=== PATIENT | female | born 1960 | race African-American/Black ===

== ENCOUNTER 2016-06-12 08:00 | Inpatient (IN) | payer OTHER ==
[2016-05-28 11:12] VITALS: BMI 44.6
[~2016-06-12 08:00] MED LIST: CLINDAMYCIN 900 MG in DEXTROSE 5% IN WATER 50 ML IVPB ONE; DEXAMETHASONE SOD PHOSPHATE 10 MG/ML 1 ML VIAL IV ONE; HEPARIN SODIUM,PORCINE 5,000 UNIT/ML 1 ML VIAL SQ ONE; LACTATED RINGERS 1,000 ML IV SCH; MIDAZOLAM 2 MG/2 ML VIAL IV PRN; ONDANSETRON 4 MG/2 ML VIAL IVP ONE; SCOPOLAMINE 1.5MG/72HR PATCH TRANSDERM ONE
[2016-06-12] MEDS ORDERED: LACTATED RINGERS 1,000 ML IV ONE ×3 (08:38→10:20)
[2016-06-12] MEDS ORDERED: LIDOCAINE 1% 20 ML VIAL (10MG/ML) FOR IV START INTRADERMA ONE (08:39)
--- NOTE | 2016-06-12 08:57 | P.GSHP ---
History of Present Illness H&P Date: 06/12/16 Chief Complaint: GERD This is a 55-year-old female referred from Dr. savage.The patient has had long- standing problems with reflux esophagitis. The patient underwent recent EGD is found have evidence of esophagitis. Patient has been well informed on the procedure of laparoscopic Estevan fundoplication. The patient is aware the risk of the conversion to the open procedure, risk of injury to the stomach, liver and spleen. The patient is also a risk of recurrent GERD and dysphagia symptoms. The patient understands there is a postoperative diet of full liquids for 2 weeks after surgery. - Constitutional Constitutional: Reports as per HPI Past Medical History Past Medical History: Asthma, COPD, GERD/Reflux, Hypertension, Osteoarthritis ( OA), Skin Disorder Additional Past Medical History / Comment(s): hypoglycemic, . Mixed collagen vascular disease, hiatal hernia, diverticulitis, pityriasis versicolor History of Any Multi-Drug Resistant Organisms: None Reported Past Surgical History: Breast Surgery, Section, Cholecystectomy, Tonsillectomy Additional Past Surgical History / Comment(s): L breast lumpectomy, polyps in throat removed, cyst in left eye removed, Past Anesthesia/Blood Transfusion Reactions: Motion Sickness Additional Past Anesthesia/Blood Transfusion Reaction / Comment(s): Pt states she has never received blood. Past Psychological History: No Psychological Hx Reported Additional Psychological History / Comment(s): . Smoking Status: Current some day smoker Past Alcohol Use History: None Reported Additional Past Alcohol Use History / Comment(s): Pt states she started smoking at about age 21 yrs. 3 cigarettes daily Past Drug Use History: None Reported - Past Family History Sister(s) Family Medical History: Cancer, Deep Vein Thrombosis (DVT) Mother Family Medical History: Cancer, Pulmonary Embolus Additional Family Medical History / Comment(s): heart attack, blood clot in lungs which she of at age 73yrs. Brother(s) Family Medical History: Myocardial Infarction ([place]) Additional Family Medical History / Comment(s): Brother had an [place] at age 3 yrs old. Father Additional Family Medical History / Comment(s): . Medications and Allergies Home Medications Medication Instructions Recorded Confirmed Type Albuterol Sulfate [Proair 1 puff PO DAILY 09/28/15 06/12/16 History Respiclick] Hydroxychloroquine Sulfate 200 mg PO BID 09/28/15 06/12/16 History [Plaquenil] Lisinopril [Zestril] 40 mg PO HS 09/28/15 06/12/16 History amLODIPine BESYLATE [Norvasc] 5 mg PO DAILY 09/28/15 06/12/16 History Albuterol Nebulized [Ventolin 2.5 mg INHALATION BID PRN 12/18/15 05/28/16 History Nebulized] Omeprazole 20 mg PO DAILY 12/18/15 06/12/16 History Gabapentin [Neurontin] 300 mg PO TID 05/20/16 06/12/16 History Montelukast [Singulair] 10 mg PO 1400 05/20/16 06/12/16 History Tobramycin 0.3% Ophth Oint [Tobrex 1 drop BOTH EYES TID PRN 05/20/16 06/12/16 History 0.3% Ophth Oint] Allergies Allergy/AdvReac Type Severity Reaction Status Date / Time Penicillins Allergy Severe Dyspnea,hives,throat Verified 05/28/16 10:57 swelling Surgical - Exam Vital Signs Temp Pulse Resp BP Pulse Ox 98.0 F 78 18 137/70 98 06/12/16 08:20 06/12/16 08:20 06/12/16 08:20 06/12/16 08:20 06/12/16 08:20 - General well developed, no distress - Eyes PERRL - ENT normal pinna - Neck no masses - Respiratory normal expansion - Cardiovascular Rhythm: regular - Abdomen Abdomen: soft, non tender Assessment and Plan Plan: GERD. We'll perform laparoscopic Estevan fundal plication.
[2016-06-12] MEDS ORDERED: fentaNYL (PF) 50 MCG/ML 2 ML AMP ONE (09:22)
[2016-06-12] MEDS ORDERED: LIDOCAINE 1% INJ 10MG/ML (20 ML MDV) ONE (09:22)
[2016-06-12] MEDS ORDERED: VECURONIUM 10 MG VIAL IV ONE (09:22)
[2016-06-12] MEDS ORDERED: KETOROLAC 30 MG/ML 1 ML VIAL ONE (09:22)
[2016-06-12] MEDS ORDERED: MIDAZOLAM 2 MG/2 ML VIAL ONE (09:22)
[2016-06-12] MEDS ORDERED: GLYCOPYRROLATE 0.2 MG/ML 2 ML VIAL ONE (09:22)
[2016-06-12] MEDS ORDERED: SUCCINYLCHOLINE CHLORIDE 100 MG/5 ML SYR IV ONE (09:22)
[2016-06-12] MEDS ORDERED: NEOSTIGMINE 1 MG/ML 10 ML VIAL ONE (09:22)
[2016-06-12] MEDS ORDERED: LACTATED RINGERS 1,000 ML BAG IV ONE (09:22)
[2016-06-12] MEDS ORDERED: DEXTROSE 5% IN WATER 50 ML BAG ONE (09:22)
[2016-06-12] MEDS ORDERED: CLINDAMYCIN 150 MG/ML 6 ML VIAL ONE (09:22)
[2016-06-12] MEDS ORDERED: PROPOFOL 10 MG/ML 20 ML VIAL IV ONE (09:22)
[2016-06-12] MEDS ORDERED: BUPIVACAIN-EPI 0.25%-1:200,000 30 ML VIAL SQ ONE (09:48)
[2016-06-12] MEDS ORDERED: NALOXONE 0.4 MG/ML 1 ML VIAL IV PRN (10:20)
--- NOTE | 2016-06-12 10:20 | P.OP ---
Date of Procedure: 06/12/16 Preoperative Diagnosis: GERD Postoperative Diagnosis: GERD Procedure(s) Performed: Laparoscopic Estevan fundal plication Anesthesia: PAPITO Surgeon: Tyrell Ramírez Pathology: none sent Condition: stable Disposition: PACU Description of Procedure: The was placed on the operating table in the supine position. The patient received general anesthesia. And was placed in dorsal lithotomy position. The patient was prepped and draped in the usual sterile fashion. The skin incision sites were anesthetized with 1% local Xylocaine. The skin was incised in the left periumbilical area and then using a blade less 5 mm trocar under direct visualization panel cavity was entered. After adequate insufflation the laparoscope was then placed into the peritoneal cavity. Next a 5 mm trochars placed in the right epigastric position. Another 5 millimeter trocar the right lateral position. Another 5 millimeter trocar in the left lateral position a 5 mm trocar is placed in the left epigastric position. And then the initial 5 mm trocar was exchanged for a 10 mm trocar. The left lateral lobe liver was retracted. The hernia was seen. The crural defect was then dissected using the Harmonic scissors device. A 360 crural dissection was performed the esophagus stomach was reduced back into the peritoneal Cavity. The crural defect was then closed using 2-0 Ethibond suture. Next the fundus of the stomach was mobilized using the Dahlgren scissors device. and then a 58-Ecuadorean bougie dilator was placed oropharynx passed into the esophagus and stomach the fundal plication wrap was then performed by grasping the fundus posteriorly and bringing it around the esophagus and stomach fundoplication was then performed using 2-0 Ethibond suture. Care was taken that the fundal location rested over top of the intra-abdominal esophagus. There was no injury seen to the stomach or esophagus. The dilator was then withdrawn. The abdomen was irrigated there is no bleeding seen. The trochars were then withdrawn and then skin incision sites were closed using 3-0 Monocryl suture Steri-Strips are applied. Patient thought procedure well and sent to recovery room in stable condition.
[2016-06-12] MEDS: HYDROmorphone 1 MG/ML 1 ML SYRINGE IVP PRN ×4 (10:29→20:44)
[2016-06-12] MEDS ORDERED: ONDANSETRON 4 MG/2 ML VIAL IVP ONE (10:40)
[2016-06-12] MEDS ORDERED: TOBRAMYCIN 0.3% OPHTH OINT 3.5 GM TUBE BOTH EYES PRN (13:17)
--- NOTE | 2016-06-12 13:24 | P.CONS ---
History of Present Illness - Reason for Consult Consult date: 06/12/16 Medical management Requesting physician: Tyrell Ramírez - Chief Complaint Status post Estevan fundoplication - History of Present Illness This is a 55-year-old -[place] female with a known past medical history of COPD, hypertension, autoimmune disorder, GERD and nicotine dependence. We are consulted for medical management. Patient underwent Estevan fundoplication today with Dr. Ramírez for GERD. Patient tolerated surgery well. Pain is controlled. She is currently eating a clear liquid diet. Denies any chest pain or shortness of breath. Denies any vomiting. Does admit to some nausea. She had been having regular bowel movements prior to surgery. Denies any difficulty urinating. Review of Systems Please refer to HPI otherwise remarkable Past Medical History Past Medical History: Asthma, COPD, GERD/Reflux, Hypertension, Osteoarthritis ( OA), Skin Disorder Additional Past Medical History / Comment(s): hypoglycemic, . Mixed collagen vascular disease, hiatal hernia, diverticulitis, pityriasis versicolor History of Any Multi-Drug Resistant Organisms: None Reported Past Surgical History: Breast Surgery, Section, Cholecystectomy, Tonsillectomy Additional Past Surgical History / Comment(s): L breast lumpectomy, polyps in throat removed, cyst in left eye removed, Past Anesthesia/Blood Transfusion Reactions: Motion Sickness Additional Past Anesthesia/Blood Transfusion Reaction / Comm: Pt states she has never received blood. Past Psychological History: No Psychological Hx Reported Additional Psychological History / Comment(s): . Smoking Status: Current some day smoker Past Alcohol Use History: None Reported Additional Past Alcohol Use History / Comment(s): Pt states she started smoking at about age 21 yrs. 3 cigarettes daily Past Drug Use History: None Reported - Past Family History Sister(s) Family Medical History: Cancer, Deep Vein Thrombosis (DVT) Mother Family Medical History: Cancer, Pulmonary Embolus Additional Family Medical History / Comment(s): heart attack, blood clot in lungs which she of at age 73yrs. Brother(s) Family Medical History: Myocardial Infarction ([place]) Additional Family Medical History / Comment(s): Brother had an [place] at age 3 yrs old. Father Additional Family Medical History / Comment(s): . Medications and Allergies Home Medications Medication Instructions Recorded Confirmed Type Albuterol Sulfate [Proair 1 puff PO RT-DAILY 09/28/15 06/12/16 History Respiclick] Hydroxychloroquine Sulfate 200 mg PO BID 09/28/15 06/12/16 History [Plaquenil] amLODIPine BESYLATE [Norvasc] 5 mg PO DAILY 09/28/15 06/12/16 History Albuterol Nebulized [Ventolin 2.5 mg INHALATION RT-BID PRN 12/18/15 06/12/16 History Nebulized] Omeprazole 20 mg PO DAILY 12/18/15 06/12/16 History Gabapentin [Neurontin] 300 mg PO TID 05/20/16 06/12/16 History Montelukast [Singulair] 10 mg PO DAILY@1400 05/20/16 06/12/16 History Tobramycin 0.3% Ophth Oint [Tobrex 1 drop BOTH EYES TID PRN 05/20/16 06/12/16 History 0.3% Ophth Oint] Lisinopril 40 mg PO HS 06/12/16 06/12/16 History Allergies Allergy/AdvReac Type Severity Reaction Status Date / Time Penicillins Allergy Severe Dyspnea,hives,throat Verified 05/28/16 10:57 swelling Physical Exam Vitals: Vital Signs Temp Pulse Resp BP Pulse Ox 06/12/16 12:10 16 06/12/16 10:52 72 16 127/79 97 06/12/16 10:47 74 16 127/79 99 06/12/16 10:34 68 16 152/99 100 06/12/16 10:19 89 20 148/78 99 06/12/16 08:20 98.0 F 78 18 137/70 98 Intake and Output 06/11/16 06/12/16 06/12/16 22:59 06:59 14:59 Intake Total 1356 Output Total 5 Balance 1351 Intake: IV 1356 Output: Estimated Blood Loss 5 Head normocephalic Neck supple Lungs clear to auscultation bilaterally no wheezing or crackles Heart regular rate and rhythm S1-S2, no rub or gallop Abdomen is soft incision is clean dry and intact Extremities no edema Neuro alert and orientated to 3 Assessment and Plan Plan: 1. GERD: Status post laparoscopic Estevan fundoplication. Currently on a clear liquid diet. Scheduled for esophagram later today 2. History of COPD: No evidence of exacerbation. We will change her nebulizers to scheduled twice a day 3. Essential hypertension resume blood pressure medications 4. Nicotine dependence. Discussed with patient smoking cessation. She is down to a couple cigarettes a day. We'll add nicotine patch 5. Autoimmune disorder on Plaquenil. Followed by Dr. Johnston outpatient DVT prophylaxis subcu heparin Check CBC and CMP Thank for this consultation. We will continue to follow along with you. Time with Patient: Greater than 30 (Greater than 50% of the total time spent in counseling and coordination of care.I performed an examination of the patient and discussed their management with the physician Steersman. I have reviewed the Physician Steersman's notes and agree with the documented findings and plan of care)
[2016-06-12] MEDS ORDERED: MONTELUKAST 10 MG TAB PO SCH (14:00)
[2016-06-12 14:33] LABS: Basophils % (A) 1 %; CH 30.3; CHCM 32.1; Eosinophils % (A) 1 %; HCT 43.4 % (34.0-46.0); HGB 13.8 gm/dL (11.4-16.0); Luc # (Auto) 0.03; Luc % (Auto) 0; Lymphocytes # (A) 0.6 k/uL (1.0-4.8); Lymphocytes % (A) 9 %; MCH 30.1 pg (25.0-35.0); MCHC 31.8 g/dL (31.0-37.0); MCV 94.6 fL (80.0-100.0); Mean Platelet Volume 7.7; Monocytes # (A) 0.1 k/uL (0-1.0); Monocytes % (A) 2 %; Neutrophils # (A) 6.5 k/uL (1.3-7.7); Neutrophils % (A) 88 %; RBC 4.59 m/uL (3.80-5.40); WBC 7.4 k/uL (3.8-10.6); WBC (Perox) 7.23
[2016-06-12 14:46] LABS: ALT 63 U/L (9-52); AST 41 U/L (14-36); Alkaline Phosphatase 118 U/L (38-126); Anion Gap 11 mmol/L; Blood Urea Nitrogen 13 mg/dL (7-17); Calcium 9.3 mg/dL (8.4-10.2); Carbon Dioxide 25 mmol/L (22-30); Chloride 107 mmol/L (98-107); Glucose 127 mg/dL (74-99); Non-African American GFR(MDRD) >60 (>60 ml/min/1.73 sqM); Potassium 4.3 mmol/L (3.5-5.1); Sodium 143 mmol/L (137-145); Total Bilirubin 0.5 mg/dL (0.2-1.3); Total Protein 6.8 g/dL (6.3-8.2)
--- NOTE | 2016-06-12 15:35 | FL ---
EXAMINATION TYPE: FL UGI w esophagus DATE OF EXAM: 06/12/2016 3:27 PM LIMITED UGI-ESOPHAGRAM: CLINICAL HISTORY: History of hiatal hernia and reflux-like symptoms status post Christian fundoplicatio n surgery earlier today. TECHNIQUE: Limited esophagram is performed utilizing 50 oz of Omnipaque 350. A total of 54 seconds o f fluoroscopic time was utilized during procedure. Comparison: CT abdomen October 09, 2015 FINDINGS: The patient swallowed contrast without difficulty or delay. Esophageal peristalsis and mo tility are within normal limits. There is mild delay in flow of contrast along the diaphragmatic hiat us into the stomach, there is no evidence of contrast extravasation to suggest leak. No persistent hi atal hernia is seen. No increased symptoms of pain or nausea during real-time performance of study is seen. There is pneumoperitoneum present presumed postsurgical lobe slightly more prominent than is t ypically identified. Cholecystectomy clips are incidentally noted. IMPRESSION: No evidence of leak or significant obstruction status post Christian fundoplication surgery earlier today.
[2016-06-12] MEDS: GABAPENTIN 300 MG CAP PO SCH ×2 (17:13→22:01)
[2016-06-12] MEDS: NICOTINE 7MG/24HR PATCH TRANSDERM SCH (17:14)
[2016-06-12] MEDS ORDERED: ALBUTEROL NEBULIZED 2.5 MG/3 ML INHALATION SCH (20:00)
[2016-06-12] MEDS: HYDROXYCHLOROQUINE SULFATE 200 MG TAB PO SCH (20:38)
[2016-06-12] MEDS: HEPARIN SODIUM,PORCINE 5,000 UNIT/ML 1 ML VIAL SQ SCH (20:39)
[2016-06-12] MEDS ORDERED: LISINOPRIL 20 MG TAB PO SCH (21:00)
[2016-06-12 22:33] VITALS: RESP 20
[2016-06-13] MEDS: HYDROmorphone 1 MG/ML 1 ML SYRINGE IVP PRN (02:25)
[2016-06-13 06:55] LABS: Basophils % (A) 0 %; CH 30.5; CHCM 32.5; Eosinophils # (A) 0.1 k/uL (0-0.7); Eosinophils % (A) 1 %; HGB 13.3 gm/dL (11.4-16.0); Luc % (Auto) 1; Lymphocytes # (A) 1.5 k/uL (1.0-4.8); Lymphocytes % (A) 19 %; MCH 29.7 pg (25.0-35.0); MCHC 31.6 g/dL (31.0-37.0); Mean Platelet Volume 7.6; Monocytes # (A) 0.4 k/uL (0-1.0); Monocytes % (A) 6 %; Neutrophils # (A) 5.6 k/uL (1.3-7.7); Neutrophils % (A) 73 %; RBC 4.47 m/uL (3.80-5.40); RDW 12.1 % (11.5-15.5); WBC 7.6 k/uL (3.8-10.6); WBC (Perox) 8.02
[2016-06-13 07:06] LABS: ALT 54 U/L (9-52); AST 28 U/L (14-36); Alkaline Phosphatase 104 U/L (38-126); Anion Gap 9 mmol/L; Blood Urea Nitrogen 12 mg/dL (7-17); Calcium 9.4 mg/dL (8.4-10.2); Carbon Dioxide 26 mmol/L (22-30); Chloride 106 mmol/L (98-107); Glucose 98 mg/dL (74-99); Non-African American GFR(MDRD) >60 (>60 ml/min/1.73 sqM); Potassium 4.1 mmol/L (3.5-5.1); Sodium 141 mmol/L (137-145); Total Bilirubin 0.5 mg/dL (0.2-1.3); Total Protein 6.1 g/dL (6.3-8.2)
[2016-06-13 07:16] VITALS: BP 118/89; PULSE 79; TEMP 98
[2016-06-13] MEDS: HYDROXYCHLOROQUINE SULFATE 200 MG TAB PO SCH (08:55)
[2016-06-13] MEDS: GABAPENTIN 300 MG CAP PO SCH (08:55)
[2016-06-13] MEDS: NICOTINE 7MG/24HR PATCH TRANSDERM SCH (08:56)
[2016-06-13] MEDS: HEPARIN SODIUM,PORCINE 5,000 UNIT/ML 1 ML VIAL SQ SCH (08:56)
[2016-06-13] MEDS ORDERED: amLODIPine 5 MG TAB PO SCH (09:00)
[2016-06-13] MEDS ORDERED: HYDROcodone/APAP 5-325MG 1 EACH TAB PO PRN (11:45)
--- NOTE | 2016-06-13 12:04 | P.DS ---
Providers Date of admission: 06/12/16 08:00 Expected date of discharge: 06/13/16 Attending physician: Tyrell Ramírez Consults: 06/12/16 10:20 Consult Physician Routine Consulting Provider: Nitin Noonan Consult Reason/Comments: Medical management Do you want consulting provider notified?: Yes Primary care physician: [facility] Course: Patient underwent elective laparoscopic Estevan fundoplication yesterday. She is doing quite well today. She has minimal discomfort. Her white blood cell count is normal. She is afebrile. She is tolerating her liquid diet. Her incisions are clean and dry. She is been discharged today with a liquid diet. She'll follow with Dr. Ramírez in 1 week. Plan - Discharge Summary Discharge Medication List Albuterol Sulfate [Proair Respiclick] 1 puff PO RT-DAILY 09/28/15 [History] Hydroxychloroquine Sulfate [Plaquenil] 200 mg PO BID 09/28/15 [History] amLODIPine BESYLATE [Norvasc] 5 mg PO DAILY 09/28/15 [History] Albuterol Nebulized [Ventolin Nebulized] 2.5 mg INHALATION RT-BID PRN 12/18/15 [ History] Omeprazole 20 mg PO DAILY 12/18/15 [History] Gabapentin [Neurontin] 300 mg PO TID 05/20/16 [History] Montelukast [Singulair] 10 mg PO DAILY@1400 05/20/16 [History] Tobramycin 0.3% Ophth Oint [Tobrex 0.3% Ophth Oint] 1 drop BOTH EYES TID PRN [History] Lisinopril 40 mg PO HS 06/12/16 [History] Follow up Appointment(s)/Referral(s): Tyrell Ramírez MD [STAFF PHYSICIAN] - 1 Week
--- NOTE | 2016-06-13 13:24 | P.PN ---
Subjective Patient is doing well today. She will be discharged home later on. Objective - Vital Signs Vital signs: Vital Signs Temp 98.0 F 06/13/16 07:10 Pulse 79 06/13/16 07:10 Resp 20 06/13/16 07:10 BP 118/89 06/13/16 07:10 Pulse Ox 96 06/13/16 07:10 Intake & Output 06/12/16 06/13/16 06/13/16 18:59 06:59 18:59 Intake Total 1416 360 Output Total 205 Balance 1211 360 Weight 117.934 kg Intake: IV 1356 Oral 60 360 Output: Urine 200 Estimated Blood Loss 5 Other: Voiding Method Toilet - Exam General: The patient is awake and alert, in no distress Eye: there is normal conjunctiva bilaterally. Neck: The neck is supple, there is no JVD. Cardiovascular: Normal S1-S2, no S3-S4, no murmurs. Respiratory: Lungs clear to auscultation bilaterally Gastrointestinal: Abdomen is soft, nontender Musculoskeletal: There is no pedal edema. Neurological:. Speech is normal. Skin: Skin is warm and dry - Labs CBC & Chem 7: 06/13/16 06:36 06/13/16 06:36 Labs: Abnormal Lab Results - Last 24 Hours (Table) 06/12/16 06/12/16 06/13/16 Range/Units 14:14 14:14 06:36 Lymphocytes # 0.6 L (1.0-4.8) k/uL Glucose 127 H (74-99) mg/dL AST 41 H (14-36) U/L ALT 63 H 54 H (9-52) U/L Total Protein 6.1 L (6.3-8.2) g/dL Assessment and Plan Plan: 1. GERD: Status post laparoscopic Estevan fundoplication. Cleared by surgery for discharge home 2. History of COPD: No evidence of exacerbation. We will change her nebulizers to scheduled twice a day 3. Essential hypertension resume blood pressure medications 4. Nicotine dependence. Discussed with patient smoking cessation. We'll add nicotine patch 5. Autoimmune disorder on Plaquenil. Followed by Dr. Johnston outpatient
== END 2016-06-13 12:56 | disposition home or self-care (01) | DRG 327 ==
LOC: 2ORWHC 08:00 → 6PED 10:13
PROVIDERS: ADMIT Surgery; ATTEND Surgery
PROC: 0DV44ZZ Restriction of Esophagogastric Junction, Percutaneous Endoscopic Approach (ICD-10-PCS; principal; 2016-06-12 09:05)
DX: K21.0 Gastro-esophageal reflux disease with esophagitis (principal); M35.1 Other overlap syndromes; J44.9 Chronic obstructive pulmonary disease, unspecified; I10 Essential (primary) hypertension; B36.0 Pityriasis versicolor; J45.909 Unspecified asthma, uncomplicated; K44.9 Diaphragmatic hernia without obstruction or gangrene; M19.90 Unspecified osteoarthritis, unspecified site; R11.0 Nausea; F17.210 Nicotine dependence, cigarettes, uncomplicated; Z82.49 Family history of ischemic heart disease and other diseases of the circulatory system; Z88.0 Allergy status to penicillin; Z87.19 Personal history of other diseases of the digestive system; Z86.39 Personal history of other endocrine, nutritional and metabolic disease; Z86.69 Personal history of other diseases of the nervous system and sense organs; Z79.899 Other long term (current) drug therapy; Z80.9 Family history of malignant neoplasm, unspecified; Z83.2 Family history of diseases of the blood and blood-forming organs and certain disorders involving the immune mechanism; Z90.49 Acquired absence of other specified parts of digestive tract; Z71.6 Tobacco abuse counseling
CPT/HCPCS: 74240; 80053; 85025

== ENCOUNTER → 2016-12-14 | Outpatient (CLI) | payer OTHER ==
[2016-12-14 12:35] LABS: EKG EKG PERFORMED
[2016-12-14 13:00] LABS: Partial Thromboplastin Time 24.2 sec (22.0-30.0)
[2016-12-14 13:03] LABS: INR 1.1 (<1.1); Prothrombin Time 11.3 sec (9.0-12.0)
[2016-12-14 13:05] LABS: CH 29.8; HCT 42.6 % (34.0-46.0); HDW 2.08; MCH 29.8 pg (25.0-35.0); MCHC 32.9 g/dL (31.0-37.0); MCV 90.7 fL (80.0-100.0); Mean Platelet Volume 7.2; RBC 4.69 m/uL (3.80-5.40); RDW 12.8 % (11.5-15.5); WBC 5.1 k/uL (3.8-10.6)
[2016-12-14 13:08] LABS: ALT 34 U/L (9-52); AST 17 U/L (14-36); Alkaline Phosphatase 102 U/L (38-126); Anion Gap 10 mmol/L; Blood Urea Nitrogen 9 mg/dL (7-17); Calcium 9.1 mg/dL (8.4-10.2); Carbon Dioxide 24 mmol/L (22-30); Chloride 110 mmol/L (98-107); Glucose 69 mg/dL (74-99); Non-African American GFR(MDRD) >60 (>60 ml/min/1.73 sqM); Potassium 3.9 mmol/L (3.5-5.1); Sodium 144 mmol/L (137-145); Total Bilirubin 0.4 mg/dL (0.2-1.3); Total Protein 6.3 g/dL (6.3-8.2)
[2016-12-14 13:18] LABS: Appearance,Urine Clear (Clear); Bilirubin,Urine Negative (Negative); Glucose,Urine (UA) Negative (Negative); Ketones,Urine Negative (Negative); Leukocyte Esterase,Urine Negative (Negative); Nitrite,Urine Negative (Negative); Protein,Urine Trace (Negative); Specific Gravity,Urine 1.015 (1.001-1.035); UA Billing (MACRO vs. MICRO) CHEM; Urobilinogen,Urine <2.0 mg/dL (<2.0)
== END | disposition home or self-care (01) ==
LOC: LABWHC1 11:33
PROVIDERS: ATTEND Orthopaedic Surgery
DX: Z01.812 Encounter for preprocedural laboratory examination (principal)
CPT/HCPCS: 80053; 81003; 85027; 85610; 85730; 87070; 93005

== ENCOUNTER 2016-12-25 10:51 | Inpatient (IN) | payer OTHER ==
[2016-12-18 09:01] VITALS: BMI 43.0
[~2016-12-25 10:51] MED LIST changes: +ACETAMINOPHEN TAB 500 MG TAB PO ONE; -HEPARIN SODIUM,PORCINE 5,000 UNIT/ML 1 ML VIAL SQ ONE; +HYDROmorphone 1 MG/ML 1 ML SYRINGE IVP PRN; -LACTATED RINGERS 1,000 ML IV SCH; +MELOXICAM 7.5 MG TAB PO ONE; -SCOPOLAMINE 1.5MG/72HR PATCH TRANSDERM ONE; +TRANEXAMIC ACID 1,000 MG in SODIUM CHLORIDE 0.9% 100 ML IVPB ONE
[2016-12-25] MEDS: LACTATED RINGERS 1,000 ML IV SCH (11:15)
[2016-12-25] MEDS ORDERED: LIDOCAINE 1% 20 ML VIAL (10MG/ML) FOR IV START INTRADERMA ONE (11:25)
[2016-12-25] MEDS ORDERED: MIDAZOLAM 2 MG/2 ML VIAL IV ONE (11:55)
[2016-12-25] MEDS ORDERED: fentaNYL (PF) 50 MCG/ML 2 ML AMP IV ONE (11:55)
[2016-12-25] MEDS ORDERED: ROPIVACAINE 1,100 MG, SODIUM CHLORIDE 0.9% 330 ML MISCELLANE PRN ×2 (12:37)
--- NOTE | 2016-12-25 12:40 | P.ONQ ---
Anesthesiology Proc Note - PNB - Peripheral Nerve Block Performed Left Adductor Canal Infusion Time Out Performed: Yes Procedure Start Time: 11:50 Procedure Stop Time: 12:05 Indication: Acute Post-Operative Pain, Requested by physician Specifically requested for management of pain by DrMichael: Vince Duke Sedation Type: Sedate with meaningful contact maintained Preparation: Sterile Dressing Position: Supine Catheter Depth at Skin (cm): 8 Catheter: Indwelling Needle Types: Other (see comment) (PAJUNK) Needle Size: 100mm (4") Needle Gauge: 18 Technique: Ultrasound Injectate: 0.5% Ropivacaine (see comment for volume) Blood Aspirated: No Pain Paresthesia on Injection Noted: No Resistance on Injection: Normal Events: Uneventful and Well Tolerated
[2016-12-25 13:07] LABS: Glucose,Whole Blood 83 mg/dL (75-99)
[2016-12-25] MEDS ORDERED: TRANEXAMIC ACID 1,000 MG/10 ML VIAL ONE (13:08)
[2016-12-25] MEDS ORDERED: PROPOFOL 10 MG/ML 20 ML VIAL IV ONE (13:08)
[2016-12-25] MEDS ORDERED: fentaNYL (PF) 50 MCG/ML 2 ML AMP ONE (13:08)
[2016-12-25] MEDS ORDERED: SODIUM CHLORIDE 0.9% 100 ML BAG ONE (13:08)
[2016-12-25] MEDS ORDERED: MAGNESIUM HYDROXIDE 2,400 MG/10 ML CUP PO PRN (13:37)
[2016-12-25] MEDS ORDERED: ONDANSETRON 4 MG/2 ML VIAL IVP PRN (13:37)
[2016-12-25] MEDS ORDERED: hydrOXYzine PAMOATE 25 MG CAP PO PRN (13:37)
[2016-12-25] MEDS ORDERED: HYDROmorphone 1 MG/ML 1 ML SYRINGE IVP PRN ×3 (13:37)
[2016-12-25] MEDS ORDERED: NA PHOS,M-B/NA PHOS,DI-BA 133 ML ENEMA RECTAL PRN (13:37)
[2016-12-25] MEDS ORDERED: BISACODYL 10 MG SUPP RECTAL PRN (13:37)
[2016-12-25] MEDS ORDERED: NALOXONE 0.4 MG/ML 1 ML VIAL IV PRN (13:37)
[2016-12-25] MEDS ORDERED: DIAZEPAM 5 MG TAB PO PRN ×2 (13:37)
[2016-12-25] MEDS ORDERED: HYDROcodone/APAP 5-325MG 1 EACH TAB PO PRN (13:37)
[2016-12-25] MEDS: ROPIVACAINE 246.25 MG, EPINEPHrine 0.5 MG, KETOROLAC 30 MG, cloNIDine HCL/PF 80 MCG, WA... MISCELLANE ONE ×10 (14:00→14:34)
[2016-12-25] MEDS ORDERED: LACTATED RINGERS 1,000 ML IV ONE (15:05)
--- NOTE | 2016-12-25 15:46 | XR ---
EXAMINATION TYPE: XR knee limited LT DATE OF EXAM: 12/25/2016 COMPARISON: NONE TECHNIQUE: Two views submitted HISTORY: Post op FINDINGS: There is a prosthetic knee in near anatomic alignment. There is soft tissue edema and emphysema. IMPRESSION: 1. Postoperative change. Appears in near-anatomic alignment
[2016-12-25 16:02] VITALS: RESP 16
--- NOTE | 2016-12-25 16:23 | P.OP ---
Date of Procedure: 12/25/16 Preoperative Diagnosis: Severe Osteoarthritis left knee Postoperative Diagnosis: Severe Osteoarthritis left knee Procedure(s) Performed: Left total knee arthroplasty Implants: [employer] Oxinium femoral component size 5, left [employer] Vivi II left nonporous tibial baseplate size 4 [employer] size 13 mm Legion XLPE dished articular insert, size 3-4 [employer] Vivi II resurfacing patellar component, 32 mm All components were cemented using Rocky bone cement.. The articulation is ceramic on polyethylene. Anesthesia: spinal Surgeon: Vince Duke [employer]ulture Farm Manager #1: Gissel Proctor Estimated Blood Loss (ml): 50 Pathology: other (Bone and cartilage) Condition: stable Disposition: PACU Indications for Procedure: After failure of conservative treatment we discussed the surgical and nonsurgical treatment options at length. Patient wishes to proceed with a total knee arthroplasty. Complications specific to this procedure were discussed at length, including but not limited to infection, bleeding, stiffness , and nerve injury. Patient is aware of all these complications and informed consent was obtained Operative Findings: The operative findings are consistent with severe osteoarthritis of the left knee. Description of Procedure: Patient was seen in the preoperative area consent was reviewed and operative site was marked with a skin marker. An adductor canal pain catheter was placed by anesthesia in the preoperative area. Patient was then brought to the operating room and given preoperative antibiotics intravenously. A spinal anesthetic was administered by the anesthesia department. A tourniquet was placed on the upper thigh and the lower extremity was prepped and draped in usual sterile fashion. A gram of transexamic acid was given. A universal timeout was then performed which confirmed the patient's name, surgical site, ALLERGIES, and consent. The lower extremity was then exsanguinated and tourniquet was inflated to 250 mmHg. A standard and anterior midline approach to the knee was performed. The skin and subcutaneous tissue was dissected down to the patellar tendon. A medial parapatellar arthrotomy was then performed. The knee was then extended, the patellar was everted, and the knee was again flexed. Anterior horns of both menisci were excised, and a release was performed to the posterior medial aspect of the knee. On gross visual inspection, there was complete loss of articular cartilage in the medial and patellofemoral joint spaces. There was also significant cartilage damage in the lateral compartment. There were multiple periarticular osteophytes which were then removed with a Ronguer. The femoral canal was then opened with the appropriate drill, and the intramedullary femoral cutting guide was then placed and set for 4 of valgus. The distal femoral cutting block was then pinned in place, and the distal femur was then cut. The cutting block was then removed and the cut was checked for flatness. Next, the sizing guide was then placed and set for 3 external rotation based off of the epicondylar axis and Whitesides line. After the femur was sized, the appropriate 4-in-1 cutting block was then pinned in place. The anterior condyles were cut without notching. The posterior and chamfer cuts were performed while protecting the collateral ligaments. The cutting block was then removed, and the femoral canal was plugged with autologous bone. Attention was then directed to the tibia. The remaining ACL was removed with a Ronguer, and the tibia was then gently subluxed forward with a large bent knee retractor. Any remaining menisci was excised. The posterior lateral corner was cauterized in order to cauterize the lateral geniculate artery. The extra medullary tibial cutting guide was then placed, set for the appropriate rotation , slope, and depth of resection. The proximal tibia cutting guide was then pinned in place. Proximal tibia was then cut and sized. Next trials were then placed with the appropriate-sized insert. The knee was able to fully extend and flex to 130 and was stable throughout all range of motion. The knee was then extended, patella everted. Patella was then measured, and then using an osteotomy guide, the patella was cut at the appropriate level. The patella was then measured and drilled and the patella trial was then placed. The knee was then taken through range of motion with the patella trial and the patella tracked normally. The knee was then extended patella trial was then removed and the patella was everted. Knee was then flexed and lug holes were drilled through the femoral trial and the femoral trial was then removed. The tibial was then exposed, and the tibial broach guide was then pinned in place after it was set for the appropriate rotation to allow for the most coverage without overhang. The tibia was then reamed and broached. The cut surfaces of bone were then irrigated with pulsatile lavage. The posterior structures were injected with the ropivacaine solution. The knee was also irrigated with Irrisept solution. The components were then opened, the cement was mixed, and the components were then cemented in place. The cement was allowed to harden with the knee in full extension. While the cement was hardening, the remaining soft tissues were then injected with a ropivacaine solution, which consisted of 246.25 mg of ropivacaine, 0.5 mg of epinephrine, 30 mg of Toradol, 80 g of clonidine, and 48.45 mL of sterile water, for a total of 100 mL of fluid injected. After the cemented hardened. The tourniquet was released, and hemostasis was obtained. A second gram of transexamic acid was given. The knee was again irrigated. The knee was again taken through range of motion and found to be stable throughout all range of motion of 0-130 , and the patella tracked normally. The fascia was then closed with #2 strata fix suture. The subcutaneous tissue was closed with 3-0 Vicryl and 3-0 strata fix. Dermabond tape was used for the skin and placed with the knee in flexion. The patient was placed in a sterile dressing. Patient was then transferred to recovery room in stable condition. The marketing communications assistant CATHY Valentino was required due the complexity surgery and the need for a skilled certified surgical technician. She assisted in positioning, draping, retraction, and closure of the wound.
[2016-12-25] MEDS: SODIUM CHLORIDE 0.9% 1,000 ML IV SCH (17:23)
[2016-12-25] MEDS: CLINDAMYCIN 900 MG in DEXTROSE 5% IN WATER 50 ML IVPB SCH ×4 (18:09→23:44)
[2016-12-25] MEDS ORDERED: ALBUTEROL NEBULIZED 2.5 MG/3 ML INHALATION PRN (19:36)
[2016-12-25] MEDS: HYDROXYCHLOROQUINE SULFATE 200 MG TAB PO SCH (20:17)
[2016-12-25] MEDS: ASPIRIN 325 MG TAB PO SCH (20:17)
[2016-12-25] MEDS: GABAPENTIN 400 MG CAP PO SCH (20:18)
[2016-12-25] MEDS ORDERED: LISINOPRIL 20 MG TAB PO SCH (21:00)
[2016-12-25] MEDS ORDERED: SENNOSIDES-DOCUSATE SODIUM 1 EACH TAB PO SCH (21:00)
[2016-12-25] MEDS ORDERED: MONTELUKAST 10 MG TAB PO SCH (21:00)
[2016-12-25] MEDS: SYMBICORT 80-4.5 MCG INHALER INHALATION SCH (22:03)
[2016-12-26] MEDS: LACTATED RINGERS 1,000 ML IV SCH (00:26)
[2016-12-26] MEDS: HYDROcodone/APAP 5-325MG 1 EACH TAB PO PRN ×3 (03:07→13:15)
[2016-12-26] MEDS: SODIUM CHLORIDE 0.9% 1,000 ML IV SCH (04:14)
[2016-12-26 07:12] LABS: Basophils % (A) 0 %; CH 29.9; CHCM 32.4; Eosinophils # (A) 0.1 k/uL (0-0.7); Eosinophils % (A) 1 %; HCT 37.8 % (34.0-46.0); HDW 2.05; HGB 12.4 gm/dL (11.4-16.0); Luc # (Auto) 0.12; Luc % (Auto) 1; Lymphocytes # (A) 1.6 k/uL (1.0-4.8); Lymphocytes % (A) 14 %; MCH 30.3 pg (25.0-35.0); MCHC 32.7 g/dL (31.0-37.0); MCV 92.6 fL (80.0-100.0); Mean Platelet Volume 8.2; Monocytes # (A) 0.8 k/uL (0-1.0); Monocytes % (A) 7 %; Neutrophils % (A) 78 %; RBC 4.08 m/uL (3.80-5.40); RDW 13.3 % (11.5-15.5); WBC 11.5 k/uL (3.8-10.6); WBC (Perox) 11.68
[2016-12-26 07:49] VITALS: PULSE 70; TEMP 96.8
[2016-12-26] MEDS ORDERED: MELOXICAM 7.5 MG TAB PO SCH (09:00)
[2016-12-26] MEDS ORDERED: amLODIPine 5 MG TAB PO SCH (09:00)
[2016-12-26] MEDS: SYMBICORT 80-4.5 MCG INHALER INHALATION SCH (09:03)
[2016-12-26 10:17] VITALS: BP 109/64
[2016-12-26] MEDS: HYDROXYCHLOROQUINE SULFATE 200 MG TAB PO SCH (10:19)
[2016-12-26] MEDS: GABAPENTIN 400 MG CAP PO SCH (10:19)
[2016-12-26] MEDS: ASPIRIN 325 MG TAB PO SCH (10:19)
--- NOTE | 2016-12-26 11:11 | P.CONS ---
History of Present Illness - Reason for Consult Consult date: 12/26/16 Medical management - Chief Complaint Left knee osteoarthritis - History of Present Illness This is a 56-year-old female with past medical history noted below significant for severe osteoarthritis of the left knee who failed outpatient conservative management. Patient was admitted to the hospital for elective total left knee arthroplasty. She is postoperative day #1. She tolerated the procedure well. She is up in the chair today. She does not have any specific concerns or complaints. I was asked to see her for medical management. Review of Systems Review of system: 14 points review of systems were obtained and were negative except to what were mentioned in the HPI. Past Medical History Past Medical History: Asthma, COPD, Hypertension, Osteoarthritis (OA), Skin Disorder Additional Past Medical History / Comment(s): hypoglycemic, . Mixed collagen vascular disease, hiatal hernia, diverticulitis, pityriasis versicolor, BLE NEUROPATHY History of Any Multi-Drug Resistant Organisms: None Reported Past Surgical History: Breast Surgery, Section, Cholecystectomy, Tonsillectomy Additional Past Surgical History / Comment(s): L breast lumpectomy, polyps in throat removed, cyst in left eye removed, 1-6-17LAP JESUS FUNDALPLICATION. COLONOSCOPY, EGD Past Anesthesia/Blood Transfusion Reactions: Motion Sickness Additional Past Anesthesia/Blood Transfusion Reaction / Comm: Pt states she has never received blood. Past Psychological History: No Psychological Hx Reported Additional Psychological History / Comment(s): . Smoking Status: Current every day smoker Past Alcohol Use History: None Reported Additional Past Alcohol Use History / Comment(s): HAS SMOKED SINCE AGE 21-DOWN TO 3 CIGARETTES DAILY-TRYING TO QUIT Past Drug Use History: None Reported - Past Family History Sister(s) Family Medical History: Cancer, Deep Vein Thrombosis (DVT) Additional Family Medical History / Comment(s): 2 SISTERS HAD CANCER Mother Family Medical History: Cancer, Coronary Artery Disease (CAD), Diabetes Mellitus , Deep Vein Thrombosis (DVT), Pulmonary Embolus Additional Family Medical History / Comment(s): heart attack, blood clot in lungs which she of at age 73yrs. Brother(s) Family Medical History: Myocardial Infarction ([place]) Additional Family Medical History / Comment(s): Brother had an [place] at age 3 yrs old. Father Additional Family Medical History / Comment(s): . Medications and Allergies Home Medications Medication Instructions Recorded Confirmed Type Hydroxychloroquine Sulfate 200 mg PO BID 09/28/15 12/25/16 History [Plaquenil] amLODIPine BESYLATE [Norvasc] 5 mg PO DAILY 09/28/15 12/25/16 History Albuterol Nebulized [Ventolin 2.5 mg INHALATION RT-BID PRN 12/18/15 12/25/16 History Nebulized] Montelukast [Singulair] 10 mg PO HS 05/20/16 12/25/16 History Lisinopril 40 mg PO HS 06/12/16 12/25/16 History Fluticasone/Salmeterol [Advair 1 puff INHALATION RT-BID 12/18/16 12/25/16 History 100-50 Diskus] Gabapentin [Neurontin] 400 mg PO TID 12/18/16 12/25/16 History Allergies Allergy/AdvReac Type Severity Reaction Status Date / Time Penicillins Allergy Severe Dyspnea,hives,throat Verified 12/25/16 11:04 swelling Physical Exam Vitals: Vital Signs Temp Pulse Resp BP Pulse Ox 12/26/16 10:17 109/64 12/26/16 07:00 96.8 F L 70 16 122/81 100 12/26/16 02:34 98 F 78 16 113/66 93 L 12/25/16 20:21 69 111/62 12/25/16 19:00 16 12/25/16 18:45 70 16 123/72 12/25/16 18:30 78 16 120/58 12/25/16 18:15 83 16 123/71 12/25/16 18:00 85 16 103/79 12/25/16 17:45 82 16 121/73 12/25/16 17:30 81 16 118/73 12/25/16 17:15 79 16 119/69 12/25/16 17:00 75 16 116/70 12/25/16 16:45 97.2 F L 74 16 105/56 12/25/16 16:10 73 16 98/67 97 12/25/16 15:50 69 16 96/53 95 12/25/16 15:34 72 16 96/47 92 L 12/25/16 15:19 96.8 F L 76 20 89/59 96 12/25/16 12:42 98.3 F 73 16 113/59 97 Intake and Output 12/25/16 12/26/16 12/26/16 22:59 06:59 14:59 Intake Total 1040 50 Balance 1040 50 Intake: IV 800 50 Clindamycin 900 mg In 50 Dextrose 5% in Water 50 ml @ 100 mls/hr IVPB Q8HR [facility] Rx#:[id number] Oral 240 Other: Voiding Method Toilet # Voids 1 1 Weight 106.594 kg General: The patient is awake and alert, in no distress Eye: there is normal conjunctiva bilaterally. Neck: The neck is supple, there is no JVD. Cardiovascular: Normal S1-S2, no S3-S4, no murmurs. Respiratory: Lungs clear to auscultation bilaterally Gastrointestinal: Abdomen is soft, nontender Musculoskeletal: There is no pedal edema. Neurological:. Speech is normal. Skin: Skin is warm and dry Results CBC & Chem 7: 12/26/16 06:32 Labs: Abnormal Lab Results - Last 24 Hours (Table) 12/26/16 Range/Units 06:32 WBC 11.5 H (3.8-10.6) k/uL Neutrophils # 9.0 H (1.3-7.7) k/uL Assessment and Plan Plan: 1. Severe osteoarthritis of the left knee status post total left knee arthroplasty 2. DVT prophylaxis with full dose aspirin twice daily per orthopedic protocol 3. Underlying mixed connective tissue disease on plaque when it. Follow-up with rheumatology as directed 4. Essential hypertension: Blood pressure well controlled 5. Physical debility: Continue physical therapy as tolerated Today, I reviewed her medication list and lab work results. Thank you very much for the consultation. Patient may resume her regular home medication upon discharge. No change from my standpoint.
--- NOTE | 2016-12-26 11:13 | P.DS ---
Providers Date of admission: 12/25/16 10:51 Expected date of discharge: 12/26/16 Attending physician: Vince Duke Consults: 12/25/16 13:37 Consult Physician Routine Consulting Provider: Lui Alvarado Consult Reason/Comments: medical management Do you want consulting provider notified?: Yes Primary care physician: Kamilla [facility] Hospital Course: Patient was admitted to the OR on 12/25/2016 to undergo left total knee arthroplasty. She had failed conservative measures as an outpatient and desired to proceed with elective surgery after given informed consent. She underwent the above procedure which she tolerated well without complication. Postoperative hospital course has remained without complication. On day of discharge she is afebrile, vital signs stable, labs within acceptable ranges, tolerating by mouth meds and diet, voiding without difficulty, positive flatus, denies abdominal pain or calf pain, and pain controlled on oral pain medication and has no new complaints. Review of systems is negative for fever, chills, chest pain, shortness breath, nausea, vomiting, dizziness, headaches, slurred speech or other. Procedures: Left total knee arthroplasty Patient Condition at Discharge: Good Plan - Discharge Summary New Discharge Prescriptions: New Aspirin 325 mg PO BID #60 tab Docusate [Colace] 100 mg PO BID #60 capsule HYDROcodone/APAP 7.5-325MG [[place] 7.5-325] 1 - 2 each PO Q6HR PRN #90 tab PRN Reason: Pain No Action amLODIPine BESYLATE [Norvasc] 5 mg PO DAILY Hydroxychloroquine Sulfate [Plaquenil] 200 mg PO BID Albuterol Nebulized [Ventolin Nebulized] 2.5 mg INHALATION RT-BID PRN PRN Reason: Shortness Of Breath Montelukast [Singulair] 10 mg PO HS Lisinopril 40 mg PO HS Gabapentin [Neurontin] 400 mg PO TID Fluticasone/Salmeterol [Advair 100-50 Diskus] 1 puff INHALATION RT-BID Discharge Medication List Hydroxychloroquine Sulfate [Plaquenil] 200 mg PO BID 09/28/15 [History] amLODIPine BESYLATE [Norvasc] 5 mg PO DAILY 09/28/15 [History] Albuterol Nebulized [Ventolin Nebulized] 2.5 mg INHALATION RT-BID PRN 12/18/15 [ History] Montelukast [Singulair] 10 mg PO HS 05/20/16 [History] Lisinopril 40 mg PO HS 06/12/16 [History] Fluticasone/Salmeterol [Advair 100-50 Diskus] 1 puff INHALATION RT-BID 12/18/16 [History] Gabapentin [Neurontin] 400 mg PO TID 12/18/16 [History] Aspirin 325 mg PO BID #60 tab 12/26/16 [Rx] Docusate [Colace] 100 mg PO BID #60 capsule 12/26/16 [Rx] HYDROcodone/APAP 7.5-325MG [[place] 7.5-325] 1 - 2 each PO Q6HR PRN #90 tab [Rx] Follow up Appointment(s)/Referral(s): Vince Duke DO [Doctor of Osteopathic Medicine] - 10 Days Ambulatory/Diagnostic Orders: Continuous Passive Motion (CPM) Machine [DME.AMB1] Location: Determined By Patient Activity/Diet/Wound Care/Special Instructions: Keep wound clean and dry Weight-bear as tolerated Take meds as directed Follow-up with Dr. Clarke in office, [phone] May shower in 72 hours Discharge Disposition: HOME WITH HOME HEALTH SERVICES
== END 2016-12-26 13:54 | disposition home health service (06) | DRG 470 ==
LOC: 2ORMAIN 10:51 → 3SUR 15:23
PROVIDERS: ADMIT Orthopaedic Surgery; ATTEND Orthopaedic Surgery
PROC: 0SRD0J9 Replacement of Left Knee Joint with Synthetic Substitute, Cemented, Open Approach (ICD-10-PCS; principal; 2016-12-25 12:30)
DX: M17.12 Unilateral primary osteoarthritis, left knee (principal); I10 Essential (primary) hypertension; J44.9 Chronic obstructive pulmonary disease, unspecified; Z79.899 Other long term (current) drug therapy; Z82.49 Family history of ischemic heart disease and other diseases of the circulatory system; Z83.3 Family history of diabetes mellitus; K21.9 Gastro-esophageal reflux disease without esophagitis; Z88.0 Allergy status to penicillin; Z72.0 Tobacco use
CPT/HCPCS: 85025; 88300; 94640

== ENCOUNTER 2017-04-02 03:48 | Inpatient (IN) | payer OTHER ==
[2017-04-02] MEDS ORDERED: ALBUTEROL NEBULIZED 2.5 MG/3 ML INHALATION STA ×3 (04:14→06:52)
[2017-04-02] MEDS ORDERED: IPRATROPIUM-ALBUTEROL 3 ML NEB INHALATION STA (04:14)
[2017-04-02] MEDS ORDERED: predniSONE 20 MG TAB PO STA (04:15)
--- NOTE | 2017-04-02 04:19 | ED ---
URI HPI - General Chief Complaint: Upper Respiratory Infection Stated Complaint: ARTURO,Cough Time Seen by Provider: 04/02/17 04:06 Source: patient Mode of arrival: wheelchair Limitations: no limitations - History of Present Illness Initial Comments: this patient is 56-year-old woman with history of asthma, she is here to be evaluated for cough, wheezing, and shortness of breath with exertion. Patient states that her symptoms started about 2 weeks ago, mainly with cough and some congestion. She states that she was seen in the clinic and was given a course of azithromycin which she finished, but states that it has not helped much. She states that she continues to have a cough, which is nonproductive. She has noted wheezing and has used her albuterol without much improvement. She states that she does feel that she gets short of breath if she walks any distance now. Patient denies fever or chills. She is not having chest pain or pleuritic component. patient denies hemoptysis or sputum production. she has not had a change in urination or bowel movements. She has not had swelling or legs. MD Complaint: cough Onset/Timin -: week(s) Consistency: constant Improves With: nothing Worsens With: activity Associated Symptoms: cough, shortness of breath Treatments Prior to Arrival: other (albuterol) - Related Data Home Medications Medication Instructions Recorded Confirmed Hydroxychloroquine Sulfate 200 mg PO BID 09/28/15 12/25/16 [Plaquenil] amLODIPine BESYLATE [Norvasc] 5 mg PO DAILY 09/28/15 12/25/16 Albuterol Nebulized [Ventolin 2.5 mg INHALATION RT-BID PRN 12/18/15 12/25/16 Nebulized] Montelukast [Singulair] 10 mg PO HS 05/20/16 12/25/16 Lisinopril 40 mg PO HS 06/12/16 12/25/16 Fluticasone/Salmeterol [Advair 1 puff INHALATION RT-BID 12/18/16 12/25/16 100-50 Diskus] Gabapentin [Neurontin] 400 mg PO TID 12/18/16 12/25/16 Previous Rx's Medication Instructions Recorded Aspirin 325 mg PO BID #60 tab 12/26/16 Docusate [Colace] 100 mg PO BID #60 capsule 12/26/16 HYDROcodone/APAP 7.5-325MG [[place] 1 - 2 each PO Q6HR PRN #90 tab 12/26/16 7.5-325] Albuterol Inhaler [Ventolin Hfa 1 - 2 puff INHALATION Q6HR PRN #1 04/02/17 Inhaler] inhaler Sulfamethox-Tmp 800-160Mg [Bactrim 1 each PO Q12HR #14 tab 04/02/17 Ds] guaiFENesin-Coden 100-10MG/5ML 10 ml PO Q6HR PRN #250 ml 04/02/17 [Robitussin AC] predniSONE 60 mg PO DAILY #30 tab 04/02/17 Allergies Allergy/AdvReac Type Severity Reaction Status Date / Time Penicillins Allergy Severe Dyspnea,hives,throat Verified 12/25/16 11:04 swelling Review of Systems ROS Statement: Those systems with pertinent positive or pertinent negative responses have been documented in the HPI. ROS Other: All systems not noted in ROS Statement are negative. Constitutional: Denies: fever, chills, weakness Respiratory: Reports: cough, dyspnea, wheezes. Denies: hemoptysis Cardiovascular: Reports: dyspnea on exertion. Denies: chest pain, palpitations , edema, syncope Gastrointestinal: Denies: abdominal pain, vomiting, melena, hematochezia Genitourinary: Denies: dysuria Musculoskeletal: Denies: back pain Skin: Denies: rash Neurological: Denies: headache Past Medical History Past Medical History: Asthma, COPD, GERD/Reflux, Hypertension, Osteoarthritis ( OA), Skin Disorder Additional Past Medical History / Comment(s): hypoglycemic, . Mixed collagen vascular disease, hiatal hernia, diverticulitis, pityriasis versicolor, STYE IN EYES -RECENT ABX USE History of Any Multi-Drug Resistant Organisms: None Reported Past Surgical History: Breast Surgery, Section, Cholecystectomy, Tonsillectomy Additional Past Surgical History / Comment(s): L breast lumpectomy, polyps in throat removed, cyst in left eye removed, 1-6-17LAP JESUS FUNDALPLICATION. Past Anesthesia/Blood Transfusion Reactions: Motion Sickness Additional Past Anesthesia/Blood Transfusion Reaction / Comment(s): Pt states she has never received blood. Past Psychological History: No Psychological Hx Reported Smoking Status: Current some day smoker Past Alcohol Use History: None Reported Past Drug Use History: None Reported - Past Family History Sister(s) Family Medical History: Cancer, Deep Vein Thrombosis (DVT) Additional Family Medical History / Comment(s): 2 SISTERS HAD CANCER Mother Family Medical History: Cancer, Coronary Artery Disease (CAD), Diabetes Mellitus , Deep Vein Thrombosis (DVT), Pulmonary Embolus Additional Family Medical History / Comment(s): heart attack, blood clot in lungs which she of at age 73yrs. Brother(s) Family Medical History: Myocardial Infarction ([place]) Additional Family Medical History / Comment(s): Brother had an [place] at age 3 yrs old. Father Additional Family Medical History / Comment(s): . General Exam Limitations: no limitations General appearance: alert, in no apparent distress, obese Head exam: Present: atraumatic, normocephalic Eye exam: Present: normal appearance. Absent: scleral icterus, conjunctival injection ENT exam: Present: normal oropharynx Respiratory exam: Present: wheezes. Absent: respiratory distress, rales, rhonchi, stridor, accessory muscle use, decreased breath sounds, prolonged expiratory Cardiovascular Exam: Present: regular rate, normal rhythm, normal heart sounds. Absent: systolic murmur, diastolic murmur, rubs, gallop GI/Abdominal exam: Present: soft. Absent: tenderness, guarding, rebound Extremities exam: Present: normal inspection, normal capillary refill. Absent: pedal edema, calf tenderness Back exam: Present: normal inspection. Absent: CVA tenderness (R), CVA tenderness (L) Neurological exam: Present: alert Skin exam: Present: warm, dry, intact, normal color. Absent: rash Course Vital Signs 04/02/17 04/02/17 04/02/17 03:51 04:22 04:40 Temperature 98.3 F Pulse Rate 93 92 96 Respiratory 18 Rate Blood Pressure 157/79 O2 Sat by Pulse 95 Oximetry 04/02/17 04/02/17 04/02/17 06:00 06:10 07:06 Temperature Pulse Rate 96 96 96 Respiratory Rate Blood Pressure O2 Sat by Pulse Oximetry 04/02/17 04/02/17 07:15 08:12 Temperature 98 F Pulse Rate 100 104 H Respiratory 24 Rate Blood Pressure 162/95 O2 Sat by Pulse 94 L Oximetry Medical Decision Making - Medical Decision Making Patient's 56-year-old woman with history of asthma, coming in with evaluation for 2-3 weeks of cough and now some progressive dyspnea. She had a number of treatments in the emergency department and steroids. The patient does continue to have cough though somewhat improved. She also was complaining of dyspnea on exertion and I ambulated with the patient around the emergency department then checked her pulse oximetry which had decreased to 83-85%. In light of this, patient to be admitted for further treatment here, case discussed with Dr. Alvarado who covers for Dr. Florez Disposition Clinical Impression: Bronchitis, Dyspnea Disposition: ADMITTED IP TO THIS HOSP Condition: Fair Instructions: Acute Bronchitis (ED) Prescriptions: Albuterol Inhaler [Ventolin Hfa Inhaler] 1 - 2 puff INHALATION Q6HR PRN #1 inhaler PRN Reason: Wheezing guaiFENesin-Coden 100-10MG/5ML [Robitussin AC] 10 ml PO Q6HR PRN #250 ml PRN Reason: Cough predniSONE 60 mg PO DAILY #30 tab Sulfamethox-Tmp 800-160Mg [Bactrim Ds] 1 each PO Q12HR #14 tab Referrals: Laverne Florez DO [Primary Care Provider] - 1-2 days
[2017-04-02] MEDS ORDERED: guaiFENesin-Coden 100-10MG/5ML 10 ML CUP PO STA (06:43)
--- NOTE | 2017-04-02 07:15 | XR ---
EXAM: XR Chest, 2 Views CLINICAL HISTORY: Reason: cough TECHNIQUE: Frontal and lateral views of the chest. COMPARISON: CXR 09/28/15 FINDINGS: Lungs: Bibasilar atelectasis. No consolidation. Pleural space: Unremarkable. No pneumothorax. Heart: Unremarkable. No cardiomegaly. Mediastinum: Unremarkable. Bones/joints: Multilevel degenerative changes of the spine. IMPRESSION: Bibasilar atelectasis. No consolidation.
[2017-04-02] MEDS ORDERED: SULFAMETHOX-TMP 800-160MG 1 EACH TAB PO STA (08:06)
[2017-04-02] MEDS ORDERED: IPRATROPIUM-ALBUTEROL 3 ML NEB INHALATION PRN ×2 (08:22→14:02)
[2017-04-02 09:57] LABS: Basophils % (A) 1 %; CH 29.6; CHCM 31.9; Eosinophils # (A) 0.3 k/uL (0-0.7); Eosinophils % (A) 4 %; HCT 44.7 % (34.0-46.0); HDW 2.04; HGB 14.1 gm/dL (11.4-16.0); Luc # (Auto) 0.03; Luc % (Auto) 1; Lymphocytes # (A) 0.7 k/uL (1.0-4.8); Lymphocytes % (A) 9 %; MCH 29.5 pg (25.0-35.0); MCHC 31.6 g/dL (31.0-37.0); MCV 93.2 fL (80.0-100.0); Mean Platelet Volume 7.2; Monocytes # (A) 0.1 k/uL (0-1.0); Monocytes % (A) 2 %; Neutrophils # (A) 6.3 k/uL (1.3-7.7); Neutrophils % (A) 84 %; RDW 12.5 % (11.5-15.5); WBC 7.5 k/uL (3.8-10.6); WBC (Perox) 7.22
[2017-04-02 10:04] LABS: Anion Gap 13 mmol/L; Blood Urea Nitrogen 12 mg/dL (7-17); Calcium 9.6 mg/dL (8.4-10.2); Carbon Dioxide 20 mmol/L (22-30); Chloride 110 mmol/L (98-107); Glucose 125 mg/dL (74-99); Non-African American GFR(MDRD) >60 (>60 ml/min/1.73 sqM); Potassium 3.8 mmol/L (3.5-5.1); Sodium 143 mmol/L (137-145)
[2017-04-02] MEDS: SODIUM CHLORIDE 0.9% 1,000 ML IV SCH ×2 (10:36→17:51)
--- NOTE | 2017-04-02 14:08 | P.HPIM ---
History of Present Illness H&P Date: 04/02/17 Chief Complaint: Shortness of breath and cough This is a 56-year-old female with a known past medical history of asthma, hypertension, GERD and osteoarthritis. Patient presents to the emergency room with complaints of productive cough and shortness of breath for the past 3 weeks. Patient was placed on a Z-Farhan on Wednesday by her PCP with no improvement in symptoms. She became more shortness of breath and presented to the emergency room for further evaluation and treatment patient reports that her cough is productive with yellowish phlegm. Does have some left lower extremity swelling. She reports that she does usually is swelling in that leg from her previous knee surgery. Chest x-ray shows bibasilar atelectasis and no consolidation. Patient was initially going to be discharged from the emergency room with Bactrim, prednisone, Robitussin cough syrup and albuterol inhaler. Patient received nebulizer treatments and IV steroids in the emergency room. Patient was ambulated around the emergency room and pulse oximetry decreased to 83-85%. Therefore, patient was not discharged from the emergency room but admitted to the hospital for further evaluation and treatment. Pulmonary service has been consulted. There are concerns about a possible blood clot therefore d-dimer has been ordered she does have swelling in the left leg will order venous Doppler to rule out DVT. Patient denies any chest pain, nausea or vomiting, bowel movement changes or urinary symptoms. Review of Systems Please refer to HPI otherwise unremarkable Past Medical History Past Medical History: Asthma, COPD, GERD/Reflux, Hypertension, Osteoarthritis ( OA), Skin Disorder Additional Past Medical History / Comment(s): Hypoglycemic, mixed collagen vascular disease, pityriasis versicolor, diverticular dx, neuropathy, arthritis in cervica/back/R knee and hands. History of Any Multi-Drug Resistant Organisms: None Reported Past Surgical History: Breast Surgery, Section, Cholecystectomy, Tonsillectomy Additional Past Surgical History / Comment(s): L breast benign lumpectomy, polyps in throat removed, cyst in left eye removed, 06-12-16 LAP JESUS FUNDALPLICATION, total L knee arthroplasty, EGD/colonoscopy. Left total knee arthroplasty Past Anesthesia/Blood Transfusion Reactions: No Reported Reaction Additional Past Anesthesia/Blood Transfusion Reaction / Comment(s): Pt states she has never received blood. Smoking Status: Current every day smoker - Past Family History Sister(s) Family Medical History: Cancer, Deep Vein Thrombosis (DVT) Additional Family Medical History / Comment(s): 2 SISTERS HAD CANCER. 1 sister had a DVT Mother Family Medical History: Cancer, Coronary Artery Disease (CAD), Diabetes Mellitus , Deep Vein Thrombosis (DVT), Myocardial Infarction ([place]), Pulmonary Embolus Additional Family Medical History / Comment(s): Blood clot in lungs which she of at age 73yrs. Brother(s) Family Medical History: Myocardial Infarction ([place]) Additional Family Medical History / Comment(s): Brother had an [place] at age 3 yrs old. Father Family Medical History: Dementia Additional Family Medical History / Comment(s): Father is 83 yrs old. Medications and Allergies Home Medications Medication Instructions Recorded Confirmed Type Hydroxychloroquine Sulfate 200 mg PO BID 09/28/15 04/02/17 History [Plaquenil] amLODIPine BESYLATE [Norvasc] 5 mg PO DAILY 09/28/15 04/02/17 History Albuterol Nebulized [Ventolin 2.5 mg INHALATION RT-BID PRN 12/18/15 04/02/17 History Nebulized] Lisinopril 40 mg PO HS 06/12/16 04/02/17 History Fluticasone/Salmeterol [Advair 1 puff INHALATION RT-BID 12/18/16 04/02/17 History 100-50 Diskus] Gabapentin [Neurontin] 400 mg PO TID 12/18/16 04/02/17 History Albuterol Inhaler [Ventolin Hfa 1 - 2 puff INHALATION Q6HR PRN #1 04/02/17 Rx Inhaler] inhaler Albuterol Inhaler [Ventolin Hfa 1 - 2 puff INHALATION RT-Q6H PRN 04/02/17 History Inhaler] Aspirin 81 mg PO DAILY 04/02/17 04/02/17 History Loratadine [Claritin] 10 mg PO DAILY 04/02/17 04/02/17 History Sulfamethox-Tmp 800-160Mg [Bactrim 1 each PO Q12HR #14 tab 04/02/17 Rx Ds] guaiFENesin-Coden 100-10MG/5ML 10 ml PO Q6HR PRN #250 ml 04/02/17 Rx [Robitussin AC] predniSONE 60 mg PO DAILY #30 tab 04/02/17 Rx Allergies Allergy/AdvReac Type Severity Reaction Status Date / Time Penicillins Allergy Severe Dyspnea,hives,throat Verified 04/02/17 08:42 swelling Physical Exam Vitals: Vital Signs Temp Pulse Pulse Resp BP BP Pulse Ox 04/02/17 10:07 99.3 F 111 H 27 H 140/81 95 04/02/17 09:30 97.8 F 99 26 H 157/75 94 L 04/02/17 08:12 98 F 104 H 24 162/95 94 L 04/02/17 07:15 100 04/02/17 07:06 96 04/02/17 06:10 96 04/02/17 06:00 96 04/02/17 04:40 96 04/02/17 04:22 92 04/02/17 03:51 98.3 F 93 18 157/79 95 Intake and Output 04/01/17 04/02/17 04/02/17 22:59 06:59 14:59 Intake Total 480 Balance 480 Intake: Oral 480 Other: Weight 102.965 kg Head normocephalic Neck supple Lungs clear to auscultation bilaterally no wheezing or crackles Heart regular rate and rhythm S1-S2, no rub or gallop Abdomen is soft nontender nondistended positive bowel sounds no hepatosplenomegaly Extremities left lower extremity swelling Neuro alert and orientated to 3 Results CBC & Chem 7: 04/02/17 08:55 04/02/17 08:55 Labs: Abnormal Lab Results - Last 24 Hours (Table) 04/02/17 04/02/17 Range/Units 08:55 08:55 Lymphocytes # 0.7 L (1.0-4.8) k/uL Chloride 110 H (98-107) mmol/L Carbon Dioxide 20 L (22-30) mmol/L Glucose 125 H (74-99) mg/dL Thrombosis Risk Factor Assmnt - Choose All That Apply Any of the Below Risk Factors Present?: Yes Each Factor Represents 1 point: Abnormal pulmonary function (COPD), Age 41-60 years Each Risk Factor Represents 3 Points: Family history of DVT/PE Thrombosis Risk Factor Assessment Total Risk Factor Score: 5 Thrombosis Risk Factor Assessment Level: High Risk Assessment and Plan Assessment: 1. Acute asthma exacerbation: Discontinue prednisone. Start IV Solu-Medrol 60 mg every 12 hours. Continue nebulizer treatment. Pulmonary service consulted 2. Acute tracheobronchitis: Discontinue Bactrim. Place patient on Levaquin 500 mg IV daily. No evidence of pneumonia on chest x-ray 3. Acute hypoxic respiratory failure in the emergency room. With oxygen saturation dropping into the 80s. Possibly related to asthma exacerbation and bronchitis. However there are concerns about a possible PE or DVT. Patient does have swelling in her left lower extremity. D-dimer will be checked as well as venous Doppler of the left lower extremity. Patient's mother had a history of PE and DVT 4. Essential hypertension continue Norvasc and lisinopril GI prophylaxis Pepcid and DVT prophylaxis subcu heparin Time with Patient: Greater than 30 (Greater than 50% of the total time spent in counseling and coordination of care.I performed an examination of the patient and discussed their management with the physician Suit Attendant. I have reviewed the Physician Suit Attendant's notes and agree with the documented findings and plan of care)
--- NOTE | 2017-04-02 14:51 | US ---
EXAMINATION TYPE: US venous doppler duplex LE LT DATE OF EXAM: 04/02/2017 2:42 PM COMPARISON: NONE CLINICAL HISTORY: rule out DVT. Pt states SOB, left knee replacement in December, pt has no complaints wi th her left leg SIDE PERFORMED: Left TECHNIQUE: The lower extremity deep venous system is examined utilizing real time linear array sonog page with graded compression, doppler sonography and color-flow sonography. VESSELS IMAGED: External Iliac Vein (EIV) Common Femoral Vein Deep Femoral Vein Greater Saphenous Vein * Femoral Vein Popliteal Vein Small Saphenous Vein * Proximal Calf Veins (* superficial vessels) Left Leg: Negative for DVT IMPRESSION: 1. No diagnostic evidence of DVT as visualized
[2017-04-02] MEDS ORDERED: LEVOFLOXACIN 500MG-D5W PMX 500 MG in DEXTROSE/WATER 1 100ML.BAG IVPB SCH (15:00)
[2017-04-02] MEDS ORDERED: RX INFO: IV CONTRAST WAS GIVEN 1 EACH MISC MISCELLANE PRN (15:03)
[2017-04-02] MEDS: GABAPENTIN 400 MG CAP PO SCH ×2 (15:25→21:15)
[2017-04-02] MEDS: amLODIPine 5 MG TAB PO SCH (15:25)
[2017-04-02] MEDS: ASPIRIN 81 MG PO SCH (15:26)
[2017-04-02] MEDS: HEPARIN SODIUM,PORCINE 5,000 UNIT/ML 1 ML VIAL SQ SCH ×2 (15:27→23:34)
--- NOTE | 2017-04-02 16:20 | CT ---
EXAMINATION TYPE: CT angio chest DATE OF EXAM: 04/02/2017 COMPARISON: Chest x-ray same date HISTORY: trouble breathing and cough CT DLP: 1321 mGycm Automated exposure control for dose reduction was used. CONTRAST: CTA scan of the thorax is performed with IV Contrast, patient injected with 100 mL of Omnipaque 350, pulmonary embolism protocol. MIP images are created and reviewed. 3D reconstructed images are creat ed on an independent workstation and reviewed. FINDINGS: LUNGS: The lungs are remarkable for some minimal patchy basilar density on the right greater than lef t possibly reflecting atelectasis. Centrilobular emphysematous changes are present, there is no sagrario rning parenchymal mass or nodule identified. There is no pleural effusion or pneumothorax seen. Th e tracheobronchial tree is patent. AORTA: No additional significant abnormality is seen. MEDIASTINUM: There is satisfactory enhancement of the pulmonary artery and its branches, there is no CT evidence for pulmonary embolism. Retrocaval pretracheal node shows a fatty hilus but is borderline enlarged Bilateral hilar adenopathy is present. Nodes present in the prevascular space, aorticopulmo nary window. No pericardial effusion is seen. Pulmonary artery is prominent. OTHER: There is an hiatal hernia. Postop changes are noted at the gastroesophageal junction. Patient is post cholecystectomy. IMPRESSION: PULMONARY EMBOLISM IS NOT EVIDENT. CORRELATE FOR POSSIBLE PULMONARY ARTERY HYPERTENSION. EMPHYSEMA. P OSTOP CHANGES AND HIATAL HERNIA. MEDIASTINAL AND HILAR ADENOPATHY, CONSIDER SARCOID, FOLLOW-UP RECOMM ENDED, METASTATIC DISEASE IS NOT EXCLUDED.
[2017-04-02] MEDS: IPRATROPIUM-ALBUTEROL 3 ML NEB INHALATION SCH ×2 (17:19→20:30)
[2017-04-02 17:33] LABS: Glucose,Whole Blood 100 mg/dL (75-99)
[2017-04-02] MEDS: guaiFENesin-Coden 100-10MG/5ML 10 ML CUP PO PRN ×2 (17:50→23:33)
[2017-04-02 20:47] LABS: Glucose,Whole Blood 94 mg/dL (75-99)
[2017-04-02] MEDS ORDERED: SULFAMETHOX-TMP 800-160MG 1 EACH TAB PO SCH (21:00)
[2017-04-02] MEDS: INSULIN LISPRO (humaLOG) 300 UNIT/3 ML VIAL SQ SCH (21:13)
[2017-04-02] MEDS: HYDROXYCHLOROQUINE SULFATE 200 MG TAB PO SCH (21:15)
[2017-04-02] MEDS: LISINOPRIL 20 MG TAB PO SCH (21:15)
[2017-04-02] MEDS: methylPREDNISolone SOD SUCCI 125 MG/2 ML VIAL IV SCH (21:16)
[2017-04-03] MEDS: IPRATROPIUM-ALBUTEROL 3 ML NEB INHALATION SCH ×6 (04:14→20:48)
[2017-04-03] MEDS: SODIUM CHLORIDE 0.9% 1,000 ML IV SCH (06:06)
[2017-04-03 07:32] LABS: Glucose,Whole Blood 120 mg/dL (75-99)
[2017-04-03] MEDS: INSULIN LISPRO (humaLOG) 300 UNIT/3 ML VIAL SQ SCH ×4 (07:46→21:06)
[2017-04-03 07:53] LABS: Basophils % (A) 0 %; CH 29.6; CHCM 31.9; Eosinophils # (A) 0.1 k/uL (0-0.7); Eosinophils % (A) 1 %; HGB 12.7 gm/dL (11.4-16.0); Luc # (Auto) 0.04; Luc % (Auto) 1; Lymphocytes # (A) 1.1 k/uL (1.0-4.8); Lymphocytes % (A) 17 %; MCH 29.5 pg (25.0-35.0); MCHC 31.6 g/dL (31.0-37.0); MCV 93.2 fL (80.0-100.0); Mean Platelet Volume 7.3; Monocytes # (A) 0.2 k/uL (0-1.0); Monocytes % (A) 2 %; Neutrophils # (A) 5.4 k/uL (1.3-7.7); Neutrophils % (A) 79 %; RDW 12.5 % (11.5-15.5); WBC 6.8 k/uL (3.8-10.6); WBC (Perox) 6.67
[2017-04-03 08:04] LABS: Anion Gap 9 mmol/L; Blood Urea Nitrogen 10 mg/dL (7-17); Calcium 9.3 mg/dL (8.4-10.2); Carbon Dioxide 21 mmol/L (22-30); Chloride 111 mmol/L (98-107); Glucose 130 mg/dL (74-99); Non-African American GFR(MDRD) >60 (>60 ml/min/1.73 sqM); Potassium 4.5 mmol/L (3.5-5.1); Sodium 141 mmol/L (137-145)
[2017-04-03] MEDS: LORATADINE 10 MG TAB PO SCH (08:27)
[2017-04-03] MEDS: FAMOTIDINE 20 MG TAB PO SCH (08:27)
[2017-04-03] MEDS: amLODIPine 5 MG TAB PO SCH (08:27)
[2017-04-03] MEDS: ASPIRIN 81 MG PO SCH (08:27)
[2017-04-03] MEDS: HEPARIN SODIUM,PORCINE 5,000 UNIT/ML 1 ML VIAL SQ SCH ×3 (08:27→23:20)
[2017-04-03] MEDS: methylPREDNISolone SOD SUCCI 125 MG/2 ML VIAL IV SCH (08:28)
[2017-04-03] MEDS: HYDROXYCHLOROQUINE SULFATE 200 MG TAB PO SCH ×2 (08:28→20:24)
[2017-04-03] MEDS: GABAPENTIN 400 MG CAP PO SCH ×3 (08:28→20:25)
[2017-04-03] MEDS ORDERED: predniSONE 20 MG TAB PO SCH (09:00)
--- NOTE | 2017-04-03 10:28 | P.PN ---
Subjective Patient is feeling better today. She is still having mild end expiratory wheezing. Objective - Vital Signs Vital signs: Vital Signs Temp 97.9 F 04/03/17 07:00 Pulse 92 04/03/17 07:48 Resp 16 04/03/17 07:00 BP 131/76 04/03/17 07:00 Pulse Ox 99 04/03/17 07:00 Intake & Output 04/02/17 04/03/17 04/03/17 18:59 06:59 18:59 Intake Total 480 Balance 480 Intake: Oral 480 Other: # Voids 1 2 - Exam General: The patient is awake and alert, in no distress Eye: there is normal conjunctiva bilaterally. Neck: The neck is supple, there is no JVD. Cardiovascular: Normal S1-S2, no S3-S4, no murmurs. Respiratory: Lungs clear to auscultation bilaterally Gastrointestinal: Abdomen is soft, nontender Musculoskeletal: There is no pedal edema. Neurological:. Speech is normal. Skin: Skin is warm and dry - Labs CBC & Chem 7: 04/03/17 07:14 04/03/17 07:14 Labs: Abnormal Lab Results - Last 24 Hours (Table) 04/02/17 04/02/17 04/03/17 Range/Units 14:20 17:30 07:14 D-Dimer 1.17 H (<0.60) mg/L FEU Chloride 111 H (98-107) mmol/L Carbon Dioxide 21 L (22-30) mmol/L Glucose 130 H (74-99) mg/dL POC Glucose (mg/dL) 100 H (75-99) mg/dL 04/03/17 Range/Units 07:29 D-Dimer (<0.60) mg/L FEU Chloride (98-107) mmol/L Carbon Dioxide (22-30) mmol/L Glucose (74-99) mg/dL POC Glucose (mg/dL) 120 H (75-99) mg/dL Assessment and Plan Assessment: 1. Acute asthma exacerbation: Continue nebulizer treatment. Pulmonary service consulted. Currently on IV steroids 2. Acute tracheobronchitis: No evidence of pneumonia on chest x-ray. Continue with Levaquin 3. Acute hypoxic respiratory no evidence of PE on CT angiogram.: 4. Essential hypertension continue Norvasc and lisinopril
[2017-04-03] MEDS: guaiFENesin-Coden 100-10MG/5ML 10 ML CUP PO PRN ×2 (11:20→18:33)
[2017-04-03 12:03] LABS: Glucose,Whole Blood 125 mg/dL (75-99)
--- NOTE | 2017-04-03 14:55 | P.CNPUL ---
History of Present Illness Consult date: 04/03/17 Reason for consult: dyspnea, cough, COPD, abnormal CXR/CT Chief complaint: Shortness of breath and cough History of present illness: Consult dated 04/03/2017 This is a 56-year-old black female with a history of COPD/asthma. The patient started not feeling well about a week ago which time she developed some cough and wheezing. Had chest congestion. She had some phlegm production. She apparently was seen in the clinic given a course of antibiotics. That did not seem to help very much. Her primary problem is chest congestion tightness cough and wheezing. The patient is a current smoker. Apparently saw my partner maybe 3 years ago. Was told initially she had COPD but more recently was told that she did not have COPD. Chest x-ray shows no major abnormalities. Computed tomography scan showed some bilateral hilar adenopathy possibly consistent with a diagnosis of sarcoidosis. She does not admit to that diagnosis. Sees one of the doctors at [facility]. Feels much better today than when she came in. Review of Systems A 12 point review of system is positive for shortness of breath chest tightness wheezing cough chest congestion and phlegm production. She is a current active smoker. Past Medical History Past Medical History: Asthma, COPD, GERD/Reflux, Hypertension, Osteoarthritis ( OA), Skin Disorder Additional Past Medical History / Comment(s): Hypoglycemic, mixed collagen vascular disease, pityriasis versicolor, diverticular dx, neuropathy, arthritis in cervica/back/R knee and hands. History of Any Multi-Drug Resistant Organisms: None Reported Past Surgical History: Breast Surgery, Section, Cholecystectomy, Tonsillectomy Additional Past Surgical History / Comment(s): L breast benign lumpectomy, polyps in throat removed, cyst in left eye removed, 06-12-16 LAP JESUS FUNDALPLICATION, total L knee arthroplasty, EGD/colonoscopy. Left total knee arthroplasty Past Anesthesia/Blood Transfusion Reactions: No Reported Reaction Additional Past Anesthesia/Blood Transfusion Reaction / Comment(s): Pt states she has never received blood. Smoking Status: Current every day smoker - Past Family History Sister(s) Family Medical History: Cancer, Deep Vein Thrombosis (DVT) Additional Family Medical History / Comment(s): 2 SISTERS HAD CANCER. 1 sister had a DVT Mother Family Medical History: Cancer, Coronary Artery Disease (CAD), Diabetes Mellitus , Deep Vein Thrombosis (DVT), Myocardial Infarction (ND), Pulmonary Embolus Additional Family Medical History / Comment(s): Blood clot in lungs which she of at age 73yrs. Brother(s) Family Medical History: Myocardial Infarction (ND) Additional Family Medical History / Comment(s): Brother had an ND at age 3 yrs old. Father Family Medical History: Dementia Additional Family Medical History / Comment(s): Father is 83 yrs old. Medications and Allergies Home Medications Medication Instructions Recorded Confirmed Type Hydroxychloroquine Sulfate 200 mg PO BID 09/28/15 04/02/17 History [Plaquenil] amLODIPine BESYLATE [Norvasc] 5 mg PO DAILY 09/28/15 04/02/17 History Albuterol Nebulized [Ventolin 2.5 mg INHALATION RT-BID PRN 12/18/15 04/02/17 History Nebulized] Lisinopril 40 mg PO HS 06/12/16 04/02/17 History Fluticasone/Salmeterol [Advair 1 puff INHALATION RT-BID 12/18/16 04/02/17 History 100-50 Diskus] Gabapentin [Neurontin] 400 mg PO TID 12/18/16 04/02/17 History Albuterol Inhaler [Ventolin Hfa 1 - 2 puff INHALATION Q6HR PRN #1 04/02/17 Rx Inhaler] inhaler Albuterol Inhaler [Ventolin Hfa 1 - 2 puff INHALATION RT-Q6H PRN 04/02/17 History Inhaler] Aspirin 81 mg PO DAILY 04/02/17 04/02/17 History Loratadine [Claritin] 10 mg PO DAILY 04/02/17 04/02/17 History Sulfamethox-Tmp 800-160Mg [Bactrim 1 each PO Q12HR #14 tab 04/02/17 Rx Ds] guaiFENesin-Coden 100-10MG/5ML 10 ml PO Q6HR PRN #250 ml 04/02/17 Rx [Robitussin AC] predniSONE 60 mg PO DAILY #30 tab 04/02/17 Rx Allergies Allergy/AdvReac Type Severity Reaction Status Date / Time Penicillins Allergy Severe Dyspnea,hives,throat Verified 04/02/17 08:42 swelling Physical Exam Osteopathic Statement: *. No significant issues noted on an osteopathic structural exam other than those noted in the History and Physical/Consult. Vitals: Vital Signs Temp Pulse Pulse Resp BP BP Pulse Ox 04/03/17 11:30 92 04/03/17 11:20 96 04/03/17 08:00 96 04/03/17 07:48 92 04/03/17 07:00 97.9 F 93 16 131/76 99 04/02/17 23:00 98.9 F 87 20 125/70 97 04/02/17 20:45 100 04/02/17 20:30 98 04/02/17 17:30 96 04/02/17 17:19 98 94 L 04/02/17 15:00 98.2 F 91 20 142/81 94 L Intake and Output 04/02/17 04/03/17 04/03/17 22:59 06:59 14:59 Other: # Voids 1 2 No acute distress, oriented 3. HEENT examination is grossly unremarkable. Mucous membranes are moist. No oral lesions. Neck supple. Full range of motion. No adenopathy thyromegaly or neck vein distention. Cardiovascular examination reveals regular rhythm rate. S1-S2 normal. No S3 or S4. No discernible murmur noted. Lungs reveal diminished breath sounds throughout. This some coarse rhonchi. Some very mild expiratory wheezes. There is prolongation on forced maneuver.. Abdomen soft bowel sounds are heard. No masses or tenderness. Extremities are intact. No cyanosis clubbing or edema. Skin is without rash or lesion. Neurologic examination is brief but nonfocal. Results - Laboratory Findings CBC and BMP: 04/03/17 07:14 04/03/17 07:14 PT/INR, D-dimer D-Dimer 1.17 mg/L FEU (<0.60) H 04/02/17 14:20 Abnormal lab findings: Abnormal Labs 04/02/17 04/02/17 04/02/17 08:55 08:55 14:20 Lymphocytes # 0.7 L D-Dimer 1.17 H Chloride 110 H Carbon Dioxide 20 L Glucose 125 H POC Glucose (mg/dL) 04/02/17 04/03/17 04/03/17 17:30 07:14 07:29 Lymphocytes # D-Dimer Chloride 111 H Carbon Dioxide 21 L Glucose 130 H POC Glucose (mg/dL) 100 H 120 H 04/03/17 12:02 Lymphocytes # D-Dimer Chloride Carbon Dioxide Glucose POC Glucose (mg/dL) 125 H - Diagnostic Findings Chest x-ray: image reviewed CT scan - chest: image reviewed (Chest x-rays, CAT scans, medications, and labs are all reviewed.) Assessment and Plan (1) GERD (gastroesophageal reflux disease) Current Visit: Yes Status: Acute Code(s): K21.9 - GASTRO-ESOPHAGEAL REFLUX DISEASE WITHOUT ESOPHAGITIS SNOMED Code(s): 547740368 (2) Hypertension Current Visit: Yes Status: Acute Code(s): I10 - ESSENTIAL (PRIMARY) HYPERTENSION SNOMED Code(s): 06963425 (3) Mixed connective tissue disease Current Visit: Yes Status: Acute Code(s): M35.1 - OTHER OVERLAP SYNDROMES SNOMED Code(s): 991529534 (4) Bronchitis Current Visit: Yes Status: Acute Code(s): J40 - BRONCHITIS, NOT SPECIFIED ACUTE OR CHRONIC SNOMED Code(s): 62100025 (5) Dyspnea Current Visit: Yes Status: Acute Code(s): R06.00 - DYSPNEA, UNSPECIFIED SNOMED Code(s): 272784138 (6) Acute exacerbation of chronic obstructive airways disease Current Visit: No Status: Acute Code(s): J44.1 - CHRONIC OBSTRUCTIVE PULMONARY DISEASE W (ACUTE) EXACERBATION SNOMED Code(s): 326833723 (7) Chest pain Current Visit: No Status: Acute Code(s): R07.9 - CHEST PAIN, UNSPECIFIED SNOMED Code(s): 98401408 (8) Osteoarthritis Current Visit: No Status: Acute Code(s): M19.90 - UNSPECIFIED OSTEOARTHRITIS , UNSPECIFIED SITE SNOMED Code(s): 950503022 (9) Rhabdomyolysis Current Visit: No Status: Acute Code(s): M62.82 - RHABDOMYOLYSIS SNOMED Code(s): 164376553 Plan: Plan dtd 04/03/2017 The patient will be on breathing treatments and steroids. She is currently a lot better than she was when she first came in. She'll need follow-up in the office. She saw my partner in the past. Of interest is the fact that her computed tomography scan showed evidence of adenopathy raising the possibility of sarcoidosis. That will have to be worked up. She is a heavy current active smoker. Additional recommendations and suggestions are forthcoming. Time with Patient: Greater than 30
[2017-04-03] MEDS: LEVOFLOXACIN 500 MG TAB PO SCH (15:41)
[2017-04-03 17:12] LABS: Glucose,Whole Blood 130 mg/dL (75-99)
[2017-04-03] MEDS: LISINOPRIL 20 MG TAB PO SCH (20:24)
[2017-04-03] MEDS: methylPREDNISolone SOD SUCCI 40 MG/ML 1 ML VIAL IV SCH (20:25)
[2017-04-03] MEDS: SYMBICORT 160-4.5 MCG INHALER INHALATION SCH (20:49)
[2017-04-03 20:54] LABS: Glucose,Whole Blood 105 mg/dL (75-99)
[2017-04-04] MEDS: guaiFENesin-Coden 100-10MG/5ML 10 ML CUP PO PRN ×2 (01:38→20:57)
[2017-04-04 07:24] LABS: Glucose,Whole Blood 117 mg/dL (75-99)
[2017-04-04] MEDS: IPRATROPIUM-ALBUTEROL 3 ML NEB INHALATION SCH ×4 (07:45→21:04)
[2017-04-04] MEDS: SYMBICORT 160-4.5 MCG INHALER INHALATION SCH ×2 (07:45→21:04)
[2017-04-04 07:47] LABS: Basophils % (A) 0 %; CH 29.7; CHCM 31.8; Eosinophils # (A) 0.1 k/uL (0-0.7); Eosinophils % (A) 1 %; HDW 1.97; HGB 12.5 gm/dL (11.4-16.0); Luc # (Auto) 0.05; Luc % (Auto) 1; Lymphocytes # (A) 1.2 k/uL (1.0-4.8); Lymphocytes % (A) 13 %; MCH 29.2 pg (25.0-35.0); MCHC 31.2 g/dL (31.0-37.0); MCV 93.8 fL (80.0-100.0); Mean Platelet Volume 7.3; Monocytes # (A) 0.3 k/uL (0-1.0); Monocytes % (A) 4 %; Neutrophils # (A) 7.5 k/uL (1.3-7.7); Neutrophils % (A) 82 %; RBC 4.27 m/uL (3.80-5.40); RDW 12.8 % (11.5-15.5); WBC 9.1 k/uL (3.8-10.6); WBC (Perox) 9.37
[2017-04-04] MEDS: INSULIN LISPRO (humaLOG) 300 UNIT/3 ML VIAL SQ SCH ×4 (07:53→20:58)
[2017-04-04] MEDS: HEPARIN SODIUM,PORCINE 5,000 UNIT/ML 1 ML VIAL SQ SCH ×2 (07:55→15:06)
[2017-04-04] MEDS: ASPIRIN 81 MG PO SCH (07:55)
[2017-04-04] MEDS: amLODIPine 5 MG TAB PO SCH (07:56)
[2017-04-04] MEDS: FAMOTIDINE 20 MG TAB PO SCH (07:56)
[2017-04-04] MEDS: GABAPENTIN 400 MG CAP PO SCH ×3 (07:56→20:57)
[2017-04-04] MEDS: HYDROXYCHLOROQUINE SULFATE 200 MG TAB PO SCH ×2 (07:56→20:57)
[2017-04-04] MEDS: methylPREDNISolone SOD SUCCI 40 MG/ML 1 ML VIAL IV SCH (07:56)
[2017-04-04] MEDS: LORATADINE 10 MG TAB PO SCH (07:56)
[2017-04-04 12:53] LABS: Glucose,Whole Blood 131 mg/dL (75-99)
--- NOTE | 2017-04-04 13:39 | PN ---
PROGRESS NOTE A very pleasant 56-year-old black female with a history of COPD/asthma. Used to see my partner many years back. She came with some cough and wheezing. Chest congestion. Minimal phlegm production. She is feeling much better. She would like to be discharged home but that is up to the primary service. In addition, the CT scan showed evidence of bilateral hilar and mediastinal adenopathy, potentially consistent with sarcoid. She does not admit to a diagnosis of sarcoid. She does have a history of mixed connective tissue disease and COPD. She also suffers from DJD, hypertension, GERD, and arthritis. PHYSICAL EXAMINATION: Currently temperature 98.5, heart rate 72, respirations 16, blood pressure 103/51, mean 68, room air saturation 96%, 2 L saturation 98%. Appears no acute distress. HEENT examination is grossly unremarkable. Mucous membranes are moist. No oral lesions. NECK: Supple. Full range of motion. No adenopathy or thyromegaly. Neck veins are flat. Cardiovascular examination reveals regular rhythm rate. S1, S2 normal. No S3, S4, murmur. LUNGS: Diminished breath sounds. A few scattered rhonchi. No wheezes or crackles. Breath sounds are much improved. Air exchange is much better. Slight prolongation on forced maneuver. ABDOMEN: Soft. Bowel sounds are heard. There is no masses or tenderness. Extremities are intact. No cyanosis, clubbing, or edema. Skin without rash. Neurologic examination is brief but nonfocal. LABS: Reviewed. This is a CBC which is completely normal from today. No recent x-ray to report. CT scan from the is reviewed. Microbiology is all negative. Medications are reviewed. ASSESSMENT: 1. Chronic obstructive pulmonary disease exacerbation complicated by purulent tracheobronchitis. 2. Hypertension. 3. Gastroesophageal reflux disease. 4. Mixed connective tissue disease. 5. History of rhabdomyolysis. 6. Degenerative joint disease. 7. Rule out sarcoidosis. PLAN: The patient will follow up with one of us in the office. She will need evaluation of those lymph nodes. She probably would benefit from an Brian level, sedimentation rate, and a 24 hour urine calcium. Additional recommendations suggestions are forthcoming. Prognosis is guarded. I am not sure that she will be discharged home today. MMODL / IJN: [id number] /
--- NOTE | 2017-04-04 14:25 | P.PN ---
Subjective Patient's overall condition is improving. Shortness of breath has improved. Objective - Vital Signs Vital signs: Vital Signs Temp 98.5 F 04/04/17 07:00 Pulse 84 04/04/17 11:16 Resp 16 04/04/17 07:00 BP 152/81 04/04/17 07:00 Pulse Ox 98 04/04/17 07:00 Intake & Output 04/03/17 04/04/17 04/04/17 18:59 06:59 18:59 Intake Total 1100 Balance 1100 Intake: Intake, IV Titration 1100 Amount Levofloxacin 500Mg-D5w 100 Pmx 500 mg In Dextrose/ Water 1 100ml.bag @ 100 mls/hr IVPB Q24H RENU Rx#: [id number] Sodium Chloride 0.9% 1, 1000 000 ml @ 100 mls/hr IV . Q10H RENU Rx#:[id number] Other: # Voids 3 1 1 - Exam General: The patient is awake and alert, in no distress Eye: there is normal conjunctiva bilaterally. Neck: The neck is supple, there is no JVD. Cardiovascular: Normal S1-S2, no S3-S4, no murmurs. Respiratory: Lungs clear to auscultation bilaterally Gastrointestinal: Abdomen is soft, nontender Musculoskeletal: There is no pedal edema. Neurological:. Speech is normal. Skin: Skin is warm and dry - Labs CBC & Chem 7: 04/04/17 07:04 04/03/17 07:14 Labs: Abnormal Lab Results - Last 24 Hours (Table) 04/03/17 04/03/17 04/04/17 Range/Units 17:05 20:46 07:17 POC Glucose (mg/dL) 130 H 105 H 117 H (75-99) mg/dL 04/04/17 Range/Units 12:27 POC Glucose (mg/dL) 131 H (75-99) mg/dL Assessment and Plan Assessment: 1. Acute asthma exacerbation: Continue nebulizer treatment. Pulmonary service consulted. Currently on IV steroids 2. Acute tracheobronchitis: No evidence of pneumonia on chest x-ray. Continue with Levaquin 3. Acute hypoxic respiratory no evidence of PE on CT angiogram.: 4. Essential hypertension continue Norvasc and lisinopril Plan for today. Discontinue IV steroids. Switch to oral prednisone. Encouraged ambulation in the hallway. Check O2 sats ration at rest and with ambulation. Anticipate discharge home tomorrow.
[2017-04-04] MEDS: LEVOFLOXACIN 500 MG TAB PO SCH (15:05)
[2017-04-04 17:12] LABS: Glucose,Whole Blood 103 mg/dL (75-99)
[2017-04-04 20:55] LABS: Glucose,Whole Blood 105 mg/dL (75-99)
[2017-04-04] MEDS: LISINOPRIL 20 MG TAB PO SCH (20:57)
[2017-04-04 23:18] VITALS: RESP 18
[2017-04-05] MEDS: HEPARIN SODIUM,PORCINE 5,000 UNIT/ML 1 ML VIAL SQ SCH ×2 (00:39→08:30)
[2017-04-05] MEDS: guaiFENesin-Coden 100-10MG/5ML 10 ML CUP PO PRN (04:55)
[2017-04-05 07:36] LABS: Glucose,Whole Blood 81 mg/dL (75-99)
[2017-04-05] MEDS: IPRATROPIUM-ALBUTEROL 3 ML NEB INHALATION SCH ×2 (07:58→11:47)
[2017-04-05] MEDS: SYMBICORT 160-4.5 MCG INHALER INHALATION SCH (07:58)
[2017-04-05] MEDS: amLODIPine 5 MG TAB PO SCH (08:30)
[2017-04-05] MEDS: GABAPENTIN 400 MG CAP PO SCH (08:30)
[2017-04-05] MEDS: ASPIRIN 81 MG PO SCH (08:30)
[2017-04-05] MEDS: HYDROXYCHLOROQUINE SULFATE 200 MG TAB PO SCH (08:30)
[2017-04-05] MEDS: LORATADINE 10 MG TAB PO SCH (08:30)
[2017-04-05] MEDS: INSULIN LISPRO (humaLOG) 300 UNIT/3 ML VIAL SQ SCH (08:30)
[2017-04-05] MEDS: FAMOTIDINE 20 MG TAB PO SCH (08:30)
[2017-04-05 08:42] VITALS: BP 121/82; TEMP 98.3
[2017-04-05 08:42] LABS: Basophils % (A) 0 %; CH 29.5; CHCM 31.4; Eosinophils # (A) 0.2 k/uL (0-0.7); Eosinophils % (A) 3 %; HCT 43.5 % (34.0-46.0); HDW 1.93; HGB 13.6 gm/dL (11.4-16.0); Luc % (Auto) 1; Lymphocytes # (A) 3.2 k/uL (1.0-4.8); Lymphocytes % (A) 38 %; MCH 29.6 pg (25.0-35.0); MCHC 31.4 g/dL (31.0-37.0); MCV 94.4 fL (80.0-100.0); Mean Platelet Volume 7.3; Monocytes # (A) 0.4 k/uL (0-1.0); Monocytes % (A) 4 %; Neutrophils # (A) 4.6 k/uL (1.3-7.7); Neutrophils % (A) 54 %; RBC 4.61 m/uL (3.80-5.40); RDW 12.8 % (11.5-15.5); WBC 8.6 k/uL (3.8-10.6); WBC (Perox) 8.65
[2017-04-05] MEDS ORDERED: predniSONE 20 MG TAB PO SCH (09:00)
--- NOTE | 2017-04-05 10:39 | P.DS ---
Providers Date of admission: 04/02/17 08:22 Expected date of discharge: 04/05/17 Attending physician: Lui Alvarado Consults: 04/02/17 13:45 Consult Physician Routine Consulting Provider: Angel Jameson Consult Reason/Comments: shortness of breath Do you want consulting provider notified?: Yes Primary care physician: Laverne Florez Hospital Course: discharge diagnosis 1. Acute asthma exacerbation 2. Acute tracheobronchitis: Failed outpatient treatment of antibiotics. No evidence of pneumonia on chest x-ray. Continue with Levaquin For 4 more days 3. Acute hypoxic respiratory no evidence of PE on CT angiogram. 4. Essential hypertension continue Norvasc and lisinopril 5. Computed tomography scan showed evidence of adenopathy raising the possibility of sarcoidosis. Patient will follow-up with pulmonary service for further workup. Hospital course This is a 56-year-old female with a known past medical history of asthma, hypertension, GERD and osteoarthritis. Patient presents to the emergency room with complaints of productive cough and shortness of breath for the past 3 weeks. Patient was placed on a Z-Farhan on Wednesday by her PCP with no improvement in symptoms. She became more shortness of breath and presented to the emergency room for further evaluation and treatment patient reports that her cough is productive with yellowish phlegm. Does have some left lower extremity swelling. She reports that she does usually is swelling in that leg from her previous knee surgery. Chest x-ray shows bibasilar atelectasis and no consolidation. Patient was initially going to be discharged from the emergency room with Bactrim, prednisone, Robitussin cough syrup and albuterol inhaler. Patient received nebulizer treatments and IV steroids in the emergency room. Patient was ambulated around the emergency room and pulse oximetry decreased to 83-85%. Therefore, patient was not discharged from the emergency room but admitted to the hospital for further evaluation and treatment. Pulmonary service has been consulted. There are concerns about a possible blood clot therefore d-dimer has been ordered she does have swelling in the left leg will order venous Doppler to rule out DVT. Patient denies any chest pain, nausea or vomiting, bowel movement changes or urinary symptoms. patient's shortness of breath and cough have shown improvement. She's treated for an acute asthma exacerbation and bronchitis during this admission. The IV steroids have been switched over to oral prednisone. She has tolerated this well. She'll continue with a short prednisone taper. Also she'll continue 4 more days of Levaquin. Patient will require follow-up with pulmonary service for further workup for possible sarcoidosis. Patient was hypoxic and had some mild tachycardia on admission likely related to her bronchitis and asthma exacerbation. However CTA of the chest was completed no evidence of PE and Doppler of the left lower extremity was negative for DVT. Patient does have chronic swelling in that left leg due to her previous orthopedic surgery. Leg swelling on discharge has shown great improvement. Patient is medically stable for discharge. She's been cleared by pulmonary service for discharge. She'll follow-up with pulmonary service and her PCP in 1 week outpatient. Please refer to chart for any further details. I performed an examination of the patient and discussed their management with the physician Electronic Typesetting Machine Operator. I have reviewed the Physician Electronic Typesetting Machine Operator's notes and agree with the documented findings and plan of care Patient Condition at Discharge: Stable Plan - Discharge Summary Discharge Rx Participant: Yes New Discharge Prescriptions: New Albuterol Inhaler [Ventolin Hfa Inhaler] 1 - 2 puff INHALATION Q6HR PRN #1 inhaler PRN Reason: Wheezing guaiFENesin-Coden 100-10MG/5ML [Robitussin AC] 10 ml PO Q6HR PRN #250 ml PRN Reason: Cough Levofloxacin [Levaquin] 500 mg PO Q24H #4 tab predniSONE 10 mg PO DIRECTED #12 tab Continue amLODIPine BESYLATE [Norvasc] 5 mg PO DAILY Hydroxychloroquine Sulfate [Plaquenil] 200 mg PO BID Albuterol Nebulized [Ventolin Nebulized] 2.5 mg INHALATION RT-BID PRN PRN Reason: Shortness Of Breath Lisinopril 40 mg PO HS Gabapentin [Neurontin] 400 mg PO TID Fluticasone/Salmeterol [Advair 100-50 Diskus] 1 puff INHALATION RT-BID Aspirin 81 mg PO DAILY Loratadine [Claritin] 10 mg PO DAILY Discontinued Albuterol Inhaler [Ventolin Hfa Inhaler] 1 - 2 puff INHALATION RT-Q6H PRN PRN Reason: Shortness Of Breath Discharge Medication List Hydroxychloroquine Sulfate [Plaquenil] 200 mg PO BID 09/28/15 [History] amLODIPine BESYLATE [Norvasc] 5 mg PO DAILY 09/28/15 [History] Albuterol Nebulized [Ventolin Nebulized] 2.5 mg INHALATION RT-BID PRN 12/18/15 [ History] Lisinopril 40 mg PO HS 06/12/16 [History] Fluticasone/Salmeterol [Advair 100-50 Diskus] 1 puff INHALATION RT-BID 12/18/16 [History] Gabapentin [Neurontin] 400 mg PO TID 12/18/16 [History] Albuterol Inhaler [Ventolin Hfa Inhaler] 1 - 2 puff INHALATION Q6HR PRN #1 inhaler 04/02/17 [Rx] Aspirin 81 mg PO DAILY 04/02/17 [History] Loratadine [Claritin] 10 mg PO DAILY 04/02/17 [History] guaiFENesin-Coden 100-10MG/5ML [Robitussin AC] 10 ml PO Q6HR PRN #250 ml [Rx] Levofloxacin [Levaquin] 500 mg PO Q24H #4 tab 04/05/17 [Rx] predniSONE 10 mg PO DIRECTED #12 tab 04/05/17 [Rx] Follow up Appointment(s)/Referral(s): [facility], [NON-STAFF] - Angel Jameson DO [Doctor of Osteopathic Medicine] - 1 Week Laverne Florez DO [Primary Care Provider] - 1 Week Patient Instructions/Handouts: COPD (Chronic Obstructive Pulmonary Disease) (DC ) Activity/Diet/Wound Care/Special Instructions: Cardiac diet. NO smoking, cessation information given. Discharge Disposition: HOME WITH HOME HEALTH SERVICES
[2017-04-05 12:03] VITALS: PULSE 86
--- NOTE | 2017-04-05 15:39 | P.PN ---
Subjective Progress Note Date: 04/05/17 Principal diagnosis: Acute asthma exacerbation with bronchitis This is a 56-year-old black female with a history of COPD/asthma. The patient started not feeling well about a week ago which time she developed some cough and wheezing. Had chest congestion. She had some phlegm production. She apparently was seen in the clinic given a course of antibiotics. That did not seem to help very much. Her primary problem is chest congestion tightness cough and wheezing. The patient is a current smoker. Apparently saw my partner maybe 3 years ago. Was told initially she had COPD but more recently was told that she did not have COPD. Chest x-ray shows no major abnormalities. Computed tomography scan showed some bilateral hilar adenopathy possibly consistent with a diagnosis of sarcoidosis. She does not admit to that diagnosis. Sees one of the doctors at [facility]. Feels much better today than when she came in. On 04/05/2017 patient is doing better, no specific pulmonary complaints, denies chest congestion, denies cough. She has been afebrile, denies dyspnea. Lung sounds are clear no wheezing, no rhonchi. Continue breathing treatments and steroids. Patient is clear for discharge from pulmonary standpoint. Follow-up with Dr. Jameson in 1 week. Objective - Vital Signs Vital signs: Vital Signs Temp 98.3 F 04/05/17 07:00 Pulse 86 04/05/17 12:02 Resp 18 04/05/17 08:00 BP 121/82 04/05/17 07:00 Pulse Ox 98 04/05/17 07:00 Intake & Output 04/04/17 04/05/17 04/05/17 18:59 06:59 18:59 Intake Total 600 240 Balance 600 240 Intake: Oral 600 240 Other: # Voids 2 1 2 - Exam GENERAL EXAM: Alert, active, comfortable in no apparent distress. HEAD: Normocephalic/atraumatic. EYES: Normal reaction of pupils, equal size. Conjunctiva pink, sclera white. NOSE: Clear with pink turbinates. THROAT: No erythema or exudates. NECK: No masses, no JVD, no thyroid enlargement, no adenopathy. CHEST: No chest wall deformity. Symmetrical expansion. LUNGS: Equal air entry with no crackles, wheeze, rhonchi or dullness. CVS: Regular rate and rhythm, normal S1 and S2, no gallops, no murmurs, no rubs ABDOMEN: Soft, nontender. No hepatosplenomegaly, normal bowel sounds, no guarding or rigidity. EXTREMITIES: No clubbing, no edema, no cyanosis, 2+ pulses and upper and lower extremities. MUSCULOSKELETAL: Muscle strength and tone normal. SPINE: No scoliosis or deformity SKIN: No rashes CENTRAL NERVOUS SYSTEM: Alert and oriented 3. No focal deficits, tone is normal in all 4 extremities. PSYCHIATRIC: Alert and oriented 3. Appropriate affect. Intact judgment and insight. - Labs CBC & Chem 7: 04/05/17 08:02 04/03/17 07:14 Labs: Abnormal Lab Results - Last 24 Hours (Table) 04/04/17 04/04/17 Range/Units 17:09 20:54 POC Glucose (mg/dL) 103 H 105 H (75-99) mg/dL Assessment and Plan Plan: Assessment: #1. Acute asthma exacerbation. Improved #2. Acute tracheobronchitis, no evidence of pneumonia. Continue with Levaquin #3. Acute hypoxic respiratory failure with no evidence of PE #4. Essential hypertension Plan: Patient is much improved. Stable for discharge from pulmonary standpoint, but is on prednisone taper and outpatient course of Levaquin . Follow-up with Dr. Jameson 1 week. I performed a history & physical examination of the patient and discussed their management with my nurse practitioner, Haley Nagy. I reviewed the nurse practitioner's note and agree with the documented findings and plan of care. Lung sounds are clear, no wheezing no rhonchi no rales. Clear for discharge from pulmonary standpoint. findings and the impression was discussed with the patient. I attest to the documentation by the nurse practitioner. Time with Patient: Less than 30
--- NOTE | 2017-04-15 17:02 | CDI ---
In responding to this query, please exercise your independent professional judgment. The [facility] Coding Staff and Clinical Documentation Specialists appreciate your assistance in clarifying documentation, maintaining compliance with coding guidelines, accurately documenting patients condition and capturing severity of illness. The fact that a question is asked does not imply that any particular answer is desired or expected. Communication forms are a method of clarifying documentation and are not made part of the Legal Health Record. Thank you in advance for your clarification. Last Revision, August 2015 Rosalva Greene [address] [place] [address] Documentation Clarification Form Date: 04/15/2017 4:24:00 PM From: Eliza Gibbs Phone: Admit Date: 04/02/2017 8:22:00 AM Patient Name: Yuridia Resendiz Visit Number: [id number] Discharge Date: Dr. Lui Alvarado Asthma exacerbation is documented in the H&P, discharge summary and progress notes. Patient history/risk factors: Past medical history of asthma. Clinical Indicators: Shortness of breath, productive cough and acute tracheobronchitis. Radiology: 04/02 CXR: Bibasilar atelectasis. No consolidation. 04/02 CT: Pulmonary embolism is not evident. Correlate for possible pulmonary artery hypertension. Emphysema. Post op changes and hiatal hernia. Mediastinal and hilar adenopathy consider sarcoid. Metastatic disease is not excluded. Vital Signs: T. 98.3, P. 93, R. 18, BP 157/79, O2 Sat. 95 Treatment: Ventolin nebulized inhalation treatments, Duoneb Inhalation treatments, Symbicort inhaler Medication: IV Solu-Medrol & Prednison PO Consults: Dyspnea and acute exacerbation of chronic obstructive airway diseases In your professional opinion, can you please further specify the following, if known? Severity Mild intermittent Mild persistent Moderate persistent Severe persistent Other, please specify ____ Unable to determine Form or Type Cough variant Childhood Exercise induced bronchospasm Extrinsic allergic Idiosyncratic Intrinsic nonallergic Late-onset Mixed Other, please specify Unable to determine Please document in your discharge summary in order to capture severity of illness and risk of mortality. Include clinical findings that support your diagnosis. FYI: Press F11 to launch patient chart. If you have a question about this query, please contact Rosibel Lyons, [employer] at [phone]. [facility]
== END 2017-04-05 12:26 | disposition home health service (06) | DRG 202 ==
LOC: EC 03:48 → 4MS4W 08:22
PROVIDERS: ADMIT Internal Medicine; ATTEND Internal Medicine
DX: J45.901 Unspecified asthma with (acute) exacerbation (principal); J96.01 Acute respiratory failure with hypoxia; J98.11 Atelectasis; M35.1 Other overlap syndromes; I10 Essential (primary) hypertension; F17.200 Nicotine dependence, unspecified, uncomplicated; J20.9 Acute bronchitis, unspecified; K21.9 Gastro-esophageal reflux disease without esophagitis; M19.90 Unspecified osteoarthritis, unspecified site; G62.9 Polyneuropathy, unspecified; K44.9 Diaphragmatic hernia without obstruction or gangrene; D86.9 Sarcoidosis, unspecified; Z79.82 Long term (current) use of aspirin; Z79.52 Long term (current) use of systemic steroids; Z88.0 Allergy status to penicillin; Z79.899 Other long term (current) drug therapy; Z96.652 Presence of left artificial knee joint; Z82.49 Family history of ischemic heart disease and other diseases of the circulatory system
CPT/HCPCS: 71020; 71275; 80048; 83605; 85025; 85379; 94640; 94760; 99284

== ENCOUNTER → 2017-04-19 | Outpatient (CLI) | payer OTHER ==
[2017-04-19 11:09] LABS: ALT 35 U/L (9-52); AST 18 U/L (14-36); Alkaline Phosphatase 100 U/L (38-126); Anion Gap 8 mmol/L; Blood Urea Nitrogen 8 mg/dL (7-17); Calcium 9.7 mg/dL (8.4-10.2); Carbon Dioxide 25 mmol/L (22-30); Chloride 108 mmol/L (98-107); Glucose 92 mg/dL (74-99); Non-African American GFR(MDRD) >60 (>60 ml/min/1.73 sqM); Potassium 4.3 mmol/L (3.5-5.1); Sodium 141 mmol/L (137-145); Total Bilirubin 0.5 mg/dL (0.2-1.3)
== END ==
LOC: LABWHC1 09:35
PROVIDERS: ATTEND Internal Medicine Critical Care Medicine
DX: D86.9 Sarcoidosis, unspecified (principal)
CPT/HCPCS: 36415; 80053; 81050; 82164; 82340; 85652

== ENCOUNTER → 2017-07-08 | Outpatient (CLI) | payer OTHER ==
--- NOTE | 2017-07-08 10:01 | FL ---
EXAMINATION TYPE: FL barium swallow DATE OF EXAM: 07/08/2017 CLINICAL HISTORY: Prior Estevan fundoplication in June 2016 with known hiatal hernia from CT in Feb. TECHNIQUE: A single contrast esophagram is performed utilizing thin and thick barium. A total of 1. 2 minutes of fluoroscopic time was utilized during procedure. 84 images were saved. COMPARISON: None FINDINGS: The esophagus shows normal motility and emptying into the stomach on the gravity dependent portion of the examination with delayed motility, blunted secondary wave, with no tertiary contractio ns on the gravity independent portion of the examination. Moderate intraesophageal reflux is seen fro m residual contrast within a small recurrent hiatal hernia on both the gravity dependent and independ ent portions of the examination without the Valsalva maneuver. No strictures identified. Cholecystect javi clips are incidentally noted IMPRESSION: Small recurrent hiatal hernia with moderate reflux to the level of mid thoracic esophagus from residual contrast within the hernia.
== END | disposition home or self-care (01) ==
LOC: RADFLWHC 08:28
PROVIDERS: ATTEND Surgery
DX: K44.9 Diaphragmatic hernia without obstruction or gangrene (principal); K21.9 Gastro-esophageal reflux disease without esophagitis
CPT/HCPCS: 74220

== ENCOUNTER → 2017-07-21 | Outpatient (CLI) | payer OTHER ==
[2017-07-21 11:23] LABS: HCT 41.4 % (34.0-46.0); HGB 13.5 gm/dL (11.4-16.0); MCH 30.3 pg (25.0-35.0); MCHC 32.5 g/dL (31.0-37.0); MCV 93.2 fL (80.0-100.0); Mean Platelet Volume 6.9; Platelet Count 307 k/uL (150-450); RBC 4.44 m/uL (3.80-5.40); RDW 12.7 % (11.5-15.5); WBC 5.2 k/uL (3.8-10.6)
== END | disposition home or self-care (01) ==
LOC: LABPAT 10:55
PROVIDERS: ATTEND Anesthesiology
DX: Z01.812 Encounter for preprocedural laboratory examination (principal)
CPT/HCPCS: 85027

== ENCOUNTER 2017-07-30 09:45 | Observation (INO) | payer OTHER ==
[2017-07-20 13:00] VITALS: BMI 41.1
[~2017-07-30 09:45] MED LIST changes: -ACETAMINOPHEN TAB 500 MG TAB PO ONE; -DEXAMETHASONE SOD PHOSPHATE 10 MG/ML 1 ML VIAL IV ONE; +HEPARIN SODIUM,PORCINE 5,000 UNIT/ML 1 ML VIAL SQ ONE; -HYDROmorphone 1 MG/ML 1 ML SYRINGE IVP PRN; +LEVOFLOXACIN 500MG-D5W PMX 500 MG in DEXTROSE/WATER 1 100ML.BAG IVPB ONE; -MELOXICAM 7.5 MG TAB PO ONE; -MIDAZOLAM 2 MG/2 ML VIAL IV PRN; -ONDANSETRON 4 MG/2 ML VIAL IVP ONE; -TRANEXAMIC ACID 1,000 MG in SODIUM CHLORIDE 0.9% 100 ML IVPB ONE
[2017-07-30] MEDS ORDERED: ONDANSETRON 4 MG/2 ML VIAL IVP ONE (10:03)
[2017-07-30] MEDS ORDERED: DEXAMETHASONE SOD PHOSPHATE 10 MG/ML 1 ML VIAL IV ONE (10:03)
[2017-07-30] MEDS ORDERED: SCOPOLAMINE 1.5MG/72HR PATCH TRANSDERM ONE (10:03)
[2017-07-30] MEDS ORDERED: LACTATED RINGERS 1,000 ML IV SCH (10:03)
[2017-07-30] MEDS ORDERED: MIDAZOLAM 2 MG/2 ML VIAL IV PRN (10:03)
[2017-07-30] MEDS ORDERED: LIDOCAINE 1% 20 ML VIAL (10MG/ML) FOR IV START INTRADERMA ONE (10:23)
[2017-07-30 10:42] LABS: ALT 29 U/L (9-52); AST 18 U/L (14-36); Albumin 4.1 g/dL (3.5-5.0); Alkaline Phosphatase 96 U/L (38-126); Anion Gap 14 mmol/L; Blood Urea Nitrogen 12 mg/dL (7-17); Calcium 9.6 mg/dL (8.4-10.2); Carbon Dioxide 23 mmol/L (22-30); Chloride 109 mmol/L (98-107); Glucose 88 mg/dL (74-99); Potassium 3.9 mmol/L (3.5-5.1); Sodium 146 mmol/L (137-145); Total Bilirubin 0.4 mg/dL (0.2-1.3)
--- NOTE | 2017-07-30 11:06 | P.GSHP ---
History of Present Illness H&P Date: 07/30/17 Chief Complaint: GERD, dysphagia This is a 56-year-old female who sees Ksenia Fish PA-C in the outpatient setting. Patient is currently to GERD and dysphagia. Patient recent esophagram and EGD which shows evidence of recurrent hiatal hernia. Patient presents today for laparoscopic repair of hiatal hernia. Past Medical History Past Medical History: Asthma, COPD, GERD/Reflux, Hypertension, Osteoarthritis ( OA), Rheumatoid Arthritis (RA), Skin Disorder Additional Past Medical History / Comment(s): mixed collagen vascular disease, pityriasis versicolor, diverticulitis, 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, "swollen lymph nodes on my lung", hiatal hernia, rhabdomyolysis, History of Any Multi-Drug Resistant Organisms: None Reported Past Surgical History: Breast Surgery, Section, Cholecystectomy, Joint Replacement, Tonsillectomy Additional Past Surgical History / Comment(s): L breast lumpectomy, cyst in throat removed, cyst in left eye removed, JESUS FUNDALPLICATION 06/23; Left total knee ; EGD Past Anesthesia/Blood Transfusion Reactions: No Reported Reaction Additional Past Anesthesia/Blood Transfusion Reaction / Comment(s): long time to wake up Past Psychological History: No Psychological Hx Reported Additional Psychological History / Comment(s): . Smoking Status: Current every day smoker Past Alcohol Use History: None Reported Additional Past Alcohol Use History / Comment(s): Pt states she started smoking at about age 21 yrs. smokes approx 7 cigarettes daily Past Drug Use History: None Reported - Past Family History Sister(s) Family Medical History: Cancer, Deep Vein Thrombosis (DVT) Additional Family Medical History / Comment(s): . Mother Family Medical History: Cancer, Deep Vein Thrombosis (DVT), Pulmonary Embolus Additional Family Medical History / Comment(s): . Brother(s) Family Medical History: Myocardial Infarction (DE) Additional Family Medical History / Comment(s): Brother had an DE at age 3 yrs old. Father Family Medical History: Dementia Additional Family Medical History / Comment(s): Father is 83 yrs old. Medications and Allergies Home Medications Medication Instructions Recorded Confirmed Type Hydroxychloroquine Sulfate 200 mg PO BID 09/28/15 07/20/17 History [Plaquenil] amLODIPine BESYLATE [Norvasc] 5 mg PO DAILY 09/28/15 07/20/17 History Albuterol Nebulized [Ventolin 2.5 mg INHALATION BID PRN 12/18/15 07/20/17 History Nebulized] Lisinopril 40 mg PO HS 06/12/16 07/20/17 History Fluticasone/Salmeterol [Advair 1 puff INHALATION BID 12/18/16 07/20/17 History 100-50 Diskus] Gabapentin [Neurontin] 400 mg PO TID 12/18/16 07/20/17 History Albuterol Inhaler [Ventolin Hfa 1 - 2 puff INHALATION Q6HR PRN #1 04/02/1707/20 Rx Inhaler] inhaler Montelukast [Singulair] 10 mg PO HS 07/07/17 07/20/17 History Omeprazole 40 mg PO DAILY #60 capsule. 07/09/17 07/20/17 Rx Allergies Allergy/AdvReac Type Severity Reaction Status Date / Time Penicillins Allergy Severe Dyspnea,hives,throat Verified 07/20/17 12:49 swelling Surgical - Exam Vital Signs Temp Pulse Resp BP Pulse Ox 97.4 F L 77 18 129/69 95 07/30/17 10:16 07/30/17 10:16 07/30/17 10:16 07/30/17 10:16 07/30/17 10:16 - General well developed, no distress - Eyes PERRL - ENT normal pinna - Neck no masses - Respiratory normal expansion - Cardiovascular Rhythm: regular - Abdomen Abdomen: soft Results - Labs 07/30/17 10:20 Abnormal Lab Results - Last 24 Hours (Table) 07/30/17 Range/Units 10:20 Sodium 146 H (137-145) mmol/L Chloride 109 H (98-107) mmol/L Diabetes panel 07/30/17 Range/Units 10:20 Sodium 146 H (137-145) mmol/L Potassium 3.9 (3.5-5.1) mmol/L Chloride 109 H (98-107) mmol/L Carbon Dioxide 23 (22-30) mmol/L BUN 12 (7-17) mg/dL Creatinine 0.60 (0.52-1.04) mg/dL Glucose 88 (74-99) mg/dL Calcium 9.6 (8.4-10.2) mg/dL AST 18 (14-36) U/L ALT 29 (9-52) U/L Alkaline Phosphatase 96 (38-126) U/L Total Protein 7.0 (6.3-8.2) g/dL Albumin 4.1 (3.5-5.0) g/dL Calcium panel 07/30/17 Range/Units 10:20 Calcium 9.6 (8.4-10.2) mg/dL Albumin 4.1 (3.5-5.0) g/dL Pituitary panel 07/30/17 Range/Units 10:20 Sodium 146 H (137-145) mmol/L Potassium 3.9 (3.5-5.1) mmol/L Chloride 109 H (98-107) mmol/L Carbon Dioxide 23 (22-30) mmol/L BUN 12 (7-17) mg/dL Creatinine 0.60 (0.52-1.04) mg/dL Glucose 88 (74-99) mg/dL Calcium 9.6 (8.4-10.2) mg/dL Adrenal panel 07/30/17 Range/Units 10:20 Sodium 146 H (137-145) mmol/L Potassium 3.9 (3.5-5.1) mmol/L Chloride 109 H (98-107) mmol/L Carbon Dioxide 23 (22-30) mmol/L BUN 12 (7-17) mg/dL Creatinine 0.60 (0.52-1.04) mg/dL Glucose 88 (74-99) mg/dL Calcium 9.6 (8.4-10.2) mg/dL Total Bilirubin 0.4 (0.2-1.3) mg/dL AST 18 (14-36) U/L ALT 29 (9-52) U/L Alkaline Phosphatase 96 (38-126) U/L Total Protein 7.0 (6.3-8.2) g/dL Albumin 4.1 (3.5-5.0) g/dL Assessment and Plan Assessment: Recurrent hiatal hernia. We'll perform laparoscopic robotic assistance repair.
[2017-07-30] MEDS ORDERED: NEOSTIGMINE 1 MG/ML 10 ML VIAL ONE (11:20)
[2017-07-30] MEDS ORDERED: SUCCINYLCHOLINE CHLORIDE 100 MG/5 ML SYR IV ONE (11:20)
[2017-07-30] MEDS ORDERED: LIDOCAINE 1% INJ 10MG/ML (20 ML MDV) ONE (11:20)
[2017-07-30] MEDS ORDERED: fentaNYL (PF) 50 MCG/ML 2 ML AMP ONE (11:20)
[2017-07-30] MEDS ORDERED: ROCURONIUM BROMIDE 10 MG/ML 10 ML VIAL IV ONE (11:20)
[2017-07-30] MEDS ORDERED: GLYCOPYRROLATE 0.2 MG/ML 2 ML VIAL ONE (11:20)
[2017-07-30] MEDS ORDERED: PROPOFOL 10 MG/ML 20 ML VIAL IV ONE (11:20)
[2017-07-30] MEDS ORDERED: MIDAZOLAM 2 MG/2 ML VIAL ONE (11:20)
[2017-07-30] MEDS ORDERED: BUPIVACAINE (PF) 0.5% 30 ML VIAL SQ ONE (11:55)
[2017-07-30] MEDS: MORPHINE SULFATE 4 MG/ML SYRINGE IV PRN ×2 (13:00→13:12)
[2017-07-30] MEDS ORDERED: KETOROLAC 30 MG/ML 1 ML VIAL IVP ONE (13:06)
[2017-07-30] MEDS: MORPHINE SULFATE 4 MG/ML SYRINGE IV ONE ×2 (13:18→13:34)
[2017-07-30] MEDS ORDERED: LABETALOL 5 MG/ML VIAL MDV IV ONE (13:50)
[2017-07-30] MEDS ORDERED: ONDANSETRON 4 MG/2 ML VIAL IVP PRN (14:16)
--- NOTE | 2017-07-30 15:25 | FL ---
EXAMINATION TYPE: FL esophagus cervic/pharynx DATE OF EXAM: 07/30/2017 HISTORY: Rule out leak, obstruction, status post Estevan fundoplication repeat COMPARISON: NONE TECHNIQUE: Single contrast esophagram, attention directed to the gastroesophageal junction. Patient was given 25 cc Omni 350 orally. 1 minute 4 seconds fluoroscopy time. 2 images. FINDINGS: Contrast courses to the level of the gastroesophageal junction. Contrast did not advanced distally. N o extravasation. Minimal pneumoperitoneum noted incidentally. IMPRESSION: Obstruction at the level of the surgical site.
[2017-07-30] MEDS: HYDROmorphone 0.5 MG/0.5 ML SYRINGE IVP PRN ×2 (18:04→21:45)
[2017-07-30] MEDS: D5-0.45% NACL WITH KCL 20MEQ/L 1,000 ML IV SCH (18:38)
[2017-07-30] MEDS: FAMOTIDINE 20 MG/2 ML VIAL IV SCH (22:10)
[2017-07-30] MEDS ORDERED: MONTELUKAST 10 MG TAB PO SCH (23:45)
[2017-07-30] MEDS ORDERED: LISINOPRIL 20 MG TAB PO SCH (23:45)
[2017-07-30] MEDS ORDERED: ALBUTEROL NEBULIZED 2.5 MG/3 ML INHALATION PRN (23:52)
[2017-07-31] MEDS: HYDROmorphone 0.5 MG/0.5 ML SYRINGE IVP PRN ×3 (01:22→11:22)
[2017-07-31] MEDS: D5-0.45% NACL WITH KCL 20MEQ/L 1,000 ML IV SCH ×2 (01:29→09:53)
[2017-07-31] MEDS ORDERED: PANTOPRAZOLE 40 MG TABLET PO SCH (07:30)
[2017-07-31] MEDS ORDERED: SYMBICORT 80-4.5 MCG INHALER INHALATION SCH (08:00)
[2017-07-31] MEDS ORDERED: ENOXAPARIN 40 MG/0.4 ML SYRINGE SQ SCH (09:00)
[2017-07-31] MEDS ORDERED: amLODIPine 5 MG TAB PO SCH (09:00)
[2017-07-31] MEDS ORDERED: HYDROXYCHLOROQUINE SULFATE 200 MG TAB PO SCH (09:00)
[2017-07-31] MEDS: FAMOTIDINE 20 MG/2 ML VIAL IV SCH (09:45)
[2017-07-31] MEDS: GABAPENTIN 400 MG CAP PO SCH ×2 (09:45)
--- NOTE | 2017-07-31 12:07 | P.DS ---
Providers Date of admission: 07/30/17 23:51 Expected date of discharge: 07/31/17 Attending physician: Tyrell Ramírez Consults: 07/30/17 14:16 Consult Physician Routine Consulting Provider: Lui Alvarado Consult Reason/Comments: Medical management Do you want consulting provider notified?: Yes Primary care physician: Laverne Florez [facility] Course: Patient underwent revision of a previous hiatal hernia repair. Patient doing well today. Upper GI yesterday showed obstruction. The patient admits that she had some dysphagia yesterday to liquids however today that is resolved. She is tolerating liquids without difficulty. No pain. She would like to go home today. She is afebrile. Plan will be discharged today with outpatient follow-up in 1 week. Plan - Discharge Summary Discharge Rx Participant: No New Discharge Prescriptions: New Docusate [Colace] 100 mg PO BID #20 capsule HYDROcodone/APAP 7.5-325MG [[place] 7.5] 1 each PO Q4H PRN #30 tab PRN Reason: Pain No Action amLODIPine BESYLATE [Norvasc] 5 mg PO DAILY Hydroxychloroquine Sulfate [Plaquenil] 200 mg PO BID Albuterol Nebulized [Ventolin Nebulized] 2.5 mg INHALATION RT-BID PRN PRN Reason: sob Lisinopril 40 mg PO HS Gabapentin [Neurontin] 400 mg PO TID Fluticasone/Salmeterol [Advair 100-50 Diskus] 1 puff INHALATION RT-BID Montelukast [Singulair] 10 mg PO HS Omeprazole 40 mg PO DAILY #60 capsule. Albuterol Inhaler [Ventolin Hfa Inhaler] 1 - 2 puff INHALATION RT-Q6H PRN PRN Reason: Shortness Of Breath Discharge Medication List Hydroxychloroquine Sulfate [Plaquenil] 200 mg PO BID 09/28/15 [History] amLODIPine BESYLATE [Norvasc] 5 mg PO DAILY 09/28/15 [History] Albuterol Nebulized [Ventolin Nebulized] 2.5 mg INHALATION RT-BID PRN 12/18/15 [ History] Lisinopril 40 mg PO HS 06/12/16 [History] Fluticasone/Salmeterol [Advair 100-50 Diskus] 1 puff INHALATION RT-BID 12/18/16 [History] Gabapentin [Neurontin] 400 mg PO TID 12/18/16 [History] Montelukast [Singulair] 10 mg PO HS 07/07/17 [History] Omeprazole 40 mg PO DAILY #60 capsule. 07/09/17 [Rx] Docusate [Colace] 100 mg PO BID #20 capsule 07/30/17 [Rx] HYDROcodone/APAP 7.5-325MG [[place] 7.5] 1 each PO Q4H PRN #30 tab 07/30/17 [Rx] Albuterol Inhaler [Ventolin Hfa Inhaler] 1 - 2 puff INHALATION RT-Q6H PRN [History] Follow up Appointment(s)/Referral(s): Tyrell Ramírez MD [STAFF PHYSICIAN] - 2 Weeks
[2017-07-31 13:00] VITALS: BP 133/75; PULSE 77; RESP 20; TEMP 98.1
--- NOTE | 2017-08-11 12:17 | P.OP ---
Date of Procedure: 07/30/17 Preoperative Diagnosis: GERD Recurrent hiatal hernia Postoperative Diagnosis: GERD Recurrent hiatal hernia Procedure(s) Performed: Laparoscopic Estevan fundoplication with mesh repair of hiatus Anesthesia: PAPITO Surgeon: Tyrell Ramírez Estimated Blood Loss (ml): 5 Pathology: none sent Condition: stable Disposition: PACU Description of Procedure: The patient was placed on the operating table in the supine position. She received general anesthesia. She was then placed in dorsal lithotomy position. Her abdomen was prepped and draped in the usual sterile fashion. The skin incision sites were anesthetized with 1% local Xylocaine. The skin was incised in the left periumbilical area with an 11 scalpel. Using a 5 mm blade was trocar under direct visitation the peritoneal cavity was entered. And then insufflated. After adequate insufflation the laparoscope was placed back into the peritoneal cavity. Next a 5 mm trocar was placed in the right epigastric and then the right lateral position. Another 5 mm trochars placed in the left lateral position. Another 5 mm trocar placed in the left epigastric position. And the original left periumbilical trocar was exchanged for a 10 mm trocar. The left lateral lobe liver was retracted. The patient had a large hiatal hernia. Using the Harmonic scissors the crural defect was dissected in the Harmonic scissors were used to dissect the hiatal hernia sac. The fundus of the stomach was completely mobilized by using the Harmonic scissors to divide short gastric vessels. The stomach was reduced into the peritoneal cavity. The crura was dissected with the Harmonic scissors. And then the crural repair was performed using 2-0 Ethibond suture. The [place] bio A mesh was then placed over top of the repair and secured with 2-0 Ethibond suture. Next a 58-Brazilian bougie dilator was placed the patient's oral pharynx and into the esophagus into the stomach by the SPECIAL SERVICES DIRECTOR. The fundoplication was then performed using 2-0 Ethibond suture. A 360 fundoplication was performed. At this point the dilator was withdrawn. The stomach and esophagus were inspected there is known to any injury to the stomach or esophagus. The abdomen was irrigated there is no bleeding seen. The trochars are withdrawn. Skin was closed interrupted 3-0 Monocryl suture. Dermabond was applied. Patient tolerated procedure well and was sent to recovery in stable condition.
== END 2017-07-31 13:33 | disposition home or self-care (01) ==
LOC: OR 09:45 → 6PED 12:48 → OR 23:51 → 6PED 07-31 00:32
PROVIDERS: ADMIT Surgery; ATTEND Surgery
DX: K21.9 Gastro-esophageal reflux disease without esophagitis (principal); K44.0 Diaphragmatic hernia with obstruction, without gangrene; J44.9 Chronic obstructive pulmonary disease, unspecified; I10 Essential (primary) hypertension; M19.90 Unspecified osteoarthritis, unspecified site; M06.9 Rheumatoid arthritis, unspecified; M35.1 Other overlap syndromes; B36.0 Pityriasis versicolor; G62.9 Polyneuropathy, unspecified; M62.82 Rhabdomyolysis; F17.210 Nicotine dependence, cigarettes, uncomplicated; Z82.49 Family history of ischemic heart disease and other diseases of the circulatory system; Z80.9 Family history of malignant neoplasm, unspecified; Z84.89 Family history of other specified conditions; Z79.899 Other long term (current) drug therapy; Z88.0 Allergy status to penicillin
CPT/HCPCS: 74210; 80053; 94640

== ENCOUNTER → 2017-09-22 | Outpatient (CLI) | payer OTHER ==
--- NOTE | 2017-09-23 14:29 | MM ---
Reason for exam: screening (asymptomatic). Last mammogram was performed 2 years ago. History: Family history of premenopausal breast cancer in 2 sisters and breast cancer in relative. Benign excisional biopsy of the left breast, August 19, 2001. Physical Findings: A clinical breast exam by your physician is recommended on an annual basis and results should be correlated with mammographic findings. MG Screening Mammo w CAD Bilateral CC and MLO view(s) were taken. Prior study comparison: September 30, 2015, bilateral MG screening mammo w CAD. October 05, 2002, bilateral screening mammogram. Finding: There are stable punctate, grouped/clustered calcifications in the upper outer quadrant, middle position of the left breast, 7cm from the nipple, This may have increased distortion. Post surgical changes in the left breast. New finding since September 30, 2015. ASSESSMENT: Incomplete: need additional imaging evaluation, BI-RAD 0 RECOMMENDATION: Special view mammogram of the left breast. [facility] will attempt to contact patient to return for supplemental views.
== END | disposition home or self-care (01) ==
LOC: RADMAMWWP 08:22
PROVIDERS: ATTEND Family Medicine
DX: Z12.31 Encounter for screening mammogram for malignant neoplasm of breast (principal)
CPT/HCPCS: 77067

== ENCOUNTER → 2017-09-29 | Outpatient (CLI) | payer OTHER ==
--- NOTE | 2017-09-29 09:41 | MM ---
Reason for exam: additional evaluation requested from abnormal screening. Last mammogram was performed less than 1 month ago. History: Patient is postmenopausal. Family history of premenopausal breast cancer in 2 sisters and breast cancer in relative. Benign excisional biopsy of the left breast, August 19, 2001. Physical Findings: Nurse did not find any significant physical abnormalities on exam. MG Work Up Mamm w CAD LT CC with magnification, LM with magnification, and LM view(s) were taken of the left breast. Prior study comparison: September 22, 2017, bilateral MG screening mammo w CAD. September 30, 2015, bilateral MG screening mammo w CAD. There are scattered fibroglandular densities. Finding: There are grouped/clustered calcifications in the upper outer quadrant of the left breast. These results were verbally communicated with the patient and result sheet given to the patient on 09/29/17. ASSESSMENT: Suspicious, BI-RAD 4 RECOMMENDATION: Surgical consultation and stereotactic core biopsy of the left breast. Called Dr. Florez's office with mammographic findings and has scheduled an appointment for the patient for 10/15/17 at 9:[address] Galindo. PRELIMINARY REPORT CALLED AND FAXED TO DR. GALINDO ON 09/29/17.
== END | disposition home or self-care (01) ==
LOC: RADMAMWWP 07:47
PROVIDERS: ATTEND Family Medicine
DX: R92.8 Other abnormal and inconclusive findings on diagnostic imaging of breast (principal)
CPT/HCPCS: 77065

== ENCOUNTER → 2017-11-12 | Day surgery (SDC) | payer OTHER, MEDICARE ==
[2017-11-12 07:24] VITALS: RESP 16; BMI 41.1
[2017-11-12 09:39] VITALS: BP 120/80; PULSE 76; TEMP 98.1
--- NOTE | 2017-11-12 10:04 | MM ---
EXAMINATION TYPE: MG stereo VAD BX LT DATE OF EXAM: 11/12/2017 COMPARISON: 09/22/2017 and 09/29/2017 CLINICAL HISTORY: 7 mm group of increasing pleomorphic calcifications in the upper outer quadrant of the left breast at middle depth. There is a small questioned associated asymmetry. TECHNIQUE: Stereotactic guided core biopsy of left breast. FINDINGS: The procedure of stereotactic guided core biopsy was explained to the patient. Benefits, alternatives, and risks were discussed. An informed consent was then obtained. Preprocedural timeout was performed. The shortness pathway for biopsy was chosen. Shortness pathway was lateral to medial approach. I performed the localization, then surgeon, Dr. Maximus Nicholas performed the remainder of the procedure. A vacuum assisted biopsy gun was used to obtain multiple core samples. The patient tolerated the procedure well without any immediate complication. The patient was kept in the radiology department for short stay after the procedure and then discharged home in stable condition. Targeted calcifications are identified in specimen mammogram. Post biopsy mammogram shows the clip to appear in satisfactory position relative to the targeted area of concern on the preprocedure images. IMPRESSION: SUCCESSFUL, UNCOMPLICATED STEREOTACTIC GUIDED CORE BIOPSY OF A 7 MM GROUP OF INCREASING PLEOMORPHIC CALCIFICATIONS IN THE UPPER OUTER QUADRANT OF THE LEFT BREAST AT MIDDLE DEPTH, FULL PATHOLOGY RESULTS TO FOLLOW. Pathology Results: High Risk BREAST, LEFT, STEREOTACTIC NEEDLE CORE BIOPSY: Atypical ductal hyperplasia (ADH ) with associated calcifications. Fibrocystic changes including cysts, fibrosis , adenosis and columnar cell hyperplasia. Recommendation Surgical consult of the left breast. JUNE
--- NOTE | 2017-11-12 10:21 | PCN ---
PROCEDURE NOTE PREPROCEDURE DIAGNOSIS: Mammographic abnormality of increasing calcifications in the left breast upper outer quadrant area. The patient is a 57-year-old black female who presented with a mammographic abnormality showing an area of abnormal microcalcifications in the left breast in the upper outer quadrant region. Physical examination was done and fibrocystic changes were noted bilaterally with no dominant masses or nodules of concern. Radiograph was reviewed and the area of concern was documented. The patient was recommended to undergo a stereotactic core biopsy with risks and benefits of the procedure discussed with the patient. The patient consented to the procedure. The patient presented to the stereotactic core room. She was placed on the stereotactic core table and the procedure was done of the left breast. The location of the lesion was upper outer quadrant. The approach used to target the lesion was a lateral to medial approach. The area of concern was identified radiographically. The skin was prepped using a Betadine solution and 1% lidocaine was used to anesthetize the area of the skin. Approximately 20 mL were used. The biopsy device was a 9-gauge vacuum-assisted needle. Thirteen core biopsies were obtained after the needle had been driven to the correct coordinates. Radiograph of the specimen revealed that the lesion of concern had been adequately sampled. Following this, a top-hat SecurMark was placed. The patient tolerated the procedure in stable condition with no immediate complications. The specimen was sent for pathology and the patient will be followed by Dr. Stroud in one week. MADI / SANDRA: [id number] /
== END ==
LOC: RADMAMWWP 06:59
PROVIDERS: ATTEND Surgery
DX: N60.92 Unspecified benign mammary dysplasia of left breast (principal); R92.1 Mammographic calcification found on diagnostic imaging of breast; N60.02 Solitary cyst of left breast; N60.32 Fibrosclerosis of left breast; N60.22 Fibroadenosis of left breast; Z88.0 Allergy status to penicillin
CPT/HCPCS: 88305; 19081; A4648; J2001

== ENCOUNTER → 2017-11-19 | Outpatient (CLI) | payer OTHER, MEDICARE ==
[2017-11-19 12:26] VITALS: BP 102/74; PULSE 85; BMI 41.5
--- NOTE | 2017-11-19 12:42 | P.PN ---
Progress Note - Text Progress Note Date: 11/19/17 postoperative visit: Patient is a 57-year-old black female status post stereotactic core biopsy of the left breast. Pathology revealed atypical ductal hyperplasia. The patient has been counseled regarding this diagnosis and she is going to undergo a needle localization and excisional biopsy. She understands the risks and benefits and wishes to proceed. She has no complaints related to the stereotactic core biopsy puncture site. She does have some excoriation of the skin related to the tape. Physical examination: Skin: Puncture site is clean and dry there is some mild excoriation of the superior skin related to tape Impression/plan: 1. Stereotactic core biopsy revealing atypical ductal hyperplasia 2. Patient to undergo needle localization and excisional biopsy she understands risks and benefits Cc: DR. Florez, as well as [facility]
== END | disposition home or self-care (01) ==
LOC: WWCWWP 11:35
PROVIDERS: ATTEND Surgery
DX: N60.92 Unspecified benign mammary dysplasia of left breast (principal)

== ENCOUNTER 2017-12-14 07:22 | Day surgery (SDC) | payer OTHER, MEDICARE ==
[2017-12-03 15:30] VITALS: BMI 42.0
[~2017-12-14 07:22] MED LIST changes: +ALPRAZolam 0.5 MG TAB PO PRN; -CLINDAMYCIN 900 MG in DEXTROSE 5% IN WATER 50 ML IVPB ONE; +DEXAMETHASONE SOD PHOSPHATE 10 MG/ML 1 ML VIAL IV ONE; +HYDROmorphone 0.5 MG/0.5 ML SYRINGE IVP PRN; +LACTATED RINGERS 1,000 ML IV SCH; -LEVOFLOXACIN 500MG-D5W PMX 500 MG in DEXTROSE/WATER 1 100ML.BAG IVPB ONE; +ONDANSETRON 4 MG/2 ML VIAL IVP ONE; +Pre Op ABX Message 1 EACH MISC MISCELLANE ONE
[2017-12-14] MEDS ORDERED: LACTATED RINGERS 1,000 ML IV ONE (08:02)
[2017-12-14 08:17] LABS: Basophils # (A) 0.1 k/uL (0-0.2); Basophils % (A) 1 %; Eosinophils # (A) 0.2 k/uL (0-0.7); Eosinophils % (A) 5 %; HCT 41.5 % (34.0-46.0); HGB 14.1 gm/dL (11.4-16.0); Lymphocytes # (A) 1.9 k/uL (1.0-4.8); Lymphocytes % (A) 38 %; MCH 30.9 pg (25.0-35.0); MCHC 34.1 g/dL (31.0-37.0); MCV 90.7 fL (80.0-100.0); Mean Platelet Volume 6.8; Monocytes # (A) 0.3 k/uL (0-1.0); Monocytes % (A) 6 %; Neutrophils # (A) 2.4 k/uL (1.3-7.7); Neutrophils % (A) 49 %; Platelet Count 302 k/uL (150-450); RBC 4.57 m/uL (3.80-5.40); RDW 12.9 % (11.5-15.5)
[2017-12-14] MEDS ORDERED: SODIUM BICARB 4% 5 ML VIAL (0.48 MEQ/ML) MISCELLANE ONE (08:58)
[2017-12-14] MEDS ORDERED: LIDOCAINE 1% (PF) 10MG/ML VIAL SQ ONE (08:58)
[2017-12-14] MEDS ORDERED: LIDOCAINE 2%-EPI 1:100,000 20 ML VIAL SQ ONE (08:58)
[2017-12-14] MEDS ORDERED: LIDOCAINE 1% INJ 10MG/ML (20 ML MDV) ONE (10:00)
[2017-12-14] MEDS ORDERED: SUCCINYLCHOLINE CHLORIDE VIAL 200 MG/10 ML VIAL IV ONE (10:00)
[2017-12-14] MEDS ORDERED: MIDAZOLAM 2 MG/2 ML VIAL ONE (10:00)
[2017-12-14] MEDS ORDERED: PROPOFOL 10 MG/ML 20 ML VIAL IV ONE (10:00)
[2017-12-14] MEDS ORDERED: fentaNYL (PF) 50 MCG/ML 2 ML AMP ONE (10:00)
[2017-12-14] MEDS ORDERED: LIDOCAINE 1% INJ 10MG/ML (20 ML MDV) SQ ONE ×2 (10:24→11:03)
[2017-12-14] MEDS ORDERED: HEPARIN SODIUM,PORCINE 5,000 UNIT/ML 1 ML VIAL SQ ONE (11:06)
--- NOTE | 2017-12-14 11:09 | MM ---
EXAMINATION TYPE: MG pre op needle loc LT, MG surgical specimen LT DATE OF EXAM: 12/14/2017 COMPARISON: Stereotactic guided core biopsy November 12, 2017 and older studies CLINICAL HISTORY: ADH on stereotactic guided core biopsy TECHNIQUE: Needle localization with wire placement and surgical excision of area of concern in the right breast. FINDINGS: The procedure of needle localization with wire placement and than surgical excision was explained to the patient. Benefits, alternatives, and risks were discussed. An informed consent was then obtained. The shortest pathway for procedure was chosen. Shortest pathway was lateral approach. The overlying skin was prepped and draped in usual sterile fashion. Lidocaine buffered with bicarbonate was used as anesthetic into the skin and subcutaneous tissue up to the level of area of concern. A 7 cm needle was used. It was placed via a lateral approach under mammographic guidance. Subsequent 90 degrees mammogram show the needle to be in satisfactory position relative to the targeted area. At this point, wire was placed and the needle was withdrawn. The wire actually penetrated breast without needle during placement roughly 3 to 4 cm deeper than desired. Wire was fixed to patient's skin. Images were marked for surgeon. The patient tolerated the procedure well without any immediate complication. The patient was kept in the radiology department for short stay after the procedure and then taken to surgery for surgical excision. Targeted biopsy clip and wire are identified in specimen mammogram. The patient was kept in hospital for short stay after the procedure and then discharged home in stable condition. IMPRESSION: Successful, uncomplicated needle localization with wire placement and surgical excision of targeted biopsy clip in the left breast, full pathology results to follow. Pathology Results: Benign LEFT BREAST, NEEDLE LOCALIZATION LUMPECTOMY: Fibrocystic spectrum changes status post prior biopsy ([id number]). Focal mineralizations. Immunoperoxidase studies for Cytokeratin 5/6 and Calponin on block A9 confirm the lesion as usual ductal hyperplasia with apocrine metaplasia. Control sections document adequate stain performance. Recommendation Surgical consult of the left breast. Continued surgical follow up. No upgraded malignancy. Annual MRI can be considered for history of surgically excised high risk lesion. (ADH) MTDD
--- NOTE | 2017-12-14 11:11 | P.OP ---
Date of Procedure: 12/14/17 Preoperative Diagnosis: Atypical hyperplasia left breast on core biopsy Postoperative Diagnosis: Same Procedure(s) Performed: Needle localization excisional biopsy Anesthesia: PAPITO Surgeon: Shae Galindo Estimated Blood Loss (ml): 5 IV fluids (ml): 400 Pathology: other (Left breast tissue) Condition: stable Disposition: PACU Indications for Procedure: Atypical hyperplasia on core biopsy of the left breast Operative Findings: SMALL Hematoma at site of core biopsy Description of Procedure: The patient is a 57-year-old black female who underwent a bilateral mammogram which revealed an area of concern in the left breast. She underwent a stereotactic core biopsy which revealed atypical hyperplasia. She therefore was scheduled for needle localization and excisional biopsy of area of concern in the left breast. The patient was taken to the operating room and following induction of anesthesia the left breast was prepped and draped in a sterile fashion. A small incision was made and carried down to the needle used for localization. Wide excision of the tissue at this site was performed. This was done using the Harmonic scalpel as well as the electrocautery device. After we were assured that hemostasis was attained titanium clips were placed. The specimen was painted for orientation and sent for x-ray. X-ray confirmed the area of concern had been removed. The deep tissues were irrigated. They were closed using a Vicryl suture. This was followed by closure of the skin with 4-0 Monocryl. All instrument and sponge counts were correct at the end of the case. The patient tolerated the procedure in stable condition.
--- NOTE | 2017-12-14 11:12 | P.DS ---
Providers Attending physician: Shae Galindo Primary care physician: Laverne Florez Plan - Discharge Summary New Discharge Prescriptions: No Action amLODIPine BESYLATE [Norvasc] 5 mg PO DAILY Hydroxychloroquine Sulfate [Plaquenil] 200 mg PO BID Albuterol Nebulized [Ventolin Nebulized] 2.5 mg INHALATION RT-BID PRN PRN Reason: sob Lisinopril 40 mg PO HS Gabapentin [Neurontin] 400 mg PO TID Fluticasone/Salmeterol [Advair 100-50 Diskus] 1 puff INHALATION RT-BID Montelukast [Singulair] 10 mg PO HS Albuterol Inhaler [Ventolin Hfa Inhaler] 1 - 2 puff INHALATION RT-Q6H PRN PRN Reason: Shortness Of Breath Bisacodyl [Dulcolax] 5 mg PO DAILY Discharge Medication List Hydroxychloroquine Sulfate [Plaquenil] 200 mg PO BID 09/28/15 [History] amLODIPine BESYLATE [Norvasc] 5 mg PO DAILY 09/28/15 [History] Albuterol Nebulized [Ventolin Nebulized] 2.5 mg INHALATION RT-BID PRN 12/18/15 [ History] Lisinopril 40 mg PO HS 06/12/16 [History] Fluticasone/Salmeterol [Advair 100-50 Diskus] 1 puff INHALATION RT-BID 12/18/16 [History] Gabapentin [Neurontin] 400 mg PO TID 12/18/16 [History] Montelukast [Singulair] 10 mg PO HS 07/07/17 [History] Albuterol Inhaler [Ventolin Hfa Inhaler] 1 - 2 puff INHALATION RT-Q6H PRN [History] Bisacodyl [Dulcolax] 5 mg PO DAILY 12/03/17 [History] Follow up Appointment(s)/Referral(s): Shae Galindo MD [STAFF PHYSICIAN] - 1 Week Activity/Diet/Wound Care/Special Instructions: Patient to wear bra at all times Patient may shower after 48 hours Discharge Disposition: HOME SELF-CARE
[2017-12-14 11:25] VITALS: TEMP 97.3
[2017-12-14 13:18] VITALS: BP 115/71; PULSE 70; RESP 18
== END 2017-12-14 13:42 | disposition home or self-care (01) ==
LOC: OR 07:22
PROVIDERS: ATTEND Surgery
DX: N60.12 Diffuse cystic mastopathy of left breast (principal); I10 Essential (primary) hypertension; J44.9 Chronic obstructive pulmonary disease, unspecified; F17.200 Nicotine dependence, unspecified, uncomplicated; Z79.1 Long term (current) use of non-steroidal anti-inflammatories (NSAID); Z79.891 Long term (current) use of opiate analgesic; Z79.899 Other long term (current) drug therapy; Z88.0 Allergy status to penicillin; Z91.048 Other nonmedicinal substance allergy status
CPT/HCPCS: 85025; 88342; 88307; 88341; 76098; 19281; 19125; J2250; J0330; J1644; J1100; J2405; J2001 ×2; J3010; J2704; J1170

== ENCOUNTER → 2017-12-23 | Outpatient (CLI) | payer OTHER, MEDICARE ==
[2017-12-23 10:50] VITALS: BP 124/72; PULSE 83; BMI 43.6
--- NOTE | 2017-12-23 10:50 | P.PN ---
Progress Note - Text Progress Note Date: 12/23/17 The patient is a 57-year-old black female status post a left breast needle localization and excisional biopsy on . Pathology revealed fibrocystic spectrum changes status post prior biopsy focal mineralization's. The patient has no complaints related to the biopsy and she is doing well at this time. Physical examination: Incision clean and dried evidence of infection Have discussed with the patient that this is benign. She will have a repeat left breast mammogram and physician exam in 6 months time. She has any questions or concerns I will see her sooner. Cc: Dr. Laverne Florez
== END | disposition home or self-care (01) ==
LOC: WWCWWP 10:37
PROVIDERS: ATTEND Surgery
DX: Z53.9 Procedure and treatment not carried out, unspecified reason (principal)

== ENCOUNTER → 2018-06-27 | Outpatient (CLI) | payer OTHER, MEDICARE ==
--- NOTE | 2018-06-28 16:29 | MM ---
Reason for exam: follow-up at short interval from prior study. Last mammogram was performed 9 months ago. History: Patient is postmenopausal and has history of high-risk lesion on a previous biopsy at age 57. Family history of breast cancer in 3 maternal aunts and premenopausal breast cancer in 2 sisters at age 30. Benign MG pre op needle loc LT of the left breast, December 14, 2017. High risk MG stereo VAD BX LT of the left breast, November 12, 2017. Benign excisional biopsy of the left breast, August 19, 2001. Physical Findings: Nurse did not find any significant physical abnormalities on exam. MG Diagnostic Mammo LT w CAD CC and MLO view(s) were taken of the left breast. Prior study comparison: September 29, 2017, left breast MG work up mamm w CAD LT. September 22, 2017, bilateral MG screening mammo w CAD. There are scattered fibroglandular densities. Fat necrosis and calcifications 12 o'clock and surgical clips fro excisional biopsy. No significant new finding when compared with prior studies. These results were verbally communicated with the patient and result sheet given to the patient on 06/27/18. ASSESSMENT: Benign, BI-RAD 2 RECOMMENDATION: Routine screening mammogram of both breasts in 3 months. Back on schedule.
== END | disposition home or self-care (01) ==
LOC: RADMAMWWP 07:48
PROVIDERS: ATTEND Surgery
DX: R92.8 Other abnormal and inconclusive findings on diagnostic imaging of breast (principal)
CPT/HCPCS: 77065

== ENCOUNTER → 2018-07-15 | Outpatient (CLI) | payer OTHER, MEDICARE ==
[2018-07-15 10:53] VITALS: BP 136/68; PULSE 98; RESP 18; TEMP 98.3; BMI 40.2
--- NOTE | 2018-07-15 11:26 | P.PN ---
Subjective Progress Note Date: 07/15/18 Principal diagnosis: status post biopsy of the left breast Yuridia is a 57 year old black female status post left breast needle localization and excisional biopsy on . Pathology revealed fibrocystic spectrum changes. She was status post stereotactic core biopsy of the left breast which revealed atypical hyperplasia, this led to the open biopsy. The patient has had a recent mammogram of the left breast performed on which was felt to be benign, BIRADS 2 and repeat bilateral mammogram in 3 months back and schedule was recommended. At this time the patient has no complaints related to her breasts. She does not feel any masses or lumps of concern. She has not complained of any pain in her breast. She is not complaining of any nipple discharge or skin changes of concern. Family History: 1. 1/2 sister (paternal): breast cancer in her 30's, no genetic testing 2. 1/2 sister (paternal): a second sister with breast cancer in her 30's no genetic testing 3. maternal 4 aunts breast cancer, post-menopausal 4. maternal cousins: 4 breast cancer 5. second maternal cousin: breast cancer at 26 Objective - Vital Signs Vital signs: Vital Signs Temp 98.3 F 07/15/18 10:47 Pulse 98 07/15/18 10:47 Resp 18 07/15/18 10:47 BP 136/68 07/15/18 10:47 Pulse Ox 94 L 07/15/18 10:47 Intake & Output 07/14/18 07/15/18 07/15/18 18:59 06:59 18:59 Weight 109.769 kg - Exam BMI 40.3 - Constitutional General appearance: Present: obese - EENT Eyes: Present: EOMI ENT: Present: hearing grossly normal - Neck Neck: Present: normal ROM - Respiratory Respiratory: bilateral: CTA - Cardiovascular Rhythm: regular Heart sounds: normal: S1, S2 - Gastrointestinal General gastrointestinal: Present: soft - Integumentary Integumentary: Present: normal turgor - Musculoskeletal Musculoskeletal: Present: gait normal - Psychiatric Psychiatric: Present: A&O x's 3, appropriate affect, intact judgment & insight - Additional findings Additional findings: Breast Exam: right breast: Multi-positional exam no dominant masses or nodules of concern, fibrocystic changes Right axilla: No adenopathy of concern Left breast: Well-healed scars from 2 prior biopsies multiple positional exam fibrocystic changes some nodularity near the area of the biopsy scar is believed to be related to the scars no dominant masses or nodules of concern Left axilla: No adenopathy of concern Assessment and Plan Assessment: Impression: 1. Prior breast biopsy for atypical hyperplasia of the left breast 2. Stable left breast mammogram 3. Very strong family history of cancer Plan: 1. Repeat bilateral mammogram in 3 months recommended by radiology back on track 2. Consider genetic counseling secondary strong family history of cancer 3. Follow-up here after bilateral mammogram CC: Ksenia Gaytan at [facility], Dr. Florez
== END | disposition home or self-care (01) ==
LOC: WWCWWP 10:36
PROVIDERS: ATTEND Surgery
DX: Z53.9 Procedure and treatment not carried out, unspecified reason (principal)

== ENCOUNTER 2018-08-06 19:13 | Observation (INO) | payer OTHER, MEDICARE ==
[2018-08-06] MEDS ORDERED: methylPREDNISolone SOD SUCCI 125 MG/2 ML VIAL IV STA (19:40)
[2018-08-06] MEDS ORDERED: IPRATROPIUM-ALBUTEROL 3 ML NEB INHALATION STA (19:40)
--- NOTE | 2018-08-06 19:42 | ED ---
General Adult HPI - General Chief complaint: Shortness of Breath Stated complaint: deena Time Seen by Provider: 08/06/18 19:30 Source: patient, family, RN notes reviewed Mode of arrival: ambulatory Limitations: no limitations - History of Present Illness Initial comments: Patient is a pleasant 7-year-old female presenting to the emergency Department with complaints of difficulty in breathing. Onset of symptoms was several days ago. Patient does have cough occasional yellow sputum. Patient has had chills. No chest pain. Patient does have a history of similar symptoms previously associated with asthma and COPD. No leg pain or leg swelling. - Related Data Home Medications Medication Instructions Recorded Confirmed Hydroxychloroquine Sulfate 200 mg PO BID 09/28/15 08/06/18 [Plaquenil] Albuterol Nebulized [Ventolin 2.5 mg INHALATION RT-BID PRN 12/18/15 08/06/18 Nebulized] Lisinopril 30 mg PO HS 06/12/16 08/06/18 Gabapentin [Neurontin] 400 mg PO TID 12/18/16 08/06/18 Montelukast [Singulair] 10 mg PO DAILY 07/07/17 08/06/18 Albuterol Inhaler [Ventolin Hfa 1 - 2 puff INHALATION RT-Q6H PRN 07/31/17 Inhaler] Docusate [Colace] 100 mg PO MOSA 08/06/18 08/06/18 Fluticasone/Salmeterol [Advair 1 inhalation PO BID 08/06/18 08/06/18 500-50 Diskus] Levofloxacin [Levaquin] 750 mg PO DAILY 08/06/18 08/06/18 predniSONE See Taper PO DAILY 08/06/18 08/06/18 Allergies Allergy/AdvReac Type Severity Reaction Status Date / Time Penicillins Allergy Severe Dyspnea,hives,throat Verified 08/06/18 20:10 swelling adhesive tape AdvReac Rash/Hives Verified 08/06/18 20:10 Review of Systems ROS Statement: Those systems with pertinent positive or pertinent negative responses have been documented in the HPI. ROS Other: All systems not noted in ROS Statement are negative. 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, "swollen lymph nodes on my lung", hiatal hernia, rhabdomyolysis, mixed collagen vascular disease 2015 History of Any Multi-Drug Resistant Organisms: None Reported Past Surgical History: Breast Surgery, Section, Cholecystectomy, Hernia Repair, Joint Replacement, Tonsillectomy Additional Past Surgical History / Comment(s): L breast benign excisional biopsy , cyst in throat removed, cyst in left eye removed, JESUS FUNDOPLICATION 06/23; Left total knee; EGD, GERD SURGERY 2017, 2016 Past Anesthesia/Blood Transfusion Reactions: No Reported Reaction Additional Past Anesthesia/Blood Transfusion Reaction / Comment(s): long time to wake up Past Psychological History: No Psychological Hx Reported Smoking Status: Current every day smoker Past Alcohol Use History: None Reported Past Drug Use History: None Reported - Past Family History Sister(s) Family Medical History: Cancer, Deep Vein Thrombosis (DVT) Additional Family Medical History / Comment(s): . Mother Family Medical History: Cancer, Deep Vein Thrombosis (DVT), Pulmonary Embolus Additional Family Medical History / Comment(s): . Brother(s) Family Medical History: Myocardial Infarction (AL) Additional Family Medical History / Comment(s): Brother had an AL at age 3 yrs old. Father Family Medical History: Dementia Additional Family Medical History / Comment(s): Father is 83 yrs old. General Exam Limitations: no limitations General appearance: alert Head exam: Present: atraumatic Eye exam: Present: normal appearance, PERRL ENT exam: Present: normal oropharynx Neck exam: Present: normal inspection Respiratory exam: Present: wheezes, decreased breath sounds Cardiovascular Exam: Present: tachycardia GI/Abdominal exam: Present: soft. Absent: tenderness Extremities exam: Present: normal inspection. Absent: pedal edema, calf tenderness Neurological exam: Present: alert Psychiatric exam: Present: normal affect, normal mood Skin exam: Present: normal color Course Vital Signs 08/06/18 08/06/18 08/06/18 19:23 19:49 19:53 Temperature 98.9 F Pulse Rate 95 90 Respiratory 22 22 Rate Blood Pressure 131/93 O2 Sat by Pulse 96 Oximetry 08/06/18 20:03 Temperature Pulse Rate 96 Respiratory Rate Blood Pressure O2 Sat by Pulse Oximetry EKG Findings - EKG Comments: EKG Findings:: Normal sinus rhythm and 91. SC 122. QRS 88. QT 358. QTC 440. Normal axis. Normal QRS. No acute ST change. Medical Decision Making - Medical Decision Making Patient reevaluated and is improved. Patient is not in respiratory distress. Lung sounds remain somewhat diminished however there is still continued wheezing. Patient and family updated on results and plan. Case was discussed in detail with Dr. Alvarado, who will admit for Dr. Florez. - Lab Data Result diagrams: 08/06/18 19:43 08/06/18 19:43 Lab Results 08/06/18 08/06/18 08/06/18 Range/Units 19:43 19:43 19:43 WBC 6.8 (3.8-10.6) k/uL RBC 4.81 (3.80-5.40) m/uL Hgb 14.6 (11.4-16.0) gm/dL Hct 44.8 (34.0-46.0) % MCV 93.2 (80.0-100.0) fL MCH 30.4 (25.0-35.0) pg MCHC 32.6 (31.0-37.0) g/dL RDW 12.9 (11.5-15.5) % Plt Count 320 (150-450) k/uL Neutrophils % 62 % Lymphocytes % 25 % Monocytes % 8 % Eosinophils % 2 % Basophils % 1 % Neutrophils # 4.2 (1.3-7.7) k/uL Lymphocytes # 1.7 (1.0-4.8) k/uL Monocytes # 0.6 (0-1.0) k/uL Eosinophils # 0.1 (0-0.7) k/uL Basophils # 0.0 (0-0.2) k/uL PT 10.1 (9.0-12.0) sec INR 0.9 (<1.2) APTT 23.8 (22.0-30.0) sec Sodium 140 (137-145) mmol/L Potassium 3.9 (3.5-5.1) mmol/L Chloride 108 H (98-107) mmol/L Carbon Dioxide 23 (22-30) mmol/L Anion Gap 9 mmol/L BUN 18 H (7-17) mg/dL Creatinine 0.80 (0.52-1.04) mg/dL Est GFR (CKD-EPI)AfAm >90 (>60 ml/min/1.73 sqM) Est GFR (CKD-EPI)NonAf 82 (>60 ml/min/1.73 sqM) Glucose 110 H (74-99) mg/dL Calcium 9.7 (8.4-10.2) mg/dL Total Bilirubin 0.4 (0.2-1.3) mg/dL AST 32 (14-36) U/L ALT 47 (9-52) U/L Alkaline Phosphatase 96 (38-126) U/L Total Protein 7.3 (6.3-8.2) g/dL Albumin 4.4 (3.5-5.0) g/dL Influenza Type A RNA (Not Detectd) Influenza Type B (PCR) (Not Detectd) 08/06/18 Range/Units 19:50 WBC (3.8-10.6) k/uL RBC (3.80-5.40) m/uL Hgb (11.4-16.0) gm/dL Hct (34.0-46.0) % MCV (80.0-100.0) fL MCH (25.0-35.0) pg MCHC (31.0-37.0) g/dL RDW (11.5-15.5) % Plt Count (150-450) k/uL Neutrophils % % Lymphocytes % % Monocytes % % Eosinophils % % Basophils % % Neutrophils # (1.3-7.7) k/uL Lymphocytes # (1.0-4.8) k/uL Monocytes # (0-1.0) k/uL Eosinophils # (0-0.7) k/uL Basophils # (0-0.2) k/uL PT (9.0-12.0) sec INR (<1.2) APTT (22.0-30.0) sec Sodium (137-145) mmol/L Potassium (3.5-5.1) mmol/L Chloride (98-107) mmol/L Carbon Dioxide (22-30) mmol/L Anion Gap mmol/L BUN (7-17) mg/dL Creatinine (0.52-1.04) mg/dL Est GFR (CKD-EPI)AfAm (>60 ml/min/1.73 sqM) Est GFR (CKD-EPI)NonAf (>60 ml/min/1.73 sqM) Glucose (74-99) mg/dL Calcium (8.4-10.2) mg/dL Total Bilirubin (0.2-1.3) mg/dL AST (14-36) U/L ALT (9-52) U/L Alkaline Phosphatase (38-126) U/L Total Protein (6.3-8.2) g/dL Albumin (3.5-5.0) g/dL Influenza Type A RNA Not Detected (Not Detectd) Influenza Type B (PCR) Not Detected (Not Detectd) - Radiology Data Radiology results: image reviewed (Chest x-ray shows no acute process) Disposition Clinical Impression: Acute exacerbation of chronic obstructive airways disease Disposition: ADMITTED IP TO THIS HOSP Is patient prescribed a controlled substance at d/c from ED?: No Referrals: Laverne Florez DO [Primary Care Provider] - 1-2 days Decision Time: 20:50
[2018-08-06 20:02] LABS: Basophils % (A) 1 %; Eosinophils # (A) 0.1 k/uL (0-0.7); Eosinophils % (A) 2 %; HCT 44.8 % (34.0-46.0); HGB 14.6 gm/dL (11.4-16.0); Lymphocytes # (A) 1.7 k/uL (1.0-4.8); Lymphocytes % (A) 25 %; MCH 30.4 pg (25.0-35.0); MCHC 32.6 g/dL (31.0-37.0); MCV 93.2 fL (80.0-100.0); Mean Platelet Volume 6.7; Monocytes # (A) 0.6 k/uL (0-1.0); Monocytes % (A) 8 %; Neutrophils # (A) 4.2 k/uL (1.3-7.7); Neutrophils % (A) 62 %; Platelet Count 320 k/uL (150-450); RBC 4.81 m/uL (3.80-5.40); RDW 12.9 % (11.5-15.5); WBC 6.8 k/uL (3.8-10.6)
[2018-08-06 20:24] LABS: INR 0.9 (<1.2); Partial Thromboplastin Time 23.8 sec (22.0-30.0); Prothrombin Time 10.1 sec (9.0-12.0)
--- NOTE | 2018-08-06 20:24 | XR ---
EXAMINATION TYPE: XR chest 2V DATE OF EXAM: 08/06/2018 COMPARISON: 08/04/2018 HISTORY: Short of breath TECHNIQUE: Frontal and lateral views of the chest are obtained. FINDINGS: Heart and mediastinum are normal. Lungs are clear. Diaphragm is normal. Bony thorax appear s normal. IMPRESSION: Normal chest. No change.
[2018-08-06 20:25] LABS: ALT 47 U/L (9-52); AST 32 U/L (14-36); Albumin 4.4 g/dL (3.5-5.0); Alkaline Phosphatase 96 U/L (38-126); Anion Gap 9 mmol/L; Blood Urea Nitrogen 18 mg/dL (7-17); Calcium 9.7 mg/dL (8.4-10.2); Carbon Dioxide 23 mmol/L (22-30); Chloride 108 mmol/L (98-107); Glucose 110 mg/dL (74-99); Potassium 3.9 mmol/L (3.5-5.1); Sodium 140 mmol/L (137-145); Total Bilirubin 0.4 mg/dL (0.2-1.3); Total Protein 7.3 g/dL (6.3-8.2)
[2018-08-06] MEDS ORDERED: IPRATROPIUM-ALBUTEROL 3 ML NEB INHALATION PRN (20:51)
[2018-08-06] MEDS ORDERED: HYDROXYCHLOROQUINE SULFATE 200 MG TAB PO SCH (21:00)
[2018-08-06] MEDS: SODIUM CHLORIDE 0.9% 1,000 ML IV SCH (21:19)
[2018-08-06] MEDS: LISINOPRIL 10 MG TAB PO SCH (22:32)
[2018-08-06] MEDS: HYDROXYCHLOROQUINE SULFATE 200 MG TAB PO SCH (22:32)
[2018-08-06] MEDS: GABAPENTIN 400 MG CAP PO SCH (22:32)
[2018-08-07] MEDS: methylPREDNISolone SOD SUCCI 125 MG/2 ML VIAL IV SCH ×4 (00:09→17:44)
[2018-08-07] MEDS: MONTELUKAST 10 MG TAB PO SCH (08:43)
[2018-08-07] MEDS: HYDROXYCHLOROQUINE SULFATE 200 MG TAB PO SCH ×2 (08:43→21:12)
[2018-08-07] MEDS: GABAPENTIN 400 MG CAP PO SCH ×3 (08:43→21:12)
[2018-08-07] MEDS: IPRATROPIUM-ALBUTEROL 3 ML NEB INHALATION SCH ×4 (09:17→20:24)
[2018-08-07] MEDS: LEVOFLOXACIN 750 MG TAB PO SCH (11:22)
[2018-08-07] MEDS: NICOTINE 21MG/24HR PATCH TRANSDERM SCH (11:22)
[2018-08-07] MEDS: HEPARIN SODIUM,PORCINE 5,000 UNIT/ML 1 ML VIAL SQ SCH ×2 (11:22→17:44)
[2018-08-07] MEDS: SODIUM CHLORIDE 0.9% 1,000 ML IV SCH ×2 (11:30→21:12)
[2018-08-07 13:13] VITALS: BMI 41.0
--- NOTE | 2018-08-07 13:54 | P.CNPUL ---
History of Present Illness Consult date: 08/07/18 Reason for consult: dyspnea History of present illness: A 57-year-old here patient with known history of COPD and addition to history of bronchial asthma whereas been followed up in our office regarding her pulmonary problems. The patient has been having difficulties in breathing for the past 3 weeks. She had contacted our office and the patient is seen a course of antibiotics and a prednisone burst taper without much help. Ultimately, the patient was getting worse and she decided to come in to the hospital for further evaluation of treatment. She is a chronic smoker in she smokes one pack of cigarettes a day. No hemoptysis. No pleurisy. No chest pain unless she coughs vigorously. Her cough is obviously skeletal in nature. She is producing some yellowish sputum. No fever. Influenza screen was not done. No altered mentation. No nausea. No vomiting. No abdominal pain. She has had previous hospitalization for COPD/asthma related complications. She has been maintained on Advair and singular 10 outpatient basis and she was completing a prednisone burst taper however she failed the treatment and she decided to come in to the hospital for further care. No other exposure to chemicals or industrial material. No history of any nasal polyposis. No aspirin sensitivity. No previous bouts of respiratory failure, intubation mechanical ventilation. One of them chiggers is cigarettes. The other significant is that the patient lost power at home and she was spending some time warming herself in the car and she was going back and forth in and out of the garage which probably exacerbated her chronic COPD/asthma. Chest x-ray shows no acute abnormalities. Patient is obese. Patient has history of mixed connective tissue disorder, maintained on Plaquenil on outpatient basis. Review of Systems Constitutional: Denies chills, Denies fever Eyes: denies as per HPI, denies blurred vision, denies bulging eye, denies decreased vision, denies diplopia, denies discharge, denies dry eye, denies irritation, denies itching, denies pain, denies photophobia, denies loss of peripheral vision, denies loss of vision, denies tunnel vision/blind spots Ears: deny: decreased hearing, ear discharge, earache, tinnitus Ears, nose, mouth and throat: Reports as per HPI Breasts: absent: as per HPI, change in shape, gynecomastia, masses, nipple discharge, pain, skin changes, swelling Cardiovascular: Reports decreased exercise tolerance, Reports dyspnea on exertion, Reports shortness of breath Respiratory: Reports cough, Reports dyspnea, Reports wheezing Gastrointestinal: Denies abdominal pain, Denies diarrhea, Denies nausea, Denies vomiting Genitourinary: Reports as per HPI Menstruation: Reports as per HPI Musculoskeletal: Reports as per HPI Musculoskeletal: absent: ankle pain, ankle stiffness, ankle swelling, as per HPI , elbow pain, elbow stiffness, elbow swelling, foot pain, foot stiffness, foot swelling, hand pain, hand stiffness, hand swelling, hip pain, hip stiffness, hip swelling, knee pain, knee stiffness, knee swelling, shoulder pain, shoulder stiffness, shoulder swelling, wrist pain, wrist stiffness, wrist swelling Integumentary: Reports as per HPI Neurological: Reports as per HPI Psychiatric: Reports as per HPI Endocrine: Reports as per HPI Hematologic/Lymphatic: Reports as per HPI Allergic/Immunologic: Reports as per HPI 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, "swollen lymph nodes on my lung", hiatal hernia, rhabdomyolysis, mixed collagen vascular disease 2016, carpal tunnel, cervical radio-apathy, glaucoma History of Any Multi-Drug Resistant Organisms: None Reported Past Surgical History: Breast Surgery, Section, Cholecystectomy, Hernia Repair, Joint Replacement, Tonsillectomy Additional Past Surgical History / Comment(s): L breast benign excisional biopsy x2, cyst in throat removed, cyst in left eye removed, JESUS FUNDOPLICATION 06/23; Left total knee; EGD, GERD SURGERY 2017, 2016 Past Anesthesia/Blood Transfusion Reactions: No Reported Reaction Additional Past Anesthesia/Blood Transfusion Reaction / Comment(s): Long time to wake up Past Psychological History: No Psychological Hx Reported Additional Psychological History / Comment(s): Lives with . Lives in a one story house. Smoking Status: Current every day smoker Past Alcohol Use History: None Reported Additional Past Alcohol Use History / Comment(s): Pt states she started smoking at about age 21 yrs. Smokes approx 3 cigarettes daily. Patient states she hasn' t been smoking because she cannot handle it. Past Drug Use History: None Reported - Past Family History Sister(s) Family Medical History: Cancer, Deep Vein Thrombosis (DVT) Additional Family Medical History / Comment(s): . Mother Family Medical History: Cancer, Deep Vein Thrombosis (DVT), Pulmonary Embolus Additional Family Medical History / Comment(s): . Brother(s) Family Medical History: Myocardial Infarction ([place]) Additional Family Medical History / Comment(s): Brother had an [place] at age 3 yrs old. Father Family Medical History: Dementia Additional Family Medical History / Comment(s): Father is 83 yrs old. Medications and Allergies Home Medications Medication Instructions Recorded Confirmed Type Hydroxychloroquine Sulfate 200 mg PO BID 09/28/15 08/06/18 History [Plaquenil] Albuterol Nebulized [Ventolin 2.5 mg INHALATION RT-BID PRN 12/18/15 08/06/18 History Nebulized] Lisinopril 30 mg PO HS 06/12/16 08/06/18 History Gabapentin [Neurontin] 400 mg PO TID 12/18/16 08/06/18 History Montelukast [Singulair] 10 mg PO DAILY 07/07/17 08/06/18 History Albuterol Inhaler [Ventolin Hfa 1 - 2 puff INHALATION RT-Q6H PRN 07/31/17 History Inhaler] Docusate [Colace] 100 mg PO MOSA 08/06/18 08/06/18 History Fluticasone/Salmeterol [Advair 1 inhalation PO BID 08/06/18 08/06/18 History 500-50 Diskus] Levofloxacin [Levaquin] 750 mg PO DAILY 08/06/18 08/06/18 History predniSONE See Taper PO DAILY 08/06/18 08/06/18 History Allergies Allergy/AdvReac Type Severity Reaction Status Date / Time Penicillins Allergy Severe Dyspnea,hives,throat Verified 08/06/18 20:10 swelling adhesive tape AdvReac Rash/Hives Verified 08/06/18 20:10 Physical Exam Vitals: Vital Signs Temp Pulse Pulse Resp BP BP Pulse Ox 08/07/18 12:04 83 08/07/18 11:54 79 08/07/18 11:52 98 F 81 22 107/72 95 08/07/18 05:00 98.5 F 68 17 134/75 96 08/06/18 21:50 97.9 F 91 20 124/73 96 08/06/18 21:20 99.2 F 89 20 102/89 96 08/06/18 20:03 96 08/06/18 19:53 90 08/06/18 19:49 22 08/06/18 19:23 98.9 F 95 22 131/93 96 Intake and Output 08/06/18 08/07/18 08/07/18 22:59 06:59 14:59 Intake Total 440 920 Balance 440 920 Intake: Intake, IV Titration 200 800 Amount Sodium Chloride 0.9% 1, 200 800 000 ml @ 10 mls/hr IV . Q24H [facility] Rx#:[id number] Oral 240 120 Other: Voiding Method Toilet # Voids 1 2 2 Weight 108.409 kg 108.409 kg Gen. appearance non-in acute distress. Head exam was generally normal. There was no scleral icterus or corneal arcus. Mucous membranes were moist. Neck was supple and without jugular venous distension, thyromegaly, or carotid bruits. Carotids were easily palpable bilaterally. There was no adenopathy. Lungs sounds are diminished bilaterally and there is prolongation of expiratory phase of breathing and diffuse expiratory wheezes throughout the lung hale bilaterally. Cardiac exam revealed the PMI to be normally situated and sized. The rhythm was regular and no extrasystoles were noted during several minutes of auscultation. The first and second heart sounds were normal and physiologic splitting of the second heart sound was noted. There were no murmurs, rubs, clicks, or gallops. Abdominal exam revealed normal bowel sounds. The abdomen was soft, non-tender, and without masses, organomegaly, or appreciable enlargement of the abdominal aorta. Examination of the extremities revealed easily palpable radial, femoral and pedal pulses. There was no cyanosis, clubbing or edema. Examination of the skin revealed no evidence of significant rashes, suspicious appearing nevi or other concerning lesions. Results - Laboratory Findings CBC and BMP: 08/06/18 19:43 08/06/18 19:43 PT/INR, D-dimer PT 10.1 sec (9.0-12.0) 08/06/18 19:43 INR 0.9 (<1.2) 08/06/18 19:43 Abnormal lab findings: Abnormal Labs 08/06/18 19:43 Chloride 108 H BUN 18 H Glucose 110 H - Diagnostic Findings Chest x-ray: image reviewed Assessment and Plan Plan: Assessment 1 acute COPD/asthma exacerbation with secondary shortness of breath. The patient has failed outpatient treatment. She is a chronic smoker. No evidence of any pneumonia 2 shortness of breath secondary to above 3 smoker 4 history of mixed connective tissue disease maintained on Plaquenil 5 obesity 6 acid reflux 7 hypertension Plan Continue DuoNeb nebulized treatments around the clock. At combination of Perforomist and Pulmicort neb last 2 minutes twice a day. IV Solu Medrol 60-6. Promethazine with codeine for cough. Continue Singulair. Ranitidine GI prophylaxis. Influenza screen. We'll continue to follow.
--- NOTE | 2018-08-07 14:22 | P.HPIM ---
History of Present Illness H&P Date: 08/07/18 Yuridia will is a 57-year-old female patient of Dr. Laverne Florez with known history of COPD and bronchial asthma who presented to [facility] emergency room due to worsening shortness of breath. Patient stated that she had loss of bowel or in her house and she was sitting in the cold for more than 8 hours she started having worsening cough and shortness of breath she was evaluated by her primary care and her hatchery manager she received oral antibiotic and oral steroids however her condition continued to worsen she decided to come to emergency room. Patient was evaluated in the ER she was diagnosed with acute exacerbation of chronic obstructive pulmonary disease she was started on IV antibiotic and IV steroids and inhaled bronchodilators and was admitted to medical floor. Patient has a prolonged history of smoking she stated that she started smoking at age 21 she is still smoking until now however she stated that she has cut down on her smoking recently, otherwise she has a known history of osteoarthritis, hypertension, and peripheral neuropathy. She also has a known history of mixed connective tissue disease for which she is maintained on plaquenil as outpatient. 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, "swollen lymph nodes on my lung", hiatal hernia, rhabdomyolysis, mixed collagen vascular disease 2015, carpal tunnel, cervical radio-apathy, glaucoma History of Any Multi-Drug Resistant Organisms: None Reported Past Surgical History: Breast Surgery, Section, Cholecystectomy, Hernia Repair, Joint Replacement, Tonsillectomy Additional Past Surgical History / Comment(s): L breast benign excisional biopsy x2, cyst in throat removed, cyst in left eye removed, JESUS FUNDOPLICATION 06/23; Left total knee; EGD, GERD SURGERY 2017, 2016 Past Anesthesia/Blood Transfusion Reactions: No Reported Reaction Additional Past Anesthesia/Blood Transfusion Reaction / Comment(s): Long time to wake up Past Psychological History: No Psychological Hx Reported Additional Psychological History / Comment(s): Lives with . Lives in a one story house. Smoking Status: Current every day smoker Past Alcohol Use History: None Reported Additional Past Alcohol Use History / Comment(s): Pt states she started smoking at about age 21 yrs. Smokes approx 3 cigarettes daily. Patient states she hasn' t been smoking because she cannot handle it. Past Drug Use History: None Reported - Past Family History Sister(s) Family Medical History: Cancer, Deep Vein Thrombosis (DVT) Additional Family Medical History / Comment(s): . Mother Family Medical History: Cancer, Deep Vein Thrombosis (DVT), Pulmonary Embolus Additional Family Medical History / Comment(s): . Brother(s) Family Medical History: Myocardial Infarction ([place]) Additional Family Medical History / Comment(s): Brother had an [place] at age 3 yrs old. Father Family Medical History: Dementia Additional Family Medical History / Comment(s): Father is 83 yrs old. Medications and Allergies Home Medications Medication Instructions Recorded Confirmed Type Hydroxychloroquine Sulfate 200 mg PO BID 09/28/15 08/06/18 History [Plaquenil] Albuterol Nebulized [Ventolin 2.5 mg INHALATION RT-BID PRN 12/18/15 08/06/18 History Nebulized] Lisinopril 30 mg PO HS 06/12/16 08/06/18 History Gabapentin [Neurontin] 400 mg PO TID 12/18/16 08/06/18 History Montelukast [Singulair] 10 mg PO DAILY 07/07/17 08/06/18 History Albuterol Inhaler [Ventolin Hfa 1 - 2 puff INHALATION RT-Q6H PRN 07/31/17 History Inhaler] Docusate [Colace] 100 mg PO MOSA 08/06/18 08/06/18 History Fluticasone/Salmeterol [Advair 1 inhalation PO BID 08/06/18 08/06/18 History 500-50 Diskus] Levofloxacin [Levaquin] 750 mg PO DAILY 08/06/18 08/06/18 History predniSONE See Taper PO DAILY 08/06/18 08/06/18 History Allergies Allergy/AdvReac Type Severity Reaction Status Date / Time Penicillins Allergy Severe Dyspnea,hives,throat Verified 08/06/18 20:10 swelling adhesive tape AdvReac Rash/Hives Verified 08/06/18 20:10 Physical Exam Vitals: Vital Signs Temp Pulse Pulse Resp BP BP Pulse Ox 08/07/18 12:04 83 08/07/18 11:54 79 08/07/18 11:52 98 F 81 22 107/72 95 08/07/18 05:00 98.5 F 68 17 134/75 96 08/06/18 21:50 97.9 F 91 20 124/73 96 08/06/18 21:20 99.2 F 89 20 102/89 96 08/06/18 20:03 96 08/06/18 19:53 90 08/06/18 19:49 22 08/06/18 19:23 98.9 F 95 22 131/93 96 Intake and Output 08/06/18 08/07/18 08/07/18 22:59 06:59 14:59 Intake Total 440 920 Balance 440 920 Intake: Intake, IV Titration 200 800 Amount Sodium Chloride 0.9% 1, 200 800 000 ml @ 10 mls/hr IV . Q24H [facility] Rx#:[id number] Oral 240 120 Other: Voiding Method Toilet # Voids 1 2 2 Weight 108.409 kg 108.409 kg In general patient is alert and oriented 3 in no apparent distress HEENT head normocephalic and atraumatic Neck is supple no JVD no goiter no lymphadenopathy Cardiac exam reveals regular heart sounds S1 and S2 no gallops no murmurs Chest exam reveals a few scattered rhonchi bilaterally with prolonged expiratory phase and bilateral wheezing Abdomen is soft nontender no organomegaly with normal bowel sounds Extremity exam reveals no edema no cyanosis or clubbing Neurological examination reveals no gross focal deficit Results CBC & Chem 7: 08/06/18 19:43 08/06/18 19:43 Labs: Abnormal Lab Results - Last 24 Hours (Table) 08/06/18 Range/Units 19:43 Chloride 108 H (98-107) mmol/L BUN 18 H (7-17) mg/dL Glucose 110 H (74-99) mg/dL Thrombosis Risk Factor Assmnt - Choose All That Apply Any of the Below Risk Factors Present?: Yes Each Factor Represents 1 point: Abnormal pulmonary function (COPD), Age 41-60 years, Obesity (BMI >25) Other Risk Factors: No Other congenital or acquired thrombophilia - If yes, enter type in comment: No Thrombosis Risk Factor Assessment Total Risk Factor Score: 3 Thrombosis Risk Factor Assessment Level: Moderate Risk Assessment and Plan Plan: #1 acute exacerbation of asthma and COPD #2 acute purulent bronchitis no evidence of pneumonia on chest x-ray #3 tobacco abuse patient was counseled in length in regard to smoking cessation #4 history of hypertension #5 history of osteoarthritis #6 history of mixed connective tissue disease maintained on plaque point At this time patient is maintained on inhaled bronchodilators, inhaled steroids , IV steroids and IV antibiotics Medication and labs were reviewed No evidence of pneumonia influenza screen negative Continue with current management will follow in a.m.
[2018-08-07] MEDS: PROMETHAZ-COD 6.25-10 MG/5 ML 5 ML CUP PO PRN (18:48)
[2018-08-07] MEDS: BUDESONIDE 0.5 MG/2 ML NEBU INHALATION SCH (20:24)
[2018-08-07] MEDS: FORMOTEROL FUMARATE 20 MCG/2 ML NEBU INHALATION SCH (20:24)
[2018-08-07] MEDS: LISINOPRIL 10 MG TAB PO SCH (21:12)
[2018-08-08] MEDS: methylPREDNISolone SOD SUCCI 125 MG/2 ML VIAL IV SCH ×4 (00:42→17:22)
[2018-08-08] MEDS: PROMETHAZ-COD 6.25-10 MG/5 ML 5 ML CUP PO PRN ×3 (00:43→17:23)
[2018-08-08] MEDS: HEPARIN SODIUM,PORCINE 5,000 UNIT/ML 1 ML VIAL SQ SCH ×3 (00:44→17:23)
[2018-08-08 07:16] LABS: Basophils % (A) 0 %; Eosinophils # (A) 0.1 k/uL (0-0.7); Eosinophils % (A) 1 %; HCT 42.1 % (34.0-46.0); HGB 13.4 gm/dL (11.4-16.0); Lymphocytes % (A) 11 %; MCH 29.8 pg (25.0-35.0); MCHC 31.7 g/dL (31.0-37.0); MCV 93.9 fL (80.0-100.0); Mean Platelet Volume 6.9; Monocytes # (A) 0.2 k/uL (0-1.0); Monocytes % (A) 3 %; Neutrophils # (A) 7.9 k/uL (1.3-7.7); Neutrophils % (A) 84 %; Platelet Count 311 k/uL (150-450); RBC 4.49 m/uL (3.80-5.40); WBC 9.4 k/uL (3.8-10.6)
[2018-08-08] MEDS: MONTELUKAST 10 MG TAB PO SCH (07:37)
[2018-08-08] MEDS: LEVOFLOXACIN 750 MG TAB PO SCH (07:37)
[2018-08-08] MEDS: NICOTINE 21MG/24HR PATCH TRANSDERM SCH (07:37)
[2018-08-08] MEDS: GABAPENTIN 400 MG CAP PO SCH ×3 (07:37→22:07)
[2018-08-08] MEDS: HYDROXYCHLOROQUINE SULFATE 200 MG TAB PO SCH ×2 (07:37→22:07)
[2018-08-08 07:41] LABS: ALT 43 U/L (9-52); AST 26 U/L (14-36); Albumin 3.6 g/dL (3.5-5.0); Alkaline Phosphatase 72 U/L (38-126); Anion Gap 6 mmol/L; Blood Urea Nitrogen 14 mg/dL (7-17); Calcium 9.7 mg/dL (8.4-10.2); Carbon Dioxide 27 mmol/L (22-30); Chloride 109 mmol/L (98-107); Glucose 152 mg/dL (74-99); Potassium 4.6 mmol/L (3.5-5.1); Sodium 142 mmol/L (137-145); Total Bilirubin 0.4 mg/dL (0.2-1.3); Total Protein 6.2 g/dL (6.3-8.2)
[2018-08-08] MEDS: FORMOTEROL FUMARATE 20 MCG/2 ML NEBU INHALATION SCH ×2 (08:55→20:23)
[2018-08-08] MEDS: IPRATROPIUM-ALBUTEROL 3 ML NEB INHALATION SCH ×4 (08:55→20:23)
[2018-08-08] MEDS: BUDESONIDE 0.5 MG/2 ML NEBU INHALATION SCH ×2 (08:55→20:23)
--- NOTE | 2018-08-08 11:15 | P.PN ---
Subjective Progress Note Date: 08/08/18 Yuridia will is a 57-year-old female patient of Dr. Laverne Florez with known history of COPD and bronchial asthma who presented to [facility] emergency room due to worsening shortness of breath. Patient stated that she had loss of bowel or in her house and she was sitting in the cold for more than 8 hours she started having worsening cough and shortness of breath she was evaluated by her primary care and her cook tortilla she received oral antibiotic and oral steroids however her condition continued to worsen she decided to come to emergency room. Patient was evaluated in the ER she was diagnosed with acute exacerbation of chronic obstructive pulmonary disease she was started on IV antibiotic and IV steroids and inhaled bronchodilators and was admitted to medical floor. Patient has a prolonged history of smoking she stated that she started smoking at age 21 she is still smoking until now however she stated that she has cut down on her smoking recently, otherwise she has a known history of osteoarthritis, hypertension, and peripheral neuropathy. She also has a known history of mixed connective tissue disease for which she is maintained on plaquenil as outpatient. 08/08/18 patient is still complaining of shortness of breath with activity and wheezing. She does admit to some improvement since admission. She denies any chest pain, nausea or vomiting, bowel movement changes or urinary symptoms. Objective - Vital Signs Vital signs: Vital Signs Temp 97.9 F 08/08/18 05:00 Pulse 84 08/08/18 09:18 Resp 16 08/08/18 05:00 BP 114/66 08/08/18 05:00 Pulse Ox 96 08/08/18 08:58 Intake & Output 08/07/18 08/08/18 08/08/18 18:59 06:59 18:59 Intake Total 780 Balance 780 Weight 108.409 kg Intake: Intake, IV Titration 0 Amount Sodium Chloride 0.9% 1, 0 000 ml @ 10 mls/hr IV . Q24H [facility] Rx#:[id number] Oral 780 Other: Voiding Method Toilet # Voids 2 1 - Exam Head normocephalic Neck supple Lungs expiratory wheezing and coarse breath sounds noted bilaterally Heart regular rate and rhythm S1-S2, no rub or gallop Abdomen is soft nontender nondistended positive bowel sounds no hepatosplenomegaly Extremities no edema Neuro alert and orientated to 3 - Labs CBC & Chem 7: 08/08/18 06:45 08/08/18 06:45 Labs: Abnormal Lab Results - Last 24 Hours (Table) 08/08/18 08/08/18 Range/Units 06:45 06:45 Neutrophils # 7.9 H (1.3-7.7) k/uL Chloride 109 H (98-107) mmol/L Glucose 152 H (74-99) mg/dL Total Protein 6.2 L (6.3-8.2) g/dL Assessment and Plan Assessment: #1 acute exacerbation of asthma and COPD: Continue IV Solu-Medrol and nebulizer treatments, Pulmicort, performist #2 acute purulent bronchitis no evidence of pneumonia on chest x-ray. Influenza screen negative. Continue antibiotics #3 tobacco abuse patient was counseled in length in regard to smoking cessation #4 history of hypertension #5 history of osteoarthritis #6 history of mixed connective tissue disease maintained on plaquenil #7 hyperglycemia secondary to steroids and sliding scale coverage #8 nicotine dependence discussed smoking cessation for greater than 3 minutes. Continue nicotine patch DVT prophylaxis subcu heparin and GI prophylaxis Pepcid I performed an examination of the patient and discussed their management with the physician Photofinishing Laboratory Worker. I have reviewed the Physician Photofinishing Laboratory Worker's notes and agree with the documented findings and plan of care
[2018-08-08 12:06] LABS: Glucose,Whole Blood 136 mg/dL (75-99)
[2018-08-08] MEDS: INSULIN ASPART (NovoLOG) 100 UNIT/ML VIAL SQ SCH ×3 (12:32→22:07)
--- NOTE | 2018-08-08 12:52 | P.PN ---
Subjective Progress Note Date: 08/08/18 Principal diagnosis: Acute exacerbation of COPD A 57-year-old here patient with known history of COPD and addition to history of bronchial asthma whereas been followed up in our office regarding her pulmonary problems. The patient has been having difficulties in breathing for the past 3 weeks. She had contacted our office and the patient is seen a course of antibiotics and a prednisone burst taper without much help. Ultimately, the patient was getting worse and she decided to come in to the hospital for further evaluation of treatment. She is a chronic smoker in she smokes one pack of cigarettes a day. No hemoptysis. No pleurisy. No chest pain unless she coughs vigorously. Her cough is obviously skeletal in nature. She is producing some yellowish sputum. No fever. Influenza screen was not done. No altered mentation. No nausea. No vomiting. No abdominal pain. She has had previous hospitalization for COPD/asthma related complications. She has been maintained on Advair and singular 10 outpatient basis and she was completing a prednisone burst taper however she failed the treatment and she decided to come in to the hospital for further care. No other exposure to chemicals or industrial material. No history of any nasal polyposis. No aspirin sensitivity. No previous bouts of respiratory failure, intubation mechanical ventilation. The other significant is that the patient lost power at home and she was spending some time warming herself in the car and she was going back and forth in and out of the garage which probably exacerbated her chronic COPD/asthma. Chest x-ray shows no acute abnormalities. Patient is obese. Patient has history of mixed connective tissue disorder, maintained on Plaquenil on outpatient basis. Patient was reevaluated today on 08/08/2018, continues to have cough wheezing shortness of breath. She is maintained now on multiple bronchodilators, steroids, antibiotics, with slight improvement. But continues to cough and wheeze. And continues to have shortness of breath. Labs were reviewed and they seem to be relatively unremarkable, influenza screen was negative. Chest x -ray on admission was normal, there was no evidence of pneumonia. Objective - Vital Signs Vital signs: Vital Signs Temp 97.9 F 08/08/18 05:00 Pulse 86 08/08/18 12:24 Resp 16 08/08/18 05:00 BP 114/66 08/08/18 05:00 Pulse Ox 96 08/08/18 08:58 Intake & Output 08/07/18 08/08/18 08/08/18 18:59 06:59 18:59 Intake Total 780 Balance 780 Weight 108.409 kg Intake: Intake, IV Titration 0 Amount Sodium Chloride 0.9% 1, 0 000 ml @ 10 mls/hr IV . [facility] Rx#:[id number] Oral 780 Other: Voiding Method Toilet # Voids 2 1 - Exam Physical Exam: Revealed a 57-year-old female in mild respiratory distress. On few liters nasal cannula. Head: Atraumatic, normocephalic. HEENT:[Neck is supple.] [No neck masses.] [No thyromegaly.] [No JVD.] Chest: [Diffuse rhonchi and wheezes noted bilaterally. Symmetrical chest expansion, no chest wall tenderness. Cardiac Exam: [Normal S1 and S2, no S3 gallop, no murmur.] Abdomen: [Soft, nontender, no megaly, no rebound, no guarding, normal bowel sounds.] Extremities: [No clubbing, no edema, no cyanosis.] Neurological Exam: [No focal neurologic deficit.] Alert oriented 3. Psychiatric: Normal mood affect and mental status examination. Lymphatics: No lymphadenopathy. In: No rashes. - Labs CBC & Chem 7: 08/08/18 06:45 08/08/18 06:45 Labs: Abnormal Lab Results - Last 24 Hours (Table) 08/08/18 08/08/18 08/08/18 Range/Units 06:45 06:45 11:54 Neutrophils # 7.9 H (1.3-7.7) k/uL Chloride 109 H (98-107) mmol/L Glucose 152 H (74-99) mg/dL POC Glucose (mg/dL) 136 H (75-99) mg/dL Total Protein 6.2 L (6.3-8.2) g/dL Assessment and Plan Assessment: Impression: Acute exacerbation of COPD Acute tracheobronchitis Tobacco dependence syndrome, presently on nicotine patch Mixed connective tissue disease, on Plaquenil GERD without esophagitis Benign essential hypertension Obesity. Recommendation: Continue present course of treatment including bronchodilators, antibiotics/Levaquin, continue IV steroids, continue Singulair, continue GI and DVT prophylaxis, influenza screen was noted to be negative, patient was counseled regarding smoking cessation, and presently on nicotine patch. I had a long discussion with her and her at bedside, actually her is a patient of mine, and made aware of the risk of smoking, and made aware of her condition. Prognosis is still guarded, we'll continue to follow. All her meds and bronchodilators were reviewed. Not quite ready for any discharge planning at this point. Time with Patient: Less than 30
[2018-08-08 17:23] LABS: Glucose,Whole Blood 197 mg/dL (75-99)
[2018-08-08] MEDS: SODIUM CHLORIDE 0.9% 1,000 ML IV SCH (17:26)
[2018-08-08 20:19] LABS: Glucose,Whole Blood 100 mg/dL (75-99)
[2018-08-08] MEDS: LISINOPRIL 10 MG TAB PO SCH (22:07)
[2018-08-09] MEDS: HEPARIN SODIUM,PORCINE 5,000 UNIT/ML 1 ML VIAL SQ SCH ×4 (00:11→23:37)
[2018-08-09] MEDS: methylPREDNISolone SOD SUCCI 125 MG/2 ML VIAL IV SCH ×5 (00:11→23:38)
[2018-08-09] MEDS: PROMETHAZ-COD 6.25-10 MG/5 ML 5 ML CUP PO PRN ×3 (00:15→21:33)
[2018-08-09 07:01] LABS: Glucose,Whole Blood 127 mg/dL (75-99)
[2018-08-09] MEDS: INSULIN ASPART (NovoLOG) 100 UNIT/ML VIAL SQ SCH ×4 (07:07→21:34)
[2018-08-09] MEDS: FAMOTIDINE 20 MG TAB PO SCH (07:53)
[2018-08-09] MEDS: MONTELUKAST 10 MG TAB PO SCH (07:53)
[2018-08-09] MEDS: GABAPENTIN 400 MG CAP PO SCH ×3 (07:53→21:33)
[2018-08-09] MEDS: LEVOFLOXACIN 750 MG TAB PO SCH (07:54)
[2018-08-09] MEDS: NICOTINE 21MG/24HR PATCH TRANSDERM SCH (07:54)
[2018-08-09] MEDS: HYDROXYCHLOROQUINE SULFATE 200 MG TAB PO SCH ×2 (07:54→21:33)
[2018-08-09] MEDS: FORMOTEROL FUMARATE 20 MCG/2 ML NEBU INHALATION SCH ×2 (07:57→20:45)
[2018-08-09] MEDS: BUDESONIDE 0.5 MG/2 ML NEBU INHALATION SCH ×2 (07:57→20:45)
[2018-08-09] MEDS: IPRATROPIUM-ALBUTEROL 3 ML NEB INHALATION SCH ×4 (07:57→20:45)
[2018-08-09] MEDS ORDERED: LACTULOSE 20 GM/30 ML CUP PO ONE (09:53)
--- NOTE | 2018-08-09 09:56 | P.PN ---
Subjective Progress Note Date: 08/09/18 Yuridia will is a 57-year-old female patient of Dr. Laverne Florez with known history of COPD and bronchial asthma who presented to [facility] emergency room due to worsening shortness of breath. 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 Patient was evaluated in the ER she was diagnosed with acute exacerbation of chronic obstructive pulmonary disease she was started on IV antibiotic and IV steroids and inhaled bronchodilators and was admitted to medical floor. Patient has a prolonged history of smoking she stated that she started smoking at age 21 she is still smoking until now however she stated that she has cut down on her smoking recently, otherwise she has a known history of osteoarthritis, hypertension, and peripheral neuropathy. She also has a known h istory of mixed connective tissue disease for which she is maintained on plaquenil as outpatient. 08/08/18 patient is still complaining of shortness of breath with activity and wheezing. She does admit to some improvement since admission. She denies any chest pain, nausea or vomiting, bowel movement changes or urinary symptoms. 08/09/2018 patient reporting improvement in her symptoms. Still having some shortness of breath with ambulating to the bathroom. Currently on 2 L of oxygen. Checking oxygen saturation while ambulating on room air. Patient is complaining of constipation last bowel movement was 3 days ago. Denies any chest pain. Patient denies any nausea or vomiting. Denies any chest pain. Denies a burning with urination. Patient does report her cough has become more productive Objective - Vital Signs Vital signs: Vital Signs Temp 97.7 F 08/09/18 05:00 Pulse 80 08/09/18 08:25 Resp 18 08/09/18 05:00 BP 125/75 08/09/18 05:00 Pulse Ox 98 08/09/18 08:01 Intake & Output 08/08/18 08/09/18 08/09/18 18:59 06:59 18:59 Intake Total 480 600 240 Balance 480 600 240 Intake: Oral 480 600 240 Other: Voiding Method Toilet # Voids 2 1 - Exam Head normocephalic Neck supple Lungs mild expiratory wheezing noted bilaterally Heart regular rate and rhythm S1-S2, no rub or gallop Abdomen is soft nontender nondistended positive bowel sounds no hepatosplenomegaly Extremities no edema Neuro alert and orientated to 3 - Labs CBC & Chem 7: 08/08/18 06:45 08/08/18 06:45 Labs: Abnormal Lab Results - Last 24 Hours (Table) 08/08/18 08/08/18 08/08/18 Range/Units 11:54 17:10 20:17 POC Glucose (mg/dL) 136 H 197 H 100 H (75-99) mg/dL 08/09/18 Range/Units 07:00 POC Glucose (mg/dL) 127 H (75-99) mg/dL Assessment and Plan Assessment: #1 acute exacerbation of asthma and COPD: Continue IV Solu-Medrol and nebulizer treatments, Pulmicort, performist. Pulmonary is following awaiting their further recommendations. Check to see if patient will require home O2. Check s putum culture. #2 acute purulent bronchitis no evidence of pneumonia on chest x-ray. Influenza screen negative. Continue antibiotics #3 tobacco abuse patient was counseled in length in regard to smoking cessation #4 history of hypertension #5 history of osteoarthritis #6 history of mixed connective tissue disease maintained on plaquenil #7 hyperglycemia secondary to steroids and sliding scale coverage #8 nicotine dependence discussed smoking cessation for greater than 3 minutes. Continue nicotine patch #9 constipation add Colace and lactulose DVT prophylaxis subcu heparin and GI prophylaxis Pepcid Anticipate discharge possibly tomorrow I performed an examination of the patient and discussed their management with the physician Maintenance Engineer [employer]. I have reviewed the Physician Maintenance Engineer [employer]'s notes and agree with the documented findings and plan of care
--- NOTE | 2018-08-09 10:37 | P.PN ---
Subjective Progress Note Date: 08/09/18 Principal diagnosis: Acute exacerbation of asthma/chronic obstructive pulmonary disease A 57-year-old here patient with known history of COPD and addition to history of bronchial asthma whereas been followed up in our office regarding her pulmonary problems. The patient has been having difficulties in breathing for the past 3 weeks. She had contacted our office and the patient is seen a course of antibiotics and a prednisone burst taper without much help. Ultimately, the patient was getting worse and she decided to come in to the hospital for further evaluation of treatment. She is a chronic smoker in she smokes one pack of cigarettes a day. No hemoptysis. No pleurisy. No chest pain unless she coughs vigorously. Her cough is obviously skeletal in nature. She is producing some yellowish sputum. No fever. Influenza screen was not done. No altered mentation. No nausea. No vomiting. No abdominal pain. She has had previous hospitalization for COPD/asthma related complications. She has been maintained on Advair and singular 10 outpatient basis and she was completing a prednisone burst taper however she failed the treatment and she decided to come in to the hospital for further care. No other exposure to chemicals or industrial material. No history of any nasal polyposis. No aspirin sensitivity. No previous bouts of respiratory failure, intubation mechanical ventilation. The other significant is that the patient lost power at home and she was spending some time warming herself in the car and she was going back and forth in and out of the garage which probably exacerbated her chronic COPD/asthma. Chest x-ray shows no acute abnormalities. Patient is obese. Patient has history of mixed connective tissue disorder, maintained on Plaquenil on outpatient basis. Patient was reevaluated today on 08/08/2018, continues to have cough wheezing shortness of breath. She is maintained now on multiple bronchodilators, steroids, antibiotics, with slight improvement. But continues to cough and wheeze. And continues to have shortness of breath. Labs were reviewed and they seem to be relatively unremarkable, influenza screen was negative. Chest x -ray on admission was normal, there was no evidence of pneumonia. The patient is seen today 08/09/2018 in follow-up on the regular medical floor. She is awake and alert in no acute distress. She is breathing easier today as compared to yesterday. Still not quite back to her baseline. No worsening shortness of breath, cough or congestion. She is maintaining good O2 saturations in the high 90s on 2 L/m per nasal cannula. She's been afebrile. Hemodynamically stable. She remains on DuoNeb inhalations, Pulmicort and Perforomist inhalations, IV Solu-Medrol. NicoDerm patch is in place. Objective - Vital Signs Vital signs: Vital Signs Temp 97.7 F 08/09/18 05:00 Pulse 80 08/09/18 08:25 Resp 18 08/09/18 05:00 BP 125/75 08/09/18 05:00 Pulse Ox 98 08/09/18 08:01 Intake & Output 08/08/18 08/09/18 08/09/18 18:59 06:59 18:59 Intake Total 480 600 240 Balance 480 600 240 Intake: Oral 480 600 240 Other: Voiding Method Toilet # Voids 2 1 - Exam GENERAL EXAM: Alert, active, comfortable in no apparent distress. On 2 L nasal cannula HEAD: Normocephalic. EYES: Normal reaction of pupils, equal size. NOSE: Clear with pink turbinates. THROAT: No erythema or exudates. NECK: No masses, no JVD. CHEST: No chest wall deformity. LUNGS: Equal air entry with end expiratory wheeze, diminished CVS: S1 and S2 normal with no audible murmur, regular rhythm. ABDOMEN: No hepatosplenomegaly, normal bowel sounds, no guarding or rigidity. SPINE: No scoliosis or deformity SKIN: No rashes CENTRAL NERVOUS SYSTEM: No focal deficits, tone is normal in all 4 extremities. EXTREMITIES: There is no peripheral edema. No clubbing, no cyanosis. Peripheral pulses are intact. - Labs CBC & Chem 7: 08/08/18 06:45 08/08/18 06:45 Labs: Abnormal Lab Results - Last 24 Hours (Table) 08/08/18 08/08/18 08/08/18 Range/Units 11:54 17:10 20:17 POC Glucose (mg/dL) 136 H 197 H 100 H (75-99) mg/dL 08/09/18 Range/Units 07:00 POC Glucose (mg/dL) 127 H (75-99) mg/dL Assessment and Plan Assessment: Impression: Acute exacerbation of COPD Acute tracheobronchitis Tobacco dependence syndrome, presently on nicotine patch Mixed connective tissue disease, on Plaquenil GERD without esophagitis Benign essential hypertension Obesity. Recommendation: The patient was seen and evaluated by Dr. Nowak. She is cleared for discharge from the pulmonary standpoint. She should continue her home pulmonary medications. Complete a prednisone burst and taper. Continue with NicoDerm patch. She is again educated regarding the importance of complete smoking cessation. Follow-up in our office in 1-2 weeks' time.
[2018-08-09 11:16] LABS: Glucose,Whole Blood 153 mg/dL (75-99)
[2018-08-09] MEDS: DOCUSATE 100 MG CAP PO SCH ×2 (12:52→21:33)
[2018-08-09] MEDS: SODIUM CHLORIDE 0.9% 1,000 ML IV SCH (17:24)
[2018-08-09 17:27] LABS: Glucose,Whole Blood 130 mg/dL (75-99)
[2018-08-09 20:23] LABS: Glucose,Whole Blood 177 mg/dL (75-99)
[2018-08-09] MEDS: LISINOPRIL 10 MG TAB PO SCH (21:33)
[2018-08-10 05:27] VITALS: BP 117/72; RESP 16; TEMP 98
[2018-08-10] MEDS: PROMETHAZ-COD 6.25-10 MG/5 ML 5 ML CUP PO PRN (05:28)
[2018-08-10] MEDS: methylPREDNISolone SOD SUCCI 125 MG/2 ML VIAL IV SCH (05:28)
[2018-08-10 07:06] LABS: Glucose,Whole Blood 122 mg/dL (75-99)
[2018-08-10] MEDS: BUDESONIDE 0.5 MG/2 ML NEBU INHALATION SCH (07:36)
[2018-08-10] MEDS: IPRATROPIUM-ALBUTEROL 3 ML NEB INHALATION SCH ×2 (07:36→10:54)
[2018-08-10] MEDS: FORMOTEROL FUMARATE 20 MCG/2 ML NEBU INHALATION SCH (07:36)
[2018-08-10] MEDS: INSULIN ASPART (NovoLOG) 100 UNIT/ML VIAL SQ SCH (08:21)
[2018-08-10] MEDS: HEPARIN SODIUM,PORCINE 5,000 UNIT/ML 1 ML VIAL SQ SCH (08:27)
[2018-08-10] MEDS: MONTELUKAST 10 MG TAB PO SCH (08:27)
[2018-08-10] MEDS: NICOTINE 21MG/24HR PATCH TRANSDERM SCH (08:27)
[2018-08-10] MEDS: HYDROXYCHLOROQUINE SULFATE 200 MG TAB PO SCH (08:28)
[2018-08-10] MEDS: DOCUSATE 100 MG CAP PO SCH (08:28)
[2018-08-10] MEDS: LEVOFLOXACIN 750 MG TAB PO SCH (08:28)
[2018-08-10] MEDS: FAMOTIDINE 20 MG TAB PO SCH (08:28)
[2018-08-10] MEDS: GABAPENTIN 400 MG CAP PO SCH (08:28)
[2018-08-10 08:30] LABS: Basophils % (A) 0 %; Eosinophils # (A) 0.1 k/uL (0-0.7); Eosinophils % (A) 1 %; HGB 13.8 gm/dL (11.4-16.0); Lymphocytes # (A) 1.1 k/uL (1.0-4.8); Lymphocytes % (A) 9 %; MCH 29.8 pg (25.0-35.0); MCHC 32.1 g/dL (31.0-37.0); MCV 92.9 fL (80.0-100.0); Mean Platelet Volume 7.3; Monocytes # (A) 0.4 k/uL (0-1.0); Monocytes % (A) 3 %; Neutrophils # (A) 10.4 k/uL (1.3-7.7); Neutrophils % (A) 87 %; Platelet Count 334 k/uL (150-450); RBC 4.63 m/uL (3.80-5.40); RDW 12.9 % (11.5-15.5); WBC 12.1 k/uL (3.8-10.6)
[2018-08-10 08:52] LABS: Anion Gap 5 mmol/L; Blood Urea Nitrogen 18 mg/dL (7-17); Calcium 9.4 mg/dL (8.4-10.2); Carbon Dioxide 29 mmol/L (22-30); Chloride 106 mmol/L (98-107); Glucose 120 mg/dL (74-99); Potassium 4.5 mmol/L (3.5-5.1); Sodium 140 mmol/L (137-145)
--- NOTE | 2018-08-10 09:48 | P.DS ---
Providers Date of admission: 08/06/18 20:51 Expected date of discharge: 08/10/18 Attending physician: Lui Alvarado Consults: 08/06/18 20:51 Consult Physician Routine Consulting Provider: Angel Jameson Consult Reason/Comments: dyspnea Do you want consulting provider notified?: Yes Primary care physician: Laverne Florez [facility] Course: Discharge diagnosis #1 acute exacerbation of asthma and COPD: Continue IV Solu-Medrol and nebulizer treatments, Pulmicort, performist. Pulmonary is following awaiting their further recommendations. Check to see if patient will require home O2. Check sputum culture. #2 acute purulent bronchitis no evidence of pneumonia on chest x-ray. Influenza screen negative. Continue antibiotics #3 tobacco abuse patient was counseled in length in regard to smoking cessation #4 history of hypertension #5 history of osteoarthritis #6 history of mixed connective tissue disease maintained on plaquenil #7 hyperglycemia secondary to steroids and sliding scale coverage #8 nicotine dependence discussed smoking cessation for greater than 3 minutes. Continue nicotine patch #9 constipation add Colace and lactulose Patient will be discharged home on Levaquin and prednisone taper. Patient has been cleared for discharge from pulmonary services Hospital course Yuridia will is a 57-year-old female patient of Dr. Laverne Florez with known history of COPD and bronchial asthma who presented to [facility] emergency room due to worsening shortness of breath. Patient stated that she had loss of bowel or in her house and she was sitting in the cold for more than 8 hours she started having worsening cough and shortness of breath she was evaluated by her primary care and her all round logger she received oral antibiotic and oral steroids however her condition continued to worsen she decided to come to emergency room. Patient was evaluated in the ER she was diagnosed with acute exacerbation of chronic obstructive pulmonary disease she was started on IV antibiotic and IV steroids and inhaled bronchodilators and was admitted to medical floor. Patient has a prolonged history of smoking she stated that she started smoking at age 21 she is still smoking until now however she stated that she has cut down on her smoking recently, otherwise she has a known history of osteoart hritis, hypertension, and peripheral neuropathy. She also has a known history of mixed connective tissue disease for which she is maintained on plaquenil as outpatient. 08/08/18 patient is still complaining of shortness of breath with activity and wheezing. She does admit to some improvement since admission. She denies any chest pain, nausea or vomiting, bowel movement changes or urinary symptoms. 08/09/2018 patient reporting improvement in her symptoms. Still having some shortness of breath with ambulating to the bathroom. Currently on 2 L of oxygen. Checking oxygen saturation while ambulating on room air. Patient is complaining of constipation last bowel movement was 3 days ago. Denies any chest pain. Patient denies any nausea or vomiting. Denies any chest pain. Denies a burning with urination. Patient does report her cough has become more productive On 08/10/2018 patient is alert and oriented 3. Patient has been on room air since yesterday. Patient has been up ambulating. Patient has been cleared by pulmonary services for discharge. Patient will be DC'd on prednisone taper along with Levaquin for 3 more days. Patient advised to follow-up closely with her PCP along with pulmonary services. Patient also advised him the importance of smoking cessation patient will be DC'd on nicotine patch. At this time patient denies chest pain or shortness breath. Patient denies nausea vomiting or diarrhea. Patient denies any urinary burning or frequency. I performed an examination of the patient and discussed their management with the Nurse Practitioner. I have reviewed the Nurse Practitioner's notes and agree with the documented findings and plan of care Patient Condition at Discharge: Stable Plan - Discharge Summary Discharge Rx Participant: No New Discharge Prescriptions: New Nicotine 21Mg/24Hr Patch [Habitrol] 1 patch TRANSDERM DAILY 30 Days #30 patch Levofloxacin [Levaquin] 500 mg PO DAILY 3 Days #3 tab predniSONE 10 mg PO DIRECTED 30 Days #30 tab Continue Hydroxychloroquine Sulfate [Plaquenil] 200 mg PO BID Albuterol Nebulized [Ventolin Nebulized] 2.5 mg INHALATION RT-BID PRN PRN Reason: Shortness Of Breath Lisinopril 30 mg PO HS Gabapentin [Neurontin] 400 mg PO TID Montelukast [Singulair] 10 mg PO DAILY Albuterol Inhaler [Ventolin Hfa Inhaler] 1 - 2 puff INHALATION RT-Q6H PRN PRN Reason: Shortness Of Breath Fluticasone/Salmeterol [Advair 500-50 Diskus] 1 inhalation PO BID Docusate [Colace] 100 mg PO MOSA Discontinued predniSONE See Taper PO DAILY Levofloxacin [Levaquin] 750 mg PO DAILY Discharge Medication List Hydroxychloroquine Sulfate [Plaquenil] 200 mg PO BID 09/28/15 [History] Albuterol Nebulized [Ventolin Nebulized] 2.5 mg INHALATION RT-BID PRN 12/18/15 [History] Lisinopril 30 mg PO HS 06/12/16 [History] Gabapentin [Neurontin] 400 mg PO TID 12/18/16 [History] Montelukast [Singulair] 10 mg PO DAILY 07/07/17 [History] Albuterol Inhaler [Ventolin Hfa Inhaler] 1 - 2 puff INHALATION RT-Q6H PRN 07/31/17 [History] Docusate [Colace] 100 mg PO MOSA 08/06/18 [History] Fluticasone/Salmeterol [Advair 500-50 Diskus] 1 inhalation PO BID 08/06/18 [History] Levofloxacin [Levaquin] 500 mg PO DAILY 3 Days #3 tab 08/10/18 [Rx] Nicotine 21Mg/24Hr Patch [Habitrol] 1 patch TRANSDERM DAILY 30 Days #30 patch 08/10/18 [Rx] predniSONE 10 mg PO DIRECTED 30 Days #30 tab 08/10/18 [Rx] Follow up Appointment(s)/Referral(s): Laverne Florez DO [Primary Care Provider] - 1-2 days Angel Jameson DO [Doctor of Osteopathic Medicine] - 1 Week Activity/Diet/Wound Care/Special Instructions: Diet heart healthy Activity as tolerated Discharge Disposition: HOME SELF-CARE
[2018-08-10 11:06] VITALS: PULSE 92
--- NOTE | 2018-08-10 12:29 | P.PN ---
Subjective Progress Note Date: 08/10/18 Principal diagnosis: Acute exacerbation of COPD A 57-year-old here patient with known history of COPD and addition to history of bronchial asthma whereas been followed up in our office regarding her pulmonary problems. The patient has been having difficulties in breathing for the past 3 weeks. She had contacted our office and the patient is seen a course of antibiotics and a prednisone burst taper without much help. Ultimately, the patient was getting worse and she decided to come in to the hospital for further evaluation of treatment. She is a chronic smoker in she smokes one pack of cigarettes a day. No hemoptysis. No pleurisy. No chest pain unless she coughs vigorously. Her cough is obviously skeletal in nature. She is producing some yellowish sputum. No fever. Influenza screen was not done. No altered mentation. No nausea. No vomiting. No abdominal pain. She has had previous hospitalization for COPD/asthma related complications. She has been maintained on Advair and singular 10 outpatient basis and she was completing a prednisone burst taper however she failed the treatment and she decided to come in to the hospital for further care. No other exposure to chemicals or industrial material. No history of any nasal polyposis. No aspirin sensitivity. No previous bouts of respiratory failure, intubation mechanical ventilation. The other significant is that the patient lost power at home and she was spending some time warming herself in the car and she was going back and forth in and out of the garage which probably exacerbated her chronic COPD/asthma. Chest x-ray shows no acute abnormalities. Patient is obese. Patient has history of mixed connective tissue disorder, maintained on Plaquenil on outpatient basis. Patient was reevaluated today on 08/08/2018, continues to have cough wheezing shortness of breath. She is maintained now on multiple bronchodilators, steroids, antibiotics, with slight improvement. But continues to cough and wheeze. And continues to have shortness of breath. Labs were reviewed and they seem to be relatively unremarkable, influenza screen was negative. Chest x -ray on admission was normal, there was no evidence of pneumonia. The patient is seen today 08/09/2018 in follow-up on the regular medical floor. She is awake and alert in no acute distress. She is breathing easier today as compared to yesterday. Still not quite back to her baseline. No worsening shortness of breath, cough or congestion. She is maintaining good O2 saturations in the high 90s on 2 L/m per nasal cannula. She's been afebrile. Hemodynamically stable. She remains on DuoNeb inhalations, Pulmicort and Perforomist inhalations, IV Solu-Medrol. NicoDerm patch is in place. Reevaluated today on 08/10/2018, patient is feeling better, breathing easier, responded quite well to the course of bronchodilators and antibiotics given over the last couple of days. Hardly any cough no wheezing no shortness of breath. Patient will be switched to oral prednisone, we will continue her bronchodilators and she could be discharged home on her meds including DuoNeb, Advair, prednisone burst and taper, and reevaluate the patient in the office in the next week or so. Objective - Vital Signs Vital signs: Vital Signs Temp 98 F 08/10/18 05:00 Pulse 92 08/10/18 11:06 Resp 16 08/10/18 05:00 BP 117/72 08/10/18 05:00 Pulse Ox 93 L 08/10/18 07:40 Intake & Output 08/09/18 08/10/18 08/10/18 18:59 06:59 18:59 Intake Total 720 350 Balance 720 350 Weight 108.409 kg Intake: Oral 720 350 Other: Voiding Method Toilet Toilet # Voids 3 1 1 # Bowel Movements 1 1 - Exam Physical Exam: Revealed a 57-year-old female in no form of respiratory distress , on room air. Head: Atraumatic, normocephalic. HEENT:[Neck is supple.] [No neck masses.] [No thyromegaly.] [No JVD.] Chest: Clear bilaterally, no crackles or rhonchi or wheezes. Cardiac Exam: [Normal S1 and S2, no S3 gallop, no murmur.] Abdomen: [Soft, nontender, no megaly, no rebound, no guarding, normal bowel sounds.] Extremities: [No clubbing, no edema, no cyanosis.] Neurological Exam: [No focal neurologic deficit.] Alert oriented 3. Psychiatric: Normal mood affect and mental status examination. Lymphatics: No lymphadenopathy. In: No rashes. - Labs CBC & Chem 7: 08/10/18 07:50 08/10/18 07:50 Labs: Abnormal Lab Results - Last 24 Hours (Table) 08/09/18 08/09/18 08/10/18 Range/Units 17:25 20:22 07:05 WBC (3.8-10.6) k/uL Neutrophils # (1.3-7.7) k/uL BUN (7-17) mg/dL Glucose (74-99) mg/dL POC Glucose (mg/dL) 130 H 177 H 122 H (75-99) mg/dL 08/10/18 08/10/18 Range/Units 07:50 07:50 WBC 12.1 H (3.8-10.6) k/uL Neutrophils # 10.4 H (1.3-7.7) k/uL BUN 18 H (7-17) mg/dL Glucose 120 H (74-99) mg/dL POC Glucose (mg/dL) (75-99) mg/dL Assessment and Plan Assessment: Impression: Acute exacerbation of COPD Acute tracheobronchitis Tobacco dependence syndrome, presently on nicotine patch Mixed connective tissue disease, on Plaquenil GERD without esophagitis Benign essential hypertension Obesity. Recommendation: Discussed with the patient and her her present medications, patient is cleared for discharge today, she will remain on Advair, prednisone burst and taper, albuterol with Atrovent updrafts 4 times a day and when necessary, she was counseled regarding smoking cessation, and advised to follow-up with Dr. Horne in the next few days post discharge. Time with Patient: Less than 30
== END 2018-08-10 11:15 | disposition home health service (06) ==
LOC: EC 19:13 → 3NMEDONC 20:51
PROVIDERS: ADMIT Internal Medicine; ATTEND Internal Medicine
DX: J44.1 Chronic obstructive pulmonary disease with (acute) exacerbation (principal); J44.0 Chronic obstructive pulmonary disease with (acute) lower respiratory infection; J20.9 Acute bronchitis, unspecified; J45.901 Unspecified asthma with (acute) exacerbation; F17.210 Nicotine dependence, cigarettes, uncomplicated; K21.9 Gastro-esophageal reflux disease without esophagitis; E66.9 Obesity, unspecified; Z68.41 Body mass index [BMI] 40.0-44.9, adult; I10 Essential (primary) hypertension; M19.90 Unspecified osteoarthritis, unspecified site; H40.9 Unspecified glaucoma; G62.9 Polyneuropathy, unspecified; B36.0 Pityriasis versicolor; M35.1 Other overlap syndromes; K59.00 Constipation, unspecified; R73.9 Hyperglycemia, unspecified; T38.0X5A Adverse effect of glucocorticoids and synthetic analogues, initial encounter; K44.9 Diaphragmatic hernia without obstruction or gangrene; K57.90 Diverticulosis of intestine, part unspecified, without perforation or abscess without bleeding; R59.9 Enlarged lymph nodes, unspecified; Z79.51 Long term (current) use of inhaled steroids; Z79.899 Other long term (current) drug therapy; Z88.0 Allergy status to penicillin; Z91.048 Other nonmedicinal substance allergy status; Z90.49 Acquired absence of other specified parts of digestive tract; Z96.652 Presence of left artificial knee joint; Z82.49 Family history of ischemic heart disease and other diseases of the circulatory system; Z83.2 Family history of diseases of the blood and blood-forming organs and certain disorders involving the immune mechanism; Z81.8 Family history of other mental and behavioral disorders; Z80.9 Family history of malignant neoplasm, unspecified; X31.XXXA Exposure to excessive natural cold, initial encounter
CPT/HCPCS: 96376 ×4; 96361 ×3; 96372 ×4; 96374; 99285; 36415; 94640 ×9; 94760 ×3; 93005; 80053 ×2; 80048; 85025 ×3; 85610; 85730; 87502; 71046; G0378 ×5; S4990 ×4; J1644 ×4; J2930 ×5

== ENCOUNTER 2018-09-14 08:33 | Emergency (ER) | payer OTHER ==
[2018-09-14] MEDS ORDERED: FAMOTIDINE 20 MG/2 ML VIAL IV STA (08:38)
[2018-09-14 08:42] VITALS: BP 146/77
--- NOTE | 2018-09-14 08:43 | ED ---
Allergic Reaction HPI - General Stated complaint: Allergic reaction Time Seen by Provider: 09/14/18 08:33 Source: patient, EMS, RN notes reviewed Mode of arrival: EMS Limitations: no limitations - History of Present Illness Initial Comments: This a 57-year-old female presents emergency Department via EMS chief complaint ALLERGIC reaction. Patient states that she was started on azithromycin and prednisone and Diflucan yesterday by Dr. Jameson for pneumonia. Patient states she's never taken Diflucan in the past. Patient has taken azithromycin and prednisone. Patient states she woke up states that she knows and facial and tongue swelling. Patient was given Solu-Medrol, Benadryl, breathing treatment by EMS and symptoms have all resolved. Patient has no shortness of breath or difficulty swallowing. Patient denies any fevers chills. Patient states she does have cough which again she states she was diagnosed with pneumonia and she does have a mild COPD and does breathing treatments at home. - Related Data Home Medications Medication Instructions Recorded Confirmed Hydroxychloroquine Sulfate 200 mg PO BID 09/28/15 09/14/18 [Plaquenil] Albuterol Nebulized [Ventolin 2.5 mg INHALATION RT-BID PRN 12/18/15 09/14/18 Nebulized] Lisinopril 30 mg PO HS 06/12/16 09/14/18 Gabapentin [Neurontin] 400 mg PO TID 12/18/16 09/14/18 Montelukast [Singulair] 10 mg PO DAILY 07/07/17 09/14/18 Albuterol Inhaler [Ventolin Hfa 1 - 2 puff INHALATION RT-Q6H PRN 07/31/17 09/14/18 Inhaler] Fluticasone/Salmeterol [Advair 1 inhalation PO BID 08/06/18 09/14/18 500-50 Diskus] Acetaminophen [Tylenol] 500 mg PO Q4-6H PRN 09/14/18 09/14/18 Azithromycin [Zithromax] 500 mg PO DAILY 09/14/18 09/14/18 Fluconazole [Diflucan] 100 mg PO BID 09/14/18 09/14/18 predniSONE See Taper PO DAILY 09/14/18 09/14/18 Previous Rx's Medication Instructions Recorded Nicotine 21Mg/24Hr Patch [Habitrol] 1 patch TRANSDERM DAILY 30 Days 08/10/18 #30 patch Allergies Allergy/AdvReac Type Severity Reaction Status Date / Time Penicillins Allergy Severe Dyspnea,hives,throat Verified 09/14/18 08:56 swelling fluconazole [From Diflucan] Allergy Anaphylaxis Verified 09/14/18 08:56 adhesive tape AdvReac Rash/Hives Verified 09/14/18 08:56 Review of Systems ROS Statement: Those systems with pertinent positive or pertinent negative responses have been documented in the HPI. ROS Other: All systems not noted in ROS Statement are negative. 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, "swollen lymph nodes on my lung", hiatal hernia, rhabdomyolysis, mixed collagen vascular disease 2015, carpal tunnel, cervical radio-apathy, glaucoma History of Any Multi-Drug Resistant Organisms: None Reported Past Surgical History: Breast Surgery, Section, Cholecystectomy, Hernia Repair, Joint Replacement, Tonsillectomy Additional Past Surgical History / Comment(s): L breast benign excisional biopsy x2, cyst in throat removed, cyst in left eye removed, JESUS FUNDOPLICATION 06/23; Left total knee; EGD, GERD SURGERY 2017, 2016 Past Anesthesia/Blood Transfusion Reactions: No Reported Reaction Additional Past Anesthesia/Blood Transfusion Reaction / Comment(s): Long time to wake up Past Psychological History: No Psychological Hx Reported Additional Psychological History / Comment(s): Lives with . Lives in a one story house. Smoking Status: Current every day smoker Past Alcohol Use History: None Reported Additional Past Alcohol Use History / Comment(s): Pt states she started smoking at about age 21 yrs. Smokes approx 3 cigarettes daily. Patient states she hasn't been smoking because she cannot handle it. Past Drug Use History: None Reported - Past Family History Sister(s) Family Medical History: Cancer, Deep Vein Thrombosis (DVT) Additional Family Medical History / Comment(s): . Mother Family Medical History: Cancer, Deep Vein Thrombosis (DVT), Pulmonary Embolus Additional Family Medical History / Comment(s): . Brother(s) Family Medical History: Myocardial Infarction (ME) Additional Family Medical History / Comment(s): Brother had an ME at age 3 yrs old. Father Family Medical History: Dementia Additional Family Medical History / Comment(s): Father is 83 yrs old. General Exam General appearance: alert, in no apparent distress Head exam: Present: atraumatic, normocephalic, normal inspection Eye exam: Present: normal appearance, PERRL, EOMI. Absent: scleral icterus, conjunctival injection, periorbital swelling ENT exam: Present: normal exam, normal oropharynx, mucous membranes moist, TM's normal bilaterally, normal external ear exam Neck exam: Present: normal inspection, full ROM. Absent: tenderness, meningismus, lymphadenopathy Respiratory exam: Present: wheezes. Absent: normal lung sounds bilaterally, respiratory distress, rales, rhonchi, stridor Cardiovascular Exam: Present: regular rate, normal rhythm, normal heart sounds. Absent: systolic murmur, diastolic murmur, rubs, gallop, clicks Neurological exam: Present: alert, oriented X3, CN II-XII intact Skin exam: Present: warm, dry, intact, normal color. Absent: rash Course Vital Signs 09/14/18 08:36 Temperature 98.2 F Pulse Rate 98 Respiratory 22 Rate Blood Pressure 146/77 O2 Sat by Pulse 99 Oximetry - Reevaluation(s) Reevaluation #1: 09/14/18 09:38 Patient reevaluated symptoms have completely resolved and have been resolved for over one hour with no return of symptoms. Patient continue Benadryl. Patient has steroids that she was prescribed she will continue these. Return parameters were discussed. Medical Decision Making - Medical Decision Making 57-year-old female presented for ALLERGIC reaction. This most likely is related to her Diflucan as this is her new medication. Patient symptoms have resolved and she'll continue steroids at home she is advised to continue Benadryl for minimal 24 hours. Patient to follow up Dr. Jameson within 24 hours return for any worsening symptoms. Disposition Clinical Impression: Allergic reaction Disposition: HOME SELF-CARE Condition: Stable Instructions (If sedation given, give patient instructions): General Allergic Reaction (ED) Additional Instructions: Please return to the Emergency Department if symptoms worsen or any other concerns. Is patient prescribed a controlled substance at d/c from ED?: No Referrals: Laverne Florez DO [Primary Care Provider] - 1-2 days Time of Disposition: 09:41
[2018-09-14 09:52] VITALS: PULSE 99; RESP 20; TEMP 98
== END 2018-09-14 09:52 | disposition home or self-care (01) ==
LOC: EC 08:33
DX: T78.40XA Allergy, unspecified, initial encounter (principal); R05 Cough; J44.9 Chronic obstructive pulmonary disease, unspecified; I10 Essential (primary) hypertension; G62.9 Polyneuropathy, unspecified; M19.90 Unspecified osteoarthritis, unspecified site; F17.200 Nicotine dependence, unspecified, uncomplicated; Z96.652 Presence of left artificial knee joint; Z79.51 Long term (current) use of inhaled steroids; Z79.52 Long term (current) use of systemic steroids; Z79.899 Other long term (current) drug therapy; Z88.0 Allergy status to penicillin; Z91.048 Other nonmedicinal substance allergy status; Z88.8 Allergy status to other drugs, medicaments and biological substances
CPT/HCPCS: 96374; 99284

== ENCOUNTER 2018-09-19 10:42 | Inpatient (IN) | payer OTHER, MEDICARE ==
[2018-09-19] MEDS ORDERED: SODIUM CHLORIDE 0.9% 1,000 ML IV STA (10:48)
[2018-09-19] MEDS ORDERED: methylPREDNISolone SOD SUCCI 125 MG/2 ML VIAL IV STA (10:54)
[2018-09-19] MEDS ORDERED: IPRATROPIUM-ALBUTEROL 3 ML NEB INHALATION STA (10:54)
[2018-09-19] MEDS ORDERED: ACETAMINOPHEN TAB 325 MG TAB PO STA (11:30)
--- NOTE | 2018-09-19 11:33 | ED ---
Fever HPI - General Chief Complaint: Fever Stated Complaint: SOB/fever Time Seen by Provider: 09/19/18 10:45 Source: patient Mode of arrival: wheelchair Limitations: no limitations - History of Present Illness Initial Comments: 57-year-old female past medical history of COPD presenting today for chief complaint of fever, shortness of breath. Patient states last Wednesday she was evaluated by Dr. Jameson and started on azithromycin for pneumonia. She states she had fever at this time. Patient states since her diagnosis she has had increasing cough, sputum production she states she has had fevers are persistent. She states she has had shortness of breath increases with walking. Patient states when she coughs she has pain in the center of her chest. Pt states she has had some abdominal cramping diarrhea and vomiting. Patient states that her witnessed earlier in the week. Patient states she has body aches. Remaining review of systems negative, ROS patient denies any recent back pain, leg swelling, numbness or tingling, dysuria or hematuria, constipation, headaches or visual changes, or any other complaints. Upon arrival patient is febrile heart rate elevated. 96% on RA. - Related Data Home Medications Medication Instructions Recorded Confirmed Hydroxychloroquine Sulfate 200 mg PO BID 09/28/15 09/19/18 [Plaquenil] Albuterol Nebulized [Ventolin 2.5 mg INHALATION RT-BID PRN 12/18/15 09/19/18 Nebulized] Lisinopril 30 mg PO HS 06/12/16 09/19/18 Gabapentin [Neurontin] 400 mg PO TID 12/18/16 09/19/18 Montelukast [Singulair] 10 mg PO DAILY 07/07/17 09/19/18 Albuterol Inhaler [Ventolin Hfa 2 puff INHALATION RT-Q6H PRN 07/31/17 09/19/18 Inhaler] Fluticasone/Salmeterol [Advair 1 puff INHALATION RT-BID 08/06/18 09/19/18 500-50 Diskus] Acetaminophen [Tylenol] 500 mg PO Q4-6H PRN 09/14/18 09/19/18 Azithromycin [Zithromax] 500 mg PO DAILY 09/14/18 09/19/18 predniSONE See Taper PO DAILY 09/14/18 09/19/18 Allergies Allergy/AdvReac Type Severity Reaction Status Date / Time Penicillins Allergy Severe Dyspnea,hives,throat Verified 09/19/18 11:13 swelling fluconazole [From Diflucan] Allergy Anaphylaxis Verified 09/19/18 11:13 adhesive tape AdvReac Rash/Hives Verified 09/19/18 11:13 Review of Systems ROS Statement: Those systems with pertinent positive or pertinent negative responses have been documented in the HPI. ROS Other: All systems not noted in ROS Statement are negative. 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, "swollen lymph nodes on my lung", hiatal hernia, rhabdomyolysis, mixed collagen vascular disease 2015, carpal tunnel, cervical radio-apathy, glaucoma History of Any Multi-Drug Resistant Organisms: None Reported Past Surgical History: Breast Surgery, Section, Cholecystectomy, Hernia Repair, Joint Replacement, Tonsillectomy Additional Past Surgical History / Comment(s): L breast benign excisional biopsy x2, cyst in throat removed, cyst in left eye removed, JESUS FUNDOPLICATION ; Left total knee; EGD, GERD SURGERY 2017, 2016 Past Anesthesia/Blood Transfusion Reactions: No Reported Reaction Additional Past Anesthesia/Blood Transfusion Reaction / Comment(s): Long time to wake up Past Psychological History: No Psychological Hx Reported Smoking Status: Current every day smoker Past Alcohol Use History: None Reported Past Drug Use History: None Reported - Past Family History Sister(s) Family Medical History: Cancer, Deep Vein Thrombosis (DVT) Additional Family Medical History / Comment(s): . Mother Family Medical History: Cancer, Deep Vein Thrombosis (DVT), Pulmonary Embolus Additional Family Medical History / Comment(s): . Brother(s) Family Medical History: Myocardial Infarction (OR) Additional Family Medical History / Comment(s): Brother had an OR at age 3 yrs old. Father Family Medical History: Dementia Additional Family Medical History / Comment(s): Father is 83 yrs old. General Exam - General Exam Comments Initial Comments: General: The patient is awake and alert, in no distress. Eye: +3 mm pupils are equal, round and reactive to light, extra-ocular movements are intact. No nystagmus. There is normal conjunctiva bilaterally. No signs of icterus. No photophobia Ears, nose, mouth and throat: There are moist mucous membranes and no oral lesions. Oropharynx was not erythematous there is no tonsillar enlargement exudates or lesions. Uvula midline. Tympanic membranes are not erythematous or is no effusions bulging or retraction. No tenderness to palpation of the mastoid. No anterior cervical lymphadenopathy. Rhinorrhea, clear and bilateral nares. No tripoding, no drooling. Neck: The neck is supple, there is no tenderness or JVD. No nuchal rigidity negative Brudzinski and Kernig Cardiovascular: There is a regular rate and rhythm. No murmur, rub or gallop is appreciated. Respiratory: Respirations are non-labored, breath sounds are equal. No wheezes, stridor. rhonchi rales present. No retractions or abdominal breathing. Gastrointestinal: Soft, non-distended, non-tender abdomen without masses or organomegaly noted. There is no rebound or guarding present. Bowel sounds are unremarkable. Musculoskeletal: Normal ROM, no tenderness. Strength 5/5. Sensation intact. Radial pulses equal bilaterally 2+. Neurological: A&O x 3. CN II-XII intact, There are no obvious motor or sensory deficits. Coordination appears grossly intact. Speech appears normal, no m uffling. Skin: Skin is warm and dry and no rashes or lesions are noted. No extremity edema Psychiatric: Cooperative Limitations: no limitations Course Vital Signs 09/19/18 09/19/18 09/19/18 10:44 11:19 11:29 Temperature 101.7 F H Pulse Rate 109 H 95 96 Respiratory 18 Rate Blood Pressure 109/71 O2 Sat by Pulse 96 Oximetry Medical Decision Making - Medical Decision Making 57-year-old female presenting today for chief complaint of dyspnea, pneumonia. Patient states she has been diagnosed with pneumonia, patient on azithromycin outpatient. Patient states symptoms are worsening. Patient febrile upon arrival. Patient given DuoNeb treatment as well as IV steroids. Patient's history of COPD. Mild wheeze on examination. Rales present. No stridor abdominal breathing or retractions. No acute respiratory distress. Patient does admit to increased dyspnea with ambulation. No lower extremity swelling or signs or symptoms concerning for fluid overload. Chest x-ray revealed multil obar pneumonia. At this time feel patient has failed outpatient treatment. Patient states she was recently hospitalized 08/05/2018 for 7 days. Patient be covered for pseudomonas. Patient does have severe penicillin ALLERGY I'll be started on antibiotic regimen with appropriate coverage for Pseudomonas. Lactic acid WNL. No leukocytosis. Pt AST/ALT mildly elevated, mild hypoatremia, pt is complaining of diarrhea, ddx includes legionella. Case is discussed with him provider Dr. Mcdermott who admitted patient after speaking with Dr. Hajjar. Jameson on consult. Blood culture pending. Patient is agreeable to admission at this time. Denies questions. Patient transferred to the floor in stable condition. - Lab Data Result diagrams: 09/19/18 11:09 09/19/18 11:09 Lab Results 09/19/18 09/19/18 09/19/18 Range/Units 11:09 11:09 11:09 WBC 5.2 (3.8-10.6) k/uL RBC 5.26 (3.80-5.40) m/uL Hgb 15.6 (11.4-16.0) gm/dL Hct 46.5 H (34.0-46.0) % MCV 88.5 (80.0-100.0) fL MCH 29.6 (25.0-35.0) pg MCHC 33.5 (31.0-37.0) g/dL RDW 13.6 (11.5-15.5) % Plt Count 282 (150-450) k/uL Neutrophils % (Manual) 72 % Lymphocytes % (Manual) 25 % Monocytes % (Manual) 3 % Neutrophils # (Manual) 3.74 (1.3-7.7) k/uL Lymphocytes # (Manual) 1.30 (1.0-4.8) k/uL Monocytes # (Manual) 0.16 (0-1.0) k/uL Nucleated RBCs 0 (0-0) /100 WBC PT (9.0-12.0) sec INR (<1.2) APTT (22.0-30.0) sec Sodium 135 L (137-145) mmol/L Potassium 4.3 (3.5-5.1) mmol/L Chloride 100 (98-107) mmol/L Carbon Dioxide 24 (22-30) mmol/L Anion Gap 11 mmol/L BUN 15 (7-17) mg/dL Creatinine 0.74 (0.52-1.04) mg/dL Est GFR (CKD-EPI)AfAm >90 (>60 ml/min/1.73 sqM) Est GFR (CKD-EPI)NonAf >90 (>60 ml/min/1.73 sqM) Glucose 111 H (74-99) mg/dL Plasma Lactic Acid Rod (0.7-2.0) mmol/L Calcium 9.0 (8.4-10.2) mg/dL Total Bilirubin 0.6 (0.2-1.3) mg/dL AST 45 H (14-36) U/L ALT 57 H (9-52) U/L Alkaline Phosphatase 81 (38-126) U/L Troponin I (0.000-0.034) ng/mL Total Protein 6.9 (6.3-8.2) g/dL Albumin 4.0 (3.5-5.0) g/dL Influenza Type A RNA Not Detected (Not Detectd) Influenza Type B (PCR) Not Detected (Not Detectd) 09/19/18 09/19/18 09/19/18 Range/Units 11:09 11:09 11:09 WBC (3.8-10.6) k/uL RBC (3.80-5.40) m/uL Hgb (11.4-16.0) gm/dL Hct (34.0-46.0) % MCV (80.0-100.0) fL MCH (25.0-35.0) pg MCHC (31.0-37.0) g/dL RDW (11.5-15.5) % Plt Count (150-450) k/uL Neutrophils % (Manual) % Lymphocytes % (Manual) % Monocytes % (Manual) % Neutrophils # (Manual) (1.3-7.7) k/uL Lymphocytes # (Manual) (1.0-4.8) k/uL Monocytes # (Manual) (0-1.0) k/uL Nucleated RBCs (0-0) /100 WBC PT 10.8 (9.0-12.0) sec INR 1.0 (<1.2) APTT 23.6 (22.0-30.0) sec Sodium (137-145) mmol/L Potassium (3.5-5.1) mmol/L Chloride (98-107) mmol/L Carbon Dioxide (22-30) mmol/L Anion Gap mmol/L BUN (7-17) mg/dL Creatinine (0.52-1.04) mg/dL Est GFR (CKD-EPI)AfAm (>60 ml/min/1.73 sqM) Est GFR (CKD-EPI)NonAf (>60 ml/min/1.73 sqM) Glucose (74-99) mg/dL Plasma Lactic Acid Rod 1.1 (0.7-2.0) mmol/L Calcium (8.4-10.2) mg/dL Total Bilirubin (0.2-1.3) mg/dL AST (14-36) U/L ALT (9-52) U/L Alkaline Phosphatase (38-126) U/L Troponin I <0.012 (0.000-0.034) ng/mL Total Protein (6.3-8.2) g/dL Albumin (3.5-5.0) g/dL Influenza Type A RNA (Not Detectd) Influenza Type B (PCR) (Not Detectd) - EKG Data EKG Comments: Ventricular rate 97 bpm, normal sinus. NH interval 126 ms, QRS confucianism 74 ms, QT/QTC 336/426ms. Nonspecific T wave. Pulmonary disease pattern. No ST elevation or depression. EKG interpretted by myself and reviewed by attending provider. Disposition Clinical Impression: Pneumonia, Failure of outpatient treatment, Shortness of breath, Fever, Hyponatremia, Elevated transaminase level Disposition: ADMITTED IP TO THIS HOSP Condition: Stable Is patient prescribed a controlled substance at d/c from ED?: No Time of Disposition: 12:17 Decision to Admit Reason: Admit from EC Decision Date: 09/19/18 Decision Time: 12:17
[2018-09-19 11:36] LABS: Partial Thromboplastin Time 23.6 sec (22.0-30.0); Prothrombin Time 10.8 sec (9.0-12.0)
[2018-09-19 11:38] LABS: ALT 57 U/L (9-52); AST 45 U/L (14-36); Alkaline Phosphatase 81 U/L (38-126); Anion Gap 11 mmol/L; Blood Urea Nitrogen 15 mg/dL (7-17); Carbon Dioxide 24 mmol/L (22-30); Chloride 100 mmol/L (98-107); Glucose 111 mg/dL (74-99); HCT 46.5 % (34.0-46.0); HGB 15.6 gm/dL (11.4-16.0); MCH 29.6 pg (25.0-35.0); MCHC 33.5 g/dL (31.0-37.0); MCV 88.5 fL (80.0-100.0); Mean Platelet Volume 7.5; Platelet Count 282 k/uL (150-450); Potassium 4.3 mmol/L (3.5-5.1); RBC 5.26 m/uL (3.80-5.40); RDW 13.6 % (11.5-15.5); Sodium 135 mmol/L (137-145); Total Bilirubin 0.6 mg/dL (0.2-1.3); Total Protein 6.9 g/dL (6.3-8.2); WBC 5.2 k/uL (3.8-10.6)
--- NOTE | 2018-09-19 11:49 | XR ---
EXAMINATION TYPE: XR chest 2V DATE OF EXAM: 09/19/2018 COMPARISON: Chest x-ray September 13, 2018 and August 06, 2018 HISTORY: Difficulty breathing. Shortness of breath and fever. TECHNIQUE: Frontal and lateral views of the chest are obtained. FINDINGS: There is new suspicious right middle lobe opacity confirmed on 2 views and right lower lob e opacity also confirmed on 2 views. The cardiac silhouette size is upper limits of normal. The os seous structures are intact. Cholecystectomy clips are present. IMPRESSION: New suspicious right middle and lower lobe acute infiltrates.
[2018-09-19] MEDS ORDERED: PNEUMONIA PROTOCOL UTILIZED 1 EACH MISC PO PRN (11:50)
[2018-09-19] MEDS ORDERED: IPRATROPIUM-ALBUTEROL 3 ML NEB INHALATION PRN (11:50)
[2018-09-19] MEDS ORDERED: LEVOFLOXACIN 750MG-D5W PMX 750 MG in DEXTROSE/WATER 1 150ML.BAG IVPB STA (11:50)
[2018-09-19] MEDS ORDERED: AZTREONAM 2 GM in SODIUM CHLORIDE 0.9% 100 ML IVPB STA (11:55)
[2018-09-19] MEDS: SODIUM CHLORIDE 0.9% 1,000 ML IV SCH ×3 (11:58→23:55)
[2018-09-19 12:27] LABS: Monocytes # (M) 0.16 k/uL (0-1.0); Neutrophils # (M) 3.74 k/uL (1.3-7.7); Neutrophils % (M) 72 %; Nucleated Red Blood Cells 0 /100 WBC (0-0); Total Cells Counted 100
[2018-09-19] MEDS ORDERED: IBUPROFEN 400 MG TAB PO PRN (12:51)
[2018-09-19] MEDS ORDERED: ONDANSETRON 4 MG/2 ML VIAL IVP PRN (12:51)
--- NOTE | 2018-09-19 13:05 | P.HPIM ---
History of Present Illness H&P Date: 09/19/18 Chief Complaint: Cough, fever and shortness of breath This is a 57-year-old female, patient of [facility]. She has a known past medical history of COPD, hypertension, mixed connective tissue disease, GERD and osteoarthritis. Patient reports she's been sick for over a week. Initially had seen Dr. Arredondo her pulmonary doctor last Wednesday and was started on azithromycin and prednisone. Patient also reports being placed on Diflucan for yeast infection in her mouth. Apparently patient did have an ALLERGIC reaction to the Diflucan. Was seen in the ER on 09/14/2018 was given Solu-Medrol and Benadryl. Patient presented to Dr. Arredondo's office this morning with really no improvement in her pneumonia. Still coughing having fevers and increasing in shortness of breath especially with walking. Dr. Arredondo recommended that she comes to the ER and be admitted to the hospital for IV antibiotics. Patient was found to be septic she had a temp of 101.7 heart rate of 109. Chest x-ray showing new suspicious right middle lobe and right lower lobe infiltrate. In the ER she was started on Azactam, Cleocin and Levaquin. Dr. Carter has been consulted. He she did receive a dose of IV Solu-Medrol and fluid bolus in the ER. Lactic acid normal at 1.1 troponin is negative. She is mildly elevated AST and ALT. I'm also reporting diarrhea one episode of vomit ing. She reports her sputum has a pinkish color. Patient reports a pleuritic chest pain with coughing. Denies any burning with urination. Patient be admitted to the hospital for pneumonia. 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, "swollen lymph nodes on my lung", hiatal hernia, rhabdomyolysis, mixed collagen vascular disease 2016, carpal tunnel, cervical radio-apathy, glaucoma History of Any Multi-Drug Resistant Organisms: None Reported Past Surgical History: Breast Surgery, Section, Cholecystectomy, Hernia Repair, Joint Replacement, Tonsillectomy Additional Past Surgical History / Comment(s): L breast benign excisional biopsy x2, cyst in throat removed, cyst in left eye removed, JESUS FUNDOPLICATION 06/23; Left total knee; EGD, GERD SURGERY 2018, 2017 Past Anesthesia/Blood Transfusion Reactions: No Reported Reaction Additional Past Anesthesia/Blood Transfusion Reaction / Comment(s): Long time to wake up Past Psychological History: No Psychological Hx Reported Smoking Status: Current every day smoker Past Alcohol Use History: None Reported Past Drug Use History: None Reported - Past Family History Sister(s) Family Medical History: Cancer, Deep Vein Thrombosis (DVT) Additional Family Medical History / Comment(s): . Mother Family Medical History: Cancer, Deep Vein Thrombosis (DVT), Pulmonary Embolus Additional Family Medical History / Comment(s): . Brother(s) Family Medical History: Myocardial Infarction ([place]) Additional Family Medical History / Comment(s): Brother had an [place] at age 3 yrs old. Father Family Medical History: Dementia Additional Family Medical History / Comment(s): Father is 83 yrs old. Medications and Allergies Home Medications Medication Instructions Recorded Confirmed Type Hydroxychloroquine Sulfate 200 mg PO BID 09/28/15 09/19/18 History [Plaquenil] Albuterol Nebulized [Ventolin 2.5 mg INHALATION RT-BID PRN 12/18/15 09/19/18 History Nebulized] Lisinopril 30 mg PO HS 06/12/16 09/19/18 History Gabapentin [Neurontin] 400 mg PO TID 12/18/16 09/19/18 History Montelukast [Singulair] 10 mg PO DAILY 07/07/17 09/19/18 History Albuterol Inhaler [Ventolin Hfa 2 puff INHALATION RT-Q6H PRN 07/31/17 09/19/18 History Inhaler] Fluticasone/Salmeterol [Advair 1 puff INHALATION RT-BID 08/06/18 09/19/18 History 500-50 Diskus] Acetaminophen [Tylenol] 500 mg PO Q4-6H PRN 09/14/18 09/19/18 History Azithromycin [Zithromax] 500 mg PO DAILY 09/14/18 09/19/18 History predniSONE See Taper PO DAILY 09/14/18 09/19/18 History Allergies Allergy/AdvReac Type Severity Reaction Status Date / Time Penicillins Allergy Severe Dyspnea,hives,throat Verified 09/19/18 11:13 swelling fluconazole [From Diflucan] Allergy Anaphylaxis Verified 09/19/18 11:13 adhesive tape AdvReac Rash/Hives Verified 09/19/18 11:13 Physical Exam Vitals: Vital Signs Temp Pulse Resp BP Pulse Ox 09/19/18 11:29 96 09/19/18 11:19 95 09/19/18 10:44 101.7 F H 109 H 18 109/71 96 Intake and Output 09/18/18 09/19/18 09/19/18 22:59 06:59 14:59 Other: Weight 113.398 kg Head normocephalic Neck supple Lungs coarse breath sounds rhonchi noted on the right Heart regular rate and rhythm S1-S2, no rub or gallop Abdomen is soft nontender nondistended positive bowel sounds no hepatosplenomegaly Extremities no edema Neuro alert and orientated to 3 Results CBC & Chem 7: 09/19/18 11:09 09/19/18 11:09 Labs: Abnormal Lab Results - Last 24 Hours (Table) 09/19/18 09/19/18 Range/Units 11:09 11:09 Hct 46.5 H (34.0-46.0) % Sodium 135 L (137-145) mmol/L Glucose 111 H (74-99) mg/dL AST 45 H (14-36) U/L ALT 57 H (9-52) U/L Assessment and Plan Assessment: 1. Acute pneumonia with sepsis present on admission: Failed outpatient treatment with azithromycin and prednisone. chest x-ray showing a right middle lobe and right lower lobe infiltrate. Patient started on Azactam, Cleocin and Levaquin in the ER. Continue with DuoNeb updrafts 4 times a day and as needed. Pulmonary consulted. Check blood cultures, check sputum culture 2. Acute COPD exacerbation: Continue breathing treatments. Also will add Solu- Medrol 60 mg IV every 8 hours. Consult pulmonary service 3. Sepsis secondary to pneumonia: Patient tachycardic and had temp of 101.7 on admission. Lactate normal at 1.1. She received IV fluid bolus in the ER. We'll continue IV fluids normal saline at 100 mL an hour. Check blood culture. Patient did receive Tylenol in ER. We'll continue with the Motrin as needed for fever. She does have mildly elevated LFTs 4. Diarrhea check stool for C. diff 5. Recent ER visit due to anaphylactic ALLERGIC reaction to Diflucan 6. Mildly elevated LFTs: Monitor closely. Patient is on Plaquenil which can affect the liver. Repeat labs in a.m. Patient does report history of cholecystectomy 7. History of nicotine dependence. Patient reports quitting smoking 48 days ago 8. Essential hypertension: Blood pressure 109/71 on admission. Resume her lisinopril 30 mg daily. Hold for systolic blood pressure less than 120 9. History of connective tissue disease maintained on Plaquenil GI prophylaxis Pepcid and DVT prophylaxis Lovenox Time with Patient: Greater than 30 (Greater than 50% of the total time spent in counseling and coordination of care.I performed an examination of the patient and discussed their management with the physician Process Manager. I have reviewed the Physician Process Manager's notes and agree with the documented findings and plan of care)
[2018-09-19] MEDS ORDERED: RX INFO: IV CONTRAST WAS GIVEN 1 EACH MISC MISCELLANE PRN (15:20)
--- NOTE | 2018-09-19 15:32 | P.CNPUL ---
History of Present Illness Consult date: 09/19/18 Requesting physician: Lui Alvarado Reason for consult: pneumonia Chief complaint: Cough fever shortness of breath History of present illness: This is a 57-year-old female known history of COPD, normally sees Dr. Jameson in the office. Her primary care physician is Dr. Florez. Patient is also known to have history of hypertension, mixed connective tissue disease, GERD, osteoarthritis, she saw my partner in the office a week ago, and she was complaining of symptoms of COPD exacerbation. Patient was treated with antibiotics in the form of Zithromax, and a course of prednisone burst and tap er. Patient was also noted to have oral thrush, and she was treated with Diflucan. On 09/14/2018, she was seen in the ER and she was treated with Solu- Medrol and Benadryl for questionable reaction to Diflucan. Patient was seen in our office today, and she was still complaining of cough, fever, shortness of breath. Chest x-ray showed right lower lobe infiltrate. Patient was admitted, and this consult was initiated. Patient was started on Azactam, Cleocin and Levaquin. I reviewed the chest x-ray, and I fully agree that the the patient clearly has a new infiltrate in the right lower lobe and involving to some extent the right middle lobe. However the patient had normal CBC, normal electr olytes, normal lactic acid, and normal renal profile. D-dimer was a bit elevated at 1.14. Patient did complain of some substernal discomfort and seems to be at times pleuritic in nature, hence I will go ahead and recommend a CT angiogram on this patient. Review of Systems Constitutional: Complaining of generalized weakness fatigue malaise, fever Eyes: Denies any diplopia or blurred vision. Ears, nose, mouth and throat: Denies sore throat, earache, denies nasal drip, denies any pressure or fullness over the sinus. Cardiovascular: Vague substernal chest discomfort, pleuritic in nature. Respiratory: As noted in HPI, mostly cough wheezing and shortness of breath. Gastrointestinal: Denies nausea vomiting abdominal pain melena or hematemesis. Genitourinary: Denies dysuria frequency or urgency denies any hematuria. Musculoskeletal: Denies frequent falls, Denies gait dysfunction, has history of mixed connective tissue disorder Integumentary: Denies any skin rashes or pruritus. Neurological: Denies change in mental status, headache, blurred vision, dizziness. Psychiatric: Denies any symptoms of active depression. Endocrine: Denies fatigue, Denies weight change Past Medical History Past Medical History: Asthma, COPD, Eye Disorder, GERD/Reflux, Hypertension, Osteoarthritis (OA), Skin Disorder Additional Past Medical History / Comment(s): Pt currently being treated for pneumonia and recently had allergic reaction thought due to diflucan. 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, bronchitis, "swollen lymph nodes on my lung", hiatal hernia, rhabdomyolysis, mixed collagen vascular disease 2016, bilateral carpal tunnel syndrome, cervical radiculapathy, glaucoma bilateral eyes surgically corrected History of Any Multi-Drug Resistant Organisms: None Reported Past Surgical History: Breast Surgery, Section, Cholecystectomy, Hernia Repair, Joint Replacement, Tonsillectomy Additional Past Surgical History / Comment(s): L breast benign excisional biopsy x2, cyst in throat removed, cyst in left eye removed, JESUS FUNDOPLICATION twice; Left total knee; EGD, laser eye surgery for glaucoma. Past Anesthesia/Blood Transfusion Reactions: No Reported Reaction Additional Past Anesthesia/Blood Transfusion Reaction / Comment(s): Long time to wake up Smoking Status: Former smoker - Past Family History Sister(s) Family Medical History: Cancer Additional Family Medical History / Comment(s): Half sister with breast cancer. Mother Family Medical History: Cancer, Deep Vein Thrombosis (DVT), Pulmonary Embolus Additional Family Medical History / Comment(s): Mother had stomach cancer. Brother(s) Family Medical History: Myocardial Infarction ([place]) Additional Family Medical History / Comment(s): Brother had an [place] at age 3 yrs old. Father Family Medical History: Dementia Additional Family Medical History / Comment(s): Father is 83 yrs old. Medications and Allergies Home Medications Medication Instructions Recorded Confirmed Type Hydroxychloroquine Sulfate 200 mg PO BID 09/28/15 09/19/18 History [Plaquenil] Albuterol Nebulized [Ventolin 2.5 mg INHALATION RT-BID PRN 12/18/15 09/19/18 History Nebulized] Lisinopril 30 mg PO HS 06/12/16 09/19/18 History Gabapentin [Neurontin] 400 mg PO TID 12/18/16 09/19/18 History Montelukast [Singulair] 10 mg PO DAILY 07/07/17 09/19/18 History Albuterol Inhaler [Ventolin Hfa 2 puff INHALATION RT-Q6H PRN 07/31/17 09/19/18 History Inhaler] Fluticasone/Salmeterol [Advair 1 puff INHALATION RT-BID 08/06/18 09/19/18 History 500-50 Diskus] Acetaminophen [Tylenol] 500 mg PO Q4-6H PRN 09/14/18 09/19/18 History Azithromycin [Zithromax] 500 mg PO DAILY 09/14/18 09/19/18 History predniSONE See Taper PO DAILY 09/14/18 09/19/18 History Allergies Allergy/AdvReac Type Severity Reaction Status Date / Time Penicillins Allergy Severe Dyspnea,hives,throat Verified 09/19/18 11:13 swelling fluconazole [From Diflucan] Allergy Anaphylaxis Verified 09/19/18 11:13 adhesive tape AdvReac Rash/Hives Verified 09/19/18 11:13 Physical Exam Vitals: Vital Signs Temp Pulse Pulse Resp BP BP Pulse Ox 09/19/18 14:11 98.5 F 79 16 92/61 93 L 09/19/18 13:15 99.7 F H 09/19/18 12:30 88 24 110/81 95 09/19/18 12:00 93 24 120/73 97 09/19/18 11:30 94 22 101/79 46 L 09/19/18 11:29 96 09/19/18 11:19 95 09/19/18 11:00 105 H 22 101/79 91 L 09/19/18 10:44 101.7 F H 109 H 18 109/71 96 Intake and Output 09/19/18 09/19/18 09/19/18 06:59 14:59 22:59 Intake Total 320 Balance 320 Intake: Oral 320 Other: Voiding Method Toilet Weight 113.398 kg General: Revealed a 57-year-old female, obese, in no distress. Eye: + PERRLA, EOMI. No icterus. Ears, nose, mouth and throat: There are moist mucous membranes and no oral lesions. Oropharynx was not erythematous there is no tonsillar enlargement exudates or lesions. Uvula midline. . No tenderness to palpation of the mastoid. No anterior cervical lymphadenopathy. Neck: The neck is supple, there is no tenderness or JVD. No neck masses were appreciated. Cardiovascular: There is a regular rate and rhythm. No murmur, rub or gallop is appreciated. Respiratory: Respirations are non-labored, breath sounds are equal. Crackles or rhonchi and wheezes noted bilaterally more so at the right lung base. Gastrointestinal: Obese abdomen, Soft, non-distended, non-tender without masses or organomegaly noted. Bowel sounds are unremarkable. No rebound, no guarding Musculoskeletal: Normal ROM, no tenderness. Strength 5/5. Sensation intact. Radial pulses equal bilaterally 2+. Neurological: A&O x 3. CN II-XII intact, no gross focal neurologic deficit Psychiatric: Normal mood affect and mental status examination. Skin: No rashes. Lymphatics: No lymphadenopathy. Results - Laboratory Findings CBC and BMP: 09/19/18 11:09 09/19/18 11:09 PT/INR, D-dimer PT 10.8 sec (9.0-12.0) 09/19/18 11:09 INR 1.0 (<1.2) 09/19/18 11:09 D-Dimer 1.14 mg/L FEU (<0.60) H 09/19/18 11:09 Abnormal lab findings: Abnormal Labs 09/19/18 09/19/18 09/19/18 11:09 11:09 11:09 Hct 46.5 H D-Dimer 1.14 H Sodium 135 L Glucose 111 H AST 45 H ALT 57 H - Diagnostic Findings Chest x-ray: image reviewed (As noted in HPI.) Assessment and Plan Assessment: Impression: 1 acute community-acquired pneumonia, failed to respond to outpatient therapy 2 acute exacerbation of COPD 3 history of nicotine dependence, patient quit smoking 45 days ago. 4 benign essential hypertension 5 mixed connective tissue disease. Recommendation: Fully agree with the present treatment plan. Patient is now on bronchodilators, on antibiotics in the form of aztreonam, clindamycin, and Levaquin. She is also on IV steroids, however what seems to be concerning to me as the patient does not have leukocytosis, and she has some vague pleuritic chest pain on clinical examination, hence I recommended a CT angiogram of the chest, she did have positive d-dimer on presentation. My index of suspicion is a bit low for pulmonary embolism, based on the CT angiogram of the chest, further recommendations will follow. Reviewed and discussed with the patient her chest x-ray and her abnormal labs. Will follow. Time with Patient: Greater than 30
[2018-09-19] MEDS: IPRATROPIUM-ALBUTEROL 3 ML NEB INHALATION SCH ×2 (16:08→19:05)
[2018-09-19] MEDS: CLINDAMYCIN 600 MG in DEXTROSE 5% IN WATER 50 ML IVPB SCH ×4 (16:27→23:55)
[2018-09-19] MEDS: methylPREDNISolone SOD SUCCI 125 MG/2 ML VIAL IV SCH ×2 (16:27→23:55)
[2018-09-19] MEDS: GABAPENTIN 400 MG CAP PO SCH ×2 (16:27→21:53)
[2018-09-19 16:58] LABS: Glucose,Whole Blood 125 mg/dL (75-99)
--- NOTE | 2018-09-19 17:09 | CT ---
EXAMINATION TYPE: CT angio chest DATE OF EXAM: 09/19/2018 COMPARISON: CTA chest April 02, 2017. Two-view chest x-ray earlier today. HISTORY: Pneumonia with d ifficulty breathing rule out pulmonary embolism CT DLP: 418.6 mGycm. Automated Exposure Control for Dose Reduction was Utilized. CONTRAST: CTA scan of the thorax is performed with IV Contrast, patient injected with 100 mL of Isovue 370, pul monary embolism protocol. MIP Images are created on CT scanner and reviewed. FINDINGS: Exam is suboptimal as is degraded by respiratory motion artifact limiting evaluation for zaman bcentimeter nodularity. LUNGS: There is new groundglass opacity centrally involving bilateral upper lobes with more focal opa city and reticulation inferior left upper lobe and multifocal areas of groundglass opacity and reticu lation in the periphery of the right upper lobe and periphery of the right middle lobe. There is exte nsion to the periphery of the inferior left upper lobe. There is tiny right pleural fluid collection with associated right basilar consolidation and/or atelectasis. There is respiratory motion artifact degradation left lung base with linear scarring and/or atelectasis and some central faint groundglass opacity. There is relative sparing of the lingula. No pneumothorax is seen bilaterally. Tracheobronc hial tree is patent. Background mild to moderate emphysematous changes felt present. MEDIASTINUM: There is satisfactory enhancement of the pulmonary artery and its branches, there is no CT evidence for pulmonary embolism. There are persistent enlarged bilateral hilar lymph nodes. No cardiomegaly is seen. Trace pericardial effusion is now present fairly stable from prior. Stable e nlarged subcarinal lymph node axial image 53. OTHER: Surgical changes epigastric region just below diaphragm are redemonstrated. Surgical clips in the left breast are new from prior study. Cholecystectomy clips are redemonstrated. IMPRESSION: 1. No CT evidence for pulmonary embolism. 2. Suboptimal study with multifocal groundglass opacity and reticulation, correlate for multifocal pn eumonia. Persistent thoracic adenopathy which may warrant further clinical workup, correlate clinical ly.
[2018-09-19] MEDS: INSULIN ASPART (NovoLOG) 100 UNIT/ML VIAL SQ SCH ×2 (17:21→21:53)
[2018-09-19 21:15] LABS: Glucose,Whole Blood 167 mg/dL (75-99)
[2018-09-19] MEDS: AZTREONAM 2 GM in SODIUM CHLORIDE 0.9% 100 ML IVPB SCH (21:53)
[2018-09-19] MEDS: LISINOPRIL 10 MG TAB PO SCH (21:53)
[2018-09-19] MEDS: HYDROXYCHLOROQUINE SULFATE 200 MG TAB PO SCH (21:54)
[2018-09-20] MEDS: AZTREONAM 2 GM in SODIUM CHLORIDE 0.9% 100 ML IVPB SCH ×2 (04:19→14:02)
[2018-09-20 07:10] LABS: Basophils # (A) 0.1 k/uL (0-0.2); Basophils % (A) 1 %; Eosinophils # (A) 0.1 k/uL (0-0.7); Eosinophils % (A) 2 %; HCT 41.4 % (34.0-46.0); HGB 13.5 gm/dL (11.4-16.0); Lymphocytes # (A) 0.9 k/uL (1.0-4.8); Lymphocytes % (A) 12 %; MCH 29.2 pg (25.0-35.0); MCHC 32.6 g/dL (31.0-37.0); MCV 89.6 fL (80.0-100.0); Mean Platelet Volume 7.1; Monocytes # (A) 0.2 k/uL (0-1.0); Monocytes % (A) 3 %; Neutrophils # (A) 5.3 k/uL (1.3-7.7); Neutrophils % (A) 78 %; Platelet Count 266 k/uL (150-450); RBC 4.62 m/uL (3.80-5.40); RDW 13.5 % (11.5-15.5); WBC 6.9 k/uL (3.8-10.6)
[2018-09-20 07:24] LABS: Glucose,Whole Blood 143 mg/dL (75-99)
[2018-09-20 07:37] LABS: ALT 50 U/L (9-52); AST 27 U/L (14-36); Albumin 3.4 g/dL (3.5-5.0); Alkaline Phosphatase 70 U/L (38-126); Anion Gap 7 mmol/L; Blood Urea Nitrogen 14 mg/dL (7-17); Calcium 8.8 mg/dL (8.4-10.2); Carbon Dioxide 26 mmol/L (22-30); Chloride 105 mmol/L (98-107); Glucose 158 mg/dL (74-99); Potassium 4.4 mmol/L (3.5-5.1); Sodium 138 mmol/L (137-145); Total Bilirubin 0.3 mg/dL (0.2-1.3); Total Protein 6.2 g/dL (6.3-8.2)
[2018-09-20] MEDS: IPRATROPIUM-ALBUTEROL 3 ML NEB INHALATION SCH ×4 (07:38→19:45)
[2018-09-20] MEDS: CLINDAMYCIN 600 MG in DEXTROSE 5% IN WATER 50 ML IVPB SCH ×2 (07:47)
[2018-09-20] MEDS: INSULIN ASPART (NovoLOG) 100 UNIT/ML VIAL SQ SCH ×4 (07:47→21:04)
[2018-09-20] MEDS: methylPREDNISolone SOD SUCCI 125 MG/2 ML VIAL IV SCH ×3 (07:48→23:53)
[2018-09-20] MEDS: ENOXAPARIN 40 MG/0.4 ML SYRINGE SQ SCH (07:48)
[2018-09-20] MEDS: FAMOTIDINE 20 MG TAB PO SCH (07:49)
[2018-09-20] MEDS: MONTELUKAST 10 MG TAB PO SCH (07:49)
[2018-09-20] MEDS: GABAPENTIN 400 MG CAP PO SCH ×3 (07:49→21:03)
[2018-09-20] MEDS: SODIUM CHLORIDE 0.9% 1,000 ML IV SCH ×4 (07:50→17:50)
[2018-09-20] MEDS: HYDROXYCHLOROQUINE SULFATE 200 MG TAB PO SCH ×2 (07:51→21:03)
--- NOTE | 2018-09-20 11:30 | P.PN ---
Subjective Progress Note Date: 09/20/18 Principal diagnosis: Acute community acquired pneumonia, with failure to outpatient therapy This is a 57-year-old female known history of COPD, normally sees Dr. Jameson in the office. Her primary care physician is Dr. Florez. Patient is also known to have history of hypertension, mixed connective tissue disease, GERD, osteoarthritis, she saw my partner in the office a week ago, and she was complaining of symptoms of COPD exacerbation. Patient was treated with antibiotics in the form of Zithromax, and a course of prednisone burst and taper. Patient was also noted to have oral thrush, and she was treated with Diflucan. On 09/14/2018, she was seen in the ER and she was treated with Solu- Medrol and Benadryl for questionable reaction to Diflucan. Patient was seen in our office today, and she was still complaining of cough, fever, shortness of breath. Chest x-ray showed right lower lobe infiltrate. Patient was admitted, and this consult was initiated. Patient was started on Azactam, Cleocin and Levaquin. I reviewed the chest x-ray, and I fully agree that the the patient clearly has a new infiltrate in the right lower lobe and involving to some extent the right middle lobe. However the patient had normal CBC, normal electrolytes, normal lactic acid, and normal renal profile. D-dimer was a bit elevated at 1.14. Patient did complain of some substernal discomfort and seems to be at times pleuritic in nature, hence I will go ahead and recommend a CT ang iogram on this patient. On 09/20/2018 patient seen in follow-up on medical surgical floor. She states her breathing is easier today, still having some mild hemoptysis, but for the most part that sputum is yellowish white. Patient was febrile this morning, with a temp of 101F. Sputum culture has not been sent yet, blood cultures are pending. Abiotic coverage in the form of aztreonam, Levaquin and clindamycin. Patient states her chest discomfort has resolved, she still dyspneic with exertion, but overall feeling better. Sounds reveal diffuse wheezes, remains on IV steroids, nebulized bronchodilators. Today's labs have been reviewed, white blood cell count is 6.9, hemoglobin is 13.5, platelet count is 266, electrodes were within normal limits, renal profile was normal. C. diff was negative. No abdominal pain, no nausea vomiting or diarrhea. Objective - Vital Signs Vital signs: Vital Signs Temp 101 F H 09/20/18 08:51 Pulse 85 09/20/18 11:06 Resp 16 09/20/18 11:06 BP 124/76 09/20/18 08:51 Pulse Ox 98 09/20/18 08:51 Intake & Output 09/19/18 09/20/18 09/20/18 18:59 06:59 18:59 Intake Total 320 700 Balance 320 700 Weight 113.398 kg Intake: Oral 320 700 Other: Voiding Method Toilet # Voids 1 # Bowel Movements 1 - Exam GENERAL EXAM: Alert, pleasant, 57-year-old -[place] female on 2 l/min comfortable in no apparent distress. HEAD: Normocephalic/atraumatic. EYES: Normal reaction of pupils, equal size. Conjunctiva pink, sclera white. NOSE: Clear with pink turbinates. THROAT: No erythema or exudates. NECK: No masses, no JVD, no thyroid enlargement, no adenopathy. CHEST: No chest wall deformity. Symmetrical expansion. LUNGS: Equal air entry with diffuse wheezes CVS: Regular rate and rhythm, normal S1 and S2, no gallops, no murmurs, no rubs ABDOMEN: Soft, nontender. No hepatosplenomegaly, normal bowel sounds, no guarding or rigidity. EXTREMITIES: No clubbing, no edema, no cyanosis, 2+ pulses and upper and lower extremities. MUSCULOSKELETAL: Muscle strength and tone normal. SPINE: No scoliosis or deformity SKIN: No rashes CENTRAL NERVOUS SYSTEM: Alert and oriented -3. No focal deficits, tone is normal in all 4 extremities. PSYCHIATRIC: Alert and oriented -3. Appropriate affect. Intact judgment and insight. - Labs CBC & Chem 7: 09/20/18 06:51 09/20/18 06:51 Labs: Abnormal Lab Results - Last 24 Hours (Table) 09/19/18 09/19/18 09/19/18 Range/Units 11:09 11:09 11:09 Hct 46.5 H (34.0-46.0) % Lymphocytes # (1.0-4.8) k/uL D-Dimer 1.14 H (<0.60) mg/L FEU Sodium 135 L (137-145) mmol/L Glucose 111 H (74-99) mg/dL POC Glucose (mg/dL) (75-99) mg/dL AST 45 H (14-36) U/L ALT 57 H (9-52) U/L Total Protein (6.3-8.2) g/dL Albumin (3.5-5.0) g/dL 09/19/18 09/19/18 09/20/18 Range/Units 16:56 21:10 06:51 Hct (34.0-46.0) % Lymphocytes # 0.9 L (1.0-4.8) k/uL D-Dimer (<0.60) mg/L FEU Sodium (137-145) mmol/L Glucose (74-99) mg/dL POC Glucose (mg/dL) 125 H 167 H (75-99) mg/dL AST (14-36) U/L ALT (9-52) U/L Total Protein (6.3-8.2) g/dL Albumin (3.5-5.0) g/dL 09/20/18 09/20/18 Range/Units 06:51 07:08 Hct (34.0-46.0) % Lymphocytes # (1.0-4.8) k/uL D-Dimer (<0.60) mg/L FEU Sodium (137-145) mmol/L Glucose 158 H (74-99) mg/dL POC Glucose (mg/dL) 143 H (75-99) mg/dL AST (14-36) U/L ALT (9-52) U/L Total Protein 6.2 L (6.3-8.2) g/dL Albumin 3.4 L (3.5-5.0) g/dL Assessment and Plan Plan: Assessment: 1 acute community-acquired pneumonia, failed to respond to outpatient therapy. chest x-ray showed right middle and lower lobe acute infiltrates. CT angios of the chest showed no evidence of pulmonary embolism, was a suboptimal study. It showed multifocal pneumonia, involving bilateral upper lobes with more focal opacity and reticulation in the inferior left upper lobe and multifocal areas of groundglass opacity and reticulation in the periphery of the right upper lobe and right middle lobe. 2 acute exacerbation of COPD 3 history of nicotine dependence, patient quit smoking 45 days ago. 4 benign essential hypertension 5 mixed connective tissue disease, on Plaquenil Plan: We'll continue current antibiotic coverage, blood and sputum cultures are pending. Patient continues to be febrile, but overall she states her chest dis comfort is better, she is breathing easier. Still bronchospastic and dyspneic, continue with IV steroids, nebulized bronchodilators. We'll continue to follow. I performed a history & physical examination of the patient and discussed their management with my nurse practitioner, Haley Nagy. I reviewed the nurse practitioner's note and agree with the documented findings and plan of care. Lung sounds are positive for diffuse wheezes. The findings and the impression was discussed with the patient. I attest to the documentation by the nurse practitioner. Time with Patient: Less than 30
[2018-09-20 11:48] VITALS: BMI 42.9
[2018-09-20] MEDS ORDERED: LEVOFLOXACIN 750MG-D5W PMX 750 MG in DEXTROSE/WATER 1 150ML.BAG IVPB SCH (12:00)
[2018-09-20 12:35] LABS: Glucose,Whole Blood 189 mg/dL (75-99)
[2018-09-20] MEDS ORDERED: ACETAMINOPHEN TAB 500 MG TAB PO PRN (13:17)
--- NOTE | 2018-09-20 13:21 | P.PN ---
Subjective Progress Note Date: 09/20/18 This is a 57-year-old female, patient of [facility]. She has a known past medical history of COPD, hypertension, mixed connective tissue disease, GERD and osteoarthritis. Patient reports she's been sick for over a week. Initially had seen Dr. Arredondo her pulmonary doctor last Wednesday and was started on azithromycin and prednisone. Patient also reports being placed on Diflucan for yeast infection in her mouth. Apparently patient did have an ALLERGIC reaction to the Diflucan. Was seen in the ER on 09/14/2018 was given Solu-Medrol and Benadryl. Patient presented to Dr. Arredondo's office this morning with really no improvement in her pneumonia. Still coughing having fevers and increasing in shortness of breath especially with walking. Dr. Arredondo recommended that she comes to the ER and be admitted to the hospital for IV antibiotics. Patient was found to be septic she had a temp of 101.7 heart rate of 109. Chest x-ray showing new suspicious right middle lobe and right lower l obe infiltrate. In the ER she was started on Azactam, Cleocin and Levaquin. Dr. Carter has been consulted. He she did receive a dose of IV Solu-Medrol and fluid bolus in the ER. Lactic acid normal at 1.1 troponin is negative. She is mildly elevated AST and ALT. I'm also reporting diarrhea one episode of vomiting. She reports her sputum has a pinkish color. Patient reports a pleuritic chest pain with coughing. Denies any burning with urination. Patient be admitted to the hospital for pneumonia. 09/20/2018 patient seen by pulmonary service. She is being treated for multilobar pneumonia. CT of the chest was negative for PE. Does report a suboptimal study with multifocal groundglass opacity and reticulation, correlate for multifocal pneumonia. Persistent thoracic adenopathy which may warrant further clinical work up. Patient still reporting shortness of breath especially with walking. She is requiring oxygen. She denies any chest pain. Denies any nausea or vomiting. Denies any bowel movement changes or urinary symptoms. Patient had another temperature 101 this morning. Diarrhea resolved. Stool for C. diff is negative. Influenza screening negative. Objective - Vital Signs Vital signs: Vital Signs Temp 101 F H 09/20/18 08:51 Pulse 81 09/20/18 11:16 Resp 16 09/20/18 11:16 BP 124/76 09/20/18 08:51 Pulse Ox 98 09/20/18 08:51 Intake & Output 09/19/18 09/20/18 09/20/18 18:59 06:59 18:59 Intake Total 320 700 Balance 320 700 Weight 113.398 kg 113.398 kg Intake: Oral 320 700 Other: Voiding Method Toilet # Voids 1 # Bowel Movements 1 - Exam Head normocephalic Neck supple Lungs more air movement today. There is some wheezing and coarse breath sounds noted bilaterally Heart regular rate and rhythm S1-S2, no rub or gallop Abdomen is soft nontender nondistended positive bowel sounds no hepatosplenomegaly Extremities no edema Neuro alert and orientated to 3 - Labs CBC & Chem 7: 09/20/18 06:51 09/20/18 06:51 Labs: Abnormal Lab Results - Last 24 Hours (Table) 09/19/18 09/19/18 09/19/18 Range/Units 11:09 16:56 21:10 Lymphocytes # (1.0-4.8) k/uL D-Dimer 1.14 H (<0.60) mg/L FEU Glucose (74-99) mg/dL POC Glucose (mg/dL) 125 H 167 H (75-99) mg/dL Total Protein (6.3-8.2) g/dL Albumin (3.5-5.0) g/dL 09/20/18 09/20/18 09/20/18 Range/Units 06:51 06:51 07:08 Lymphocytes # 0.9 L (1.0-4.8) k/uL D-Dimer (<0.60) mg/L FEU Glucose 158 H (74-99) mg/dL POC Glucose (mg/dL) 143 H (75-99) mg/dL Total Protein 6.2 L (6.3-8.2) g/dL Albumin 3.4 L (3.5-5.0) g/dL 09/20/18 Range/Units 12:22 Lymphocytes # (1.0-4.8) k/uL D-Dimer (<0.60) mg/L FEU Glucose (74-99) mg/dL POC Glucose (mg/dL) 189 H (75-99) mg/dL Total Protein (6.3-8.2) g/dL Albumin (3.5-5.0) g/dL Assessment and Plan Assessment: 1. Acute community-acquired multilobar pneumonia with sepsis present on admission: Failed outpatient treatment with azithromycin and prednisone. chest x-ray showing a right middle lobe and right lower lobe infiltrate. Patient started on Azactam, Cleocin and Levaquin in the ER. Continue with DuoNeb updrafts 4 times a day and as needed. Patient evaluated by pulmonary service. Appreciate their input. sputum culture pending 2. Acute COPD exacerbation: Continue breathing treatments. Also will add Solu- Medrol 60 mg IV every 8 hours. Consult pulmonary service 3. Sepsis secondary to pneumonia: Patient tachycardic and had temp of 101.7 on admission. Lactate normal at 1.1. She received IV fluid bolus in the ER. W e'll continue IV fluids normal saline at 100 mL an hour. Check blood culture. Continue Tylenol and Motrin as needed for fever. Awaiting blood cultures 4. Diarrhea : Resolved stool for C. diff negative 5. Recent ER visit due to anaphylactic ALLERGIC reaction to Diflucan 6. Mildly elevated LFTs: Resolved. Patient is on Plaquenil which can increase liver enzymes. Patient does report history of cholecystectomy 7. History of nicotine dependence. Patient reports quitting smoking 48 days ago 8. Essential hypertension: Blood pressure 109/71 on admission. Resume her lisinopril 30 mg daily. Hold for systolic blood pressure less than 120 9. History of connective tissue disease maintained on Plaquenil GI prophylaxis Pepcid and DVT prophylaxis Lovenox I performed an examination of the patient and discussed their management with the physician Cte Teacher. I have reviewed the Physician Cte Teacher's notes and agree with the documented findings and plan of care
[2018-09-20 16:56] LABS: Glucose,Whole Blood 114 mg/dL (75-99)
[2018-09-20 20:12] LABS: Glucose,Whole Blood 163 mg/dL (75-99)
[2018-09-20] MEDS: LISINOPRIL 10 MG TAB PO SCH (21:03)
[2018-09-21] MEDS: SODIUM CHLORIDE 0.9% 1,000 ML IV SCH ×3 (05:52→21:46)
[2018-09-21 06:59] LABS: Glucose,Whole Blood 127 mg/dL (75-99)
--- NOTE | 2018-09-21 07:15 | CONS ---
CONSULTATION DATE OF SERVICE: 09/20/2018 REASON FOR CONSULTATION: Pneumonia. HISTORY OF PRESENT ILLNESS: The patient is a 57-year-old female with past medical history significant for COPD. The patient apparently started having with increasing shortness of breath and cough with minimal sputum production. With these symptoms the patient has been treated in the outpatient setting with oral Zithromax and prednisone. However, the patient did not have any improvement with these symptoms. The patient has been re-evaluated by practice billing associate and subsequently advised the patient to go to the hospital as the patient did have increasing shortness of breath with minimal exertion. The patient also had a cough, [id number] intensity, productive of minimal sputum not clear about the color. No hemoptysis. No significant chest pain. No nausea, no vomiting. No . No abdominal pain or any diarrhea. The patient was evaluated by the ER physician. On arrival to the ER, the patient did have a chest x-ray which showed suspicious right middle and lower lobe acute infiltrate. The patient subsequently did have a CT angiogram that was negative for PE. However, did show ground-glass opacity and reticulation, correlation for multifocal pneumonia. Patient did have fever of 101.7 degrees Fahrenheit. The patient did have tachycardia with heart rate of 109 though the white count was not significantly elevated. The patient did have a influenza serology that was negative. The patient has been started on Azactam Levaquin because of her PENICILLIN allergy. Infectious Disease was consulted for further recommendation regarding antibiotic therapy. REVIEW OF SYSTEMS: Positive points have been mentioned in HPI. Rest of systems has been negative. PAST MEDICAL HISTORY: Asthma, COPD, gastroesophageal reflux disease, hypertension, osteoarthritis, diverticulitis, neuropathy, hiatal hernia, rhabdomyolysis, collagen vascular disease. PAST SURGICAL HISTORY: Breast disease, section, cholecystectomy, hernia repair, left total knee arthroplasty, EGD, Estevan fundoplication. SOCIAL HISTORY: Patient current everyday smoker. No drinking or drug use. FAMILY HISTORY: Sister with a history of DVT and cancer. Mother history of DVT, pulmonary embolism, and cancer. Father with history of dementia. ALLERGIES: Allergies to PENICILLIN, FLUCONAZOLE and ADHESIVE TAPE. MEDICATIONS: Medications include the patient is currently on aztreonam 2 grams q.8. She is on Zofran, Singulair, Solu-Medrol, Zestril, levofloxacin, NovoLog, Motrin, Plaquenil, Lovenox, Tylenol and DuoNeb. PHYSICAL EXAMINATION: On examination, her blood pressure is 100/65 with a pulse 81, temperature 98.8, T-max 101.7. She is 94% on 2 L nasal cannula. General description is a middle-aged female up in the bed in no distress. No tachypnea or accessory muscle for respiration use. HEENT examination shows no pallor or scleral icterus. Oral mucous membrane is dry. No pharyngeal erythema or thrush. NECK: Trachea central. No thyromegaly. LUNGS: Unlabored breathing. Coarse breath sounds at the bases bilaterally. HEART: S1, S2. Regular rate and rhythm. ABDOMEN: Soft, no tenderness. No guarding or rigidity. EXTREMITIES: No edema of feet. SKIN EXAMINATION: No rash or mass palpable. NEUROLOGICAL: The patient is awake, alert, oriented x3. Mood and affect normal. LABS: Hemoglobin is 13.5, white count 6.9. BUN of 14, creatinine 0.63. Electrolytes are normal. Liver enzymes are normal. Influenza serology was negative. Chest x-ray and CT with multifocal pneumonia. DIAGNOSTIC IMPRESSION AND PLAN: 1. Patient admitted to the hospital with sepsis in this patient did have a fever of 101.7 Fahrenheit. The patient did have tachycardia meeting criteria for systemic inflammatory response syndrome source of multifocal pneumonia that has failed to respond to outpatient Zithromax and therapy with a question of possible community-acquired pneumonia less likely a gram-negative pneumonia. 2. The patient does have a PENICILLIN allergy that will limit the number of antibiotics that can be used, but no history of anaphylaxis. PLAN: 1. We will try to obtain sputum for Gram stain culture and sensitivity and check urine for Legionella antigen. 2. Discontinue Azactam. 3. Start the patient on Rocephin 2 grams daily and continue the Levaquin. 4. We will follow up on clinical condition and culture to further adjust medication if needed. Thank you for this consultation. Will follow this patient along with you. MMODL / IJN: [id number] /
[2018-09-21] MEDS: IPRATROPIUM-ALBUTEROL 3 ML NEB INHALATION SCH ×4 (07:22→19:43)
[2018-09-21] MEDS: INSULIN ASPART (NovoLOG) 100 UNIT/ML VIAL SQ SCH ×4 (07:26→21:45)
[2018-09-21] MEDS: methylPREDNISolone SOD SUCCI 125 MG/2 ML VIAL IV SCH ×2 (07:28→17:09)
[2018-09-21] MEDS: GABAPENTIN 400 MG CAP PO SCH ×3 (07:28→21:44)
[2018-09-21] MEDS: ENOXAPARIN 40 MG/0.4 ML SYRINGE SQ SCH (07:28)
[2018-09-21] MEDS: MONTELUKAST 10 MG TAB PO SCH (07:28)
[2018-09-21] MEDS: FAMOTIDINE 20 MG TAB PO SCH (07:29)
[2018-09-21] MEDS: HYDROXYCHLOROQUINE SULFATE 200 MG TAB PO SCH ×2 (07:29→20:12)
[2018-09-21 08:00] LABS: Basophils % (A) 0 %; Eosinophils # (A) 0.1 k/uL (0-0.7); Eosinophils % (A) 1 %; Lymphocytes # (A) 0.6 k/uL (1.0-4.8); Lymphocytes % (A) 6 %; MCH 29.5 pg (25.0-35.0); MCHC 32.6 g/dL (31.0-37.0); MCV 90.7 fL (80.0-100.0); Mean Platelet Volume 7.5; Monocytes # (A) 0.4 k/uL (0-1.0); Monocytes % (A) 3 %; Neutrophils # (A) 9.8 k/uL (1.3-7.7); Neutrophils % (A) 89 %; Platelet Count 283 k/uL (150-450); RBC 4.41 m/uL (3.80-5.40); RDW 12.8 % (11.5-15.5)
[2018-09-21 08:13] LABS: ALT 50 U/L (9-52); AST 22 U/L (14-36); Albumin 3.3 g/dL (3.5-5.0); Alkaline Phosphatase 65 U/L (38-126); Anion Gap 9 mmol/L; Blood Urea Nitrogen 14 mg/dL (7-17); Calcium 8.9 mg/dL (8.4-10.2); Carbon Dioxide 25 mmol/L (22-30); Chloride 105 mmol/L (98-107); Glucose 131 mg/dL (74-99); Potassium 4.3 mmol/L (3.5-5.1); Sodium 139 mmol/L (137-145); Total Bilirubin 0.3 mg/dL (0.2-1.3); Total Protein 6.1 g/dL (6.3-8.2)
[2018-09-21] MEDS: LEVOFLOXACIN 750 MG TAB PO SCH (11:27)
[2018-09-21 11:44] LABS: Glucose,Whole Blood 129 mg/dL (75-99)
--- NOTE | 2018-09-21 13:03 | P.PN ---
Subjective Progress Note Date: 09/21/18 Principal diagnosis: Acute community acquired pneumonia, with failure to outpatient therapy This is a 57-year-old female known history of COPD, normally sees Dr. Jameson in the office. Her primary care physician is Dr. Florez. Patient is also known to have history of hypertension, mixed connective tissue disease, GERD, osteoarthritis, she saw my partner in the office a week ago, and she was complaining of symptoms of COPD exacerbation. Patient was treated with antibiotics in the form of Zithromax, and a course of prednisone burst and taper. Patient was also noted to have oral thrush, and she was treated with Diflucan. On 09/14/2018, she was seen in the ER and she was treated with Solu- Medrol and Benadryl for questionable reaction to Diflucan. Patient was seen in our office today, and she was still complaining of cough, fever, shortness of breath. Chest x-ray showed right lower lobe infiltrate. Patient was admitted, and this consult was initiated. Patient was started on Azactam, Cleocin and Levaquin. I reviewed the chest x-ray, and I fully agree that the the patient clearly has a new infiltrate in the right lower lobe and involving to some extent the right middle lobe. However the patient had normal CBC, normal electrolytes, normal lactic acid, and normal renal profile. D-dimer was a bit elevated at 1.14. Patient did complain of some substernal discomfort and seems to be at times pleuritic in nature, hence I will go ahead and recommend a CT ang iogram on this patient. On 09/20/2018 patient seen in follow-up on medical surgical floor. She states her breathing is easier today, still having some mild hemoptysis, but for the most part that sputum is yellowish white. Patient was febrile this morning, with a temp of 101F. Sputum culture has not been sent yet, blood cultures are pending. Abiotic coverage in the form of aztreonam, Levaquin and clindamycin. Patient states her chest discomfort has resolved, she still dyspneic with exertion, but overall feeling better. Sounds reveal diffuse wheezes, remains on IV steroids, nebulized bronchodilators. Today's labs have been reviewed, white blood cell count is 6.9, hemoglobin is 13.5, platelet count is 266, electrodes were within normal limits, renal profile was normal. C. diff was negative. No abdominal pain, no nausea vomiting or diarrhea. On 09/21/2018 patient seen in follow-up on medical surgical floor. She is resting in bed, appears slightly tired today, she states last night she experienced an episode of acute shortness of breath, requiring breathing treatments and oxygen flow increase, she did recover, this morning she denies any chest pain, further hemoptysis, lung sounds are diminished, with scattered wheezes, 94% pulse ox on 3 L of oxygen, afebrile, sputum cultures have been sent, and are pending at this time, antibiotic coverage in the form of Rocephin and Levaquin, ID service is now following, patient is on IV steroids, nebulized bronchodilators. Remains dyspneic with light exertion. Objective - Vital Signs Vital signs: Vital Signs Temp 98.4 F 09/21/18 07:00 Pulse 92 09/21/18 11:21 Resp 14 09/21/18 07:00 BP 131/82 09/21/18 07:00 Pulse Ox 94 L 09/21/18 07:00 Intake & Output 09/20/18 09/21/18 09/21/18 18:59 06:59 18:59 Weight 113.398 kg Other: # Voids 2 3 - Exam GENERAL EXAM: Alert, pleasant, 57-year-old -[place]ipino female on 2 l/min comfortable in no apparent distress. HEAD: Normocephalic/atraumatic. EYES: Normal reaction of pupils, equal size. Conjunctiva pink, sclera white. NOSE: Clear with pink turbinates. THROAT: No erythema or exudates. NECK: No masses, no JVD, no thyroid enlargement, no adenopathy. CHEST: No chest wall deformity. Symmetrical expansion. LUNGS: Equal air entry with diffuse wheezes CVS: Regular rate and rhythm, normal S1 and S2, no gallops, no murmurs, no rubs ABDOMEN: Soft, nontender. No hepatosplenomegaly, normal bowel sounds, no guarding or rigidity. EXTREMITIES: No clubbing, no edema, no cyanosis, 2+ pulses and upper and lower extremities. MUSCULOSKELETAL: Muscle strength and tone normal. SPINE: No scoliosis or deformity SKIN: No rashes CENTRAL NERVOUS SYSTEM: Alert and oriented -3. No focal deficits, tone is normal in all 4 extremities. PSYCHIATRIC: Alert and oriented -3. Appropriate affect. Intact judgment and insight. - Labs CBC & Chem 7: 09/21/18 07:00 09/21/18 07:00 Labs: Abnormal Lab Results - Last 24 Hours (Table) 09/20/18 09/20/18 09/21/18 Range/Units 16:54 20:11 06:56 WBC (3.8-10.6) k/uL Neutrophils # (1.3-7.7) k/uL Lymphocytes # (1.0-4.8) k/uL Glucose (74-99) mg/dL POC Glucose (mg/dL) 114 H 163 H 127 H (75-99) mg/dL Total Protein (6.3-8.2) g/dL Albumin (3.5-5.0) g/dL 09/21/18 09/21/18 09/21/18 Range/Units 07:00 07:00 11:39 WBC 11.0 H (3.8-10.6) k/uL Neutrophils # 9.8 H (1.3-7.7) k/uL Lymphocytes # 0.6 L (1.0-4.8) k/uL Glucose 131 H (74-99) mg/dL POC Glucose (mg/dL) 129 H (75-99) mg/dL Total Protein 6.1 L (6.3-8.2) g/dL Albumin 3.3 L (3.5-5.0) g/dL Microbiology - Last 24 Hours (Table) 09/20/18 11:20 Gram Stain - Preliminary Sputum Sputum Culture - Preliminary 09/19/18 11:05 Blood Culture - Preliminary Blood No Growth after 24 hours Assessment and Plan Plan: Assessment: 1 acute community-acquired pneumonia, failed to respond to outpatient therapy. chest x-ray showed right middle and lower lobe acute infiltrates. CT angios of the chest showed no evidence of pulmonary embolism, was a suboptimal study. It showed multifocal pneumonia, involving bilateral upper lobes with more focal opacity and reticulation in the inferior left upper lobe and multifocal areas of groundglass opacity and reticulation in the periphery of the right upper lobe and right middle lobe. 2 acute exacerbation of COPD 3 history of nicotine dependence, patient quit smoking 45 days ago. 4 benign essential hypertension 5 mixed connective tissue disease, on Plaquenil Plan: Continue current plan of treatment, a medics per ID service recommendations, currently on Rocephin and Levaquin, continue with IV Solu-Medrol, nebulized bronchodilators, febrile today, hemoptysis has resolved, still quite dyspneic with light exertion. We'll await the results of the cultures. Follow and make further recommendations. I performed a history & physical examination of the patient and discussed their management with my nurse practitioner, Haley Nagy. I reviewed the nurse practitioner's note and agree with the documented findings and plan of care. Lung sounds are positive for diffuse wheezes. The findings and the impression was discussed with the patient. I attest to the documentation by the nurse practitioner. Time with Patient: Less than 30
[2018-09-21] MEDS ORDERED: BUDESONIDE 1 MG/2 ML NEBU INHALATION STA (13:43)
--- NOTE | 2018-09-21 14:48 | P.PN ---
Subjective Progress Note Date: 09/21/18 This is a 57-year-old female, patient of [facility]. She has a known past medical history of COPD, hypertension, mixed connective tissue disease, GERD and osteoarthritis. Patient reports she's been sick for over a week. Initially had seen Dr. Arredondo her pulmonary doctor last Wednesday and was started on azithromycin and prednisone. Patient also reports being placed on Diflucan for yeast infection in her mouth. Apparently patient did have an ALLERGIC reaction to the Diflucan. Was seen in the ER on 09/14/2018 was given Solu-Medrol and Benadryl. Patient presented to Dr. Arredondo's office this morning with really no improvement in her pneumonia. Still coughing having fevers and increasing in shortness of breath especially with walking. Dr. Arredondo recommended that she comes to the ER and be admitted to the hospital for IV antibiotics. Patient was found to be septic she had a temp of 101.7 heart rate of 109. Chest x-ray showing new suspicious right middle lobe and right lower l obe infiltrate. In the ER she was started on Azactam, Cleocin and Levaquin. Dr. Carter has been consulted. He she did receive a dose of IV Solu-Medrol and fluid bolus in the ER. Lactic acid normal at 1.1 troponin is negative. She is mildly elevated AST and ALT. I'm also reporting diarrhea one episode of vomiting. She reports her sputum has a pinkish color. Patient reports a pleuritic chest pain with coughing. Denies any burning with urination. Patient be admitted to the hospital for pneumonia. 09/20/2018 patient seen by pulmonary service. She is being treated for multilobar pneumonia. CT of the chest was negative for PE. Does report a suboptimal study with multifocal groundglass opacity and reticulation, correlate for multifocal pneumonia. Persistent thoracic adenopathy which may warrant further clinical work up. Patient still reporting shortness of breath especially with walking. She is requiring oxygen. She denies any chest pain. Denies any nausea or vomiting. Denies any bowel movement changes or urinary symptoms. Patient had another temperature 101 this morning. Diarrhea resolved. Stool for C. diff is negative. Influenza screening negative. On 09/21/2018 patient is alert and oriented 3. Patient is still having some increased shortness of breath. Patient also reports she had episode of chest pain during the night. Cardiology services will be consulted. EKG and troponins ordered. At this time patient denies chest pain. Patient denies nausea vomiting or diarrhea. Patient denies any urinary burning or frequency. Objective - Vital Signs Vital signs: Vital Signs Temp 98.4 F 09/21/18 07:00 Pulse 92 09/21/18 11:21 Resp 14 09/21/18 07:00 BP 131/82 09/21/18 07:00 Pulse Ox 94 L 09/21/18 07:00 Intake & Output 09/20/18 09/21/18 09/21/18 18:59 06:59 18:59 Weight 113.398 kg Other: # Voids 2 3 - Exam Head normocephalic Neck supple Lungs diminished bilaterally with wheezing and coarse breath sounds bilaterally Heart regular rate and rhythm S1-S2, no rub or gallop Abdomen is soft nontender nondistended positive bowel sounds no hepatosplenomegaly Extremities no edema Neuro alert and orientated to 3 - Labs CBC & Chem 7: 09/21/18 07:00 09/21/18 07:00 Labs: Abnormal Lab Results - Last 24 Hours (Table) 09/20/18 09/20/18 09/21/18 Range/Units 16:54 20:11 06:56 WBC (3.8-10.6) k/uL Neutrophils # (1.3-7.7) k/uL Lymphocytes # (1.0-4.8) k/uL Glucose (74-99) mg/dL POC Glucose (mg/dL) 114 H 163 H 127 H (75-99) mg/dL Total Protein (6.3-8.2) g/dL Albumin (3.5-5.0) g/dL 09/21/18 09/21/18 09/21/18 Range/Units 07:00 07:00 11:39 WBC 11.0 H (3.8-10.6) k/uL Neutrophils # 9.8 H (1.3-7.7) k/uL Lymphocytes # 0.6 L (1.0-4.8) k/uL Glucose 131 H (74-99) mg/dL POC Glucose (mg/dL) 129 H (75-99) mg/dL Total Protein 6.1 L (6.3-8.2) g/dL Albumin 3.3 L (3.5-5.0) g/dL Microbiology - Last 24 Hours (Table) 09/19/18 11:05 Blood Culture - Preliminary Blood No Growth after 48 hours 09/20/18 11:20 Gram Stain - Preliminary Sputum Sputum Culture - Preliminary Assessment and Plan Assessment: 1. Acute community-acquired multilobar pneumonia with sepsis present on admission: Failed outpatient treatment with azithromycin and prednisone. chest x-ray showing a right middle lobe and right lower lobe infiltrate. Patient started on Azactam, Cleocin and Levaquin in the ER. Continue with DuoNeb updrafts 4 times a day and as needed. Patient evaluated by pulmonary service. Appreciate their input. sputum culture pending. Infectious disease is fol lowing. 2. Acute COPD exacerbation: Continue breathing treatments. Also will add Solu- Medrol 60 mg IV every 8 hours. Consult pulmonary service 3. Sepsis secondary to pneumonia: Patient tachycardic and had temp of 101.7 on admission. Lactate normal at 1.1. She received IV fluid bolus in the ER. We'll continue IV fluids normal saline at 100 mL an hour. Check blood culture. Continue Tylenol and Motrin as needed for fever. Awaiting blood cultures. Patient' santibiotics changed to Levaquin and Rocephin. Patient afebrile throughout night. 4. Diarrhea : Resolved stool for C. diff negative 5. Recent ER visit due to anaphylactic ALLERGIC reaction to Diflucan 6. Mildly elevated LFTs: Resolved. Patient is on Plaquenil which can increase liver enzymes. Patient does report history of cholecystectomy 7. History of nicotine dependence. Patient reports quitting smoking 48 days ago 8. Essential hypertension: Blood pressure 109/71 on admission. Resume her lisinopril 30 mg daily. Hold for systolic blood pressure less than 120 9. History of connective tissue disease maintained on Plaquenil 10. Episode of chest pain likely pleuretic in nature. troponins, EKG and car diology consult placed. Patient ordered for cardiac telemetry monitoring GI prophylaxis Pepcid and DVT prophylaxis Lovenox I performed an examination of the patient and discussed their management with the Nurse Practitioner. I have reviewed the Nurse Practitioner's notes and agree with the documented findings and plan of care
[2018-09-21 17:06] LABS: Glucose,Whole Blood 151 mg/dL (75-99)
--- NOTE | 2018-09-21 17:57 | PN ---
PROGRESS NOTE DATE OF SERVICE: 09/21/2018. REASON FOR FOLLOWUP: Pneumonia. INTERVAL HISTORY: The patient is currently afebrile. The patient denies having any chest pain. No complaint of shortness of breath and coughing with the patient sputum production. No nausea. No abdominal pain. No diarrhea. PHYSICAL EXAMINATION: Blood pressure is 131/82 with a pulse of 84, temperature 98.4. She is 94% on 3 L nasal cannula. General description is an middle-aged female lying in bed in no distress. Respiratory system: Unlabored breathing with decreased breath sounds in the bases. No wheeze. Heart S1, S2. Regular rate and rhythm. Abdomen soft. No tenderness. LABS: Hemoglobin of 13, white count 11, BUN of 14, creatinine 0.56. Sputum culture currently pending. IMPRESSION/PLAN: The patient admitted to the hospital with pneumonia failing outpatient oral antibiotic therapy with a component of multifocal pneumonia seen on the x-ray. The patient is currently covered with Levaquin and Rocephin to continue while waiting for the culture to finalize. Continue supportive care. MMODL / IJN: [id number] /
[2018-09-21] MEDS: FORMOTEROL FUMARATE 20 MCG/2 ML NEBU INHALATION SCH (19:43)
[2018-09-21] MEDS: LISINOPRIL 10 MG TAB PO SCH (20:09)
[2018-09-21 20:45] LABS: Glucose,Whole Blood 127 mg/dL (75-99)
[2018-09-22] MEDS: SODIUM CHLORIDE 0.9% 1,000 ML IV SCH ×2 (00:18→12:37)
[2018-09-22] MEDS: methylPREDNISolone SOD SUCCI 125 MG/2 ML VIAL IV SCH ×5 (00:18→23:37)
[2018-09-22 04:16] LABS: Basophils % (A) 0 %; Eosinophils # (A) 0.2 k/uL (0-0.7); Eosinophils % (A) 2 %; HCT 38.5 % (34.0-46.0); HGB 12.5 gm/dL (11.4-16.0); Lymphocytes # (A) 0.6 k/uL (1.0-4.8); Lymphocytes % (A) 8 %; MCH 29.1 pg (25.0-35.0); MCHC 32.5 g/dL (31.0-37.0); MCV 89.5 fL (80.0-100.0); Mean Platelet Volume 6.8; Monocytes # (A) 0.2 k/uL (0-1.0); Monocytes % (A) 3 %; Neutrophils # (A) 6.3 k/uL (1.3-7.7); Neutrophils % (A) 86 %; Platelet Count 256 k/uL (150-450); RDW 12.9 % (11.5-15.5); WBC 7.4 k/uL (3.8-10.6)
[2018-09-22 04:39] LABS: ALT 44 U/L (9-52); AST 22 U/L (14-36); Alkaline Phosphatase 61 U/L (38-126); Anion Gap 9 mmol/L; Blood Urea Nitrogen 12 mg/dL (7-17); Calcium 8.8 mg/dL (8.4-10.2); Carbon Dioxide 24 mmol/L (22-30); Chloride 106 mmol/L (98-107); Glucose 160 mg/dL (74-99); Potassium 4.5 mmol/L (3.5-5.1); Sodium 139 mmol/L (137-145); Total Bilirubin 0.3 mg/dL (0.2-1.3); Total Protein 5.7 g/dL (6.3-8.2)
[2018-09-22] MEDS: FORMOTEROL FUMARATE 20 MCG/2 ML NEBU INHALATION SCH ×2 (07:05→20:04)
[2018-09-22] MEDS: IPRATROPIUM-ALBUTEROL 3 ML NEB INHALATION SCH ×4 (07:05→20:04)
[2018-09-22 07:39] LABS: Glucose,Whole Blood 145 mg/dL (75-99)
[2018-09-22] MEDS: INSULIN ASPART (NovoLOG) 100 UNIT/ML VIAL SQ SCH ×4 (07:51→21:02)
[2018-09-22] MEDS: GABAPENTIN 400 MG CAP PO SCH ×3 (11:13→21:05)
[2018-09-22] MEDS: LEVOFLOXACIN 750 MG TAB PO SCH (11:14)
[2018-09-22] MEDS: HYDROXYCHLOROQUINE SULFATE 200 MG TAB PO SCH ×2 (11:14→21:02)
[2018-09-22] MEDS: FAMOTIDINE 20 MG TAB PO SCH (11:14)
[2018-09-22] MEDS: MONTELUKAST 10 MG TAB PO SCH (11:14)
[2018-09-22] MEDS: ENOXAPARIN 40 MG/0.4 ML SYRINGE SQ SCH (11:15)
[2018-09-22 11:53] LABS: Glucose,Whole Blood 140 mg/dL (75-99)
--- NOTE | 2018-09-22 12:35 | P.PN ---
Subjective Progress Note Date: 09/22/18 Principal diagnosis: Acute community acquired pneumonia, with failure to outpatient therapy This is a 57-year-old female known history of COPD, normally sees Dr. Jameson in the office. Her primary care physician is Dr. Florez. Patient is also known to have history of hypertension, mixed connective tissue disease, GERD, osteoarthritis, she saw my partner in the office a week ago, and she was complaining of symptoms of COPD exacerbation. Patient was treated with antibiotics in the form of Zithromax, and a course of prednisone burst and taper. Patient was also noted to have oral thrush, and she was treated with Diflucan. On 09/14/2018, she was seen in the ER and she was treated with Solu- Medrol and Benadryl for questionable reaction to Diflucan. Patient was seen in our office today, and she was still complaining of cough, fever, shortness of breath. Chest x-ray showed right lower lobe infiltrate. Patient was admitted, and this consult was initiated. Patient was started on Azactam, Cleocin and Levaquin. I reviewed the chest x-ray, and I fully agree that the the patient clearly has a new infiltrate in the right lower lobe and involving to some extent the right middle lobe. However the patient had normal CBC, normal electrolytes, normal lactic acid, and normal renal profile. D-dimer was a bit elevated at 1.14. Patient did complain of some substernal discomfort and seems to be at times pleuritic in nature, hence I will go ahead and recommend a CT ang iogram on this patient. On 09/20/2018 patient seen in follow-up on medical surgical floor. She states her breathing is easier today, still having some mild hemoptysis, but for the most part that sputum is yellowish white. Patient was febrile this morning, with a temp of 101F. Sputum culture has not been sent yet, blood cultures are pending. Abiotic coverage in the form of aztreonam, Levaquin and clindamycin. Patient states her chest discomfort has resolved, she still dyspneic with exertion, but overall feeling better. Sounds reveal diffuse wheezes, remains on IV steroids, nebulized bronchodilators. Today's labs have been reviewed, white blood cell count is 6.9, hemoglobin is 13.5, platelet count is 266, electrodes were within normal limits, renal profile was normal. C. diff was negative. No abdominal pain, no nausea vomiting or diarrhea. On 09/21/2018 patient seen in follow-up on medical surgical floor. She is resting in bed, appears slightly tired today, she states last night she experienced an episode of acute shortness of breath, requiring breathing treatments and oxygen flow increase, she did recover, this morning she denies any chest pain, further hemoptysis, lung sounds are diminished, with scattered wheezes, 94% pulse ox on 3 L of oxygen, afebrile, sputum cultures have been sent, and are pending at this time, antibiotic coverage in the form of Rocephin and Levaquin, ID service is now following, patient is on IV steroids, nebulized bronchodilators. Remains dyspneic with light exertion. On all 09/22/2018 patient seen in follow-up on medical surgical floor. She is resting in bed, in no acute distress, states last night she had a better night, was able to sleep, still dyspneic with ambulation to the bathroom, but overall she is breathing easier, less chest tightness, still has a small amount of hemoptysis at times, no fever or chills, remains on 2 L of oxygen OF 96%. Blood and sputum cultures showed no growth so far. The ID service is following, patient is currently on a combination of Rocephin and Levaquin. Objective - Vital Signs Vital signs: Vital Signs Temp 97.8 F 09/22/18 07:00 Pulse 86 09/22/18 11:16 Resp 16 09/22/18 07:00 BP 119/77 09/22/18 07:00 Pulse Ox 96 09/22/18 07:00 Intake & Output 09/21/18 09/22/18 09/22/18 18:59 06:59 18:59 Intake Total 160 Balance 160 Weight 113.398 kg Intake: Intake, IV Titration 160 Amount Sodium Chloride 0.9% 1, 160 000 ml @ 20 mls/hr IV . Q24H [facility] Rx#:[id number] Other: # Voids 3 2 - Exam GENERAL EXAM: Alert, pleasant, 57-year-old -Irish female on 2 l/min comfortable in no apparent distress. HEAD: Normocephalic/atraumatic. EYES: Normal reaction of pupils, equal size. Conjunctiva pink, sclera white. NOSE: Clear with pink turbinates. THROAT: No erythema or exudates. NECK: No masses, no JVD, no thyroid enlargement, no adenopathy. CHEST: No chest wall deformity. Symmetrical expansion. LUNGS: Equal air entry with diffuse wheezes CVS: Regular rate and rhythm, normal S1 and S2, no gallops, no murmurs, no rubs ABDOMEN: Soft, nontender. No hepatosplenomegaly, normal bowel sounds, no guar ding or rigidity. EXTREMITIES: No clubbing, no edema, no cyanosis, 2+ pulses and upper and lower extremities. MUSCULOSKELETAL: Muscle strength and tone normal. SPINE: No scoliosis or deformity SKIN: No rashes CENTRAL NERVOUS SYSTEM: Alert and oriented -3. No focal deficits, tone is normal in all 4 extremities. PSYCHIATRIC: Alert and oriented -3. Appropriate affect. Intact judgment and insight. - Labs CBC & Chem 7: 09/22/18 04:03 09/22/18 04:03 Labs: Abnormal Lab Results - Last 24 Hours (Table) 09/21/18 09/21/18 09/22/18 Range/Units 16:51 20:44 04:03 Lymphocytes # 0.6 L (1.0-4.8) k/uL Glucose (74-99) mg/dL POC Glucose (mg/dL) 151 H 127 H (75-99) mg/dL Total Protein (6.3-8.2) g/dL Albumin (3.5-5.0) g/dL 09/22/18 09/22/18 09/22/18 Range/Units 04:03 07:28 11:41 Lymphocytes # (1.0-4.8) k/uL Glucose 160 H (74-99) mg/dL POC Glucose (mg/dL) 145 H 140 H (75-99) mg/dL Total Protein 5.7 L (6.3-8.2) g/dL Albumin 3.0 L (3.5-5.0) g/dL Microbiology - Last 24 Hours (Table) 09/20/18 11:20 Gram Stain - Final Sputum Sputum Culture - Final 09/20/18 14:36 Blood Culture - Preliminary Blood No Growth after 24 hours 09/19/18 11:05 Blood Culture - Preliminary Blood No Growth after 48 hours Assessment and Plan Plan: Assessment: 1 acute community-acquired pneumonia, failed to respond to outpatient therapy. chest x-ray showed right middle and lower lobe acute infiltrates. CT angios of the chest showed no evidence of pulmonary embolism, was a suboptimal study. It showed multifocal pneumonia, involving bilateral upper lobes with more focal opacity and reticulation in the inferior left upper lobe and multifocal areas of groundglass opacity and reticulation in the periphery of the right upper lobe and right middle lobe. 2 acute exacerbation of COPD 3 history of nicotine dependence, patient quit smoking 45 days ago. 4 benign essential hypertension 5 mixed connective tissue disease, on Plaquenil Plan: Continue current medical treatment, ID service is managing the antibiotics, no growth on sputum and blood culture so far, no fever or chills, still has a occasional small amount of hemoptysis, but overall feeling of breathing better, still dyspneic with exertion, we'll continue with IV steroids, nebulized bronchodilators. Clinically improving, not ready for discharge yet, increase activity as tolerated. I performed a history & physical examination of the patient and discussed their management with my nurse practitioner, Haley Nagy. I reviewed the nurse practitioner's note and agree with the documented findings and plan of care. Lung sounds are positive for diffuse wheezes. The findings and the impression was discussed with the patient. I attest to the documentation by the nurse practitioner. Time with Patient: Less than 30
--- NOTE | 2018-09-22 13:16 | P.PN ---
Subjective Progress Note Date: 09/22/18 This is a 57-year-old female, patient of [facility]. She has a known past medical history of COPD, hypertension, mixed connective tissue disease, GERD and osteoarthritis. Patient reports she's been sick for over a week. Initially had seen Dr. Arredondo her pulmonary doctor last Wednesday and was started on azithromycin and prednisone. Patient also reports being placed on Diflucan for yeast infection in her mouth. Apparently patient did have an ALLERGIC reaction to the Diflucan. Was seen in the ER on 09/14/2018 was given Solu-Medrol and Benadryl. Patient presented to Dr. Arredondo's office this morning with really no improvement in her pneumonia. Still coughing having fevers and increasing in shortness of breath especially with walking. Dr. Arredondo recommended that she comes to the ER and be admitted to the hospital for IV antibiotics. Patient was found to be septic she had a temp of 101.7 heart rate of 109. Chest x-ray showing new suspicious right middle lobe and right lower l obe infiltrate. In the ER she was started on Azactam, Cleocin and Levaquin. Dr. Carter has been consulted. He she did receive a dose of IV Solu-Medrol and fluid bolus in the ER. Lactic acid normal at 1.1 troponin is negative. She is mildly elevated AST and ALT. I'm also reporting diarrhea one episode of vomiting. She reports her sputum has a pinkish color. Patient reports a pleuritic chest pain with coughing. Denies any burning with urination. Patient be admitted to the hospital for pneumonia. 09/20/2018 patient seen by pulmonary service. She is being treated for multilobar pneumonia. CT of the chest was negative for PE. Does report a suboptimal study with multifocal groundglass opacity and reticulation, correlate for multifocal pneumonia. Persistent thoracic adenopathy which may warrant further clinical work up. Patient still reporting shortness of breath especially with walking. She is requiring oxygen. She denies any chest pain. Denies any nausea or vomiting. Denies any bowel movement changes or urinary symptoms. Patient had another temperature 101 this morning. Diarrhea resolved. Stool for C. diff is negative. Influenza screening negative. On 09/21/2018 patient is alert and oriented 3. Patient is still having some increased shortness of breath. Patient also reports she had episode of chest pain during the night. Cardiology services will be consulted. EKG and troponins ordered. At this time patient denies chest pain. Patient denies nausea vomiting or diarrhea. Patient denies any urinary burning or frequency. 09/22/17 patient reports some improvement in her breathing. Still having shortness of breath with exertion. She is now producing a brownish sputum. No further hemoptysis. Denies any further chest pain. Troponins were negative 3. She is currently on Levaquin and Rocephin. Sputum growing normal sweta and blood cultures remain negative. Patient denies any nausea vomiting denies any bowel movement changes denies any urinary symptoms. Objective - Vital Signs Vital signs: Vital Signs Temp 97.8 F 09/22/18 07:00 Pulse 86 09/22/18 11:16 Resp 16 09/22/18 07:00 BP 119/77 09/22/18 07:00 Pulse Ox 96 09/22/18 07:00 Intake & Output 09/21/18 09/22/18 09/22/18 18:59 06:59 18:59 Intake Total 160 Balance 160 Weight 113.398 kg Intake: Intake, IV Titration 160 Amount Sodium Chloride 0.9% 1, 160 000 ml @ 20 mls/hr IV . Q24H [facility] Rx#:[id number] Other: # Voids 3 2 - Exam Head normocephalic Neck supple Lungs more air movement today. There is some wheezing and coarse breath sounds noted bilaterally Heart regular rate and rhythm S1-S2, no rub or gallop Abdomen is soft nontender nondistended positive bowel sounds no he patosplenomegaly Extremities no edema Neuro alert and orientated to 3 - Labs CBC & Chem 7: 09/22/18 04:03 09/22/18 04:03 Labs: Abnormal Lab Results - Last 24 Hours (Table) 09/21/18 09/21/18 09/22/18 Range/Units 16:51 20:44 04:03 Lymphocytes # 0.6 L (1.0-4.8) k/uL Glucose (74-99) mg/dL POC Glucose (mg/dL) 151 H 127 H (75-99) mg/dL Total Protein (6.3-8.2) g/dL Albumin (3.5-5.0) g/dL 09/22/18 09/22/18 09/22/18 Range/Units 04:03 07:28 11:41 Lymphocytes # (1.0-4.8) k/uL Glucose 160 H (74-99) mg/dL POC Glucose (mg/dL) 145 H 140 H (75-99) mg/dL Total Protein 5.7 L (6.3-8.2) g/dL Albumin 3.0 L (3.5-5.0) g/dL Microbiology - Last 24 Hours (Table) 09/20/18 11:20 Gram Stain - Final Sputum Sputum Culture - Final 09/20/18 14:36 Blood Culture - Preliminary Blood No Growth after 24 hours 09/19/18 11:05 Blood Culture - Preliminary Blood No Growth after 48 hours Assessment and Plan Assessment: 1. Acute community-acquired multilobar pneumonia with sepsis present on admission: Failed outpatient treatment with azithromycin and prednisone. chest x-ray showing a right middle lobe and right lower lobe infiltrate. Infectious disease has changed antibiotics to Levaquin and Rocephin. Patient remains afebrile. Sputum culture growing normal respiratory sweta. Blood cultures remain negative. 2. Acute COPD exacerbation: Continue breathing treatments. Also will add Solu- Medrol 60 mg IV every 8 hours. Followed by pulmonary 3. Sepsis secondary to pneumonia: Patient tachycardic and had temp of 101.7 on admission. Lactate normal at 1.1. She received IV fluid bolus in the ER. Blood cultures remain negative 4. Diarrhea : Resolved stool for C. diff negative 5. Recent ER visit due to anaphylactic ALLERGIC reaction to Diflucan 6. Mildly elevated LFTs: Resolved. Patient is on Plaquenil which can increase liver enzymes. Patient does report history of cholecystectomy 7. History of nicotine dependence. Patient reports quitting smoking 48 days ago 8. Essential hypertension: Blood pressure 109/71 on admission. Resume her lisinopril 30 mg daily. Hold for systolic blood pressure less than 120 9. History of connective tissue disease maintained on Plaquenil Hep-Lock IV fluids Consult physical therapy Patient not ready for discharge yet GI prophylaxis Pepcid and DVT prophylaxis Lovenox I performed an examination of the patient and discussed their management with the physician Syrup Filterer. I have reviewed the Physician Syrup Filterer's notes and agree with the documented findings and plan of care
--- NOTE | 2018-09-22 13:54 | P.CRDCN ---
History of Present Illness History of present illness: This is a pleasant 57-year-old -[place] female past medical history significant for hypertension, COPD, asthma and former nicotine dependence. She quit smoking approximately 2 months ago. She denies history of coronary artery disease, dyslipidemia or diabetes mellitus. She does not follow with a tube washer for any reason. We have been asked to see her in consultation secondary to chest discomfort. She presented to the hospital 3 days ago with symptoms of cough, fever and had been diagnosed with pneumonia as an outpatient and was showing no improvement on oral antibiotics. Chest x-ray on arrival reveals a right middle and lower lobe infiltrate. CTA chest is negative for pulmonary embolism, multifocal groundglass opacity and reticulation possible multifocal pneumonia noted. She is currently being treated for an acute community-acquired pneumonia failed outpatient therapy and IV antibiotics. She also complains of pain in the mid-sternal region with cough and deep inspiration. The pain is described as a tight sharp pain not associated with dizziness, nausea, vomiting, palpitations or diaphoresis. Initial EKG on admission reveals sinus mechanism with no acute ST or T wave abnormalities noted. Laboratory data reviewed, WBC 7.4, hemoglobin 12.5, platelets 86, sodium 139, potassium 4.5, creatinine 0.52, cardiac enzymes negative 4, d-dimer on admission 1.14. Current cardiac medications include lisinopril 30 mg daily. At the time of my exam: CONSTITUTIONAL: Denies fever. Denies chills. EYES: Denies blurred vision. Denies vision changes. Denies eye pain. EARS, NOSE, MOUTH & THROAT: Denies headache. Denies sore throat. Denies ear pain. CARDIOVASCULAR: Complains of pleuritic chest pain. Complains of shortness of breath. Denies orthopnea. Denies PND. Denies palpitations. RESPIRATORY: Complains of cough. GASTROINTESTINAL: Denies abdominal pain. Denies diarrhea. Denies constipation. Denies nausea. Denies vomiting. MUSCULOSKELETAL: Denies myalgias. INTEGUMENTARY: Denies pruitis. Denies rash. NEUROLOGIC: Denies numbness. Denies tingling. Denies weakness. PSYCHIATRIC: Denies anxiety. Denies depression. ENDOCRINE: Denies fatigue. Denies weight change. Denies polydipsia. Denies polyurina. GENITOURINARY: Denies burning, hematuria or urgency with micturation. HEMATOLOGIC: Denies history of anemia. Denies bleeding. Blood pressure 123/87 afebrile and maintaining oxygen saturation on nasal cannula GENERAL: This is a 57-year-old female in no apparent distress at the time of my examination. HEENT: Head is atraumatic, normocephalic. Pupils are equal, round. Sclerae anicteric. Conjunctivae are clear. Mucous membranes of the mouth are moist. Neck is supple. There is no jugular venous distention. No carotid bruit is heard. LUNGS: Scattered rhonchi and wheezes throughout, no rales. No chest wall tenderness is noted on palpation or with deep breathing. HEART: Regular rate and rhythm without murmurs, rubs or gallops. S1 and S2 h eard. ABDOMEN: Soft, nontender. Bowel sounds are heard. No organomegaly noted. EXTREMITIES: No evidence of peripheral edema and no calf tenderness noted. VASCULAR: Radial and dorsalis pedis pulses palpated, no evidence of clubbing. NEUROLOGIC: Patient is awake, alert and oriented x3. ASSESSMENT Pleuritic chest pain, not indicative of angina. An acute coronary event has been ruled out. Pneumonia, failed outpatient treatment Hypertension COPD Former nicotine dependence Morbid obesity, BMI 42 PLAN Chest discomfort is not indicative of angina but is very pleuritic in nature and most likely secondary to musculoskeletal strain from coughing. An acute coronary event has been ruled out. We will check an echocardiogram to assess cardiac structure and function. Repeat an EKG. Recommend outpatient stress testing once her pneumonia has resolved. Follow-up in the office with Dr. Vasquez in 2 weeks. Thank you kindly for this consultation. Nurse Practitioner note has been reviewed, I agree with a documented findings and plan of care. Patient was seen and examined. Past Medical History Past Medical History: Asthma, COPD, Eye Disorder, GERD/Reflux, Hypertension, Osteoarthritis (OA), Skin Disorder Additional Past Medical History / Comment(s): Pt currently being treated for pneumonia and recently had allergic reaction thought due to diflucan. 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, bronchitis, "swollen lymph nodes on my lung", hiatal hernia, rhabdomyolysis, mixed collagen vascular disease 2016, bilateral carpal tunnel syndrome, cervical radiculapathy, glaucoma bilateral eyes surgically corrected History of Any Multi-Drug Resistant Organisms: None Reported Past Surgical History: Breast Surgery, Section, Cholecystectomy, Hernia Repair, Joint Replacement, Tonsillectomy Additional Past Surgical History / Comment(s): L breast benign excisional biopsy x2, cyst in throat removed, cyst in left eye removed, JESUS FUNDOPLICATION twice; Left total knee; EGD, laser eye surgery for glaucoma. Past Anesthesia/Blood Transfusion Reactions: No Reported Reaction Additional Past Anesthesia/Blood Transfusion Reaction / Comment(s): Long time to wake up Smoking Status: Former smoker - Past Family History Sister(s) Family Medical History: Cancer Additional Family Medical History / Comment(s): Half sister with breast cancer. Mother Family Medical History: Cancer, Deep Vein Thrombosis (DVT), Pulmonary Embolus Additional Family Medical History / Comment(s): Mother had stomach cancer. Brother(s) Family Medical History: Myocardial Infarction (CT) Additional Family Medical History / Comment(s): Brother had an CT at age 3 yrs old. Father Family Medical History: Dementia Additional Family Medical History / Comment(s): Father is 83 yrs old. Medications and Allergies Home Medications Medication Instructions Recorded Confirmed Type Hydroxychloroquine Sulfate 200 mg PO BID 09/28/15 09/19/18 History [Plaquenil] Albuterol Nebulized [Ventolin 2.5 mg INHALATION RT-BID PRN 12/18/15 09/19/18 History Nebulized] Lisinopril 30 mg PO HS 06/12/16 09/19/18 History Gabapentin [Neurontin] 400 mg PO TID 12/18/16 09/19/18 History Montelukast [Singulair] 10 mg PO DAILY 07/07/17 09/19/18 History Albuterol Inhaler [Ventolin Hfa 2 puff INHALATION RT-Q6H PRN 07/31/17 09/19/18 History Inhaler] Fluticasone/Salmeterol [Advair 1 puff INHALATION RT-BID 08/06/18 09/19/18 History 500-50 Diskus] Acetaminophen [Tylenol] 500 mg PO Q4-6H PRN 09/14/18 09/19/18 History Azithromycin [Zithromax] 500 mg PO DAILY 09/14/18 09/19/18 History predniSONE See Taper PO DAILY 09/14/18 09/19/18 History Allergies Allergy/AdvReac Type Severity Reaction Status Date / Time Penicillins Allergy Severe Dyspnea,hives,throat Verified 09/19/18 11:13 swelling fluconazole [From Diflucan] Allergy Anaphylaxis Verified 09/19/18 11:13 adhesive tape AdvReac Rash/Hives Verified 09/19/18 11:13 Physical Exam Vitals: Vital Signs Temp Pulse Pulse Resp BP Pulse Ox 09/22/18 13:23 98.4 F 91 20 123/87 09/22/18 11:16 86 09/22/18 11:01 84 09/22/18 07:25 82 09/22/18 07:06 80 09/22/18 07:00 97.8 F 83 16 119/77 96 09/22/18 01:30 96 09/22/18 01:10 98.0 F 91 19 137/89 92 L 09/21/18 20:10 98.4 F 84 18 114/73 97 09/21/18 20:02 90 09/21/18 19:53 90 09/21/18 19:52 90 09/21/18 19:43 90 09/21/18 16:21 88 09/21/18 16:06 88 09/21/18 15:00 98 F 87 14 134/87 93 L Intake and Output 09/21/18 09/22/18 09/22/18 22:59 06:59 14:59 Intake Total 160 Balance 160 Intake: Intake, IV Titration 160 Amount Sodium Chloride 0.9% 1, 160 000 ml @ 20 mls/hr IV . Q24H [facility] Rx#:[id number] Other: # Voids 2 Weight 113.398 kg Results 09/22/18 04:03 09/22/18 04:03 Cardiac Enzymes 09/21/18 09/22/18 09/22/18 Range/Units 19:53 04:03 04:03 AST 22 (14-36) U/L Troponin I <0.012 <0.012 (0.000-0.034) ng/mL CBC 09/22/18 Range/Units 04:03 WBC 7.4 (3.8-10.6) k/uL RBC 4.30 (3.80-5.40) m/uL Hgb 12.5 (11.4-16.0) gm/dL Hct 38.5 (34.0-46.0) % Plt Count 256 (150-450) k/uL Comprehensive Metabolic Panel 09/22/18 Range/Units 04:03 Sodium 139 (137-145) mmol/L Potassium 4.5 (3.5-5.1) mmol/L Chloride 106 (98-107) mmol/L Carbon Dioxide 24 (22-30) mmol/L BUN 12 (7-17) mg/dL Creatinine 0.52 (0.52-1.04) mg/dL Glucose 160 H (74-99) mg/dL Calcium 8.8 (8.4-10.2) mg/dL AST 22 (14-36) U/L ALT 44 (9-52) U/L Alkaline Phosphatase 61 (38-126) U/L Total Protein 5.7 L (6.3-8.2) g/dL Albumin 3.0 L (3.5-5.0) g/dL Current Medications Generic Name Dose Route Start Last Admin Trade Name Freq PRN Reason Stop Dose Admin Acetaminophen 500 mg 09/20/18 13:17 Tylenol Tab PO Q6HR PRN Fever and/ or Pain Albuterol/Ipratropium 3 ml 09/19/18 11:50 09/21/18 03:00 Duoneb 0.5 Mg-3 Mg/3 Ml Soln INHALATION 3 ml RT-Q4H PRN Administration shortness of breath Albuterol/Ipratropium 3 ml 09/19/18 16:00 09/22/18 11:01 Duoneb 0.5 Mg-3 Mg/3 Ml Soln INHALATION 3 ml RT-QID [facility]U Administration Enoxaparin Sodium 40 mg 09/20/18 09:00 09/22/18 11:15 Lovenox SQ 40 mg DAILY RENU Administration Famotidine 20 mg 09/20/18 09:00 09/22/18 11:14 Pepcid PO 20 mg DAILY RENU Administration Formoterol Fumarate 20 mcg 09/21/18 20:00 09/22/18 07:05 Perforomist INHALATION 20 mcg RT-BID RENU Administration Gabapentin 400 mg 09/19/18 16:00 09/22/18 11:13 Neurontin PO 400 mg TID RENU Administration Hydroxychloroquine Sulfate 200 mg 09/19/18 21:00 09/22/18 11:14 Plaquenil PO 200 mg BID RENU Administration Sodium Chloride 1,000 mls @ 20 mls/hr 09/19/18 12:00 09/21/18 21:46 Saline 0.9% IV 20 mls/hr .Q24H RENU Administration Ceftriaxone Sodium 2 gm/ 50 mls @ 100 mls/hr 09/20/18 18:00 09/21/18 17:09 Sodium Chloride IVPB 100 mls/hr Q24H RENU Administration Ibuprofen 400 mg 09/19/18 12:51 09/20/18 11:28 Motrin PO 400 mg Q4HR PRN Administration Fever Insulin Aspart 0 unit 09/19/18 17:30 09/22/18 12:37 Novolog SQ Not Given ACHS RENU Protocol Levofloxacin 750 mg 09/21/18 12:00 09/22/18 11:14 Levaquin PO 750 mg Q24H [facility]U Administration Lisinopril 30 mg 09/19/18 21:00 09/21/18 20:09 Zestril PO 30 mg HS RENU Administration Methylprednisolone Sodium Succinate 60 mg 09/21/18 18:00 09/22/18 13:05 Solu-Medrol IV 60 mg Q6HR RENU Administration Miscellaneous Information 1 each 09/19/18 11:50 Pneumonia Protocol Utilized PO ONCE PRN Per Protocol Montelukast Sodium 10 mg 09/20/18 09:00 09/22/18 11:14 Singulair PO 10 mg DAILY RENU Administration Ondansetron HCl 4 mg 09/19/18 12:51 Zofran IVP Q6HR PRN Vomiting Intake and Output 09/21/18 09/22/18 09/22/18 22:59 06:59 14:59 Intake Total 160 Balance 160 Intake: Intake, IV Titration 160 Amount Sodium Chloride 0.9% 1, 160 000 ml @ 20 mls/hr IV . Q24H [facility] Rx#:[id number] Other: # Voids 2 Weight 113.398 kg Patient Weight 09/23/18 06:59 Weight 113.398 kg 09/22/18 04:03 09/22/18 04:03
[2018-09-22 16:45] LABS: Glucose,Whole Blood 202 mg/dL (75-99)
--- NOTE | 2018-09-22 18:05 | PN ---
PROGRESS NOTE DATE OF SERVICE: 09/22/2018. REASON FOR FOLLOWUP: Multifocal pneumonia. INTERVAL HISTORY: The patient is currently afebrile. The patient is breathing comfortably. Cough decreased intensity. No chest pain. No nausea, no vomiting. No abdominal pain. No diarrhea. PHYSICAL EXAMINATION: Blood pressure 123/87 with a pulse of 91, temperature 98.4. She is 92% on 2 L nasal cannula. General description is a middle-aged female lying in bed in no distress. Respiratory system: Unlabored breathing, decreased breath sounds. No wheeze. Heart S1, S2. Regular rate and rhythm. ABDOMEN: Soft, no tenderness. LABS: Hemoglobin is 12.5, white count 7.4, BUN of 12, creatinine 0.52. Sputum so far negative. Blood culture negative. DIAGNOSTIC IMPRESSION AND PLAN: Patient admitted to the hospital with pneumonia, multiple failing outpatient therapy. Patient currently responding to the Rocephin that will continue. Sputum has been negative for any resistant pathogen. She will be able to finish therapy with oral Ceftin on discharge. Continue supportive care. MMODL / FABRICION: [id number] /
[2018-09-22 20:20] LABS: Glucose,Whole Blood 149 mg/dL (75-99)
[2018-09-22 20:23] VITALS: RESP 16
[2018-09-22] MEDS: LISINOPRIL 10 MG TAB PO SCH (21:01)
[2018-09-23] MEDS: methylPREDNISolone SOD SUCCI 125 MG/2 ML VIAL IV SCH ×2 (05:32→12:09)
[2018-09-23] MEDS: FORMOTEROL FUMARATE 20 MCG/2 ML NEBU INHALATION SCH (06:47)
[2018-09-23] MEDS: IPRATROPIUM-ALBUTEROL 3 ML NEB INHALATION SCH ×3 (06:47→15:32)
[2018-09-23 07:23] LABS: Glucose,Whole Blood 139 mg/dL (75-99)
[2018-09-23] MEDS: INSULIN ASPART (NovoLOG) 100 UNIT/ML VIAL SQ SCH ×2 (08:07→12:10)
[2018-09-23 08:11] LABS: Basophils % (A) 0 %; Eosinophils # (A) 0.1 k/uL (0-0.7); Eosinophils % (A) 2 %; HCT 40.9 % (34.0-46.0); HGB 13.6 gm/dL (11.4-16.0); Lymphocytes # (A) 0.6 k/uL (1.0-4.8); Lymphocytes % (A) 8 %; MCH 30.4 pg (25.0-35.0); MCHC 33.2 g/dL (31.0-37.0); MCV 91.7 fL (80.0-100.0); Mean Platelet Volume 7.3; Monocytes # (A) 0.2 k/uL (0-1.0); Monocytes % (A) 2 %; Neutrophils # (A) 6.4 k/uL (1.3-7.7); Neutrophils % (A) 87 %; Platelet Count 305 k/uL (150-450); RBC 4.46 m/uL (3.80-5.40); WBC 7.4 k/uL (3.8-10.6)
[2018-09-23 08:23] LABS: ALT 54 U/L (9-52); AST 21 U/L (14-36); Albumin 3.2 g/dL (3.5-5.0); Alkaline Phosphatase 63 U/L (38-126); Anion Gap 5 mmol/L; Blood Urea Nitrogen 15 mg/dL (7-17); Calcium 9.1 mg/dL (8.4-10.2); Carbon Dioxide 26 mmol/L (22-30); Chloride 107 mmol/L (98-107); Glucose 186 mg/dL (74-99); Sodium 138 mmol/L (137-145); Total Bilirubin 0.3 mg/dL (0.2-1.3)
[2018-09-23] MEDS: GABAPENTIN 400 MG CAP PO SCH ×2 (09:46→16:02)
[2018-09-23] MEDS: MONTELUKAST 10 MG TAB PO SCH (09:46)
[2018-09-23] MEDS: HYDROXYCHLOROQUINE SULFATE 200 MG TAB PO SCH (09:46)
[2018-09-23] MEDS: FAMOTIDINE 20 MG TAB PO SCH (09:47)
[2018-09-23] MEDS: ENOXAPARIN 40 MG/0.4 ML SYRINGE SQ SCH (09:47)
--- NOTE | 2018-09-23 09:57 | ECHOF ---
Referral Reason:sob MEASUREMENTS -------- HEIGHT: 162.6 cm WEIGHT: 113.4 kg BP: RVIDd: 3.5 cm (< 3.3) IVSd: 0.9 cm (0.6 - 1.1) LVIDd: 4.4 cm (3.9 - 5.3) LVPWd: 1.1 cm (0.6 - 1.1) IVSs: 1.2 cm LVIDs: 2.8 cm LVPWs: 1.6 cm LA Diam: 4.5 cm (2.7 - 3.8) LAESV Index (A-L): 18.34 ml/m Ao Diam: 2.4 cm (2.0 - 3.7) AV Cusp: 1.6 cm (1.5 - 2.6) LA Diam: 4.4 cm (2.7 - 3.8) MV EXCURSION: 22.560 mm (> 18.000) MV EF SLOPE: 75 mm/s (70 - 150) EPSS: 0.3 cm MV E Dino: 0.81 m/s MV A Dino: 0.97 m/s MV E/A Ratio: 0.84 RAP: 5.00 mmHg RVSP: 43.00 mmHg FINDINGS -------- Sinus rhythm. This was a technically good study. LV size, wall thickness and systolic function are normal, with an EF greater than 55%. The left xavi tricular size is normal. The right ventricle is normal in size. The left atrial size is normal. Normal LA size by volume 22+/-6 ml/m2. The right atrial size is normal. Interatrial and interventricular septum intact. The aortic valve is trileaflet, and appears structurally normal. No aortic stenosis or regurgitation. Mild mitral regurgitation is present. Mild tricuspid regurgitation present. There is mild pulmonary hypertension. The right ventricular systolic pressure, as measured by Doppler, is 43.00mmHg. There is no pulmonic regurgitation present. The aortic root size is normal. Normal inferior vena cava with normal inspiratory collapse consistent with estimated right atrial pre ssure of 5 mmHg. There is no pericardial effusion. CONCLUSIONS -------- 1. LV size, wall thickness and systolic function are normal, with an EF greater than 55%. 2. The left ventricular size is normal. 3. The right ventricle is normal in size. 4. The left atrial size is normal. 5. Normal LA size by volume 22+/-6 ml/m2. 6. The right atrial size is normal. 7. Interatrial and interventricular septum intact. 8. The aortic valve is trileaflet, and appears structurally normal. No aortic stenosis or regurgitati on. 9. Mild mitral regurgitation is present. 10. Mild tricuspid regurgitation present. 11. There is mild pulmonary hypertension. 12. The right ventricular systolic pressure, as measured by Doppler, is 43.00mmHg. 13. There is no pulmonic regurgitation present. 14. The aortic root size is normal. 15. Normal inferior vena cava with normal inspiratory collapse consistent with estimated right atrial pressure of 5 mmHg. 16. There is no pericardial effusion. DISTRICT TRAFFIC CHIEF: Mai Cowart RDCS
[2018-09-23] MEDS: LEVOFLOXACIN 750 MG TAB PO SCH (11:08)
[2018-09-23 11:33] LABS: Glucose,Whole Blood 136 mg/dL (75-99)
[2018-09-23] MEDS: SODIUM CHLORIDE 0.9% 1,000 ML IV SCH (12:04)
--- NOTE | 2018-09-23 13:34 | P.DS ---
Providers Date of admission: 09/19/18 12:16 Expected date of discharge: 09/23/18 Attending physician: Lui Alvarado Consults: 09/19/18 12:16 Consult Physician Routine Consulting Provider: Angel Jameson Consult Reason/Comments: established patient, failed outpatient multilobar pneumonia Do you want consulting provider notified?: Yes, Notify in am 09/20/18 13:44 Consult Physician Routine Consulting Provider: Halina Lees Consult Reason/Comments: pneumonia, fever Do you want consulting provider notified?: Yes 09/21/18 11:26 Consult Physician Routine Consulting Provider: Prakash Carrera Consult Reason/Comments: chest pain Do you want consulting provider notified?: Yes Primary care physician: Laverne [facility] Course: Discharge diagnosis 1. Acute community-acquired multilobar pneumonia with sepsis present on admission: Failed outpatient treatment with azithromycin and prednisone. chest x-ray showing a right middle lobe and right lower lobe infiltrate. Sputum culture normal respiratory sweta. Blood cultures are negative. Infectious disease is recommending Ceftin for 7 days 2. Acute COPD exacerbation: Continue breathing treatments. Patient continue a prednisone taper. 3. Sepsis secondary to pneumonia present on admission: Patient tachycardic and had temp of 101.7 on admission. Lactate normal at 1.1. 4. Diarrhea : Resolved stool for C. diff negative 5. Recent ER visit due to anaphylactic ALLERGIC reaction to Diflucan 6. Mildly elevated LFTs: Resolved. Patient is on Plaquenil which can increase liver enzymes. Patient does report history of cholecystectomy 7. History of nicotine dependence. Patient reports quitting smoking 48 days ago 8. Essential hypertension: Blood pressure 109/71 on admission. Resume her lisinopril 30 mg daily. Hold for systolic blood pressure less than 120 9. History of connective tissue disease maintained on Plaquenil 10. Pleuritic chest pain: Acute coronary syndrome ruled out. Troponins negative 3. Patient seen evaluated by cardiology. The recommending stress test outpatient. Patient will follow-up with Dr. MIRA Vasquez in 2 weeks. Echo showed an EF of greater than 55% mild pulmonary hypertension mild mitral regurgitation and mild tricuspid regurgitation 11. Acute hypoxic respiratory failure secondary to the pneumonia and COPD. Patient require home O2 oxygen saturation down to 87% on room air with ambulating. Hospital course This is a 57-year-old female, patient of [facility]. She has a known past medical history of COPD, hypertension, mixed connective tissue disease, GERD and osteoarthritis. Patient reports she's been sick for over a week. Initially had seen Dr. Arredondo her pulmonary doctor last Wednesday and was started on azithromycin and prednisone. Patient also reports being placed on Diflucan for yeast infection in her mouth. Apparently patient did have an ALLERGIC reaction to the Diflucan. Was seen in the ER on 09/14/2018 was given Solu-Medrol and Benadryl. Patient presented to Dr. Arredondo's office this morning with really no improvement in her pneumonia. Still coughing having fevers and increasing in shortness of breath especially with walking. Dr. Arredondo recommended that she comes to the ER and be admitted to the hospital for IV antibiotics. Patient was found to be septic she had a temp of 101.7 heart rate of 109. Chest x-ray showing new suspicious right middle lobe and right lower lobe infiltrate. In the ER she was started on Azactam, Cleocin and Levaquin. Dr. Jameson has been consulted. He she did receive a dose of IV Solu-Medrol and fluid bolus in the ER. Lactic acid normal at 1.1 troponin is negative. She is mildly elevated AST and ALT. I'm also reporting diarrhea one episode of vomiting. She reports her sputum has a pinkish color. Patient reports a pleuritic chest pain with coughing. Denies any burning with urination. Patient be admitted to the hospital for pneumonia. 09/20/2018 patient seen by pulmonary service. She is being treated for multilobar pneumonia. CT of the chest was negative for PE. Does report a suboptimal study with multifocal groundglass opacity and reticulation, correlate for multifocal pneumonia. Persistent thoracic adenopathy which may warrant further clinical work up. Patient still reporting shortness of breath especially with walking. She is requiring oxygen. She denies any chest pain. Denies any nausea or vomiting. Denies any bowel movement changes or urinary symptoms. Patient had another temperature 101 this morning. Diarrhea resolved. Stool for C. diff is negative. Influenza screening negative. On 09/21/2018 patient is alert and oriented 3. Patient is still having some increased shortness of breath. Patient also reports she had episode of chest pain during the night. Cardiology services will be consulted. EKG and troponins ordered. At this time patient denies chest pain. Patient denies nausea vomiting or diarrhea. Patient denies any urinary burning or frequency. 09/22/17 patient reports some improvement in her breathing. Still having shortness of breath with exertion. She is now producing a brownish sputum. No further hemoptysis. Denies any further chest pain. Troponins were negative 3. She is currently on Levaquin and Rocephin. Sputum growing normal sweta and blood cultures remain negative. Patient denies any nausea vomiting denies any bowel movement changes denies any urinary symptoms. 09/23/2018 patient is medically stable for discharge. She's been cleared by all consulting physicians. Infectious diseases recommending to continue Ceftin for 7 days for her pneumonia. She'll continue prednisone taper breathing treatments for her COPD exacerbation. She is currently require home O2. Patient's symptoms have shown improvement. She is stable for discharge. Please refer to chart for any further details. I performed an examination of the patient and discussed their management with [facility] physician Boat Oar Maker. I have reviewed the Physician Boat Oar Maker's notes and agree with the documented findings and plan of care Patient Condition at Discharge: Stable Plan - Discharge Summary Discharge Rx Participant: No New Discharge Prescriptions: New Cefuroxime Axetil [Ceftin] 500 mg PO BID #14 tab Ipratropium-Albuterol Nebulize [Duoneb 0.5 mg-3 mg/3 ml Soln] 3 ml INHALATION QID PRN #1 box PRN Reason: Shortness Of Breath predniSONE 10 mg PO DIRECTED #30 tab Continue Hydroxychloroquine Sulfate [Plaquenil] 200 mg PO BID Lisinopril 30 mg PO HS Gabapentin [Neurontin] 400 mg PO TID Montelukast [Singulair] 10 mg PO DAILY Albuterol Inhaler [Ventolin Hfa Inhaler] 2 puff INHALATION RT-Q6H PRN PRN Reason: Shortness Of Breath Fluticasone/Salmeterol [Advair 500-50 Diskus] 1 puff INHALATION RT-BID Acetaminophen [Tylenol] 500 mg PO Q4-6H PRN PRN Reason: Headache Discontinued Albuterol Nebulized [Ventolin Nebulized] 2.5 mg INHALATION RT-BID PRN PRN Reason: Shortness Of Breath predniSONE See Taper PO DAILY Azithromycin [Zithromax] 500 mg PO DAILY Discharge Medication List Hydroxychloroquine Sulfate [Plaquenil] 200 mg PO BID 09/28/15 [History] Lisinopril 30 mg PO HS 06/12/16 [History] Gabapentin [Neurontin] 400 mg PO TID 12/18/16 [History] Montelukast [Singulair] 10 mg PO DAILY 07/07/17 [History] Albuterol Inhaler [Ventolin Hfa Inhaler] 2 puff INHALATION RT-Q6H PRN 07/31/17 [History] Fluticasone/Salmeterol [Advair 500-50 Diskus] 1 puff INHALATION RT-BID 08/06/18 [History] Acetaminophen [Tylenol] 500 mg PO Q4-6H PRN 09/14/18 [History] Cefuroxime Axetil [Ceftin] 500 mg PO BID #14 tab 09/23/18 [Rx] Ipratropium-Albuterol Nebulize [Duoneb 0.5 mg-3 mg/3 ml Soln] 3 ml INHALATION QID PRN #1 box 09/23/18 [Rx] predniSONE 10 mg PO DIRECTED #30 tab 09/23/18 [Rx] Follow up Appointment(s)/Referral(s): Brittney Vasquez MD [STAFF PHYSICIAN] - 2 Weeks Laverne Florez DO [Primary Care Provider] - 1 Week Angel Jameson DO [Family Provider] - 1 Week Activity/Diet/Wound Care/Special Instructions: Critical access hospital [phone] Diet: cardiac Activity: as tolerated Discharge Disposition: HOME WITH HOME HEALTH SERVICES
[2018-09-23 14:44] VITALS: BP 137/73; TEMP 98.9
[2018-09-23 15:44] VITALS: PULSE 76
--- NOTE | 2018-09-23 16:03 | PN ---
PROGRESS NOTE DATE OF SERVICE: 09/23/2018 REASON FOR FOLLOWUP: Pneumonia, community-acquired. INTERVAL HISTORY: The patient is currently afebrile. The patient is breathing more comfortably. She denies having any chest pain. Cough has decreased in intensity. No nausea, no vomiting. No abdominal pain. No diarrhea. PHYSICAL EXAMINATION: Blood pressure 137/73 with a pulse of 84, temperature 98.9. She is 94% on room air. General description is a middle-aged female up in the bed in no distress. RESPIRATORY SYSTEM: Unlabored breathing with decreased intensity of breath sounds. No wheeze. HEART: S1, S2. Regular rate and rhythm. ABDOMEN: Soft. No tenderness. LABS: Hemoglobin 13.6, white count 7.4. BUN 15, creatinine 0.55. Sputum has been usual respiratory sweta. DIAGNOSTIC IMPRESSION AND PLAN: Patient admitted to hospital with pneumonia, failing outpatient antibiotic therapy. Patient has shown overall clinical improvement and Levaquin with sputum usual respiratory sweta, blood culture negative. She will finish therapy with a short course of oral Ceftin. Plan of care discussed with the patient and admitting team. Continue with supportive care. MMODL / IJN: [id number] /
--- NOTE | 2018-09-23 16:59 | P.PN ---
Subjective Progress Note Date: 09/23/18 Principal diagnosis: Acute community acquired pneumonia, with failure to outpatient therapy This is a 57-year-old female known history of COPD, normally sees Dr. Jameson in the office. Her primary care physician is Dr. Florez. Patient is also known to have history of hypertension, mixed connective tissue disease, GERD, osteoarthritis, she saw my partner in the office a week ago, and she was complaining of symptoms of COPD exacerbation. Patient was treated with antibiotics in the form of Zithromax, and a course of prednisone burst and taper. Patient was also noted to have oral thrush, and she was treated with Diflucan. On 09/14/2018, she was seen in the ER and she was treated with Solu- Medrol and Benadryl for questionable reaction to Diflucan. Patient was seen in our office today, and she was still complaining of cough, fever, shortness of breath. Chest x-ray showed right lower lobe infiltrate. Patient was admitted, and this consult was initiated. Patient was started on Azactam, Cleocin and Levaquin. I reviewed the chest x-ray, and I fully agree that the the patient clearly has a new infiltrate in the right lower lobe and involving to some extent the right middle lobe. However the patient had normal CBC, normal electrolytes, normal lactic acid, and normal renal profile. D-dimer was a bit elevated at 1.14. Patient did complain of some substernal discomfort and seems to be at times pleuritic in nature, hence I will go ahead and recommend a CT ang iogram on this patient. On 09/20/2018 patient seen in follow-up on medical surgical floor. She states her breathing is easier today, still having some mild hemoptysis, but for the most part that sputum is yellowish white. Patient was febrile this morning, with a temp of 101F. Sputum culture has not been sent yet, blood cultures are pending. Abiotic coverage in the form of aztreonam, Levaquin and clindamycin. Patient states her chest discomfort has resolved, she still dyspneic with exertion, but overall feeling better. Sounds reveal diffuse wheezes, remains on IV steroids, nebulized bronchodilators. Today's labs have been reviewed, white blood cell count is 6.9, hemoglobin is 13.5, platelet count is 266, electrodes were within normal limits, renal profile was normal. C. diff was negative. No abdominal pain, no nausea vomiting or diarrhea. On 09/21/2018 patient seen in follow-up on medical surgical floor. She is resting in bed, appears slightly tired today, she states last night she experienced an episode of acute shortness of breath, requiring breathing treatments and oxygen flow increase, she did recover, this morning she denies any chest pain, further hemoptysis, lung sounds are diminished, with scattered wheezes, 94% pulse ox on 3 L of oxygen, afebrile, sputum cultures have been sent, and are pending at this time, antibiotic coverage in the form of Rocephin and Levaquin, ID service is now following, patient is on IV steroids, nebulized bronchodilators. Remains dyspneic with light exertion. On all 09/22/2018 patient seen in follow-up on medical surgical floor. She is resting in bed, in no acute distress, states last night she had a better night, was able to sleep, still dyspneic with ambulation to the bathroom, but overall she is breathing easier, less chest tightness, still has a small amount of hemoptysis at times, no fever or chills, remains on 2 L of oxygen OF 96%. Blood and sputum cultures showed no growth so far. The ID service is following, patient is currently on a combination of Rocephin and Levaquin. On all 09/23/2018 patient seen in follow-up on medical surgical floor. She is awake and alert, in no acute distress. Vital signs are stable, patient is breathing easier, less short of breath with exertion, blood sputum cultures were negative, no fever or chills, no hemoptysis. SHe remains on oxygen, currently on 2 L of oxygen with a pulse ox of 90%, she will likely require home oxygen, chest pain, lung sounds are diminished, with the end expiratory wheezes, overall sounds better. Objective - Vital Signs Vital signs: Vital Signs Temp 98.9 F 09/23/18 14:43 Pulse 84 09/23/18 14:43 Resp 16 09/23/18 14:43 BP 137/73 09/23/18 14:43 Pulse Ox 94 L 09/23/18 14:43 Intake & Output 09/22/18 09/23/18 09/23/18 18:59 06:59 18:59 Intake Total 220 Balance 220 Weight 113.398 kg Intake: Intake, IV Titration 220 Amount Sodium Chloride 0.9% 1, 220 000 ml @ 20 mls/hr IV . Q24H [facility] Rx#:[id number] Other: Voiding Method Toilet # Voids 2 2 3 # Bowel Movements 0 - Exam GENERAL EXAM: Alert, pleasant, 57-year-old -[place] female on 2 l/min comfortable in no apparent distress. HEAD: Normocephalic/atraumatic. EYES: Normal reaction of pupils, equal size. Conjunctiva pink, sclera white. NOSE: Clear with pink turbinates. THROAT: No erythema or exudates. NECK: No masses, no JVD, no thyroid enlargement, no adenopathy. CHEST: No chest wall deformity. Symmetrical expansion. LUNGS: Equal air entry with diffuse wheezes CVS: Regular rate and rhythm, normal S1 and S2, no gallops, no murmurs, no rubs ABDOMEN: Soft, nontender. No hepatosplenomegaly, normal bowel sounds, no guarding or rigidity. EXTREMITIES: No clubbing, no edema, no cyanosis, 2+ pulses and upper and lower extremities. MUSCULOSKELETAL: Muscle strength and tone normal. SPINE: No scoliosis or deformity SKIN: No rashes CENTRAL NERVOUS SYSTEM: Alert and oriented -3. No focal deficits, tone is normal in all 4 extremities. PSYCHIATRIC: Alert and oriented -3. Appropriate affect. Intact judgment and insight. - Labs CBC & Chem 7: 09/23/18 07:55 09/23/18 07:55 Labs: Abnormal Lab Results - Last 24 Hours (Table) 09/22/18 09/22/18 09/23/18 Range/Units 16:44 20:19 07:22 Lymphocytes # (1.0-4.8) k/uL Glucose (74-99) mg/dL POC Glucose (mg/dL) 202 H 149 H 139 H (75-99) mg/dL ALT (9-52) U/L Total Protein (6.3-8.2) g/dL Albumin (3.5-5.0) g/dL 09/23/18 09/23/18 09/23/18 Range/Units 07:55 07:55 11:32 Lymphocytes # 0.6 L (1.0-4.8) k/uL Glucose 186 H (74-99) mg/dL POC Glucose (mg/dL) 136 H (75-99) mg/dL ALT 54 H (9-52) U/L Total Protein 6.0 L (6.3-8.2) g/dL Albumin 3.2 L (3.5-5.0) g/dL Microbiology - Last 24 Hours (Table) 09/19/18 11:05 Blood Culture - Preliminary Blood No Growth after 96 hours 09/20/18 14:36 Blood Culture - Preliminary Blood No Growth after 48 hours Assessment and Plan Plan: Assessment: 1 acute community-acquired pneumonia, failed to respond to outpatient therapy. chest x-ray showed right middle and lower lobe acute infiltrates. CT angios of the chest showed no evidence of pulmonary embolism, was a suboptimal study. It showed multifocal pneumonia, involving bilateral upper lobes with more focal opacity and reticulation in the inferior left upper lobe and multifocal areas of groundglass opacity and reticulation in the periphery of the right upper lobe and right middle lobe. 2 acute exacerbation of COPD 3 history of nicotine dependence, patient quit smoking 45 days ago. 4 benign essential hypertension 5 mixed connective tissue disease, on Plaquenil Plan: Patient is doing well, improving, less short of breath, no fever or chills, vital signs are stable, cultures have been negative thus far, patient does qualify for home oxygen she did desaturate to 87% with walking, from pulmonary perspective patient stable to be discharged home today course of oral ant ibiotics, prednisone taper, and she will need follow-up appointment with Dr. Brooks in the office in 7-10 days. I performed a history & physical examination of the patient and discussed their management with my nurse practitioner, Haley Nagy. I reviewed the nurse practitioner's note and agree with the documented findings and plan of care. Lung sounds are positive for diffuse wheezes. The findings and the impression was discussed with the patient. I attest to the documentation by the nurse practitioner. Time with Patient: Less than 30
== END 2018-09-23 17:04 | disposition home health service (06) | DRG 871 ==
LOC: EC 10:42 → 4MS4W 12:16 → 4SSUR 13:08
PROVIDERS: ADMIT Internal Medicine; ATTEND Internal Medicine
DX: A41.9 Sepsis, unspecified organism (principal); J18.1 Lobar pneumonia, unspecified organism; J96.01 Acute respiratory failure with hypoxia; E87.1 Hypo-osmolality and hyponatremia; J44.1 Chronic obstructive pulmonary disease with (acute) exacerbation; J44.0 Chronic obstructive pulmonary disease with (acute) lower respiratory infection; Z68.41 Body mass index [BMI] 40.0-44.9, adult; M35.1 Other overlap syndromes; R19.7 Diarrhea, unspecified; I10 Essential (primary) hypertension; E66.01 Morbid (severe) obesity due to excess calories; F17.200 Nicotine dependence, unspecified, uncomplicated; H40.9 Unspecified glaucoma; I27.20 Pulmonary hypertension, unspecified; K21.9 Gastro-esophageal reflux disease without esophagitis; Z90.49 Acquired absence of other specified parts of digestive tract; Z79.899 Other long term (current) drug therapy; Z80.0 Family history of malignant neoplasm of digestive organs; Z80.3 Family history of malignant neoplasm of breast; Z82.49 Family history of ischemic heart disease and other diseases of the circulatory system; Z88.0 Allergy status to penicillin; Z87.01 Personal history of pneumonia (recurrent); Z88.8 Allergy status to other drugs, medicaments and biological substances
CPT/HCPCS: 36415; 71046; 71275; 80053; 83605; 84484; 85025; 85379; 85610; 85730; 87040; 87070; 87205; 87324; 87449; 87502; 93005; 93306; 94640; 94760; 96361; 96365; 96375; 99284

== ENCOUNTER 2018-11-27 14:26 | Observation (INO) | payer OTHER, MEDICARE ==
[2018-11-27] MEDS ORDERED: NITROGLYCERIN OINT 1 INCH/GM PACKET TOPICAL STA (14:53)
[2018-11-27] MEDS ORDERED: ASPIRIN 81 MG PO STA (14:53)
--- NOTE | 2018-11-27 14:59 | ED ---
General Adult HPI - General Chief complaint: Chest Pain Stated complaint: Chest pain,ARTURO Time Seen by Provider: 11/27/18 14:38 Source: patient, family, RN notes reviewed Mode of arrival: ambulatory Limitations: no limitations - History of Present Illness Initial comments: Patient is a pleasant 58-year-old female presenting to the emergency Department with complaints of chest discomfort. Symptoms have been occurring over the past couple of days. Patient has indigestion in her left chest. Patient does state symptoms worsen with exertion. Patient does get associated dyspnea and nausea and feels sweaty. No leg pain or leg swelling. Currently patient is symptom- free. Patient did have stress test approximately a week or 2 ago and was reported as normal to her. - Related Data Home Medications Medication Instructions Recorded Confirmed Lisinopril 30 mg PO HS 06/12/16 11/27/18 Gabapentin [Neurontin] 400 mg PO TID 12/18/16 11/27/18 Montelukast [Singulair] 10 mg PO DAILY 07/07/17 11/27/18 Albuterol Inhaler [Ventolin Hfa 2 puff INHALATION RT-Q6H PRN 07/31/17 11/27/18 Inhaler] Fluticasone/Salmeterol [Advair 1 puff INHALATION RT-BID 08/06/18 11/27/18 500-50 Diskus] Ipratropium-Albuterol Nebulize 3 ml INHALATION RT-QID PRN 11/27/18 11/27/18 [Duoneb 0.5 mg-3 mg/3 ml Soln] Allergies Allergy/AdvReac Type Severity Reaction Status Date / Time Penicillins Allergy Severe Dyspnea,hives,throat Verified 11/27/18 14:35 swelling fluconazole [From Diflucan] Allergy Anaphylaxis Verified 11/27/18 14:35 adhesive tape AdvReac Rash/Hives Verified 11/27/18 14:35 Review of Systems ROS Statement: Those systems with pertinent positive or pertinent negative responses have been documented in the HPI. ROS Other: All systems not noted in ROS Statement are negative. Constitutional: Denies: fever Eyes: Denies: eye pain ENT: Denies: ear pain Respiratory: Denies: cough Cardiovascular: Reports: chest pain Endocrine: Reports: fatigue (With exertion) Gastrointestinal: Denies: abdominal pain Genitourinary: Denies: dysuria Musculoskeletal: Denies: back pain Skin: Denies: rash Neurological: Denies: weakness Past Medical History Past Medical History: Asthma, COPD, Eye Disorder, GERD/Reflux, Hypertension, Osteoarthritis (OA), Skin Disorder Additional Past Medical History / Comment(s): Pt currently being treated for pneumonia and recently had allergic reaction thought due to diflucan. 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, bronchitis, "swollen lymph nodes on my lung", hiatal hernia, rhabdomyolysis, mixed collagen vascular disease 2016, bilateral carpal tunnel syndrome, cervical radiculapathy, glaucoma bilateral eyes surgically corrected History of Any Multi-Drug Resistant Organisms: None Reported Past Surgical History: Breast Surgery, Section, Cholecystectomy, Hernia Repair, Joint Replacement, Tonsillectomy Additional Past Surgical History / Comment(s): L breast benign excisional biopsy x2, cyst in throat removed, cyst in left eye removed, JESUS FUNDOPLICATION twice; Left total knee; EGD, laser eye surgery for glaucoma. Past Anesthesia/Blood Transfusion Reactions: No Reported Reaction Additional Past Anesthesia/Blood Transfusion Reaction / Comment(s): Long time to wake up Past Psychological History: No Psychological Hx Reported Smoking Status: Former smoker - Past Family History Sister(s) Family Medical History: Cancer Additional Family Medical History / Comment(s): Half sister with breast cancer. Mother Family Medical History: Cancer, Deep Vein Thrombosis (DVT), Pulmonary Embolus Additional Family Medical History / Comment(s): Mother had stomach cancer. Brother(s) Family Medical History: Myocardial Infarction (PA) Additional Family Medical History / Comment(s): Brother had an PA at age 3 yrs old. Father Family Medical History: Dementia Additional Family Medical History / Comment(s): Father is 83 yrs old. General Exam Limitations: no limitations General appearance: alert, in no apparent distress Head exam: Present: atraumatic Eye exam: Present: normal appearance, PERRL ENT exam: Present: normal oropharynx Neck exam: Present: normal inspection Respiratory exam: Present: normal lung sounds bilaterally. Absent: chest wall tenderness Cardiovascular Exam: Present: regular rate, normal rhythm Expanded Peripheral pulses: 2+: Radial (R), Radial (L), Posterior Tibialis (R), Posterior Tibialis (L) GI/Abdominal exam: Present: soft. Absent: distended, tenderness Extremities exam: Present: normal inspection. Absent: pedal edema, calf tenderness Neurological exam: Present: alert Psychiatric exam: Present: normal affect, normal mood Skin exam: Present: normal color Course Vital Signs 11/27/18 11/27/18 11/27/18 14:33 14:55 15:00 Temperature 98.6 F Pulse Rate 90 85 82 Respiratory 18 19 10 L Rate Blood Pressure 125/72 105/67 O2 Sat by Pulse 99 96 96 Oximetry 11/27/18 11/27/18 15:30 16:00 Temperature Pulse Rate 82 82 Respiratory 18 14 Rate Blood Pressure 105/54 116/72 O2 Sat by Pulse 97 92 L Oximetry EKG Findings - EKG Comments: EKG Findings:: Normal sinus rhythm at 87. ME 136. QRS 86. QT 382. QTC 459. Normal axis. Normal QRS. No acute ST change. Medical Decision Making - Medical Decision Making Patient reevaluated and symptoms have improved and now resolved. Patient and family updated on results and plan. Case was discussed in detail with Dr. Beaver, who will admit covering for Dr. Alvarado, who admits for Dr. Florez. - Lab Data Result diagrams: 11/27/18 15:08 11/27/18 15:08 Lab Results 11/27/18 11/27/18 11/27/18 Range/Units 15:08 15:08 15:08 WBC 5.4 (3.8-10.6) k/uL RBC 4.66 (3.80-5.40) m/uL Hgb 13.9 (11.4-16.0) gm/dL Hct 42.9 (34.0-46.0) % MCV 92.0 (80.0-100.0) fL MCH 29.9 (25.0-35.0) pg MCHC 32.5 (31.0-37.0) g/dL RDW 13.1 (11.5-15.5) % Plt Count 310 (150-450) k/uL Neutrophils % 37 % Lymphocytes % 50 % Monocytes % 5 % Eosinophils % 5 % Basophils % 1 % Neutrophils # 2.0 (1.3-7.7) k/uL Lymphocytes # 2.7 (1.0-4.8) k/uL Monocytes # 0.3 (0-1.0) k/uL Eosinophils # 0.3 (0-0.7) k/uL Basophils # 0.1 (0-0.2) k/uL PT 10.2 (9.0-12.0) sec INR 0.9 (<1.2) APTT 23.4 (22.0-30.0) sec D-Dimer 0.33 (<0.60) mg/L FEU Sodium 140 (137-145) mmol/L Potassium 4.0 (3.5-5.1) mmol/L Chloride 106 (98-107) mmol/L Carbon Dioxide 23 (22-30) mmol/L Anion Gap 11 mmol/L BUN 20 H (7-17) mg/dL Creatinine 0.93 (0.52-1.04) mg/dL Est GFR (CKD-EPI)AfAm 79 (>60 ml/min/1.73 sqM) Est GFR (CKD-EPI)NonAf 68 (>60 ml/min/1.73 sqM) Glucose 107 H (74-99) mg/dL Calcium 9.8 (8.4-10.2) mg/dL Magnesium 1.9 (1.6-2.3) mg/dL Total Bilirubin 0.4 (0.2-1.3) mg/dL AST 30 (14-36) U/L ALT 29 (9-52) U/L Alkaline Phosphatase 87 (38-126) U/L Troponin I (0.000-0.034) ng/mL Total Protein 7.2 (6.3-8.2) g/dL Albumin 4.4 (3.5-5.0) g/dL 11/27/18 Range/Units 15:08 WBC (3.8-10.6) k/uL RBC (3.80-5.40) m/uL Hgb (11.4-16.0) gm/dL Hct (34.0-46.0) % MCV (80.0-100.0) fL MCH (25.0-35.0) pg MCHC (31.0-37.0) g/dL RDW (11.5-15.5) % Plt Count (150-450) k/uL Neutrophils % % Lymphocytes % % Monocytes % % Eosinophils % % Basophils % % Neutrophils # (1.3-7.7) k/uL Lymphocytes # (1.0-4.8) k/uL Monocytes # (0-1.0) k/uL Eosinophils # (0-0.7) k/uL Basophils # (0-0.2) k/uL PT (9.0-12.0) sec INR (<1.2) APTT (22.0-30.0) sec D-Dimer (<0.60) mg/L FEU Sodium (137-145) mmol/L Potassium (3.5-5.1) mmol/L Chloride (98-107) mmol/L Carbon Dioxide (22-30) mmol/L Anion Gap mmol/L BUN (7-17) mg/dL Creatinine (0.52-1.04) mg/dL Est GFR (CKD-EPI)AfAm (>60 ml/min/1.73 sqM) Est GFR (CKD-EPI)NonAf (>60 ml/min/1.73 sqM) Glucose (74-99) mg/dL Calcium (8.4-10.2) mg/dL Magnesium (1.6-2.3) mg/dL Total Bilirubin (0.2-1.3) mg/dL AST (14-36) U/L ALT (9-52) U/L Alkaline Phosphatase (38-126) U/L Troponin I <0.012 (0.000-0.034) ng/mL Total Protein (6.3-8.2) g/dL Albumin (3.5-5.0) g/dL - Radiology Data Radiology results: image reviewed (Chest x-ray reveals no acute process) Disposition Clinical Impression: Chest pain Disposition: [facility]MITT[facility] Is patient prescribed a controlled substance at d/c from ED?: No Referrals: Laverne Florez DO [Primary Care Provider] - 1-2 days Decision Time: 16:16
[2018-11-27 15:16] LABS: Basophils # (A) 0.1 k/uL (0-0.2); Basophils % (A) 1 %; Eosinophils # (A) 0.3 k/uL (0-0.7); Eosinophils % (A) 5 %; HCT 42.9 % (34.0-46.0); HGB 13.9 gm/dL (11.4-16.0); Lymphocytes # (A) 2.7 k/uL (1.0-4.8); Lymphocytes % (A) 50 %; MCH 29.9 pg (25.0-35.0); MCHC 32.5 g/dL (31.0-37.0); Mean Platelet Volume 7.2; Monocytes # (A) 0.3 k/uL (0-1.0); Monocytes % (A) 5 %; Neutrophils % (A) 37 %; Platelet Count 310 k/uL (150-450); RBC 4.66 m/uL (3.80-5.40); RDW 13.1 % (11.5-15.5); WBC 5.4 k/uL (3.8-10.6)
--- NOTE | 2018-11-27 15:24 | XR ---
EXAMINATION TYPE: XR chest 2V DATE OF EXAM: 11/27/2018 COMPARISON: 09/19/2018 HISTORY: Dizziness TECHNIQUE: Frontal and lateral views of the chest are obtained. FINDINGS: Heart and mediastinum are normal. Lungs are clear. Diaphragm is normal. There are chest le ads. Bony thorax appears normal. IMPRESSION: No active cardiopulmonary disease. There is clearing of the bilateral mild pulmonary inf iltrates compared to last exam.
[2018-11-27 15:25] LABS: Albumin 4.4 g/dL (3.5-5.0); Calcium 9.8 mg/dL (8.4-10.2); Magnesium 1.9 mg/dL (1.6-2.3); Total Bilirubin 0.4 mg/dL (0.2-1.3); Total Protein 7.2 g/dL (6.3-8.2)
[2018-11-27 15:29] LABS: D-Dimer 0.33 mg/L FEU (<0.60); INR 0.9 (<1.2); Partial Thromboplastin Time 23.4 sec (22.0-30.0); Prothrombin Time 10.2 sec (9.0-12.0)
[2018-11-27] MEDS ORDERED: NITROGLYCERIN SL TABS 0.4 MG TAB SUBLINGUAL PRN (16:16)
[2018-11-27] MEDS ORDERED: NALOXONE 0.4 MG/ML 1 ML VIAL IV PRN (18:00)
[2018-11-27] MEDS ORDERED: ACETAMINOPHEN TAB 325 MG TAB PO PRN (18:00)
--- NOTE | 2018-11-27 18:01 | P.HPIM ---
History of Present Illness H&P Date: 11/27/18 Chief Complaint: Chest pain 58-year-old female with PMH of COPD, mixed collagen vascular disorder, hypertension, Raynaud's resents to the ED for chest pain. Patient reports that the chest pain started on as she was walking. Chest pain was intermittent, located under the left breast. At that time, patient reported that the pain occurred 2-3 times a day and lasted for a few seconds at a time. Patient described the pain as cramping in nature and that it felt like gas. In was 2-3 out of 10 in severity. Pain radiated to the left neck into the shoulder. Over the next couple of days, the pain got more frequent which prompted the patient to come to the ED. Pain is alleviated by laying down and aggravated with exertion. Patient also describes a headache sid cribed as bandlike, frontal. Patient denies any lower extremity edema, nausea, vomiting, fever, cough, shortness of breath, palpitations, changes in urination or bowel habits. Patient reports that the chest pain was associated with some lightheadedness. Of note, patient underwent a stress test under Dr. Vasquez 2 weeks ago which was apparently negative. Patient reports quitting smoking 4 months ago. She denies any alcohol or illicit drugs. In the ED, vital signs were stable. CBC, coagulation panel, d-dimer, CMP was all negative except for BUN of 20 and glucose of 107. Troponin was less than 0.012, EKG showing normal sinus rhythm. Chest x-ray was negative for acute disease. Patient is admitted for chest pain, rule out acute coronary syndrome, cardiology consulted. Review of Systems Pertinent positives and negatives as discussed in HPI, a complete review of systems was performed and all other systems are negative. Past Medical History Past Medical History: Asthma, COPD, Eye Disorder, GERD/Reflux, Hypertension, Osteoarthritis (OA), Skin Disorder Additional Past Medical History / Comment(s): Pt currently being treated for pneumonia and recently had allergic reaction thought due to diflucan. 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, bronchitis, "swollen lymph nodes on my lung", hiatal hernia, rhabdomyolysis, mixed collagen vascular disease 2016, bilateral carpal tunnel syndrome, cervical radiculapathy, glaucoma bilateral eyes surgically corrected History of Any Multi-Drug Resistant Organisms: None Reported Past Surgical History: Breast Surgery, Section, Cholecystectomy, Hernia Repair, Joint Replacement, Tonsillectomy Additional Past Surgical History / Comment(s): L breast benign excisional biopsy x2, cyst in throat removed, cyst in left eye removed, JESUS FUNDOPLICATION twice; Left total knee; EGD, laser eye surgery for glaucoma. Past Anesthesia/Blood Transfusion Reactions: No Reported Reaction Additional Past Anesthesia/Blood Transfusion Reaction / Comment(s): Long time to wake up Past Psychological History: No Psychological Hx Reported Smoking Status: Former smoker - Past Family History Sister(s) Family Medical History: Cancer Additional Family Medical History / Comment(s): Half sister with breast cancer. Mother Family Medical History: Cancer, Deep Vein Thrombosis (DVT), Pulmonary Embolus Additional Family Medical History / Comment(s): Mother had stomach cancer. Brother(s) Family Medical History: Myocardial Infarction (CA) Additional Family Medical History / Comment(s): Brother had an CA at age 3 yrs old. Father Family Medical History: Dementia Additional Family Medical History / Comment(s): Father is 83 yrs old. Medications and Allergies Home Medications Medication Instructions Recorded Confirmed Type Lisinopril 30 mg PO HS 06/12/16 11/27/18 History Gabapentin [Neurontin] 400 mg PO TID 12/18/16 11/27/18 History Montelukast [Singulair] 10 mg PO DAILY 07/07/17 11/27/18 History Albuterol Inhaler [Ventolin Hfa 2 puff INHALATION RT-Q6H PRN 07/31/17 11/27/18 History Inhaler] Fluticasone/Salmeterol [Advair 1 puff INHALATION RT-BID 08/06/18 11/27/18 History 500-50 Diskus] Ipratropium-Albuterol Nebulize 3 ml INHALATION RT-QID PRN 11/27/18 11/27/18 History [Duoneb 0.5 mg-3 mg/3 ml Soln] Allergies Allergy/AdvReac Type Severity Reaction Status Date / Time Penicillins Allergy Severe Dyspnea,hives,throat Verified 11/27/18 14:35 swelling fluconazole [From Diflucan] Allergy Anaphylaxis Verified 11/27/18 14:35 adhesive tape AdvReac Rash/Hives Verified 11/27/18 14:35 Physical Exam Vitals: Vital Signs Temp Pulse Resp BP Pulse Ox 11/27/18 17:41 97.9 F 82 16 138/70 98 11/27/18 16:00 82 14 116/72 92 L 11/27/18 15:30 82 18 105/54 97 11/27/18 15:00 82 10 L 105/67 96 11/27/18 14:55 85 19 96 11/27/18 14:33 98.6 F 90 18 125/72 99 Intake and Output 11/27/18 11/27/18 11/27/18 06:59 14:59 22:59 Other: Weight 115.666 kg General: [non toxic], [no distress], [appears at stated age] Derm: [warm], [dry] Head: [atraumatic], [normocephalic], [symmetric] Eyes: [EOMI], [no lid lag], [anicteric sclera] Mouth: [no lip lesion], [mucus membranes moist] Cardiovascular: [S1S2 reg], [no murmur], [positive DP pulse bilateral], Lungs: [CTA bilateral], [no rhonchi, no rales] , [no accessory muscle use] Abdominal: [soft], [ nontender to palpation], [no guarding], [no appreciable organomegaly] Ext: [no gross muscle atrophy], [no edema], [no contractures] Neuro: [ CN II-XI grossly intact], [no focal neuro deficits] Psych: [Alert], [oriented], [appropriate affect] Results CBC & Chem 7: 11/27/18 15:08 11/27/18 15:08 Labs: Abnormal Lab Results - Last 24 Hours (Table) 11/27/18 Range/Units 15:08 BUN 20 H (7-17) mg/dL Glucose 107 H (74-99) mg/dL Thrombosis Risk Factor Assmnt - Choose All That Apply Any of the Below Risk Factors Present?: Yes Each Factor Represents 1 point: Abnormal pulmonary function (COPD), Age 41-60 years, Obesity (BMI >25) Thrombosis Risk Factor Assessment Total Risk Factor Score: 3 Thrombosis Risk Factor Assessment Level: Moderate Risk Assessment and Plan Assessment: Assessment and Plan Chest pain, rule out acute coronary syndrome COPD Hypertension Peripheral neuropathy Obesity Troponin less than 0.012 with EKG showing normal sinus rhythm. Chest x-ray is negative. Per patient, recent stress test [address] Vasquez negative. Plans: Trend 2 Trop/EKG to rule out ACS. Start aspirin. Telemetry monitoring. Nitrostat as needed for chest pain. Follow cardiology consultation. Stable. Plans: DuoNeb as needed for shortness of breath and wheezing. BP 138/70. Plans: Continue lisinopril. Monitor vitals, adjust medications as necessary. Plans: Continue gabapentin. BMI 43.8. Plans: Structured weight loss program. Patient states that she would like to make her Andrea decision-maker in the case that she can't make decisions for herself. Patient reiterates wanting to remain full code. DVT prophylaxis: [SCD boots] Discussed with: [Patient and ] Anticipated discharge: [Tomorrow] Anticipated discharge place: [Home] A total of [30] minutes was spent on the care of this complex patient more than 50% of the time was spent in counseling and care coordination.
[2018-11-27] MEDS: NITROGLYCERIN OINT 1 INCH/GM PACKET TOPICAL SCH ×2 (19:50→23:25)
[2018-11-27] MEDS: GABAPENTIN 400 MG CAP PO SCH (20:12)
[2018-11-27] MEDS ORDERED: LISINOPRIL 10 MG TAB PO SCH (21:00)
[2018-11-27 22:12] LABS: Cholesterol 195 mg/dL (<200); HDL Cholesterol 54 mg/dL (40-60); LDL Cholesterol,Calculated 122 mg/dL (0-99); Triglycerides 95 mg/dL (<150)
[2018-11-28] MEDS: NITROGLYCERIN OINT 1 INCH/GM PACKET TOPICAL SCH (03:41)
[2018-11-28] MEDS: IPRATROPIUM-ALBUTEROL 3 ML NEB INHALATION PRN ×2 (07:10→11:24)
[2018-11-28 07:40] VITALS: RESP 16
[2018-11-28] MEDS: GABAPENTIN 400 MG CAP PO SCH (07:48)
--- NOTE | 2018-11-28 08:50 | CONS ---
CONSULTATION Mrs. Resendiz is a 58-year-old female with a history of hypertension, history of obstructive lung disease, who has been followed by Dr. Walt Vasquez, has presented with not feeling well, symptoms of shakiness and some cough and dyspnea and had some tightness in the left side of the chest, came into the emergency room and subsequently was admitted. She has no prior documented coronary artery disease and according to her, underwent a stress test recently by Dr. Vasquez that was unremarkable. She denies any significant peripheral edema. No PND. No orthopnea. No dizziness or palpitation. She has no syncope. She has underwent stress test a few weeks ago that showed no evidence of inducible ischemia. Her coronary risk factor is remarkable for prior history of smoking which she stopped 4 months ago and history of hypertension. She is nondiabetic. MEDICATIONS: Include singular 10 mg daily, lisinopril 30 mg daily, DuoNeb, Neurontin, Advair, and Ventolin. REVIEW OF SYSTEMS: RESPIRATORY SYSTEM: She has history of chronic obstructive lung disease, history of asthma, recent cough. GI SYSTEM: No recent GI bleeding, no peptic ulcer disease. SYSTEM: No dysuria or hematuria. NERVOUS SYSTEM: No history of stroke or seizure. PHYSICAL EXAMINATION: Blood pressure 108/70 with a heart rate in the 60s. HEAD: Normocephalic eyes sclerae anicteric. LUNGS: Clear to auscultation. HEART: Regular rhythm S1, S2. No S3. No S4. No murmur or rub. ABDOMEN: Soft, nontender, positive bowel sounds, no organomegaly. EXTREMITIES: No edema, intact distal pulses. LAB DATA: Revealed troponin less than 0.012 for 3 samples. BUN and creatinine 20 and 0.93. Hemoglobin 13.9. Cholesterol 195, LDL of 122. EKG revealed a sinus mechanism, normal axis, intervals, normal echocardiogram. Chest x-ray shows no acute infiltrate. IMPRESSION: 1. Chest discomfort atypical for ischemic heart disease. 2. History of bronchial asthma and obstructive lung disease with prior history of smoking. 3. Hypertension. RECOMMENDATION: From the cardiac standpoint, the patient is stable. She has underwent a stress test recently that revealed no evidence of inducible ischemia with preserved systolic function. No further cardiac workup will be needed at this time. I would expect she should be able to be discharged home soon and follow as an outpatient. Thank you for this consult. Will follow with you. MMODL / IJN: [id number] /
[2018-11-28] MEDS ORDERED: ASPIRIN 325 MG TAB PO SCH (09:00)
[2018-11-28] MEDS ORDERED: MONTELUKAST 10 MG TAB PO SCH (09:00)
[2018-11-28 11:59] VITALS: BP 96/84; PULSE 75; TEMP 98.3
--- NOTE | 2018-11-28 12:47 | CONS ---
CONSULTATION PULMONARY CRITICAL CARE CONSULTATION: This is a 58-year-old black female well known to me. She has a history of COPD/asthma. She comes into the emergency room with complaints of chest discomfort. She was feeling woozy and weak. The patient just was not feeling herself. She has not been she has not been feeling well since Wednesday. At 1 point, she started into the hospital and then went back home. Because things got worse, she came back in the hospital to be evaluated. She denied any shortness of breath. I see her for her asthma/COPD. She denies any shortness of breath, chest tightness, wheezing, cough, phlegm production, or anything pulmonary at this time. Apparently they were ready to discharge her possibly from the OBS Unit. From the pulmonary perspective, it does not appear that anything acute is going on. She was in the hospital in September with a COPD/asthma exacerbation. At that time, she was rather ill. Again no issues from the lungs at this time. She seems to be resting comfortably. She denies any complaints at this time. Feeling back to normal. HOME MEDICATIONS: Include lisinopril, Neurontin, Singulair, Ventolin, Advair, and updrafts. ALLERGIES: PENICILLIN, DIFLUCAN, and ADHESIVE TAPE. PAST MEDICAL PROBLEMS: Includes asthma/COPD, gastroesophageal reflux disease, hypertension, and osteoarthritis. She also has a recent allergic reaction to DIFLUCAN. Other medical problems include diverticulitis, neuropathy, possible sarcoidosis, rhabdomyolysis, collagen vascular disease, bilateral carpal tunnel syndrome and cervical radiculopathy. She also has a history of glaucoma. SURGICAL HISTORY: Includes breast surgery, , cholecystectomy, hernia repair, joint replacement and tonsillectomy. She is also status post Estevan fundoplication for severe acid reflux disease. SOCIAL HISTORY: Positive for previous tobacco use. FAMILY HISTORY: Significant for cancer, DVT, pulmonary embolism, myocardial infarction, and dementia. REVIEW OF SYSTEMS: CONSTITUTIONAL: Feeling lightheaded, woozy, just not herself. NEUROLOGIC: Lightheadedness. HEENT: Negative. CARDIOVASCULAR: Chest pain. PULMONARY: Negative. GI: Negative. : Negative. RHEUMATOLOGIC: Negative. IMMUNOLOGIC: Negative. ENDOCRINOLOGIC: Negative. DERMATOLOGIC Negative. Current vital signs are reviewed. Temperature is 97.6, heart rate 68, respiratory rate 16, blood pressure 108/72 mean 84, room air saturations is 100%. Appears in no acute distress. Sitting in bed. No supplemental oxygen. No respiratory issues. Certainly no audible wheezing. No use of accessory muscles or conversational dyspnea. HEENT: Examination is grossly unremarkable. Mucous membranes are moist. NECK: Supple. Full range of motion. No adenopathy. Neck veins are flat. CARDIOVASCULAR: Examination reveals regular rhythm and rate. S1, S2 normal. No S3, S4, or murmur. LUNGS: Reveal relatively clear breath sounds. No wheezes, rhonchi, or crackles. Breath sounds are a bit diminished throughout. ABDOMEN: Soft. Bowel sounds are heard. EXTREMITIES: Intact. No cyanosis, clubbing, or edema. SKIN: Without rash. NEUROLOGIC: Examination is brief but nonfocal. LABS: Reviewed. White count 5.4, hemoglobin 13.9, hematocrit 42.9, platelet count 310, 000, PT, INR, PTT normal. D-dimer normal. Sodium, potassium, chloride, CO2 all normal. Anion gap is normal. BUN and creatinine were 20 and 0.93. Troponins were negative x3. Cholesterol 195. Chest x-ray shows no active cardiopulmonary disease. EKG shows normal sinus rhythm. Medications are reviewed. ASSESSMENT: 1. Multiple complaints including lightheadedness, feeling woozy and chest discomfort, of unclear etiology. It may relate to some environmental allergen and/or transient viremia. Doubt significant cardiac and/or pulmonary disease at this time. 2. Multiple other medical problems and comorbidities as listed above. PLAN: Currently, the patient's lung disease is not active at all. She is not having any coughing, wheezing, shortness of breath, phlegm production, chest tightness, or any other pulmonary complaints at this time. In addition, it appears that Cardiology has also cleared her that she has had 3 troponins that are negative. Additional recommendations and suggestions are forthcoming. She does have an appointment to see me in the office. She should keep that appointment. No additional recommendations are made. Prognosis is generally thought to be good. MMODL / IJN: [id number] / MTDD
--- NOTE | 2018-11-28 13:28 | P.DS ---
Providers Date of admission: 11/27/18 16:16 Expected date of discharge: 11/28/18 Attending physician: Liu Alvarado Consults: 11/27/18 16:16 Consult Physician Urgent Consulting Provider: Brittney Vasquez Consult Reason/Comments: cp Do you want consulting provider notified?: Yes Primary care physician: Laverne Florez Hospital Course: Discharge diagnosis 1. Chest pain. Troponins negative 3. D-dimer 0.33. Patient recently underwent stress test was negative. Per cardiology services no further workup needed at this time. Patient was also evaluated by pulmonary services. No changed to medication 2. History of COPD 3. History of essential hypertension 4. History of peripheral neuropathy 5. Obesity 6. History of community-acquired pneumonia. Chest x-ray completed showing no active cardiopulmonary disease. There is clearing of bilateral mild pulmonary infiltrates compared to last exam. 7. History of connective tissue disease 8. History of nicotine dependence Hospital course This is a 58 -year-old female patient of Dr. Florez. Patient presented with complaints of chest pain. Patient describes pain as intermittent located under left breast. Patient reports that chest pain started to occurring with activity on but then started to occurring when she was at rest. Patient reports that the pain lasted for a few seconds and then subsided patient described pain as cramping with radiation to neck and shoulder. Patient has past medical history of asthma, COPD, GERD, hypertension, arthritis, ex-smoker and recent pneumonia. Patient reports she does follow with pulmonary services. X-ray completed showing no active cardiopulmonary disease. There is clearing of the bilateral mild pulmonary infiltrates compared to last exam. EKG completed showing normal sinus rhythm normal EKG. Troponins negative 3. D-dimer 0.33 Patient was covered by [facility] on 11/26/2018 and 11/27/2018 On 11/28/2018 patient is alert and oriented 3. Patient denies any chest pain or shortness breath. Patient denies nausea vomiting or diarrhea. Patient denies any urinary burning or urgency. Per cardiology patient underwent a stress test recently that revealed no evidence for visible ischemia with preserved systolic function. Per cardiology no further cardiac workup needed at this time. Patient also developed by pulmonary services per nursing staff no changed medications she has been cleared for discharge from cardiology and pulmonary services. At this time patient denies chest pain or shortness breath. Patient denies nausea vomiting diarrhea. Patient denies any urinary burning or frequency. I performed an examination of the patient and discussed their management with the Nurse Practitioner. I have reviewed the Nurse Practitioner's notes and agree with the documented findings and plan of care Patient Condition at Discharge: Stable Plan - Discharge Summary Discharge Rx Participant: No New Discharge Prescriptions: Continue Lisinopril 30 mg PO HS Gabapentin [Neurontin] 400 mg PO TID Montelukast [Singulair] 10 mg PO DAILY Albuterol Inhaler [Ventolin Hfa Inhaler] 2 puff INHALATION RT-Q6H PRN PRN Reason: Shortness Of Breath Fluticasone/Salmeterol [Advair 500-50 Diskus] 1 puff INHALATION RT-BID Ipratropium-Albuterol Nebulize [Duoneb 0.5 mg-3 mg/3 ml Soln] 3 ml INHALATION RT-QID PRN PRN Reason: Shortness Of Breath Discharge Medication List Lisinopril 30 mg PO HS 06/12/16 [History] Gabapentin [Neurontin] 400 mg PO TID 12/18/16 [History] Montelukast [Singulair] 10 mg PO DAILY 07/07/17 [History] Albuterol Inhaler [Ventolin Hfa Inhaler] 2 puff INHALATION RT-Q6H PRN 07/31/17 [History] Fluticasone/Salmeterol [Advair 500-50 Diskus] 1 puff INHALATION RT-BID 08/06/18 [History] Ipratropium-Albuterol Nebulize [Duoneb 0.5 mg-3 mg/3 ml Soln] 3 ml INHALATION RT-QID PRN 11/27/18 [History] Follow up Appointment(s)/Referral(s): Brittney Vasquez MD [Family Provider] - 1 Week Angel Jameson DO [Doctor of Osteopathic Medicine] - 1 Week Laverne Florez DO [Primary Care Provider] - 1-2 days Activity/Diet/Wound Care/Special Instructions: Activity as tolerated Diet heart healthy Discharge Disposition: HOME SELF-CARE
== END 2018-11-28 13:37 | disposition home or self-care (01) ==
LOC: EC 14:26 → 1SOBS 16:16
PROVIDERS: ADMIT Internal Medicine; ATTEND Internal Medicine
DX: R07.89 Other chest pain (principal); K30 Functional dyspepsia; R11.0 Nausea; R61 Generalized hyperhidrosis; R51 Headache; R42 Dizziness and giddiness; J44.9 Chronic obstructive pulmonary disease, unspecified; I10 Essential (primary) hypertension; G62.9 Polyneuropathy, unspecified; E66.9 Obesity, unspecified; Z68.41 Body mass index [BMI] 40.0-44.9, adult; K21.9 Gastro-esophageal reflux disease without esophagitis; M19.90 Unspecified osteoarthritis, unspecified site; I73.00 Raynaud's syndrome without gangrene; M62.82 Rhabdomyolysis; B36.0 Pityriasis versicolor; Z87.09 Personal history of other diseases of the respiratory system; Z87.01 Personal history of pneumonia (recurrent); Z87.891 Personal history of nicotine dependence; Z90.49 Acquired absence of other specified parts of digestive tract; Z96.652 Presence of left artificial knee joint; Z80.3 Family history of malignant neoplasm of breast; Z80.0 Family history of malignant neoplasm of digestive organs; Z83.2 Family history of diseases of the blood and blood-forming organs and certain disorders involving the immune mechanism; Z82.49 Family history of ischemic heart disease and other diseases of the circulatory system; Z81.8 Family history of other mental and behavioral disorders; Z79.899 Other long term (current) drug therapy; Z88.0 Allergy status to penicillin; Z88.8 Allergy status to other drugs, medicaments and biological substances; Z91.048 Other nonmedicinal substance allergy status
CPT/HCPCS: 99285; 36415; 94640 ×2; 93005; 85379; 80061; 80053; 83735; 84484 ×2; 85025; 85610; 85730; 71046; G0378 ×2

== ENCOUNTER → 2018-12-13 | Outpatient (CLI) | payer OTHER, MEDICARE ==
--- NOTE | 2018-12-14 10:04 | MM ---
Reason for exam: screening (asymptomatic). Last mammogram was performed 6 months ago. History: Patient is postmenopausal and has history of high-risk lesion on a previous biopsy at age 57. Family history of breast cancer in 3 maternal aunts and premenopausal breast cancer in 2 sisters at age 30. Benign MG pre op needle loc LT of the left breast, December 14, 2017. High risk MG stereo VAD BX LT of the left breast, November 12, 2017. Benign excisional biopsy of the left breast, August 19, 2001. Physical Findings: A clinical breast exam by your physician is recommended on an annual basis and results should be correlated with mammographic findings. MG Screening Mammo w CAD Bilateral CC and MLO view(s) were taken. Prior study comparison: June 27, 2018, left breast MG diagnostic mammo LT w CAD. September 29, 2017, left breast MG work up mamm w CAD LT. There are scattered fibroglandular densities. Benign appearing bilateral calcifications. No suspicious abnormality. Left surgical clips post surgical change on the left. No significant changes when compared with prior studies. ASSESSMENT: Benign, BI-RAD 2 RECOMMENDATION: Routine screening mammogram of both breasts in 1 year.
== END | disposition home or self-care (01) ==
LOC: RADMAMWWP 08:55
PROVIDERS: ATTEND Surgery
DX: Z12.31 Encounter for screening mammogram for malignant neoplasm of breast (principal)
CPT/HCPCS: 77067

== ENCOUNTER → 2018-12-22 | Outpatient (CLI) | payer OTHER, MEDICARE ==
[2018-12-22 10:49] VITALS: BP 109/77; PULSE 74; RESP 18; TEMP 98.8; BMI 42.4
--- NOTE | 2018-12-22 10:58 | P.PN ---
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 Her pathology on open biopsy was benign. She underwent a bilateral mammogram on 12-13-18 which was benign BIRAD 2. She is not complaining of lumps masses or nodules in her breast. She has had no nipple discharge for wishes concern. Of importance is the fact that she states she was diagnosed with pneumonia several months ago and at this time is oxygen dependent. Hormonal history: menstral: 12 pregnancys: 1 full term @ 23 breast fed: no menopause: 51 BCP? hormones: none Family History: Sister: 2 breast cancer in their 20's, both doing well no genetic testing mother: stomach cancer grandmother paternal: stomach maternal aunts: 2 breast cancer maternal first cousins: 5 with breast cancer one diagnosed in her 30's Past surgical history: 1. gallaldder 2. breast biopsy 3. Christian fundoplication 4. stomach surgery with mesh 5. throat surgery 6. knee replacement past medical hsitory: 1. HTN 2. mixed collagen vascular disease/ resolved 3. 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 Osteoarthritis 5. Neuropathy. Social history: 1. smoker 3 cigarettes/day stopped 5 months ago 2. alcohol: none 3. drugs: none Review of systems: HEENT: Negative Lungs: Oxygen dependent following pneumonia former smoker Heart: Hypertension GI: Patient status post Estevan fundoplication no longer has reflux : Negative Musculoskeletal: Osteoarthritis Neurologic: Neuropathy ALLERGY: Seasonal Hematologic: Negative Psychiatric: Negative Objective - Constitutional Constitutional Comment(s): BMI 42.4 General appearance: Present: obese - EENT Eyes: Present: EOMI ENT: Present: hearing grossly normal - Neck Neck: Present: normal ROM - Respiratory Details: wearing oxygen Respiratory: bilateral: CTA - Cardiovascular Rhythm: regular Heart sounds: normal: S1, S2 - Gastrointestinal Gastrointestinal Comment(s): no guarding or rebound General gastrointestinal: Present: soft - Integumentary Integumentary: Present: normal turgor - Musculoskeletal Musculoskeletal: Present: gait normal - Psychiatric Psychiatric: Present: A&O x's 3, appropriate affect, intact judgment & insight - Additional findings Additional findings: breast exam: Right breast: Multi-positional exam no dominant masses or nodules of concern Right axilla: No adenopathy of concern left breast: Multiple positional exam no dominant masses or nodules of concern Left axilla: No adenopathy of concern There was discussed in the left breast from prior biopsies Assessment and Plan Assessment: Impression: 1. HTN 2. mixed collagen vascular disease/ resolved 3. 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 Osteoarthritis 5. Neuropathy 6. obesity 7. Fibrocystic breast changes Plan: 1. Fibrocystic breast changes repeat bilateral mammogram and physician exam in 1 year 2. Follow up sooner if any questions of concern CC: Ksenia Abdullahi
== END | disposition home or self-care (01) ==
LOC: WWCWWP 10:26
PROVIDERS: ATTEND Surgery
DX: Z53.9 Procedure and treatment not carried out, unspecified reason (principal)

== ENCOUNTER → 2019-12-19 | Outpatient (CLI) | payer OTHER, MEDICARE | END | disposition home or self-care (01) | LOC: LABWHC1 12:48 | PROVIDERS: ATTEND Internal Medicine Critical Care Medicine | DX: R05 Cough (principal); R50.9 Fever, unspecified; R06.02 Shortness of breath; Z11.59 Encounter for screening for other viral diseases | CPT/HCPCS: 36415; 86769 ==

== ENCOUNTER 2020-01-07 14:33 | Emergency (ER) | payer OTHER, MEDICARE ==
[2020-01-07 14:57] VITALS: TEMP 99.3
[2020-01-07] MEDS ORDERED: SODIUM CHLORIDE 0.9% 1,000 ML IV STA (15:00)
[2020-01-07] MEDS ORDERED: ORPHENADRINE 30 MG/ML 2 ML VIAL IVP STA (15:00)
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
[2020-01-07 15:41] VITALS: PULSE 76
[2020-01-07 15:54] LABS: Basophils # (A) 0.1 k/uL (0-0.2); Basophils % (A) 1 %; Eosinophils # (A) 0.3 k/uL (0-0.7); Eosinophils % (A) 4 %; HCT 43.8 % (34.0-46.0); HGB 13.6 gm/dL (11.4-16.0); Lymphocytes # (A) 2.3 k/uL (1.0-4.8); Lymphocytes % (A) 38 %; MCH 28.3 pg (25.0-35.0); MCV 91.2 fL (80.0-100.0); Monocytes # (A) 0.3 k/uL (0-1.0); Monocytes % (A) 5 %; Neutrophils # (A) 2.9 k/uL (1.3-7.7); Neutrophils % (A) 49 %; Platelet Count 335 k/uL (150-450); RDW 12.3 % (11.5-15.5)
[2020-01-07 16:08] LABS: ALT 24 U/L (4-34); AST 28 U/L (14-36); African American GFR (CKD) >90 (>60 ml/min/1.73 sqM); Albumin 4.1 g/dL (3.5-5.0); Alcohol <10 mg/dL; Alkaline Phosphatase 111 U/L (38-126); Anion Gap 9 mmol/L; Blood Urea Nitrogen 13 mg/dL (7-17); Calcium 9.3 mg/dL (8.4-10.2); Carbon Dioxide 20 mmol/L (22-30); Chloride 109 mmol/L (98-107); Glucose 110 mg/dL (74-99); Non-African American GFR(CKD) 88 (>60 ml/min/1.73 sqM); Potassium 3.9 mmol/L (3.5-5.1); Sodium 138 mmol/L (137-145); Total Bilirubin 0.4 mg/dL (0.2-1.3); Total Protein 6.7 g/dL (6.3-8.2)
[2020-01-07 16:10] LABS: INR 1.1 (<1.2); Partial Thromboplastin Time 22.1 sec (22.0-30.0); Prothrombin Time 10.9 sec (9.0-12.0)
[2020-01-07 16:26] LABS: Appearance,Urine Clear (Clear); Bilirubin,Urine Negative (Negative); Blood,Urine Negative (Negative); Color,Urine Yellow; Glucose,Urine (UA) Negative (Negative); Ketones,Urine Negative (Negative); Leukocyte Esterase,Urine Negative (Negative); Nitrite,Urine Negative (Negative); PH, Urine 6.5 (5.0-8.0); Protein,Urine Negative (Negative); Specific Gravity,Urine 1.032 (1.001-1.035)
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
[2020-01-07 16:33] VITALS: BP 130/79; RESP 18
[2020-01-07 16:35] LABS: Amphetamine Screen,Urine Not Detected (NotDetected); Barbiturate Screen,Urine Not Detected (NotDetected); Benzodiazepines Screen,Urine Not Detected (NotDetected); Cocaine Screen,Urine Not Detected (NotDetected); Methadone Screen, Urine Not Detected (NotDetected); Opiate Screen,Urine Not Detected (NotDetected); Oxycodone Screen, Urine Not Detected (NotDetected); Phencyclidine Screen,Urine Not Detected (NotDetected); Tricyclic Antidepressant,Urine Not Detected (NotDetected); Urn Cannabinoid Scrn Not Detected (NotDetected)
[2020-01-07] MEDS ORDERED: KETOROLAC 30 MG/ML 1 ML VIAL IVP STA (16:40)
== END 2020-01-07 17:15 | disposition home or self-care (01) ==
LOC: EC 14:33
DX: R07.89 Other chest pain (principal); N64.4 Mastodynia; R51 Headache; M43.12 Spondylolisthesis, cervical region; M62.830 Muscle spasm of back; M54.12 Radiculopathy, cervical region; J44.9 Chronic obstructive pulmonary disease, unspecified; I10 Essential (primary) hypertension; M19.90 Unspecified osteoarthritis, unspecified site; G62.9 Polyneuropathy, unspecified; H40.9 Unspecified glaucoma; Z79.51 Long term (current) use of inhaled steroids; Z79.899 Other long term (current) drug therapy; Z88.0 Allergy status to penicillin; Z88.3 Allergy status to other anti-infective agents; Z91.048 Other nonmedicinal substance allergy status; Z96.652 Presence of left artificial knee joint; Z87.891 Personal history of nicotine dependence; V49.50XA Passenger injured in collision with unspecified motor vehicles in traffic accident, initial encounter; Y93.89 Activity, other specified; Y92.410 Unspecified street and highway as the place of occurrence of the external cause
CPT/HCPCS: 36415; 93005; 86900; 86901; 80053; 84484; 85025; 85610; 85730; 86850; 81003; 80306; 80320; 72125; 70450; 71260; 74177; 99285; 96374; 96375; 96361; J2360; J1885; Q9967

== ENCOUNTER → 2020-02-07 | Outpatient (CLI) | payer OTHER, MEDICARE ==
--- NOTE | 2020-02-08 10:51 | MM ---
Reason for exam: screening (asymptomatic). Last mammogram was performed 1 year and 2 months ago. History: Patient is postmenopausal and has history of high-risk lesion on a previous biopsy at age 57. Family history of breast cancer in 3 maternal aunts and premenopausal breast cancer in 2 sisters at age 30. Benign MG pre op needle loc LT of the left breast, December 14, 2017. High risk MG stereo VAD BX LT of the left breast, November 12, 2017. Benign excisional biopsy of the left breast, August 19, 2001. Physical Findings: A clinical breast exam by your physician is recommended on an annual basis and results should be correlated with mammographic findings. MG Screening Mammo w CAD Bilateral CC and MLO view(s) were taken. Prior study comparison: December 13, 2018, bilateral MG screening mammo w CAD. June 27, 2018, left breast MG diagnostic mammo LT w CAD. There are scattered fibroglandular densities. Stable benign calcifications. Left breast post operative changes. No significant changes when compared with prior studies. ASSESSMENT: Benign, BI-RAD 2 RECOMMENDATION: Routine screening mammogram of both breasts in 1 year.
== END | disposition home or self-care (01) ==
LOC: RADMAMWWP 01-08 07:08
PROVIDERS: ATTEND Surgery
DX: Z12.31 Encounter for screening mammogram for malignant neoplasm of breast (principal)
CPT/HCPCS: 77067

== ENCOUNTER → 2020-02-16 | Outpatient (CLI) | payer OTHER, MEDICARE ==
[2020-02-16 10:34] VITALS: BP 129/85; PULSE 76; RESP 20
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
== END | disposition home or self-care (01) ==
LOC: WWCWWP 10:22
PROVIDERS: ATTEND Surgery
DX: Z53.9 Procedure and treatment not carried out, unspecified reason (principal)

== ENCOUNTER → 2020-03-15 | Outpatient (CLI) | payer OTHER, MEDICARE ==
--- NOTE | 2020-03-15 11:16 | FL ---
EXAMINATION TYPE: FL UGI air w esophagus DATE OF EXAM: 03/15/2020 LIMITED UGI-ESOPHAGRAM: CLINICAL HISTORY: History of Estevan fund application surgery 2 years ago with nausea and abdominal p ain, reflux-like symptoms increasing in severity over last 8 months. TECHNIQUE: Limited esophagram is performed utilizing 4 oz of contrast. A total of 1.2 minute of fluo roscopic time was utilized during procedure. 88 spot images saved to PACS. Comparison: CT January 07, 2020. 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 There is overall nonobstructive bowel gas pattern. The patient swallowed contrast without difficulty or delay. Some underlying esophageal dysmo tility with stasis is present. There is mild delay in flow of contrast along the diaphragmatic hiatus into the stomach, there is no evidence of contrast extravasation to suggest leak. No recurrent hiata l hernia is seen. Patient remains asymptomatic. There is mild delay in flow at antrum into duodenal s weep. IMPRESSION: No evidence of recurrent hiatal hernia. [id number] esophageal dysmotility and mild stasis at diaphragmatic hiatus at site of surgery.
== END | disposition home or self-care (01) ==
LOC: RADUSWWP 09:55
PROVIDERS: ATTEND Surgery
DX: K22.4 Dyskinesia of esophagus (principal)
CPT/HCPCS: 74246

== ENCOUNTER → 2021-02-11 | Outpatient (CLI) | payer MEDICARE ==
--- NOTE | 2021-02-12 09:22 | MM ---
Reason for exam: screening (asymptomatic). Last mammogram was performed 1 year ago. History: Patient is postmenopausal and has history of high-risk lesion on a previous biopsy at age 57. Family history of breast cancer in cousin, breast cancer in 3 maternal aunts, and premenopausal breast cancer in 2 sisters at age 30. Benign MG pre op needle loc LT of the left breast, December 14, 2017. High risk MG stereo VAD BX LT of the left breast, November 12, 2017. Benign excisional biopsy of the left breast, August 19, 2001. Took hormonal contraceptives for 3 months. Physical Findings: A clinical breast exam by your physician is recommended on an annual basis and results should be correlated with mammographic findings. MG Screening Mammo w CAD Bilateral CC and MLO view(s) were taken. Prior study comparison: February 07, 2020, bilateral MG screening mammo w CAD. December 13, 2018, bilateral MG screening mammo w CAD. There are scattered fibroglandular densities. Stable benign calcifications. There is no discrete abnormality. No significant changes when compared with prior studies. ASSESSMENT: Benign, BI-RAD 2 RECOMMENDATION: Routine screening mammogram of both breasts in 1 year.
== END | disposition home or self-care (01) ==
LOC: RADMAMWWP 09:51
PROVIDERS: ATTEND Surgery
DX: Z12.31 Encounter for screening mammogram for malignant neoplasm of breast (principal); Z78.0 Asymptomatic menopausal state; Z80.3 Family history of malignant neoplasm of breast; Z79.3 Long term (current) use of hormonal contraceptives
CPT/HCPCS: 77067

== ENCOUNTER → 2021-02-14 | Outpatient (CLI) | payer MEDICARE ==
[2021-02-14 10:52] VITALS: BP 142/82; PULSE 78; RESP 18; TEMP 98.2
--- NOTE | 2021-02-14 11:02 | P.PN ---
Subjective Progress Note Date: 02/14/21 Principal diagnosis: fibrocystic breast disease Fibrocystic breast changes The patient is a 60 year old black female status post a left breast open biopsy on 11-12-17 for atypical hyperplasia diagnosed on a core biopsy. Her pathology on open biopsy was benign. She underwent a bilateral mammogram on 02-11-21 which was benign BIRADS 2. She has had no nipple discharge of concern. She is not complaining of any most masses or nodules of concern in either breast. Of importance is the fact that she states she was diagnosed with pneumonia 2018 and at this time is oxygen dependent. She developed COVID in September 2020 and continues to be oxygen dependent. She also has COPD, she smoked until 2019; 1 PPD for 42 years. We have discussed genetic testing and the patient is not interested at this time. Kianna Risk Assessment: 5 year risk: 7.6% lifetime: 31.2% Hormonal history: menstral: 12 pregnancys: 1 full term @ 23 breast fed: no menopause: 51 BCP? hormones: none Family History: Sister: 2 breast cancer in their 20's, both doing well no genetic testing mother: stomach cancer grandmother paternal: stomach maternal aunts: 2 breast cancer maternal first cousins: 5 with breast cancer one diagnosed in her 30's brother: of stomach cancer Past surgical history: 1. gallaldder 2. breast biopsy 3. Christian fundoplication 4. stomach surgery with mesh 5. throat surgery 6. knee replacement past medical history: 1. HTN 2. mixed collagen vascular disease/ resolved 3. 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 Osteoarthritis 5. Neuropathy. Social history: 1. smoker 3 cigarettes/day stopped 5 months ago 2. alcohol: none 3. drugs: none Review of systems: constitutional: BMI HEENT: Negative Lungs: Oxygen dependent following pneumonia former smoker Heart: Hypertension GI: Patient status post Estevan fundoplication reflux better but now returned : Negative Musculoskeletal: Osteoarthritis Neurologic: Neuropathy ALLERGY: Seasonal Hematologic: Negative Psychiatric: Negative Objective - Exam BMI 47.4 - Constitutional General appearance: Present: cooperative - EENT Eyes: Present: EOMI ENT: Present: hearing grossly normal - Neck Neck: Present: normal ROM - Respiratory Respiratory: bilateral: CTA - Cardiovascular Rhythm: regular Heart sounds: normal: S1, S2 - Gastrointestinal General gastrointestinal: Present: soft - Integumentary Integumentary: Present: normal turgor - Musculoskeletal Musculoskeletal Comment(s): uses oxygen Musculoskeletal: Present: gait normal - Psychiatric Psychiatric: Present: A&O x's 3, appropriate affect, intact judgment & insight - Additional findings Additional findings: Breast Exam: BRA: 44D inspection: Right breast larger than left breast, grade 2/3 ptosis Palpation: Right breast: Multi-positional exam fibrocystic changes, no dominant masses or nodules of concern We axilla: No adenopathy of concern Left breast: Postop changes from prior biopsy, multiple positional exam fibrocystic changes no dominant masses or nodules of concern Left axilla: No adenopathy of concern Assessment and Plan Assessment: Impression: 1. HTN 2. mixed collagen vascular disease/ resolved 3. 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 Osteoarthritis 5. Neuropathy 6. Kianna risk analysis revealing increased risk of development of breast cancer 7. Fibrocystic breast changes 8. Asymmetry right breast larger than left breast 9. Bilateral mammogram 9721 benign BIRADS 2 Plan: 1. Repeat bilateral mammogram 1 year 2. Genetic testing 3. Appointment medical oncology for possible chemoprophylaxis CC: Ksenia MORGAN
== END ==
LOC: WWCWWP 10:40
PROVIDERS: ATTEND Surgery
DX: N60.12 Diffuse cystic mastopathy of left breast (principal); I10 Essential (primary) hypertension; J18.9 Pneumonia, unspecified organism; Z99.81 Dependence on supplemental oxygen; M19.90 Unspecified osteoarthritis, unspecified site; G62.9 Polyneuropathy, unspecified; Z87.891 Personal history of nicotine dependence

== ENCOUNTER → 2021-04-07 | Outpatient (CLI) | payer MEDICARE ==
--- NOTE | 2021-04-07 16:10 | BD ---
EXAMINATION TYPE: Axial Bone Density DATE OF EXAM: 04/07/2021 COMPARISON: NONE CLINICAL HISTORY: Z79.890 Post menopausal with HRT Height: 5 FT 4 1/2 IN Weight: 278 FRAX RISK QUESTIONS: Alcohol (3 or more units per day): NO Family History (Parent hip fracture): NO Glucocorticoids (More than 3mos): YES (Ex: prednisone, prednisolone, methylprednisolone, dexamethasone, and hydrocortisone). History of Fracture in Adulthood: NO Secondary Osteoporosis: 1. Type 1 Diabetes: NO 2. Hyperthyroidism: NO 3. Menopause before 45: NO 4. Malnutrition: NO 5. Chronic liver disease: NO Rheumatoid Arthritis: NO Current Tobacco Use: NO RISK FACTORS HISTORY OF: Surgery to Spine/Hip(right/left)/Wrist (right/left): NO Family History of Osteoporosis: NO Active: YES Diet low in dairy products/other sources of calcium: NO Postmenopausal woman: AGE 50 Take estrogen and/or progesterone medications: NO Lost more than 2 inches in height since high school: NO MEDICATIONS: Additional Medications: INHALERS X 2 LISINOPRIL, SINGULAIR, UPDRAPT ALBUTEROL Additional History: ASTHMA , AND COPD EXAM MEASUREMENTS: Bone mineral densitometry was performed using the [employer] System. Bone mineral density as measured about the Lumbar spine is: ----- L1-L4(G/cm2): 1.160 T Score Values are as follows: ----- L2: -0.1 ----- L3: -0.1 ----- L4: -0.4 ----- L1-L4: -0.2 BASELINE Bone mineral density about the R hip (g/cm2): 0.991 Bone mineral density about the L hip (g/cm2): 1.010 T Score values are as follows: -----R Neck: -0.3 -----L Neck: -0.2 -----R Total: -0.3 -----L Total: -0.3 BASELINE IMPRESSION: Normal (Values between +1 and -1 indicate normal bone mass). Consider repeating this study in 5 year s or sooner if there is some new clinical indication. NOTE: T-SCORE=SD OF THE YOUNG ADULT MEAN.
== END | disposition home or self-care (01) ==
LOC: RADBDWWP 14:42
PROVIDERS: ATTEND Internal Medicine Hematology & Oncology
DX: Z78.0 Asymptomatic menopausal state (principal); J44.9 Chronic obstructive pulmonary disease, unspecified; Z79.899 Other long term (current) drug therapy
CPT/HCPCS: 77080

== ENCOUNTER 2021-08-09 22:25 | Emergency (ER) | payer MEDICARE ==
[2021-08-09 22:37] VITALS: TEMP 98.5
[2021-08-09] MEDS ORDERED: SODIUM CHLORIDE 0.9% 1,000 ML IV STA (22:42)
[2021-08-09] MEDS ORDERED: ONDANSETRON 4 MG/2 ML VIAL IVP STA (22:42)
[2021-08-09] MEDS ORDERED: PANTOPRAZOLE 40 MG/10 ML VIAL IVP STA (22:42)
--- NOTE | 2021-08-09 22:43 | ED ---
Nausea/Vomiting/Diarrhea HPI - General Chief complaint: Nausea/Vomiting/Diarrhea Stated complaint: N/V/D Time Seen by Provider: 08/09/21 22:32 Source: patient, RN notes reviewed, old records reviewed Mode of arrival: EMS Limitations: no limitations - History of Present Illness Initial comments: This is a 60-year-old female to the emergency department for evaluation. Patient for evaluation of nausea vomiting and diarrhea pain cramping also admits history of underlying COPD with cough and congestion some shortness of breath. Patient states she does get these symptoms quite often that she doesn't feel significantly sick. No current active vomiting here in the ER no blood in her vomit or stool. No fevers. No travel history sick contacts. No family members with similar complaint MD complaint: nausea, vomiting, diarrhea, abdominal pain, other (Cough and congestion) -: days(s) Description of Vomiting: food contents Description of Diarrhea: water Associated Abdominal Pain: Yes Location: diffuse Radiation: none Severity: mild Severity scale (1-10): 3 Quality: aching Consistency: intermittent Improves with: none Worsens with: none Context: other (none) Associated Symptoms: loss of appetite, nausea/vomiting, shortness of breath, weakness - Related Data Home Medications Medication Instructions Recorded Confirmed lisinopriL 30 mg PO QAM 06/12/16 02/16/20 Gabapentin [Neurontin] 400 mg PO TID 12/18/16 02/16/20 Montelukast [Singulair] 10 mg PO HS 07/07/17 02/16/20 Albuterol Inhaler (Mhu) [Ventolin 2 puff INHALATION RT-Q6H PRN 07/31/17 02/16/20 Hfa Inhaler (Mhu)] Fluticasone/Salmeterol [Advair 1 puff INHALATION RT-BID 08/06/18 02/16/20 500-50 Diskus] Ipratropium-Albuterol Nebulize 3 ml INHALATION RT-QID PRN 11/27/18 02/16/20 [Duoneb 0.5 mg-3 mg/3 ml Soln] DULoxetine HCL [Cymbalta] 20 mg PO HS 02/16/20 02/16/20 Previous Rx's Medication Instructions Recorded Cyclobenzaprine [Flexeril] 10 mg PO TID #12 tab 01/07/20 Ibuprofen [Motrin] 600 mg PO Q6HR PRN #20 tab 01/07/20 Allergies Allergy/AdvReac Type Severity Reaction Status Date / Time Penicillins Allergy Severe Dyspnea,hives,throat Verified 08/09/21 22:32 swelling fluconazole [From Diflucan] Allergy Anaphylaxis Verified 08/09/21 22:32 adhesive tape AdvReac Rash/Hives Verified 08/09/21 22:32 Review of Systems ROS Statement: Those systems with pertinent positive or pertinent negative responses have been documented in the HPI. ROS Other: All systems not noted in ROS Statement are negative. Past Medical History Past Medical History: Asthma, COPD, Eye Disorder, GERD/Reflux, Hypertension, Osteoarthritis (OA), Skin Disorder Additional Past Medical History / Comment(s): Pt currently being treated for pneumonia and recently had allergic reaction thought due to diflucan. 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, bronchitis, "swollen lymph nodes on my lung", hiatal hernia, rhabdomyolysis, mixed collagen vascular disease 2016-resolved, bilateral carpal tunnel syndrome, cervical radiculapathy, glaucoma bilateral eyes surgically corrected, low vitamin D History of Any Multi-Drug Resistant Organisms: None Reported Past Surgical History: Breast Surgery, Section, Cholecystectomy, Hernia Repair, Joint Replacement, Tonsillectomy Additional Past Surgical History / Comment(s): L breast benign excisional biopsy x2, cyst in throat removed, cyst in left eye removed, JESUS FUNDOPLICATION twice; Left total knee; EGD, laser eye surgery for glaucoma. Past Anesthesia/Blood Transfusion Reactions: No Reported Reaction Additional Past Anesthesia/Blood Transfusion Reaction / Comment(s): Long time to wake up Past Psychological History: No Psychological Hx Reported Smoking Status: Former smoker Past Alcohol Use History: None Reported Past Drug Use History: None Reported - Past Family History Sister(s) Family Medical History: Cancer Additional Family Medical History / Comment(s): Half sister with breast cancer. Mother Family Medical History: Cancer, Deep Vein Thrombosis (DVT), Pulmonary Embolus Additional Family Medical History / Comment(s): Mother had stomach cancer. Brother(s) Family Medical History: Myocardial Infarction (ND) Additional Family Medical History / Comment(s): Brother had an ND at age 3 yrs old. Father Family Medical History: Dementia Additional Family Medical History / Comment(s): Father is 83 yrs old. General Exam Limitations: no limitations General appearance: alert, in no apparent distress Head exam: Present: atraumatic, normocephalic, normal inspection Eye exam: Present: normal appearance, PERRL, EOMI. Absent: scleral icterus, conjunctival injection, periorbital swelling ENT exam: Present: normal exam, mucous membranes moist Neck exam: Present: normal inspection. Absent: tenderness, meningismus, lymphadenopathy Respiratory exam: Present: normal lung sounds bilaterally. Absent: respiratory distress, wheezes, rales, rhonchi, stridor Cardiovascular Exam: Present: normal rhythm, tachycardia, normal heart sounds. Absent: systolic murmur, diastolic murmur, rubs, gallop, clicks GI/Abdominal exam: Present: soft, tenderness (Diffuse), normal bowel sounds. Absent: distended, guarding, rebound, rigid Extremities exam: Present: normal inspection, full ROM, normal capillary refill. Absent: tenderness, pedal edema, joint swelling, calf tenderness Back exam: Present: normal inspection Neurological exam: Present: alert, oriented X3, CN II-XII intact Psychiatric exam: Present: normal affect, normal mood Skin exam: Present: warm, dry, intact, normal color. Absent: rash Course Vital Signs 08/09/21 08/10/21 08/10/21 22:33 01:20 01:31 Temperature 98.5 F Pulse Rate 102 H 96 90 Respiratory 20 Rate Blood Pressure 126/87 O2 Sat by Pulse 99 Oximetry 08/10/21 02:42 Temperature Pulse Rate 98 Respiratory 18 Rate Blood Pressure 120/71 O2 Sat by Pulse 99 Oximetry - Reevaluation(s) Reevaluation #1: Medical record is reviewed Patient symptoms are improved here in the ER Patient feels comfortable for discharge home Medical Decision Making - Medical Decision Making 60 year-old female persistent nausea vomiting and diarrhea. Gastroenteritis, lab values are normal test otherwise negative patient can be discharged - Lab Data Result diagrams: 08/09/21 23:06 08/09/21 23:06 Lab Results 08/09/21 08/09/21 08/09/21 Range/Units 23:06 23:06 23:06 WBC 11.3 H (3.8-10.6) k/uL RBC 4.76 (3.80-5.40) m/uL Hgb 14.3 (11.4-16.0) gm/dL Hct 44.2 (34.0-46.0) % MCV 92.9 (80.0-100.0) fL MCH 30.1 (25.0-35.0) pg MCHC 32.4 (31.0-37.0) g/dL RDW 12.5 (11.5-15.5) % Plt Count 310 (150-450) k/uL MPV 7.4 Neutrophils % 80 % Lymphocytes % 13 % Monocytes % 4 % Eosinophils % 2 % Basophils % 0 % Neutrophils # 9.0 H (1.3-7.7) k/uL Lymphocytes # 1.5 (1.0-4.8) k/uL Monocytes # 0.4 (0-1.0) k/uL Eosinophils # 0.2 (0-0.7) k/uL Basophils # 0.0 (0-0.2) k/uL Sodium 140 (137-145) mmol/L Potassium 3.8 (3.5-5.1) mmol/L Chloride 108 H (98-107) mmol/L Carbon Dioxide 21 L (22-30) mmol/L Anion Gap 11 mmol/L BUN 20 H (7-17) mg/dL Creatinine 0.95 (0.52-1.04) mg/dL Est GFR (CKD-EPI)AfAm 76 (>60 ml/min/1.73 sqM) Est GFR (CKD-EPI)NonAf 66 (>60 ml/min/1.73 sqM) Glucose 168 H (74-99) mg/dL Plasma Lactic Acid Rod 1.5 (0.7-2.0) mmol/L Calcium 9.5 (8.4-10.2) mg/dL Total Bilirubin 0.6 (0.2-1.3) mg/dL AST 26 (14-36) U/L ALT 32 (4-34) U/L Alkaline Phosphatase 99 (38-126) U/L Total Protein 7.4 (6.3-8.2) g/dL Albumin 4.4 (3.5-5.0) g/dL Amylase 58 (30-110) U/L Lipase 45 (23-300) U/L - Radiology Data Radiology results: report reviewed (Chest x-ray and KUB are negative for acute disease), image reviewed Disposition Clinical Impression: Gastroenteritis, Nausea & vomiting, Diarrhea, Shortness of breath Disposition: HOME SELF-CARE Condition: Good Instructions (If sedation given, give patient instructions): Acute Nausea and Vomiting (ED), Acute Diarrhea (ED) Is patient prescribed a controlled substance at d/c from ED?: No Referrals: Laverne Florez DO [Primary Care Provider] - 1-2 days
[2021-08-09 23:15] LABS: Basophils % (A) 0 %; Eosinophils # (A) 0.2 k/uL (0-0.7); Eosinophils % (A) 2 %; HCT 44.2 % (34.0-46.0); HGB 14.3 gm/dL (11.4-16.0); Lymphocytes # (A) 1.5 k/uL (1.0-4.8); Lymphocytes % (A) 13 %; MCH 30.1 pg (25.0-35.0); MCHC 32.4 g/dL (31.0-37.0); MCV 92.9 fL (80.0-100.0); Mean Platelet Volume 7.4; Monocytes # (A) 0.4 k/uL (0-1.0); Monocytes % (A) 4 %; Neutrophils % (A) 80 %; Platelet Count 310 k/uL (150-450); RBC 4.76 m/uL (3.80-5.40); RDW 12.5 % (11.5-15.5); WBC 11.3 k/uL (3.8-10.6)
[2021-08-09 23:27] LABS: Albumin 4.4 g/dL (3.5-5.0); Calcium 9.5 mg/dL (8.4-10.2); Potassium 3.8 mmol/L (3.5-5.1); Total Bilirubin 0.6 mg/dL (0.2-1.3); Total Protein 7.4 g/dL (6.3-8.2)
[2021-08-10] MEDS ORDERED: IPRATROPIUM-ALBUTEROL 3 ML NEB INHALATION STA (00:46)
[2021-08-10] MEDS ORDERED: PROCHLORPERAZINE INJ 10 MG/2 ML VIAL IVP STA (00:59)
[2021-08-10] MEDS ORDERED: DEXAMETHASONE SOD PHOSPHATE 10 MG/ML 1 ML VIAL IVP STA (00:59)
--- NOTE | 2021-08-10 01:06 | XR ---
EXAMINATION TYPE: XR chest 1V DATE OF EXAM: 08/10/2021 COMPARISON: 11/27/2018 HISTORY: Cough TECHNIQUE: Single view FINDINGS: Heart and mediastinum are normal. Lungs are clear. Diaphragm is normal. Bony thorax appears normal. IMPRESSION: Normal chest. No change.
--- NOTE | 2021-08-10 01:08 | XR ---
EXAMINATION TYPE: XR KUB DATE OF EXAM: 08/10/2021 COMPARISON: 12/14/2015 HISTORY: Rectal bleeding TECHNIQUE: 2 views FINDINGS: 2 views upright show no sign of intestinal obstruction or pneumoperitoneum. Fecal pattern i s normal. There is no evidence of a mass. There are no pathologic calcifications over the kidneys. IMPRESSION: Nonacute abdomen. No adverse change.
[2021-08-10] MEDS ORDERED: DIPHENOX-ATROP STARTER PACK 8 TAB BTL PO STA (02:22)
[2021-08-10] MEDS ORDERED: ONDANSETRON 4 MG ODT STARTER PACK 2 TAB BTL PO STA (02:22)
[2021-08-10 02:43] VITALS: BP 120/71; PULSE 98; RESP 18
== END 2021-08-10 02:47 | disposition home or self-care (01) ==
LOC: EC 22:25
DX: K52.9 Noninfective gastroenteritis and colitis, unspecified (principal); R06.02 Shortness of breath; Z88.0 Allergy status to penicillin; J44.9 Chronic obstructive pulmonary disease, unspecified; K21.9 Gastro-esophageal reflux disease without esophagitis; I10 Essential (primary) hypertension; M19.90 Unspecified osteoarthritis, unspecified site; Z90.49 Acquired absence of other specified parts of digestive tract; Z96.652 Presence of left artificial knee joint; Z87.891 Personal history of nicotine dependence
CPT/HCPCS: 99285; 96374; 96375 ×3; 96361 ×2; 36415; 94640; 80053; 82150; 83605; 83690; 85025; 71045; 74018; J0780; J1100; J2405; S0119; C9113

== ENCOUNTER → 2022-02-13 | Outpatient (CLI) | payer MEDICARE ==
--- NOTE | 2022-02-20 10:31 | MM ---
Reason for Exam: Screening (asymptomatic). Last screening mammogram was performed 12 month(s) ago. Patient History: Menarche at age 13. First Full-Term at age 23. Postmenopausal. 12/14/2017, Benign Core Biopsy on the left side. 11/12/2017, High risk Core Biopsy on the left side. 08/19/2001, Benign Excisional Biopsy on the left side. Maternal cousin had breast cancer. Maternal aunt had breast cancer. Maternal aunt had breast cancer. Maternal aunt had breast cancer. Sister had breast cancer, age 30. Sister had breast cancer, age 30. Risk Values: Kianna 5 year model risk: 8.9%. NCI Lifetime model risk: 36.0%. Prior Study Comparison: 09/22/2017 Bilateral Screening Mammogram, [facility]. 09/29/2017 Left Diagnostic Mammogram, [facility]. 06/27/2018 Left Diagnostic Mammogram, [facility]. 12/13/2018 Bilateral Screening Mammogram, [facility]. 02/07/2020 Bilateral Screening Mammogram, [facility]. 02/11/2021 Bilateral Screening Mammogram, [facility]. Tissue Density: There are scattered fibroglandular densities. Findings: Analyzed By CAD. No suspicious spiculated or lobular masses clustered microcalcifications or architectural distortion is evident. Surgical clips are within the left breast. Benign coarse calcifications within the left breast. No significant interval changes are evident. Overall Assessment: Benign, BI-RAD 2 Management: Screening Mammogram of both breasts in 1 year. A clinical breast exam by your physician is recommended on an annual basis and results should be correlated with mammographic findings. This exam should not preclude additional follow-up of suspicious palpable abnormalities. Results were given to the patient verbally at the time of exam. Electronically signed and approved by: Andre Valderrama D.O. Radiologis
== END | disposition home or self-care (01) ==
LOC: RADMAMWWP 09:02
PROVIDERS: ATTEND Surgery
DX: Z12.31 Encounter for screening mammogram for malignant neoplasm of breast (principal); Z78.0 Asymptomatic menopausal state; Z80.3 Family history of malignant neoplasm of breast; Z98.890 Other specified postprocedural states
CPT/HCPCS: 77067

== ENCOUNTER → 2022-02-20 | Outpatient (CLI) | payer MEDICARE ==
[2022-02-20 09:57] VITALS: BP 123/85; PULSE 76; RESP 17; TEMP 97.9
--- NOTE | 2022-02-20 10:27 | P.PN ---
Subjective Progress Note Date: 02/20/22 Principal diagnosis: high risk breast cancer/ left breast atypical hyperplasia Fibrocystic breast changes The patient is a 61 year old black female status post a left breast open biopsy on 11-12-17 for atypical hyperplasia diagnosed on a core biopsy. Her pathology on open biopsy was benign. She underwent a bilateral mammogram on 02-11-21 which was benign BIRADS 2. She had a bilateral mammogram on 02-13-22 which was reviewed with Dr. Lorenzo and felt to be a BIRAD 2. She has had no nipple discharge of concern. She is not complaining of any most masses or nodules of concern in either breast. Of importance is the fact that she states she was diagnosed with pneumonia 20 and at this time is oxygen dependent with weather changes or exertion. She developed COVID in September 2020 without any riesdual. She is fully vaccinated. She also has COPD, she smoked until 2019; 1 PPD for 42 years. She did have genetic testing done with Dr. Weaver, and was told that she was BRCA negative. Secondary to her history of atypical hyperplasia and family history she was started on aromsin which she is tolerating without difficulty and continues to follow with Dr. Weaver. She is not complaining of any new lumps masses or nodules of concern in either breast. Note from Dr. Weaver 03-18-21 reviewed Kianna Risk Assessment: 5 year risk: 7.8% lifetime: 30.5% Hormonal history: menstral: 12 pregnancys: 1 full term @ 23 breast fed: no menopause: 51 BCP? hormones: none Family History: Sister: 2 breast cancer in their 20's, both doing well no genetic testing mother: stomach cancer grandmother paternal: stomach maternal aunts: 2 breast cancer maternal first cousins: 5 with breast cancer one diagnosed in her 30's brother: of stomach cancer Past surgical history: 1. gallaldder 2. breast biopsy 3. Christian fundoplication 4. stomach surgery with mesh 5. throat surgery 6. knee replacement past medical history: 1. HTN 2. mixed collagen vascular disease/ resolved 3. 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 Osteoarthritis 5. Neuropathy. Social history: 1. smoker 3 cigarettes/day stopped 5 months ago 2. alcohol: none 3. drugs: none Review of systems: constitutional: BMI HEENT: Negative Lungs: Oxygen dependent following pneumonia former smoker Heart: Hypertension GI: Patient status post Estevan fundoplication reflux better but now returned : Negative Musculoskeletal: Osteoarthritis Neurologic: Neuropathy ALLERGY: Seasonal Hematologic: Negative Psychiatric: Negative Objective - Vital Signs Vital signs: Vital Signs Temp 97.9 F 02/20/22 09:55 Pulse 76 02/20/22 09:55 Resp 17 02/20/22 09:55 BP 123/85 02/20/22 09:55 Pulse Ox 100 02/20/22 09:55 FiO2 Intake & Output 02/19/22 02/20/22 02/20/22 18:59 06:59 18:59 Weight 120.202 kg - Constitutional General appearance: Present: cooperative - EENT Eyes: Present: EOMI ENT: Present: hearing grossly normal - Neck Neck: Present: normal ROM - Respiratory Respiratory: bilateral: CTA - Cardiovascular Rhythm: regular Heart sounds: normal: S1, S2 - Integumentary Integumentary: Present: normal turgor - Musculoskeletal Musculoskeletal: Present: gait normal - Psychiatric Psychiatric: Present: A&O x's 3, appropriate affect, intact judgment & insight - Additional findings Additional findings: Breast Exam: Bra: 44D inspection: bilateral grade 3 ptosis/ right breast larger than left breast Palpation: right breast: Positional exam no dominant masses or nodules of concern Right axilla: No adenopathy of concern Left breast: Postop changes, no dominant masses or nodules of concern of multiple positional exam Left axilla: No adenopathy of concern Assessment and Plan Assessment: Impression: 1. HTN 2. mixed collagen vascular disease/ resolved 3. 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 Osteoarthritis 5. Neuropathy. 6. High risk breast cancer, Kianna risk evaluation 5 year risk 7.8%, lifetime risk 30.5%, patient is presently on chemoprevention with Dr. Weaver taking Aromasin 7. Recent bilateral mammogram 99 felt to be benign BIRADS [address] Valderrama Plan: 1. Bilateral mammogram in 1 year with physician exam at that time 2. Continue to follow with Dr. Weaver 3. We'll like to obtain the genetic testing results Cc: Sakina Swanson
== END ==
LOC: WWCWWP 09:35
PROVIDERS: ATTEND Surgery
DX: R92.8 Other abnormal and inconclusive findings on diagnostic imaging of breast (principal); I10 Essential (primary) hypertension; Z99.81 Dependence on supplemental oxygen; M19.90 Unspecified osteoarthritis, unspecified site; G62.9 Polyneuropathy, unspecified; Z87.891 Personal history of nicotine dependence; Z88.0 Allergy status to penicillin; Z91.048 Other nonmedicinal substance allergy status; Z88.8 Allergy status to other drugs, medicaments and biological substances

== ENCOUNTER → 2023-03-17 | Outpatient (CLI) | payer MEDICARE ==
[2023-03-17 19:41] LABS: HCT 42.7 % (37.2-46.3); HGB 13.5 d/dL (12.0-15.0); MCHC 31.6 d/dL (32.0-37.0); MCV 91.6 FL (80.0-97.0); Mean Platelet Volume 10.7 FL (9.5-12.2); NRBC Per 100 WBC 0 X 10*3/uL (0.00-0.01); Platelet Count 367 X 10*3/uL (140-440); RBC 4.66 X 10*6/uL (4.10-5.20); RDW 12.7 % (11.5-14.5); WBC 5.92 X 10*3/uL (4.50-10.00)
[2023-03-18 02:52] LABS: ALT 28 U/L (8-44); AST 20 U/L (13-35); Albumin 4.3 d/dL (3.8-4.9); Albumin/Globulin Ratio 1.79 Ratio (1.60-3.17); Alkaline Phosphatase 114 U/L (41-126); BUN/Creat Ratio 15.38 Ratio (12.00-20.00); Blood Urea Nitrogen 12.3 mg/dL (9.0-27.0); Calcium 9.5 mg/dL (8.7-10.3); Chloride 106 mmol/L (96-109); Chol/HDL Ratio 4.33 Ratio; Globulin 2.4 d/dL (1.6-3.3); Glucose 87 mg/dL (70-110); LDL Cholesterol,Calculated 122.6 mg/dL (0.0-131.0); Potassium 4.4 mmol/L (3.5-5.5); Sodium 142 mmol/L (135-145); Total Bilirubin 0.3 mg/dL (0.3-1.2); Total Protein 6.7 d/dL (6.2-8.2); VLDL Calculation 14.26 mg/dL (5.00-40.00)
== END | disposition home or self-care (01) ==
LOC: LABWHC1 14:10
PROVIDERS: ATTEND Family Medicine
DX: Z13.220 Encounter for screening for lipoid disorders (principal); R73.02 Impaired glucose tolerance (oral); R69 Illness, unspecified
CPT/HCPCS: 36415; 80053; 80061; 83036; 84443; 85027

== ENCOUNTER → 2023-03-26 | Outpatient (CLI) | payer MEDICARE ==
--- NOTE | 2023-03-29 01:49 | MM ---
Reason for Exam: Screening (asymptomatic). Last mammogram was performed 1 year(s) and 1 month(s) ago. Patient History: Menarche at age 13. First Full-Term at age 23. Postmenopausal. 12/14/2017, Benign Core Biopsy on the left side. 11/12/2017, High risk Core Biopsy on the left side. 08/19/2001, Benign Excisional Biopsy on the left side. Maternal cousin had breast cancer. Maternal aunt had breast cancer. Maternal aunt had breast cancer. Maternal aunt had breast cancer. Sister had breast cancer, age 30. Sister had breast cancer, age 30. Risk Values: Jens 5 year model risk: 9.2%. NCI Lifetime model risk: 35.2%. Prior Study Comparison: 02/07/2020 Bilateral Screening Mammogram, [facility]. 02/11/2021 Bilateral Screening Mammogram, [facility]. 02/13/2022 Bilateral MG screening mammo w CAD, [facility]. Tissue Density: There are scattered fibroglandular densities. Findings: Analyzed By CAD. Unchanged scattered round calcifications bilaterally. Redemonstrated postsurgical change on the left. There is no suspicious group of microcalcifications or new suspicious mass in either breast. Overall Assessment: Benign, BI-RAD 2 Management: Screening Mammogram of both breasts in 1 year. SEE NOTE BELOW IN REGARDS TO PATIENT'S INCREASED FIVE-YEAR JENS SCORE AND INCREASED LIFETIME RISK SCORE. Patient should continue monthly self-breast exams. A clinical breast exam by your physician is recommended on an annual basis. This exam should not preclude additional follow-up of suspicious palpable abnormalities. Note on Jens scores and lifetime risk: 1. A Jens score greater than 3% is considered moderate risk. If this is the case, consider specialist referral to assess eligibility for a risk reducing agent. 2. If overall lifetime risk for the development of breast cancer is 20% or higher, the patient may qualify for future screening with alternating mammogram and breast MRI. Electronically signed and approved by: Yosi Worthy M.D. Radiologist
== END | disposition home or self-care (01) ==
LOC: RADMAMWWP 08:00
PROVIDERS: ATTEND Surgery
DX: Z12.31 Encounter for screening mammogram for malignant neoplasm of breast (principal); Z78.0 Asymptomatic menopausal state; Z80.3 Family history of malignant neoplasm of breast
CPT/HCPCS: 77063; 77067

== ENCOUNTER → 2023-03-26 | Outpatient (CLI) | payer MEDICARE | LOC: WWCWWP 07:59 | PROVIDERS: ATTEND Surgery | DX: Z53.9 Procedure and treatment not carried out, unspecified reason (principal) ==

== ENCOUNTER → 2023-04-15 | Outpatient (CLI) | payer MEDICARE ==
--- NOTE | 2023-04-15 11:49 | P.PN ---
Subjective Progress Note Date: 04/15/23 high risk breast cancer/ left breast atypical hyperplasia Fibrocystic breast changes The patient is a 61 year old black female status post a left breast open biopsy on 11-12-17 for atypical hyperplasia diagnosed on a core biopsy. Her pathology on open biopsy was benign. She underwent a bilateral mammogram on 02-11-21 which was benign BIRADS 2. She had a bilateral mammogram on 03-26-23 which was BIRAD 2 She has had no nipple discharge of concern. She is not complaining of any most masses or nodules of concern in either breast. Of importance is the fact that she states she was diagnosed with pneumonia 2018 and at this time is oxygen dependent with weather changes or exertion. She developed COVID in September 2020 without any riesdual. She is fully vaccinated. She also has COPD, she smoked until 2019; 1 PPD for 42 years. She did have genetic testing done with Dr. Weaver, and was told that she was BRCA negative. Secondary to her history of atypical hyperplasia and family history she was started on aromsin which she took for 5 years She is not complaining of any new lumps masses or nodules of concern in either breast. Note from Dr. Weaver 04-13-23 reviewed; she completed 5 years of Aromasin therapy and this was discontinued as per Dr. Owen Hutchison Risk Assessment: 5 year risk: 9.2% lifetime: 35.2% Hormonal history: menstral: 12 pregnancys: 1 full term @ 23 breast fed: no menopause: 51 BCP? hormones: none Family History: Sister: 2 breast cancer in their 20's, both doing well no genetic testing mother: stomach cancer grandmother paternal: stomach maternal aunts: 2 breast cancer maternal first cousins: 5 with breast cancer one diagnosed in her 30's brother: of stomach cancer Past surgical history: 1. gallaldder 2. breast biopsy 3. Christian fundoplication 4. stomach surgery with mesh 5. throat surgery 6. knee replacement past medical history: 1. HTN 2. mixed collagen vascular disease/ resolved 3. 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 Osteoarthritis 5. Neuropathy. Social history: 1. smoker 3 cigarettes/day stopped 4 years ago 2. alcohol: none 3. drugs: none Review of systems: constitutional: BMI HEENT: Negative Lungs: Oxygen dependent following pneumonia former smoker Heart: Hypertension GI: Patient status post Estevan fundoplication reflux better but now returned : Negative Musculoskeletal: Osteoarthritis Neurologic: Neuropathy ALLERGY: Seasonal Hematologic: Negative Psychiatric: Negative Objective - Constitutional General appearance: Present: cooperative - EENT Eyes: Present: EOMI ENT: Present: hearing grossly normal - Neck Neck: Present: normal ROM - Respiratory Respiratory: bilateral: CTA - Cardiovascular Heart sounds: normal: S1, S2 - Integumentary Integumentary: Present: normal turgor - Musculoskeletal Musculoskeletal: Present: gait normal - Psychiatric Psychiatric: Present: A&O x's 3, appropriate affect, intact judgment & insight - Additional findings Additional findings: Breast Exam: Bra: 44D inspection: bilateral grade 3 ptosis/ right breast larger than left breast Palpation: right breast: multi-positional exam no dominant masses or nodules of concern; slight increased nodularity 12 o'clock position to the chest wall on the right Right axilla: No adenopathy of concern Left breast: Postop changes, no dominant masses or nodules of concern of multiple positional exam Left axilla: No adenopathy of concern Assessment and Plan Assessment: Impression: 1. HTN 2. mixed collagen vascular disease/ resolved 3. 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 Osteoarthritis 5. Neuropathy. 6. High risk breast cancer, Kianna risk evaluation 5 year risk 9.2% lifetime risk 35.2%, patient completed chemoprevention with Dr. Weaver took aromisin for 5 years 7. Recent bilateral mammogram 03-26-23 benign BIRADS 2 Plan: 1. Bilateral mammogram in 1 year with physician exam at that time 2. Continue to follow with Dr. Weaver 3. genetic testing 03-18-21 (-) as per report would like to get results 4. discussed alternating every 6 months mammogram with breast MRI secondary to the lifetime risk of breast cancer, we are going to see if insurance will allow this and schedule this 5. Ultrasound 12 o'clock position right breast for evaluation of slightly prominent nodularity follow-up after ultrasound Cc: Sakina Swanson
== END ==
LOC: WWCWWP 11:34
PROVIDERS: ATTEND Surgery
DX: I10 Essential (primary) hypertension (principal); J44.9 Chronic obstructive pulmonary disease, unspecified; M19.90 Unspecified osteoarthritis, unspecified site; G62.9 Polyneuropathy, unspecified; Z87.891 Personal history of nicotine dependence; Z99.81 Dependence on supplemental oxygen; Z15.01 Genetic susceptibility to malignant neoplasm of breast; Z92.21 Personal history of antineoplastic chemotherapy; Z88.8 Allergy status to other drugs, medicaments and biological substances; Z88.2 Allergy status to sulfonamides; Z91.048 Other nonmedicinal substance allergy status

== ENCOUNTER → 2023-04-22 | Outpatient (CLI) | payer MEDICARE ==
--- NOTE | 2023-04-22 15:32 | USB ---
Reason for Exam: Clinical finding. Patient History: Menarche at age 13. First Full-Term at age 23. Postmenopausal. 12/14/2017, Benign Core Biopsy on the left side. 11/12/2017, High risk Core Biopsy on the left side. 08/19/2001, Benign Excisional Biopsy on the left side. Maternal cousin had breast cancer. Maternal aunt had breast cancer. Maternal aunt had breast cancer. Maternal aunt had breast cancer. Sister had breast cancer, age 30. Sister had breast cancer, age 30. Risk Values: Kianna 5 year model risk: 9.2%. NCI Lifetime model risk: 35.2%. Technique: Method: Whole Breast Handheld. Prior Study Comparison: 02/11/2021 Bilateral Screening Mammogram, [facility]. 02/13/2022 Bilateral MG screening mammo w CAD, [facility]. 03/26/2023 Bilateral MG 3D screening mammo w/cad, [facility]. Findings: The whole breast of the right breast, the axilla of the right breast and the retroareolar of the right breast were scanned. No solid or cystic masses are identified.. Overall Assessment: Negative, BI-RAD 1 Management: Screening Mammogram of both breasts in 11 months. A clinical breast exam by your physician is recommended on an annual basis and results should be correlated with mammographic findings. This exam should not preclude additional follow-up of suspicious palpable abnormalities. Results were given to the patient verbally at the time of exam. Electronically signed and approved by: Andre Valderrama D.O. Radiologis
== END | disposition home or self-care (01) ==
LOC: RADUSWWP 14:56
PROVIDERS: ATTEND Surgery
DX: N63.10 Unspecified lump in the right breast, unspecified quadrant (principal); Z78.0 Asymptomatic menopausal state; Z80.3 Family history of malignant neoplasm of breast

== ENCOUNTER → 2023-04-22 | Outpatient (CLI) | payer MEDICARE ==
--- NOTE | 2023-04-22 15:55 | P.PN ---
Progress Note - Text Progress Note Date: 04/22/23 high risk breast cancer/ left breast atypical hyperplasia Fibrocystic breast changes The patient is a 61 year old black female status post a left breast open biopsy on 11-12-17 for atypical hyperplasia diagnosed on a core biopsy. Her pathology on open biopsy was benign. She underwent a bilateral mammogram on 02-11-21 which was benign BIRADS 2. She had a bilateral mammogram on 03-26-23 which was BIRAD 2 She has had no nipple discharge of concern. She is not complaining of any most masses or nodules of concern in either breast. Of importance is the fact that she states she was diagnosed with pneumonia 2018 and at this time is oxygen dependent with weather changes or exertion. She developed COVID in September 2020 without any riesdual. She is fully vaccinated. She also has COPD, she smoked until 2019; 1 PPD for 42 years. She did have genetic testing done with Dr. Weaver, and was told that she was BRCA negative. Secondary to her history of atypical hyperplasia and family history she was started on aromsin which she took for 5 years She is not complaining of any new lumps masses or nodules of concern in either breast. Note from Dr. Weaver 04-13-23 reviewed; she completed 5 years of Aromasin therapy and this was discontinued as per Dr. Owen Hutchison Risk Assessment: 5 year risk: 9.2% lifetime: 35.2% Hormonal history: menstral: 12 pregnancys: 1 full term @ 23 breast fed: no menopause: 51 BCP? hormones: none Family History: Sister: 2 breast cancer in their 20's, both doing well no genetic testing mother: stomach cancer grandmother paternal: stomach maternal aunts: 2 breast cancer maternal first cousins: 5 with breast cancer one diagnosed in her 30's brother: of stomach cancer Past surgical history: 1. gallaldder 2. breast biopsy 3. Christian fundoplication 4. stomach surgery with mesh 5. throat surgery 6. knee replacement past medical history: 1. HTN 2. mixed collagen vascular disease/ resolved 3. 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 Osteoarthritis 5. Neuropathy. Social history: 1. smoker 3 cigarettes/day stopped 4 years ago 2. alcohol: none 3. drugs: none Review of systems: constitutional: BMI HEENT: Negative Lungs: Oxygen dependent following pneumonia former smoker Heart: Hypertension GI: Patient status post Estevan fundoplication reflux better but now returned : Negative Musculoskeletal: Osteoarthritis Neurologic: Neuropathy ALLERGY: Seasonal Hematologic: Negative Psychiatric: Negative She had a right breast ultrasound on 04-22-23 which was BIRAD 1 Assessment and Plan Assessment: Impression: 1. HTN 2. mixed collagen vascular disease/ resolved 3. 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 Osteoarthritis 5. Neuropathy. 6. High risk breast cancer, Kianna risk evaluation 5 year risk 9.2% lifetime risk 35.2%, patient completed chemoprevention with Dr. Weaver took aromisin for 5 years 7. Recent bilateral mammogram 03-26-23 benign BIRADS 2 Plan: 1. Bilateral mammogram in 1 year with physician exam at that time 2. Continue to follow with Dr. Weaver 3. genetic testing 03-18-21 (-) as per report would like to get results 4. discussed alternating every 6 months mammogram with breast MRI secondary to the lifetime risk of breast cancer, we are going to see if insurance will allow this and schedule this 5. Ultrasound 12 o'clock position right breast for evaluation of slightly prominent nodularity follow-up after ultrasound; ultrasound BIRAD 1 04-22-23; 6. will follow up in 6 months Cc: Sakina Swanson Additional CC's: Sue Swanson
== END ==
LOC: WWCWWP 14:58
PROVIDERS: ATTEND Surgery
DX: Z12.31 Encounter for screening mammogram for malignant neoplasm of breast (principal); I10 Essential (primary) hypertension; M19.90 Unspecified osteoarthritis, unspecified site; G62.9 Polyneuropathy, unspecified; Z99.81 Dependence on supplemental oxygen; Z80.3 Family history of malignant neoplasm of breast; Z87.891 Personal history of nicotine dependence; Z88.0 Allergy status to penicillin; Z88.8 Allergy status to other drugs, medicaments and biological substances; Z91.048 Other nonmedicinal substance allergy status; Z79.899 Other long term (current) drug therapy

== ENCOUNTER → 2023-04-30 | Outpatient (CLI) | payer MEDICARE ==
--- NOTE | 2023-05-03 12:12 | BD ---
EXAMINATION TYPE: Axial Bone Density DATE OF EXAM: 04/30/2023 CLINICAL HISTORY: 62 years old Female. ICD-10 CODE: M85.88 disorder of bone Height: 5 ft 5in Weight: 258 FRAX RISK QUESTIONS: Alcohol (3 or more units per day): no Family History (Parent hip fracture): no Glucocorticoids (More than 3mos): inhalers for asthma for 7 years (Ex: prednisone, prednisolone, methylprednisolone, dexamethasone, and hydrocortisone). History of Fracture in Adulthood: no Secondary Osteoporosis: 1. Type 1 Diabetes: no 2. Hyperthyroidism: no 3. Menopause before 45: no 4. Malnutrition: no 5. Chronic liver disease: no Rheumatoid Arthritis: no Current Tobacco Use: former RISK FACTORS HISTORY OF: Surgery to Spine/Hip(right/left)/Wrist (right/left): no Family History of Osteoporosis: no Active: yes Diet low in dairy products/other sources of calcium: no Postmenopausal woman: yes Take estrogen and/or progesterone medications: no Lost more than 2 inches in height since high school: no Frequent falls: no Poor Health: good Hyperparathyroidism: no Adrenal Insufficiency: no MEDICATIONS: Additional Medications: metformin, montelukast, losartan , Advair, albuterol as needed, Additional History: EXAM MEASUREMENTS: Bone mineral densitometry was performed using the [employer]ical System. Bone mineral density as measured about the Lumbar spine is: ----- L1-L4(G/cm2): 1.135 T Score Values are as follows: ----- L1: -0.8 ----- L2: 0.0 ----- L3: -0.2 ----- L4: -0.7 ----- L1-L4: -0.4 Z Score Values are as follows: ----- L1: -1.2 ----- L2: -0.5 ----- L3: -0.7 ----- L4: -1.1 ----- L1-L4: -0.8 Bone mineral density has: decreased -2.2 % since study of: 2020 Bone mineral density about the R hip (g/cm2): 0.951 Bone mineral density about the L hip (g/cm2): 1.037 T Score values are as follows: -----R Neck: -0.6 -----L Neck: 0.0 -----R Total: -0.4 -----L Total: -0.2 Z Score values are as follows: -----R Neck: -0.9 -----L Neck: -0.3 -----R Total: -1.1 -----L Total: -1.0 Bone mineral density has: increased 0.1 % since study of: 2020 FRAX%s: The graph provided illustrates a 4.4 % chance for a major osteoporotic fx and a 0.2 % chance for the hips probability for fx in 10 years time. IMPRESSION: Normal (Values between +1 and -1 indicate normal bone mass). Consider repeating this study in 5 year s or sooner if there is some new clinical indication. NOTE: T-SCORE=SD OF THE YOUNG ADULT MEAN.
== END | disposition home or self-care (01) ==
LOC: RADBDWWP 10:05
PROVIDERS: ATTEND Internal Medicine Hematology & Oncology
DX: M85.88 Other specified disorders of bone density and structure, other site (principal); N62 Hypertrophy of breast; Z71.3 Dietary counseling and surveillance; I10 Essential (primary) hypertension; Z78.0 Asymptomatic menopausal state
CPT/HCPCS: 77080

== ENCOUNTER → 2023-09-28 | Outpatient (CLI) | payer MEDICARE ==
[2023-09-28 15:45] LABS: HCT 44.1 % (37.2-46.3); HGB 14.3 g/dL (12.0-15.0); MCH 29.2 pg (27.0-32.0); MCHC 32.4 g/dL (32.0-37.0); Mean Platelet Volume 10.5 FL (9.5-12.2); NRBC Per 100 WBC 0 X 10*3/uL (0.00-0.01); Platelet Count 329 X 10*3/uL (140-440); RDW 13.1 % (11.5-14.5); WBC 5.75 X 10*3/uL (4.50-10.00)
[2023-09-28 16:24] LABS: ALT 22 U/L (8-44); AST 20 U/L (13-35); Albumin 4.3 g/dL (3.8-4.9); Albumin/Globulin Ratio 1.65 Ratio (1.60-3.17); Alkaline Phosphatase 120 U/L (41-126); Blood Urea Nitrogen 12.6 mg/dL (9.0-27.0); Calcium 9.8 mg/dL (8.7-10.3); Carbon Dioxide 22.8 mmol/L (21.6-31.8); Chloride 106 mmol/L (96-109); Globulin 2.6 g/dL (1.6-3.3); Glucose 106 mg/dL (70-110); LDL Cholesterol,Calculated 124.5 mg/dL (0.0-131.0); Potassium 4.8 mmol/L (3.5-5.5); Sodium 141 mmol/L (135-145); Total Bilirubin 0.5 mg/dL (0.3-1.2); Total Protein 6.9 g/dL (6.2-8.2); VLDL Calculation 12.62 mg/dL (5.00-40.00)
== END | disposition home or self-care (01) ==
LOC: LABWHC1 08:18
PROVIDERS: ATTEND Family Medicine
DX: I10 Essential (primary) hypertension (principal); J44.9 Chronic obstructive pulmonary disease, unspecified; R73.01 Impaired fasting glucose
CPT/HCPCS: 36415; 80053; 80061; 83036; 84443; 85027

== ENCOUNTER → 2023-10-22 | Outpatient (CLI) | payer MEDICARE ==
--- NOTE | 2023-10-22 09:32 | P.PN ---
Subjective Progress Note Date: 10/22/23 Principal diagnosis: High risk breast cancer/left breast atypical hyperplasia/fibrocystic breast changes 04/22/23 high risk breast cancer/ left breast atypical hyperplasia Fibrocystic breast changes The patient is a 63 year old black female status post a left breast open biopsy on 11-12-17 for atypical hyperplasia diagnosed on a core biopsy. Her pathology on open biopsy was benign. She underwent a bilateral mammogram on 02-11-21 which was benign BIRADS 2. She had a bilateral mammogram on 03-26-23 which was BIRAD 2 She has had no nipple discharge of concern. She is not complaining of any most masses or nodules of concern in either breast. Of importance is the fact that she states she was diagnosed with pneumonia 2018 and at this time is oxygen dependent with weather changes or exertion. She developed COVID in September 2020 without any residual. She is fully vaccinated. She also has COPD, she smoked until 2019; 1 PPD for 42 years. She did have genetic testing done with Dr. Weaver, and was told that she was BRCA negative. Secondary to her history of atypical hyperplasia and family history she was started on aromsin which she took for 5 years She is not complaining of any new lumps masses or nodules of concern in either breast. Note from Dr. Weaver 04-13-23 reviewed; she completed 5 years of Aromasin therapy and this was discontinued as per Dr. Owen Hutchison Risk Assessment: 5 year risk: 9.2% lifetime: 35.2% Hormonal history: menstral: 12 pregnancys: 1 full term @ 23 breast fed: no menopause: 51 BCP? hormones: none Family History: Sister: 2 breast cancer in their 20's, both doing well no genetic testing mother: stomach cancer grandmother paternal: stomach maternal aunts: 2 breast cancer maternal first cousins: 5 with breast cancer one diagnosed in her 30's brother: of stomach cancer Past surgical history: 1. gallaldder 2. breast biopsy 3. Christian fundoplication 4. stomach surgery with mesh 5. throat surgery 6. knee replacement past medical history: 1. HTN 2. mixed collagen vascular disease/ resolved 3. 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 Osteoarthritis 5. Neuropathy. Social history: 1. smoker 3 cigarettes/day stopped 4 years ago 2. alcohol: none 3. drugs: none Review of systems: constitutional: BMI HEENT: Negative Lungs: Oxygen dependent following pneumonia former smoker Heart: Hypertension GI: Patient status post Estevan fundoplication reflux better but now returned : Negative Musculoskeletal: Osteoarthritis Neurologic: Neuropathy ALLERGY: Seasonal Hematologic: Negative Psychiatric: Negative She had a right breast ultrasound on 04-22-23 which was BIRAD 1 Objective - Vital Signs Vital signs: Intake & Output 10/21/23 10/22/23 10/22/23 18:59 06:59 18:59 Weight 122.47 kg - Constitutional General appearance: Present: cooperative - EENT Eyes: Present: EOMI ENT: Present: hearing grossly normal - Neck Neck: Present: normal ROM - Respiratory Respiratory: bilateral: CTA - Cardiovascular Rhythm: regular Heart sounds: normal: S1, S2 - Integumentary Integumentary: Present: normal turgor - Musculoskeletal Musculoskeletal: Present: gait normal - Psychiatric Psychiatric: Present: A&O x's 3, appropriate affect, intact judgment & insight - Additional findings Additional findings: Breast exam: BRA: 44D Inspection: Bilateral grade 3 ptosis Palpation: Right breast: Right breast is larger than left breast, multi positional exam no dominant masses or nodules of concern Right axilla: No adenopathy of concern Left breast: Multi positional exam no dominant masses or nodules of concern Left axilla: No adenopathy of concern Assessment and Plan Assessment: Impression: 1. HTN 2. mixed collagen vascular disease/ resolved 3. 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 Osteoarthritis 5. Neuropathy. 6. High risk breast cancer, Kianna risk evaluation 5 year risk 9.2% lifetime risk 35.2%, patient completed chemoprevention with Dr. Weaver took aromisin for 5 years 7. Recent bilateral mammogram 03-26-23 benign BIRADS 2 Plan: 1. Bilateral mammogram in 1 year with physician exam at that time 2. Continue to follow with Dr. Weaver 3. genetic testing 03-18-21 (-) as per report would like to get results 4. discussed alternating every 6 months mammogram with breast MRI secondary to the lifetime risk of breast cancer, we are going to see if insurance will allow this and schedule this 5. Ultrasound 12 o'clock position right breast for evaluation of slightly prominent nodularity follow-up after ultrasound; ultrasound BIRAD 1 04-22-23; 6. Breast MRI at this time, to follow-up after breast MRI 7. Bilateral mammogram in 6 months with examination at that time Cc: Sakina Swanson
[2023-10-22 09:33] VITALS: BP 121/81; PULSE 96; RESP 16; TEMP 98.6
== END ==
LOC: WWCWWP 09:11
PROVIDERS: ATTEND Surgery
DX: R92.8 Other abnormal and inconclusive findings on diagnostic imaging of breast (principal); I10 Essential (primary) hypertension; G62.9 Polyneuropathy, unspecified; M19.90 Unspecified osteoarthritis, unspecified site; N60.12 Diffuse cystic mastopathy of left breast; J44.9 Chronic obstructive pulmonary disease, unspecified; N63.15 Unspecified lump in the right breast, overlapping quadrants; J18.9 Pneumonia, unspecified organism; Z99.81 Dependence on supplemental oxygen; Z86.16 Personal history of COVID-19; Z80.3 Family history of malignant neoplasm of breast; Z87.891 Personal history of nicotine dependence; Z88.0 Allergy status to penicillin; Z88.8 Allergy status to other drugs, medicaments and biological substances; Z91.048 Other nonmedicinal substance allergy status; Z79.899 Other long term (current) drug therapy

== ENCOUNTER → 2023-11-08 | Outpatient (CLI) | payer MEDICARE ==
--- NOTE | 2023-11-08 11:41 | BMR ---
EXAM DATE: 11/08/2023 EXAM DESCRIPTION: MRI-Breast Bilat (W/WO Contrast) INDICATION: >20% lifetime risk for malignancy presenting for high risk surveillance. Previous left high risk biopsy with excision COMPARISON: PRIOR MRIs: None available. Correlation to mammograms: 03/26/2023. Correlation to ultrasound: 04/22/2023. CONTRAST: 12 cc Gadavist IV gadolinium contrast TECHNIQUE: Multiplanar multisequence MR imaging of both breasts was performed with a dedicated breast coil. Images were obtained before and after administration of IV gadolinium, using the standard breast mass protocol. Computer aided detection was utilized for interpretation. FINDINGS: LMP: Postmenopausal General breast composition: The breasts are almost entirely fatty Background parenchymal enhancement: Minimal RIGHT BREAST: The T2 weighted series shows no areas of abnormal signal intensity. Postsurgical changes left breast Review of the dynamic series shows no early or abnormal enhancement. LEFT BREAST: The T2 weighted series shows no areas of abnormal signal intensity. Review of the dynamic series shows no early or abnormal enhancement. LYMPH NODES: There is no evidence of internal mammary or axillary adenopathy. Miscellaneous findings:Trace dependent pleural effusions IMPRESSION: RIGHT BREAST: No MR evidence of malignancy. LEFT BREAST: No MR evidence of malignancy. OVERALL ASSESSMENT -- BI-RADS 2: Benign ANNUAL SCREENING BREAST MRI IN ADDITION TO MAMMOGRAPHY IS RECOMMENDED IN PATIENTS WITH LIFETIME RISK OF BREAST CANCER >20% MTDD
== END | disposition home or self-care (01) ==
LOC: RADMRIMAIN 07:20
PROVIDERS: ATTEND Surgery
DX: R68.89 Other general symptoms and signs (principal); Z78.0 Asymptomatic menopausal state
CPT/HCPCS: C8908; A9585; 77049

== ENCOUNTER → 2023-12-03 | Outpatient (CLI) | payer MEDICARE ==
[2023-12-03 10:04] VITALS: BP 137/89; PULSE 85; RESP 16; TEMP 98.3
--- NOTE | 2023-12-03 10:15 | P.CON ---
Consult Note - . Consult date: 12/03/23 Assessment/Plan:: 12-03-23 Principal diagnosis: High risk breast cancer/left breast atypical hyperplasia/fibrocystic breast changes 04/22/23 high risk breast cancer/ left breast atypical hyperplasia Fibrocystic breast changes The patient is a 63 year old black female status post a left breast open biopsy on 11-12-17 for atypical hyperplasia diagnosed on a core biopsy. Her pathology on open biopsy was benign. She underwent a bilateral mammogram on 02-11-21 which was benign BIRADS 2. She had a bilateral mammogram on 03-26-23 which was BIRAD 2 She has had no nipple discharge of concern. She is not complaining of any most masses or nodules of concern in either breast. Of importance is the fact that she states she was diagnosed with pneumonia 2018 and at this time is oxygen dependent with weather changes or exertion. She developed COVID in September 2020 without any residual. She is fully vaccinated. She also has COPD, she smoked until 2019; 1 PPD for 42 years. She did have genetic testing done with Dr. Weaver, and was told that she was BRCA negative. Secondary to her history of atypical hyperplasia and family history she was started on aromsin which she took for 5 years She is not complaining of any new lumps masses or nodules of concern in either breast. Note from Dr. Weaver 04-13-23 reviewed; she completed 5 years of Aromasin therapy and this was discontinued as per Dr. Weaver MRI 11-08-23 of the breast done and personally reviewed; no evidence of malignancy in either breast; States over the last 3 to 4 weeks she has gained proximately 10 pounds. It is from her diet. As a result her bras are tighter, her breast are larger. She does not complain of any lumps masses or nodules of concern in either breast Kianna Risk Assessment: 5 year risk: 9.2% lifetime: 35.2% Hormonal history: menstral: 12 pregnancys: 1 full term @ 23 breast fed: no menopause: 51 BCP? hormones: none Family History: Sister: 2 breast cancer in their 20's, both doing well no genetic testing mother: stomach cancer grandmother paternal: stomach maternal aunts: 2 breast cancer maternal first cousins: 5 with breast cancer one diagnosed in her 30's brother: of stomach cancer Past surgical history: 1. nasrinder 2. breast biopsy 3. Christian fundoplication 4. stomach surgery with mesh 5. throat surgery 6. knee replacement past medical history: 1. HTN 2. mixed collagen vascular disease/ resolved 3. 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 Osteoarthritis 5. Neuropathy. Social history: 1. smoker 3 cigarettes/day stopped 4 years ago 2. alcohol: none 3. drugs: none Review of systems: constitutional: BMI HEENT: Negative Lungs: Oxygen dependent following pneumonia former smoker Heart: Hypertension GI: Patient status post Estevan fundoplication reflux better but now returned : Negative Musculoskeletal: Osteoarthritis Neurologic: Neuropathy ALLERGY: Seasonal Hematologic: Negative Psychiatric: Negative She had a right breast ultrasound on 04-22-23 which was BIRAD 1 Physical examination: Lungs: Clear Heart: Regular rate and rhythm Breast exam: BRA: 44D Inspection: Bilateral grade 3 ptosis Palpation: Right breast: Right breast is larger than left breast, multi positional exam no dominant masses or nodules of concern Right axilla: No adenopathy of concern Left breast: Multi positional exam no dominant masses or nodules of concern; mild increased fullness in the upper outer quadrant area which appears to be consistent with breast tissue no discrete lesions of concern Left axilla: No adenopathy of concern Assessment and Plan Assessment: Impression: 1. HTN 2. mixed collagen vascular disease/ resolved 3. 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 Osteoarthritis 5. Neuropathy. 6. High risk breast cancer, Kianna risk evaluation 5 year risk 9.2% lifetime risk 35.2%, patient completed chemoprevention with Dr. Weaver took aromisin for 5 years 7. Recent bilateral mammogram 03-26-23 benign BIRADS 2 8. bilateral MRI 11-08-23 BIRAD 2 9. It is felt like the changes on breast examination are most likely due to weight change there is nothing discrete which would warrant biopsy at this time Plan: 1. Bilateral mammogram in March 2024 with appointment to follow 2. Continue to follow with Dr. Weaver 3. genetic testing 03-18-21 (-) as per report would like to get results 4. 6 months mammogram with MRI secondary to high lifetime risk of breast cancer 5. we have discussed weight reduction Cc: Sakina Swanson Additional CC's: Sue Swanson
== END ==
LOC: WWCWWP 09:50
PROVIDERS: ATTEND Surgery
DX: N60.12 Diffuse cystic mastopathy of left breast (principal); I10 Essential (primary) hypertension; G62.9 Polyneuropathy, unspecified; M19.90 Unspecified osteoarthritis, unspecified site; J44.9 Chronic obstructive pulmonary disease, unspecified; Z80.3 Family history of malignant neoplasm of breast; Z99.81 Dependence on supplemental oxygen; Z87.891 Personal history of nicotine dependence; Z91.09 Other allergy status, other than to drugs and biological substances; Z88.0 Allergy status to penicillin; Z88.8 Allergy status to other drugs, medicaments and biological substances; Z91.048 Other nonmedicinal substance allergy status; Z79.899 Other long term (current) drug therapy

== ENCOUNTER → 2024-03-27 | Outpatient (CLI) | payer MEDICARE ==
--- NOTE | 2024-03-28 19:13 | MM ---
Reason for Exam: Screening (asymptomatic). Last screening mammogram was performed 12 month(s) ago. Patient History: Menarche at age 13. First Full-Term at age 23. Postmenopausal. 12/14/2017, Benign Core Biopsy on the left side. 11/12/2017, High risk Core Biopsy on the left side. 08/19/2001, Benign Excisional Biopsy on the left side. Maternal cousin had breast cancer, age 25. Maternal aunt had breast cancer, age 40. Maternal aunt had breast cancer, age 45. Maternal aunt had breast cancer. Sister had breast cancer, age 30. Sister had breast cancer, age 35. Risk Values: Kianna 5 year model risk: 4.3%. NCI Lifetime model risk: 16.4%. Prior Study Comparison: 02/11/2021 Bilateral Screening Mammogram, [facility]. 02/13/2022 Bilateral MG screening mammo w CAD, [facility]. 03/26/2023 Bilateral MG 3D screening mammo w/cad, [facility]. Tissue Density: There are scattered areas of fibroglandular density. Findings: Analyzed By CAD. Postexcisional changes on the left with scattered benign coil cyst and punctate calcifications redemonstrated. Chronic nodularity superior right MLO view. There is no suspicious group of microcalcifications or new suspicious mass in either breast. Overall Assessment: Benign, BI-RAD 2 Management: Screening Mammogram of both breasts in 1 year. See note below in regards to the patient's increased 5 year Kianna score. Patient should continue monthly self-breast exams. A clinical breast exam by your physician is recommended on an annual basis. This exam should not preclude additional follow-up of suspicious palpable abnormalities. Note on Kianna scores and lifetime risk: 1. A Kianna score greater than 3% is considered moderate risk. If this is the case, consider specialist referral to assess eligibility for a risk reducing agent. 2. If overall lifetime risk for the development of breast cancer is 20% or higher, the patient may qualify for future screening with alternating mammogram and breast MRI. [facility], , 03/28/2024 7:10 PM. Electronically signed and approved by: Yosi Worthy M.D. Radiologist
== END | disposition home or self-care (01) ==
LOC: RADMAMWWP 10:26
PROVIDERS: ATTEND Surgery
CPT/HCPCS: 77063; 77067

== ENCOUNTER → 2024-03-31 | Outpatient (CLI) | payer MEDICARE ==
[2024-03-31 11:27] VITALS: BP 129/80; PULSE 79; RESP 17; TEMP 98.5
--- NOTE | 2024-03-31 11:36 | P.PN ---
Subjective Progress Note Date: 03/31/24 Principal diagnosis: fibrocystic breast high risk breast cancer 12-03-23 Principal diagnosis: High risk breast cancer/left breast atypical hyperplasia/fibrocystic breast changes The patient is a 63 year old black female status post a left breast open biopsy on 11-12-17 for atypical hyperplasia diagnosed on a core biopsy. Her pathology on open biopsy was benign. She underwent a bilateral mammogram on 02-11-21 which was benign BIRADS 2. She had a bilateral mammogram on 03-26-23 which was BIRAD 2 She has had no nipple discharge of concern. She is not complaining of any most masses or nodules of concern in either breast. Of importance is the fact that she states she was diagnosed with pneumonia 2018 and at this time is oxygen dependent with weather changes or exertion. She developed COVID in September 2020 without any residual. She is fully vaccinated. She also had COPD, she smoked until 2019; 1 PPD for 42 years. She did have genetic testing done with Dr. Weaver, and was told that she was BRCA negative. Secondary to her history of atypical hyperplasia and family history she was started on aromsin which she took for 5 years She is not complaining of any new lumps masses or nodules of concern in either breast. Note from Dr. Weaver 04-13-23 reviewed; she completed 5 years of Aromasin therapy and this was discontinued as per Dr. Weaver MRI 11-08-23 of the breast done and personally reviewed; no evidence of malignancy in either breast; States over the last 3 to 4 weeks she has gained proximately 10 pounds. It is from her diet. As a result her bras are tighter, her breast are larger. She does not complain of any lumps masses or nodules of concern in either breast 03-31-24 Yuridia is a 63 year old female followed for high risk breast cancer. increased risk for breast cancer completed aromisin with Dr. Weaver for 5 years. bilateral mammogram personally interpreted and reviewed 03-27-24 BIRAD 2 She is not complaining of any new lumps masses or nodules of concern in either breast. Kianna Risk Assessment: 5 year risk: 4.3%; (8.3 5 year risk) lifetime: 16.4 %; (redone and Kianna risk 29.1%) Hormonal history: menstral: 12 pregnancys: 1 full term @ 23 breast fed: no menopause: 51 BCP? hormones: none Family History: Sister: 2 breast cancer in their 20's, both doing well no genetic testing mother: stomach cancer grandmother paternal: stomach maternal aunts: 2 breast cancer maternal first cousins: 5 with breast cancer one diagnosed in her 30's brother: of stomach cancer Past surgical history: 1. gallaldder 2. breast biopsy 3. Christian fundoplication 4. stomach surgery with mesh 5. throat surgery 6. knee replacement past medical history: 1. HTN 2. mixed collagen vascular disease/ resolved 3. 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 Osteoarthritis 5. Neuropathy. Social history: 1. smoker 3 packs cigarettes/day stopped 4 years ago 2. alcohol: none 3. drugs: none Review of systems: constitutional: BMI HEENT: Negative Lungs: Oxygen dependent following pneumonia former smoker Heart: Hypertension GI: Patient status post Estevan fundoplication reflux better but now returned : Negative Musculoskeletal: Osteoarthritis Neurologic: Neuropathy ALLERGY: Seasonal Hematologic: Negative Psychiatric: Negative Objective - Vital Signs Vital signs: Intake & Output 03/30/24 03/31/24 03/31/24 18:59 06:59 18:59 Weight 120.202 kg - Constitutional General appearance: Present: cooperative - EENT Eyes: Present: EOMI ENT: Present: hearing grossly normal - Neck Neck: Present: normal ROM - Respiratory Respiratory: bilateral: CTA - Cardiovascular Rhythm: regular Heart sounds: normal: S1, S2 - Integumentary Integumentary: Present: normal turgor - Musculoskeletal Musculoskeletal: Present: gait normal - Psychiatric Psychiatric: Present: A&O x's 3, appropriate affect, intact judgment & insight - Additional findings Additional findings: Breast exam: BRA: 44D Inspection: Bilateral grade 3 ptosis Palpation: Right breast: Right breast is larger than left breast, multi positional exam no dominant masses or nodules of concern Right axilla: No adenopathy of concern Left breast: Multi positional exam no dominant masses or nodules of concern; mild increased fullness in the upper outer quadrant area which appears to be consistent with breast tissue no discrete lesions of concern Left axilla: No adenopathy of concern Assessment and Plan Assessment: Impression: 1. HTN 2. mixed collagen vascular disease/ resolved 3. 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 Osteoarthritis 5. Neuropathy. 6. High risk breast cancer, Kianna risk evaluation 5 year risk 9.2% lifetime risk 35.2%, patient completed chemoprevention with Dr. Weaver took aromisin for 5 years 7. Recent bilateral mammogram 03-26-23 benign BIRADS 2 8. bilateral MRI 11-08-23 BIRAD 2 9. Fibrocystic breast changes, nothing which would warrant interventional biopsy 10. Bilateral mammogram 03-27-2024 BI-RADS 2 11. 29.1% Plan: 1. Bilateral mammogram in March 2025 with appointment to follow 2. Continue to follow with Dr. Weaver 3. genetic testing 03-18-21 (-) as per report would like to get results 4. 6 months MRI secondary secondary to high lifetime risk of breast cancer with follow up here 5. follow up sooner any questions or concerns Cc: Sakina wSanson
== END ==
LOC: WWCWWP 10:19
PROVIDERS: ATTEND Surgery

== ENCOUNTER → 2024-07-01 | Outpatient (CLI) | payer MEDICARE ==
[2024-07-02 07:10] LABS: HCT 46.1 % (37.2-46.3); HGB 14.3 g/dL (12.0-15.0); MCH 27.9 pg (27.0-32.0); Mean Platelet Volume 10.9 FL (9.5-12.2); NRBC Per 100 WBC 0 X 10*3/uL (0.00-0.01); Platelet Count 349 X 10*3/uL (140-440); RBC 5.12 X 10*6/uL (4.10-5.20); RDW 12.6 % (11.5-14.5); WBC 5.84 X 10*3/uL (4.50-10.00)
[2024-07-02 08:47] LABS: ALT 20 U/L (8-44); AST 17 U/L (13-35); Albumin/Globulin Ratio 1.54 Ratio (1.60-3.17); Alkaline Phosphatase 111 U/L (41-126); Carbon Dioxide 23.4 mmol/L (21.6-31.8); Chloride 107 mmol/L (96-109); Globulin 2.6 g/dL (1.6-3.3); Glucose 94 mg/dL (70-110); LDL Cholesterol,Calculated 141.9 mg/dL (0.0-131.0); Potassium 4.2 mmol/L (3.5-5.5); Sodium 142 mmol/L (135-145); Total Bilirubin 0.5 mg/dL (0.3-1.2); Total Protein 6.6 g/dL (6.2-8.2); VLDL Calculation 11.64 mg/dL (5.00-40.00)
== END | disposition home or self-care (01) ==
LOC: LABWHC1 09:48
PROVIDERS: ATTEND Physician Assistant Medical
DX: I10 Essential (primary) hypertension (principal); J44.9 Chronic obstructive pulmonary disease, unspecified; R73.01 Impaired fasting glucose
CPT/HCPCS: 36415; 80053; 80061; 83036; 84443; 85027

== ENCOUNTER → 2024-10-10 | Outpatient (CLI) | payer MEDICARE ==
--- NOTE | 2024-10-13 09:21 | BMR ---
EXAM DATE: 10/10/2024 EXAM DESCRIPTION: MRI-Breast Bilat (W/WO Contrast) INDICATION: High risk surveillance. COMPARISON: Comparison was made to prior relevant imaging available in PACS TECHNIQUE: Multiplanar multisequence breast MRI was performed prior to and after administration of 12 mL of Gadavist intravenously. Post processing was performed utilizing a [employer] workstation. The technical portion of this study was performed at [facility] with radiological interpretation by [facility] radiology. FINDINGS: There is minimal, symmetric background parenchymal enhancement in breasts that are composed of almost entirely fatty tissue. RIGHT BREAST: Review of the dynamic contrast enhanced series shows no rapidly enhancing masses, suspicious enhancement patterns or other abnormalities. The T2 weighted series show no abnormality. LEFT BREAST: Review of the dynamic contrast enhanced series shows postsurgical changes. No rapidly enhancing masses, suspicious enhancement pattern or other abnormalities. The T2 weighted series show no abnormality. LYMPH NODES: No axillary or internal mammary lymphadenopathy. Incidentals: A 5 mm focal cutaneous enhancement along the inferior aspect of the left breast (series 705, image 136 and series 801, image 73) is likely inflammatory. Recommend direct inspection and clinical follow-up. IMPRESSION: Right breast: BI-RADS Category 1-negative. No MRI evidence of malignancy. Recommendation: MRI screening in 1 year Left breast: BI-RADS Category 2-benign. Postsurgical changes in the breast. No MR evidence of malignancy. Recommendation: MRI screening in 1 year. OVERALL ASSESSMENT- BI-RADS 2 ANNUAL SCREENING BREAST MRI IN ADDITION TO MAMMOGRAPHY IS RECOMMENDED IN PATIENTS WITH LIFETIME RISK OF BREAST CANCER >20% MTDD
== END | disposition home or self-care (01) ==
LOC: RADMRIMAIN 20:15
PROVIDERS: ATTEND Surgery
DX: N60.81 Other benign mammary dysplasias of right breast (principal)
CPT/HCPCS: C8908; A9585; 77049

== ENCOUNTER → 2024-10-10 | Outpatient (CLI) | payer MEDICARE ==
[2024-10-10 10:37] LABS: HCT 45.4 % (37.2-46.3); HGB 14.5 g/dL (12.0-15.0); MCH 28.4 pg (27.0-32.0); MCHC 31.9 g/dL (32.0-37.0); MCV 88.8 FL (80.0-97.0); Mean Platelet Volume 10.3 FL (9.5-12.2); NRBC Per 100 WBC 0 X 10*3/uL (0.00-0.01); Platelet Count 353 X 10*3/uL (140-440); RBC 5.11 X 10*6/uL (4.10-5.20); RDW 13.1 % (11.5-14.5)
[2024-10-10 15:02] LABS: ALT 25 U/L (8-44); AST 20 U/L (13-35); Albumin 4.1 g/dL (3.8-4.9); Albumin/Globulin Ratio 1.41 Ratio (1.60-3.17); Alkaline Phosphatase 117 U/L (41-126); BUN/Creat Ratio 14.86 Ratio (12.00-20.00); Blood Urea Nitrogen 10.4 mg/dL (9.0-27.0); Carbon Dioxide 23.4 mmol/L (21.6-31.8); Chloride 106 mmol/L (96-109); Chol/HDL Ratio 3.98 Ratio; Globulin 2.9 g/dL (1.6-3.3); Glucose 111 mg/dL (70-110); LDL Cholesterol,Calculated 118.6 mg/dL (0.0-131.0); Potassium 4.2 mmol/L (3.5-5.5); Sodium 141 mmol/L (135-145); Total Bilirubin 0.3 mg/dL (0.3-1.2); VLDL Calculation 15.38 mg/dL (5.00-40.00)
== END | disposition home or self-care (01) ==
LOC: LABWHC1 08:20
PROVIDERS: ATTEND Physician Assistant Medical
DX: I10 Essential (primary) hypertension (principal); E11.9 Type 2 diabetes mellitus without complications
CPT/HCPCS: 36415; 80053; 80061; 83036; 85027